=== PATIENT | female | born 1960 | race Caucasian/White ===

== ENCOUNTER 2017-04-22 23:20 | Emergency (ER) | payer OTHER ==
[2017-04-22 23:29] VITALS: RESP 18
--- NOTE | 2017-04-23 00:25 | ED ---
General Adult HPI - General Chief complaint: Extremity Injury, Lower Stated complaint: Ankle Pain Time Seen by Provider: 04/22/17 23:36 Source: patient, family, RN notes reviewed Mode of arrival: ambulatory Limitations: no limitations - History of Present Illness Initial comments: If complaint history of present illness a 56-year-old female with on-again off- again chronic discomfort to her left ankle. She reports she sees a pop at times. No acute direct injury recently. - Related Data Home Medications Medication Instructions Recorded Confirmed Cetirizine HCl [Zyrtec] 10 mg PO DAILY 04/22/17 04/22/17 Insulin Aspart [NovoLOG] 0 unit SQ AC-BID 04/22/17 04/22/17 Insulin Detemir [Levemir] 84 unit SQ BID 04/22/17 04/22/17 Lisinopril-Hctz 20-25 mg 1 tab PO DAILY 04/22/17 04/22/17 [Zestoretic 20-25] Multivitamins, Thera [Multivitamin 1 tab PO DAILY 04/22/17 04/22/17 (formulary)] Simvastatin [Zocor] 20 mg PO HS 04/22/17 04/22/17 metFORMIN HCL 1,000 mg PO BID 04/22/17 04/22/17 Previous Rx's Medication Instructions Recorded Ibuprofen [Motrin] 600 mg PO Q6HR PRN #20 tab 04/23/17 Allergies Allergy/AdvReac Type Severity Reaction Status Date / Time Penicillins Allergy Unknown Verified 04/22/17 23:30 Childhood Sulfa (Sulfonamide Allergy Unknown Verified 04/22/17 23:30 Antibiotics) Childhood Review of Systems ROS Statement: Those systems with pertinent positive or pertinent negative responses have been documented in the HPI. Review of systems no other complaints other joints although occasionally her right ankle hurts as well. All systems were reviewed otherwise negative. No significant past medical problems she has ALLERGIES to penicillin sulfa. ROS Other: All systems not noted in ROS Statement are negative. Past Medical History Past Medical History: Cancer, Diabetes Mellitus, Hypertension History of Any Multi-Drug Resistant Organisms: None Reported Past Surgical History: Hernia Repair, Hysterectomy Additional Past Surgical History / Comment(s): bladder suspension Past Psychological History: No Psychological Hx Reported Smoking Status: Never smoker Past Alcohol Use History: None Reported Past Drug Use History: None Reported General Exam - General Exam Comments Initial Comments: The patient is awake and alert, in no distress, and does not appear acutely ill. Musculoskeletal: Neurological: no neuro deficit Limitations: no limitations Course Vital Signs 04/22/17 23:25 Temperature 98.3 F Pulse Rate 95 Respiratory 18 Rate Blood Pressure 195/84 O2 Sat by Pulse 99 Oximetry Medical Decision Making - Medical Decision Making ice the ankle, Ibuprofen for pain Disposition Clinical Impression: Sprain of left ankle Disposition: HOME SELF-CARE Condition: Fair Instructions: Ankle Sprain (ED) Additional Instructions: ice elevate ibuprofen for pain Prescriptions: Ibuprofen [Motrin] 600 mg PO Q6HR PRN #20 tab PRN Reason: Pain Referrals: Estiven Pastrana MD [Primary Care Provider] - 1-2 days Time of Disposition: 00:29
[2017-04-23 00:40] VITALS: BP 165/81; PULSE 92; TEMP 98
--- NOTE | 2017-04-23 00:46 | XR ---
EXAM: XR Left Ankle Complete, 3 or More Views CLINICAL HISTORY: Reason: Pain TECHNIQUE: Frontal, lateral and oblique views of the left ankle. COMPARISON: No relevant prior studies available. FINDINGS: Bones/joints: No acute fracture. No dislocation. Plantar calcaneal spur. Soft tissues: No radiopaque foreign body. IMPRESSION: No acute fracture.
== END 2017-04-23 00:39 | disposition home or self-care (01) ==
LOC: EC 23:20
DX: S93.402A Sprain of unspecified ligament of left ankle, initial encounter (principal); E11.9 Type 2 diabetes mellitus without complications; I10 Essential (primary) hypertension; Z79.4 Long term (current) use of insulin; Z79.899 Other long term (current) drug therapy; Z88.0 Allergy status to penicillin; Z88.2 Allergy status to sulfonamides; X50.1XXA Overexertion from prolonged static or awkward postures, initial encounter
CPT/HCPCS: 99283

== ENCOUNTER → 2017-05-20 | Outpatient (CLI) | payer OTHER ==
--- NOTE | 2017-05-20 22:00 | MR ---
EXAMINATION TYPE: MR ankle LT wo con DATE OF EXAM: 05/20/2017 COMPARISON: Left ankle x-ray April 22, 2017 HISTORY: Lt ankle pain and clicking x 3 months per patient. Standard multiplanar, multisequence MRI departmental protocol Multiplanar, multisequence images of the left ankle were acquired. FINDINGS: Distal Achilles tendon is intact. There is moderate size inferior calcaneal spur redemonstr ated. No inflammatory change at level of plantar fascia is identified. The peroneus longus tendon shows asymmetric mild enlargement with increased signal at level of the an terior calcaneus as crosses over with surrounding fluid. Findings are consistent with a moderate tend initis/tenosynovitis. No retracted tear is seen. There is some focal surrounding fluid at level of PT medial malleolus on axial image 23. There is add itional more prominent surrounding fluid seen best sagittal image 15 at level of the talocalcaneal ju nction. This tendon becomes thickened distal to this on axial images. Extensor tendons anteriorly are intact. The anterior tibiofibular and anterior talofibular ligaments are intact. Ankle mortise symmetry is pr eserved. There is loss of normal sinus tarsi fat. There is heterogeneous increased T2 signal in the anterior t alus near level of the anterior talocalcaneal articulation. There is diffuse increased T2 signal in t he tarsal navicular bone with focal cystic change in the superior navicular on sagittal image 11. The re is heterogeneous increased signal in the lateral aspect of the medial cuneiform along dorsal surfa ce seen best on sagittal image 12. There is subchondral cystic change at base of fourth metatarsal. IMPRESSION: 1. Moderate tendinitis/tenosynovitis involving PL tendon. 2. Moderate to severe tendinitis and surrounding inflammatory change of the PT tendon. 3. 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 Clinical correlation advised. 4. Abnormal osseous contusion or bone marrow edema involving the anterior talus, the navicular bone d iffusely, and the dorsal lateral aspect of the medial cuneiform suggests reactive stress injury at th is level.
== END ==
LOC: RADMRIMAIN 14:05
PROVIDERS: ATTEND Internal Medicine
DX: M77.52 Other enthesopathy of left foot and ankle (principal)

== ENCOUNTER → 2017-07-10 | Outpatient (CLI) | payer OTHER ==
[2017-07-10 18:54] LABS: Blood Urea Nitrogen 30 mg/dL (7-17); Non-African American GFR(MDRD) >60 (>60 ml/min/1.73 sqM)
--- NOTE | 2017-07-11 06:36 | CT ---
EXAMINATION TYPE: CT soft tissue neck w con DATE OF EXAM: 07/10/2017 HISTORY: Left sided neck swelling and throat soreness COMPARISON: NONE CT DLP: 660.1 mGycm. Automated Exposure Control for Dose Reduction was Utilized. TECHNIQUE: CT scan of the neck is performed with IV Contrast, patient injected with 100 mL of Omnipa que 300, axial images are obtained, coronal and sagittal reformatted images are reviewed. FINDINGS: Airway: Left thyroid lobe is enlarged due to large hypodense nodule measuring 3.2 cm transversely by 4.3 cm AP diameter by 4.5 cm craniocaudal dimension on axial image 42 and coronal image 40. There is mass effect on trachea which is deviated to right of midline. Some smaller calcifications or calcifie d nodules and hypodense nodules are seen in thyroid isthmus and right lobe of thyroid. There are some prominent lymph nodes just superior to this dominant left thyroid nodule, largest measures 1.5 x 1. 0 cm on axial image 54 just anterior to common carotid artery and internal jugular vein. Parotid/submandibular glands: No gross abnormality seen. Carotid/Vascular Structures: There is moderate to severe calcified plaque at left carotid bulb, signi ficant stenosis at this level cannot be excluded extending into left internal carotid artery. There i s more mild to moderate calcified plaque at right carotid bulb. Follow-up advised. Osseous Structures: There is reversal of normal cervical curvature. There is mild to moderate disc sp salvatore narrowing and spurring C5-C6 and C6-C7 levels. Other: Main pulmonary artery is dilated at 3.2 cm on axial image 6, CT findings raising concern for u nderlying pulmonary artery hypertension. Correlate clinically. There is partial visualization of right breast subpectoral implant. IMPRESSION: There is a dominant 4.5 cm left thyroid nodule causing mass effect on trachea. Adjacent p rominent superior lymph nodes are noted. Neoplasm cannot be excluded. Further investigation with ultr asound guided fine-needle aspiration is advised.
== END | disposition home or self-care (01) ==
LOC: RADCTMAIN 17:54
PROVIDERS: ATTEND Internal Medicine
DX: E04.1 Nontoxic single thyroid nodule (principal); J39.8 Other specified diseases of upper respiratory tract
CPT/HCPCS: 82565; 84520; 70491; 36415; Q9967

== ENCOUNTER → 2017-09-13 | Outpatient (CLI) | payer OTHER ==
[2017-09-13 19:12] LABS: Blood Urea Nitrogen 34 mg/dL (7-17); Non-African American GFR(MDRD) >60 (>60 ml/min/1.73 sqM)
--- NOTE | 2017-09-13 23:20 | CT ---
EXAMINATION TYPE: CT abdomen w con DATE OF EXAM: 09/13/2017 COMPARISON: 08/17/2012 HISTORY: 56-year-old female gastric tube is leaking/pt had it put in 3 wks ago. hx thyroid cancer. Ev aluate for gastric fistula. TECHNIQUE: Contiguous axial scanning of the abdomen following administration of 100 ml Omnipaque 300 IV contrast. Delayed images through the kidneys and coronal/sagittal reconstructions performed. CT DLP: 1796.4 mGycm Automated exposure control for dose reduction was used. FINDINGS: Right breast prosthesis is demonstrated. Heart is normal size without pericardial effusion. Strandy a telectasis at the left base. No pleural effusion. Liver enlarged measuring 20 cm craniocaudal. No focal liver lesion seen. No biliary ductal dilatation . Portal venous system is patent. Slightly lower attenuation of the liver as compared to the spleen o n portal venous phase suggesting fatty infiltration. Gallbladder, adrenal glands, lobulated kidneys, and pancreas appear within normal limits. Spleen is mildly enlarged measuring 14.7 cm on axial series. No dilated small bowel, free fluid, or free air. Prior right-sided ventral abdominal wall hernia mesh repair. A PEG tube is present. The PEG tube balloon is located within the within the stomach. There is some a ir seen interposed between the gastric wall and inflated balloon along its superior aspect and small amount of air tracking along the catheter, referred to sagittal image 91 and 95, respectively regardi ng these findings. There is some thickening along the inferior margin of the catheter tract and some focal fat stranding around the stomach at the site where the PEG tube enters the stomach. No extravasation of contrast. No free air. Bones: Small fatty umbilical hernia. Degenerative changes mid to lower lumbar spine. No osseous destr uctive process. IMPRESSION: 1. FOCAL FAT STRANDING AROUND THE STOMACH AT THE SITE WHERE THE PEG TUBE ENTERS THE STOMACH CHARACTER IZED SUGGESTS SOME LOCALIZED INFLAMMATION. NO EXTRAVASATION OF CONTRAST OR FREE AIR. 2. SOME AIR INTERPOSED BETWEEN THE INFLATED BALLOON AND ANTERIOR GASTRIC WALL. CONSIDER PULLING BACK ON THE PEG TUBE TO MAKE A TIGHTER SEAL. 3. IN ADDITION, SMALL FOCUS OF AIR TRACKING ALONG THE INFERIOR ASPECT OF THE PEG TUBE CATHETER RAISES THE POSSIBILITY OF SOME LEAKING GASTRIC AIR. 4. HEPATOSPLENOMEGALY. CLINICALLY CORRELATE. SUSPECT UNDERLYING FATTY INFILTRATION OF THE LIVER.
== END | disposition home or self-care (01) ==
LOC: RADCTMAIN 18:30
PROVIDERS: ATTEND Surgery Plastic and Reconstructive Surgery
DX: R16.2 Hepatomegaly with splenomegaly, not elsewhere classified (principal); Z93.1 Gastrostomy status
CPT/HCPCS: 82565; 84520; 74160; 36415; Q9967

== ENCOUNTER 2017-09-26 09:11 | Emergency (ER) | payer OTHER ==
[2017-09-26 09:18] VITALS: PULSE 89; RESP 16; TEMP 97.6
--- NOTE | 2017-09-26 09:27 | ED ---
Recheck HPI - General Chief Complaint: Recheck/Abnormal Lab/Rx Stated Complaint: Feeding tube plugged Time Seen by Provider: 09/26/17 09:23 Source: patient, RN notes reviewed, old records reviewed Mode of arrival: EMS Limitations: no limitations - History of Present Illness Initial Comments: 56-year-old female presents today chief complaint of her feeding tube being clogged this morning. She reports that she try to put her pills within her feeding tube and she states that they became lodged. She reports she try to flush it with water, but was unable to. Patient states that she had his feeding tube placed by Dr. Ferro approximately 6 weeks ago. She reports that she only started using the feeding tube last 2 weeks. She denies any fever or chills, denies any change in bowel habits. - Related Data Home Medications Medication Instructions Recorded Confirmed Cetirizine HCl [Zyrtec] 10 mg PEG/G-TUBE DAILY 04/22/17 09/26/17 Insulin Aspart [NovoLOG See Protocol SQ AC-BID 04/22/17 09/26/17 (formulary)] Lisinopril-Hctz 20-25 mg 1 tab PEG/G-TUBE DAILY 04/22/17 09/26/17 [Zestoretic 20-25] Simvastatin [Zocor] 20 mg PEG/G-TUBE HS 04/22/17 09/26/17 metFORMIN HCL 1,000 mg PEG/G-TUBE BID 04/22/17 09/26/17 Allopurinol [Zyloprim] 100 mg PEG/G-TUBE DAILY 07/14/17 09/26/17 Levothyroxine Sodium [Synthroid] 25 mcg PEG/G-TUBE DAILY 07/14/17 09/26/17 Acetaminophen [Tylenol Extra 2 tab PEG/G-TUBE Q6H PRN 08/25/17 09/26/17 Strength] HYDROcodone/APAP [[place] Elixir 15 - 25 ml PEG/G-TUBE ACHS 09/15/17 09/26/17 7.5-325Mg/15Ml] Ondansetron HCl [Zofran Oral Soln] 4 mg PEG/G-TUBE Q6H PRN 09/15/17 09/26/17 Levofloxacin [Levaquin] 500 mg PEG/G-TUBE DAILY 09/26/17 09/26/17 Potassium Chloride ER [K-Dur 20] 20 meq PEG/G-TUBE BID 09/26/17 09/26/17 Previous Rx's Medication Instructions Recorded Fluconazole [Diflucan] 200 mg PO DAILY #5 tab 09/21/17 Insulin Glargine,Hum.rec.anlog 51 unit SQ BID #0 09/21/17 [Basaglar Kwikpen U-100] Allergies Allergy/AdvReac Type Severity Reaction Status Date / Time Penicillins Allergy Unknown Verified 09/26/17 09:23 Childhood Sulfa (Sulfonamide Allergy Unknown Verified 09/26/17 09:23 Antibiotics) Childhood Review of Systems ROS Statement: Those systems with pertinent positive or pertinent negative responses have been documented in the HPI. ROS Other: All systems not noted in ROS Statement are negative. Past Medical History Past Medical History: Cancer, Diabetes Mellitus, Hyperlipidemia, Hypertension, Osteoarthritis (OA), Thyroid Disorder Additional Past Medical History / Comment(s): Leukemia at age 13 yrs with chemo and radiation, R breast cancer with mastectomy only, uterine cancer with hysterectomy only, basal cell skin cancer removed from head early 2016 with chemotherapy, current thyroid cancer with difficulty swallowing/deviated airway being treated with chemo/radiation, current peg tube site infection per pt, gout bilateral feet/toes, past L wrist fracture, arthritis bilateral hips, UTIs. History of Any Multi-Drug Resistant Organisms: None Reported Past Surgical History: Appendectomy, Breast Surgery, Hernia Repair, Hysterectomy Additional Past Surgical History / Comment(s): 08/25/17 EGD with peg tube, R mastectomy, basal cell skin cancer removed from head, total hysterectomy, bladder suspension, colonoscopy Past Anesthesia/Blood Transfusion Reactions: Postoperative Nausea & Vomiting ( PONV) Additional Past Anesthesia/Blood Transfusion Reaction / Comment(s): Pt has received blood without reaction. Past Psychological History: No Psychological Hx Reported Smoking Status: Never smoker Past Alcohol Use History: None Reported Past Drug Use History: None Reported - Past Family History Sister(s) Family Medical History: Thyroid Disorder Additional Family Medical History / Comment(s): Thyroid CA Mother Family Medical History: Diabetes Mellitus Father Additional Family Medical History / Comment(s): father has back problems. General Exam - General Exam Comments Initial Comments: this patient is a 56-year-old female. No acute distress. Limitations: no limitations General appearance: alert, in no apparent distress Head exam: Present: atraumatic, normocephalic, normal inspection Eye exam: Present: normal appearance, PERRL, EOMI. Absent: scleral icterus, conjunctival injection, periorbital swelling ENT exam: Present: normal exam Neck exam: Present: normal inspection. Absent: tenderness, meningismus, lymphadenopathy Respiratory exam: Present: normal lung sounds bilaterally. Absent: respiratory distress, wheezes, rales, rhonchi, stridor Cardiovascular Exam: Present: regular rate, normal rhythm, normal heart sounds. Absent: systolic murmur, diastolic murmur, rubs, gallop, clicks GI/Abdominal exam: Present: soft, normal bowel sounds, other (feeding tube in place). Absent: distended, tenderness, guarding, rebound, rigid Extremities exam: Present: normal inspection, full ROM, normal capillary refill. Absent: tenderness, pedal edema, joint swelling, calf tenderness Psychiatric exam: Present: normal mood Skin exam: Present: warm, dry, intact, normal color. Absent: rash Course Vital Signs 09/26/17 09:14 Temperature 97.6 F Pulse Rate 89 Respiratory 16 Rate Medical Decision Making - Medical Decision Making 56-year-old female with a history of gastric feeding tube presents with a clot after she put her pills in it. Patient has no erythema around the site. No abdominal tenderness. Patient's feeding tube was flushed with cocoa, there was full function of the feeding tube afterwards. Patient will be discharged home at this time. Discussed return to the emergency department if any alarming signs symptoms occur. Patient agrees treatment plan will comply. Disposition Clinical Impression: Feeding tube blocked Disposition: HOME SELF-CARE Condition: Good Instructions: How to Use and Care for Your PEG Tube (ED) Additional Instructions: patient advised to follow-up with her primary care physician, this does recur again try to use Coke to dissolve the particles that are blocked. Return to emergency department if any alarming signs or symptoms occur. Referrals: Estiven Pastrana MD [Primary Care Provider] - 1-2 days Time of Disposition: 09:35
== END 2017-09-26 09:42 | disposition home or self-care (01) ==
LOC: EC 09:11
DX: K94.23 Gastrostomy malfunction (principal); E11.9 Type 2 diabetes mellitus without complications; E78.5 Hyperlipidemia, unspecified; I10 Essential (primary) hypertension; E07.9 Disorder of thyroid, unspecified; Z85.6 Personal history of leukemia; Z85.42 Personal history of malignant neoplasm of other parts of uterus; Z85.828 Personal history of other malignant neoplasm of skin; Z85.3 Personal history of malignant neoplasm of breast; Z85.850 Personal history of malignant neoplasm of thyroid; Z90.49 Acquired absence of other specified parts of digestive tract; Z98.890 Other specified postprocedural states; Z88.0 Allergy status to penicillin; Z88.2 Allergy status to sulfonamides; Z79.4 Long term (current) use of insulin; Z79.84 Long term (current) use of oral hypoglycemic drugs; Z79.899 Other long term (current) drug therapy; Y83.8 Other surgical procedures as the cause of abnormal reaction of the patient, or of later complication, without mention of misadventure at the time of the procedure
CPT/HCPCS: 99283

== ENCOUNTER 2017-09-28 18:22 | Inpatient (IN) | payer OTHER ==
[2017-09-28] MEDS ORDERED: SODIUM CHLORIDE 0.9% 1,000 ML IV STA ×2 (18:44→21:26)
[2017-09-28] MEDS ORDERED: RX INFO: IV CONTRAST WAS GIVEN 1 EACH MISC MISCELLANE PRN (18:50)
--- NOTE | 2017-09-28 18:52 | ED ---
General Adult HPI - General Source: EMS, RN notes reviewed, old records reviewed Mode of arrival: EMS Limitations: no limitations <Dane Davies - Last Filed: 09/28/17 21:27> <Dwight Crowder - Last Filed: 09/28/17 21:40> - General Chief complaint: Abdominal Pain Stated complaint: Abd Pain Time Seen by Provider: 09/28/17 18:35 - History of Present Illness Initial comments: Patient 56-year-old female seen a few past medical history for thyroid cancer, presenting to the emergency room today by EMS, the chief complaint of increased abdominal pain on the left side. She does not that she had a feeding tube placed approximately 4 weeks ago. States she's had some discomfort in the area since. States over the last day and a half his had increased sharp pains locally to left side of the abdomen. Patient does admit that it's worse with movements. Patient does not that she had radiation treatment earlier today. Also admits that she had 2 units of blood for anemia transfused. Patient denies any liquids associated symptoms. Patient denies any recent fever, chills , shortness of breath, chest pain, back pain, nausea or vomiting, numbness or tingling, dysuria or hematuria, constipation or diarrhea, headaches or visual changes, or any other complaints. (Dane Davies) - Related Data Home Medications Medication Instructions Recorded Confirmed Cetirizine HCl [Zyrtec] 10 mg PEG/G-TUBE DAILY 04/22/17 09/28/17 Insulin Aspart [NovoLOG See Protocol SQ AC-BID 04/22/17 09/28/17 (formulary)] Lisinopril-Hctz 20-25 mg 1 tab PEG/G-TUBE DAILY 04/22/17 09/28/17 [Zestoretic 20-25] Simvastatin [Zocor] 20 mg PEG/G-TUBE HS 04/22/17 09/28/17 metFORMIN HCL 1,000 mg PEG/G-TUBE BID 04/22/17 09/28/17 Allopurinol [Zyloprim] 100 mg PEG/G-TUBE DAILY 07/14/17 09/28/17 Levothyroxine Sodium [Synthroid] 25 mcg PEG/G-TUBE DAILY 07/14/17 09/28/17 Acetaminophen [Tylenol Extra 1,000 mg PEG/G-TUBE Q6H PRN 08/25/17 09/28/17 Strength] HYDROcodone/APAP [[place] Elixir 15 - 25 ml PEG/G-TUBE ACHS 09/15/17 09/28/17 7.5-325Mg/15Ml] Ondansetron HCl [Zofran Oral Soln] 4 mg PEG/G-TUBE Q6H PRN 09/15/17 09/28/17 Potassium Chloride ER [K-Dur 20] 20 meq PEG/G-TUBE BID 09/26/17 09/28/17 Previous Rx's Medication Instructions Recorded Insulin Glargine,Hum.rec.anlog 51 unit SQ BID #0 09/21/17 [Basaglar Kwikpen U-100] Allergies Allergy/AdvReac Type Severity Reaction Status Date / Time Penicillins Allergy Unknown Verified 09/28/17 18:36 Childhood Sulfa (Sulfonamide Allergy Unknown Verified 09/28/17 18:36 Antibiotics) Childhood Review of Systems ROS Other: All systems not noted in ROS Statement are negative. <Dane Davies - Last Filed: 09/28/17 21:27> ROS Other: All systems not noted in ROS Statement are negative. <Dwight Crowder - Last Filed: 09/28/17 21:40> ROS Statement: Those systems with pertinent positive or pertinent negative responses have been documented in the HPI. Past Medical History Past Medical History: Cancer, Diabetes Mellitus, Hyperlipidemia, Hypertension, Osteoarthritis (OA), Thyroid Disorder Additional Past Medical History / Comment(s): Leukemia at age 13 yrs with chemo and radiation, R breast cancer with mastectomy only, uterine cancer with hysterectomy only, basal cell skin cancer removed from head early 2016 with chemotherapy, current thyroid cancer with difficulty swallowing/deviated airway being treated with chemo/radiation, current peg tube site infection per pt, gout bilateral feet/toes, past L wrist fracture, arthritis bilateral hips, UTIs. History of Any Multi-Drug Resistant Organisms: None Reported Past Surgical History: Appendectomy, Breast Surgery, Hernia Repair, Hysterectomy Additional Past Surgical History / Comment(s): 08/25/17 EGD with peg tube, R mastectomy, basal cell skin cancer removed from head, total hysterectomy, bladder suspension, colonoscopy Past Anesthesia/Blood Transfusion Reactions: Postoperative Nausea & Vomiting ( PONV) Additional Past Anesthesia/Blood Transfusion Reaction / Comment(s): Pt has received blood without reaction. Past Psychological History: No Psychological Hx Reported Smoking Status: Never smoker - Past Family History Sister(s) Family Medical History: Thyroid Disorder Additional Family Medical History / Comment(s): Thyroid CA Mother Family Medical History: Diabetes Mellitus Father Additional Family Medical History / Comment(s): father has back problems. <Dane Davies - Last Filed: 09/28/17 21:27> General Exam Limitations: no limitations <Dane Davies - Last Filed: 09/28/17 21:27> <Dwight Crowder - Last Filed: 09/28/17 21:40> - General Exam Comments Initial Comments: General: The patient is awake and alert, in no distress, and does not appear acutely ill. Eye: Pupils are equal, round and reactive to light, extra-ocular movements are intact. No nystagmus. There is normal conjunctiva bilaterally. No signs of icterus. Ears, nose, mouth and throat: There are moist mucous membranes and no oral lesions. Neck: The neck is supple, there is no tenderness or JVD. Cardiovascular: There is a regular rate and rhythm. No murmur, rub or gallop is appreciated. Respiratory: Lungs are clear to auscultation, respirations are non-labored, breath sounds are equal. No wheezes, stridor, rales, or rhonchi. Gastrointestinal: PEG tube placement on the left. No sign of redness swelling. No inflammatory changes in skin. No drainage or discharge. Patient does have tenderness locally around the site and left lower quadrant as well. No rebound tenderness. No guarding. No CVA tenderness. Musculoskeletal: Normal ROM, no tenderness. Strength 5/5. Sensation intact. Pulses equal bilaterally 2+. Neurological: A&O x 3. CN II-XII intact, There are no obvious motor or sensory deficits. Coordination appears grossly intact. Speech is normal. Skin: Skin is warm and dry and no rashes or lesions are noted. Psychiatric: Cooperative, appropriate mood & affect, normal judgment. (Dane Davies) Course <Dane Davies - Last Filed: 09/28/17 21:27> <Dwight Crowder - Last Filed: 09/28/17 21:40> Vital Signs 09/28/17 09/28/17 18:30 19:11 Temperature 97.8 F Pulse Rate 89 86 Respiratory 18 18 Rate Blood Pressure 133/61 150/75 O2 Sat by Pulse 96 92 L Oximetry - Reevaluation(s) Reevaluation #1: 09/28/17 21:39 PA supervision: I did personally do a [id number] evaluation the patient and did discuss the findings with her. Patient has nonspecific abdominal pain around the PEG tube site. She is only taking fluids through the PEG tube she did have a transfusion recently she did have radiation therapy today. She is scheduled again tomorrow and have radiation therapy. She has abdominal pain still CAT scan was negative for any acute processes. She does show evidence of dehydration as well as lactic acidosis. Visual be admitted for IV fluids and continued monitoring. The case is to be discussed with Dr. Pastrana. I do agree with the assessment and plan. (Dwight Crowder) Medical Decision Making - Lab Data Result diagrams: 09/28/17 18:58 09/28/17 18:58 <Dane Davies - Last Filed: 09/28/17 21:27> - Lab Data Result diagrams: 09/28/17 18:58 09/28/17 18:58 <Dwight Crowder - Last Filed: 09/28/17 21:40> - Medical Decision Making Patient reexamined at this time shows no signs of distress resting comfortable. Does some improvement after pain medication here in emergency room. Her CT of the abdomen has been reviewed showing no acute abnormalities. Results were discussed with the patient. Labs been reviewed hemoglobin 9.5 day. Does show some mild dehydration. Patient given liter bolus with emergency room. Lactic acid 2.6. No source of infection at this time. Case discussed and seen by [facility] physician . We will admit the patient with consult to Dr. Ferro, Dr. Hendricks, Dr. Berg. (Dane Davies) - Lab Data Lab Results 09/28/17 09/28/17 09/28/17 Range/Units 18:58 18:58 18:58 WBC 7.7 (3.8-10.6) k/uL RBC 4.11 (3.80-5.40) m/uL Hgb 9.5 L D (11.4-16.0) gm/dL Hct 30.5 L (34.0-46.0) % MCV 74.4 L (80.0-100.0) fL MCH 23.2 L (25.0-35.0) pg MCHC 31.2 (31.0-37.0) g/dL RDW 20.4 H (11.5-15.5) % Plt Count 302 (150-450) k/uL Neutrophils % 91 % Lymphocytes % 4 % Monocytes % 3 % Eosinophils % 1 % Basophils % 0 % Neutrophils # 7.1 (1.3-7.7) k/uL Lymphocytes # 0.3 L (1.0-4.8) k/uL Monocytes # 0.2 (0-1.0) k/uL Eosinophils # 0.1 (0-0.7) k/uL Basophils # 0.0 (0-0.2) k/uL Hypochromasia Marked Poikilocytosis Moderate Anisocytosis Moderate Microcytosis Moderate PT 13.6 H (9.0-12.0) sec INR 1.5 H (<1.2) APTT 24.1 (22.0-30.0) sec Sodium 138 (137-145) mmol/L Potassium 4.6 (3.5-5.1) mmol/L Chloride 92 L (98-107) mmol/L Carbon Dioxide 32 H (22-30) mmol/L Anion Gap 14 mmol/L BUN 25 H (7-17) mg/dL Creatinine 0.90 (0.52-1.04) mg/dL Est GFR (MDRD) Af Amer >60 (>60 ml/min/1.73 sqM) Est GFR (MDRD) Non-Af >60 (>60 ml/min/1.73 sqM) Glucose 179 H (74-99) mg/dL Plasma Lactic Acid Jordin (0.7-2.0) mmol/L Calcium 8.5 (8.4-10.2) mg/dL Total Bilirubin 0.6 (0.2-1.3) mg/dL AST 21 (14-36) U/L ALT 25 (9-52) U/L Alkaline Phosphatase 86 (38-126) U/L Total Protein 6.4 (6.3-8.2) g/dL Albumin 3.4 L (3.5-5.0) g/dL Amylase 54 (30-110) U/L Lipase 57 (23-300) U/L Urine Color Urine Appearance (Clear) Urine pH (5.0-8.0) Ur Specific Dante (1.001-1.035) Urine Protein (Negative) Urine Glucose (UA) (Negative) Urine Ketones (Negative) Urine Blood (Negative) Urine Nitrite (Negative) Urine Bilirubin (Negative) Urine Urobilinogen (<2.0) mg/dL Ur Leukocyte Esterase (Negative) 09/28/17 09/28/17 Range/Units 18:58 18:58 WBC (3.8-10.6) k/uL RBC (3.80-5.40) m/uL Hgb (11.4-16.0) gm/dL Hct (34.0-46.0) % MCV (80.0-100.0) fL MCH (25.0-35.0) pg MCHC (31.0-37.0) g/dL RDW (11.5-15.5) % Plt Count (150-450) k/uL Neutrophils % % Lymphocytes % % Monocytes % % Eosinophils % % Basophils % % Neutrophils # (1.3-7.7) k/uL Lymphocytes # (1.0-4.8) k/uL Monocytes # (0-1.0) k/uL Eosinophils # (0-0.7) k/uL Basophils # (0-0.2) k/uL Hypochromasia Poikilocytosis Anisocytosis Microcytosis PT (9.0-12.0) sec INR (<1.2) APTT (22.0-30.0) sec Sodium (137-145) mmol/L Potassium (3.5-5.1) mmol/L Chloride (98-107) mmol/L Carbon Dioxide (22-30) mmol/L Anion Gap mmol/L BUN (7-17) mg/dL Creatinine (0.52-1.04) mg/dL Est GFR (MDRD) Af Amer (>60 ml/min/1.73 sqM) Est GFR (MDRD) Non-Af (>60 ml/min/1.73 sqM) Glucose (74-99) mg/dL Plasma Lactic Acid Jordin 2.6 H* (0.7-2.0) mmol/L Calcium (8.4-10.2) mg/dL Total Bilirubin (0.2-1.3) mg/dL AST (14-36) U/L ALT (9-52) U/L Alkaline Phosphatase (38-126) U/L Total Protein (6.3-8.2) g/dL Albumin (3.5-5.0) g/dL Amylase (30-110) U/L Lipase (23-300) U/L Urine Color Light Yellow Urine Appearance Clear (Clear) Urine pH 5.5 (5.0-8.0) Ur Specific Dante 1.006 (1.001-1.035) Urine Protein Negative (Negative) Urine Glucose (UA) Negative (Negative) Urine Ketones Negative (Negative) Urine Blood Negative (Negative) Urine Nitrite Negative (Negative) Urine Bilirubin Negative (Negative) Urine Urobilinogen <2.0 (<2.0) mg/dL Ur Leukocyte Esterase Negative (Negative) Disposition Time of Disposition: 21:29 <Dane Davies - Last Filed: 09/28/17 21:27> <Dwight Crowder - Last Filed: 09/28/17 21:40> Clinical Impression: Abdominal pain, Lactic acidosis Referrals: Estiven Pastrana MD [Primary Care Provider] - 1-2 days
[2017-09-28 19:18] LABS: Anisocytosis Moderate; Basophils % (A) 0 %; Eosinophils # (A) 0.1 k/uL (0-0.7); Eosinophils % (A) 1 %; HCT 30.5 % (34.0-46.0); Hypochromasia Marked; Lymphocytes # (A) 0.3 k/uL (1.0-4.8); Lymphocytes % (A) 4 %; MCH 23.2 pg (25.0-35.0); MCHC 31.2 g/dL (31.0-37.0); MCV 74.4 fL (80.0-100.0); Microcytosis Moderate; Monocytes # (A) 0.2 k/uL (0-1.0); Monocytes % (A) 3 %; Neutrophils # (A) 7.1 k/uL (1.3-7.7); Neutrophils % (A) 91 %; Platelet Count 302 k/uL (150-450); Poikilocytosis Moderate; RBC 4.11 m/uL (3.80-5.40); RDW 20.4 % (11.5-15.5); WBC 7.7 k/uL (3.8-10.6)
[2017-09-28 19:19] LABS: Appearance,Urine Clear (Clear); Bilirubin,Urine Negative (Negative); Blood,Urine Negative (Negative); Color,Urine Light Yellow; Glucose,Urine (UA) Negative (Negative); Ketones,Urine Negative (Negative); Leukocyte Esterase,Urine Negative (Negative); Nitrite,Urine Negative (Negative); PH, Urine 5.5 (5.0-8.0); Protein,Urine Negative (Negative); Specific Gravity,Urine 1.006 (1.001-1.035); Urobilinogen,Urine <2.0 mg/dL (<2.0)
[2017-09-28 19:26] LABS: ALT 25 U/L (9-52); AST 21 U/L (14-36); Albumin 3.4 g/dL (3.5-5.0); Alkaline Phosphatase 86 U/L (38-126); Amylase 54 U/L (30-110); Anion Gap 14 mmol/L; Blood Urea Nitrogen 25 mg/dL (7-17); Calcium 8.5 mg/dL (8.4-10.2); Carbon Dioxide 32 mmol/L (22-30); Chloride 92 mmol/L (98-107); Glucose 179 mg/dL (74-99); HGB 9.5 gm/dL (11.4-16.0); Lipase 57 U/L (23-300); Potassium 4.6 mmol/L (3.5-5.1); Sodium 138 mmol/L (137-145); Total Bilirubin 0.6 mg/dL (0.2-1.3); Total Protein 6.4 g/dL (6.3-8.2)
[2017-09-28 19:42] LABS: INR 1.5 (<1.2); Partial Thromboplastin Time 24.1 sec (22.0-30.0); Prothrombin Time 13.6 sec (9.0-12.0)
[2017-09-28] MEDS ORDERED: HYDROmorphone 1 MG/ML 1 ML SYRINGE IVP STA (20:29)
[2017-09-28] MEDS ORDERED: ONDANSETRON 4 MG/2 ML VIAL IVP STA (20:29)
--- NOTE | 2017-09-28 20:54 | CT ---
EXAMINATION TYPE: CT abdomen pelvis w con DATE OF EXAM: 09/28/2017 REFERENCE: Previous study dated 09/13/2017. HISTORY: L side abd pain CT DLP: 1792 mGy Automated exposure control for dose reduction was used. TECHNIQUE: Helical acquisition through the abdomen and pelvis was obtained following the oral ingesti on of without Oral Contrast and following intravenous administration of 100 mL of Omnipaque 300. The data was reformatted in axial, coronal and sagittal projections. FINDINGS: There has been a previous right-sided mastectomy with implant placement. There is mild atelectatic change present at the left lung base. There is no pleural or pericardial fl uid. The heart is mildly enlarged. Within the abdomen, the liver is enlarged measuring 19 cm. This is largely due to a Missy's lobe. Th ere is mild splenomegaly. The gallbladder is unremarkable. Both adrenal glands are unremarkable. Both kidneys demonstrate function and appear morphologically normal. The pancreas is unremarkable. There is a PEG tube present within the stomach. There is no significant retroperitoneal, iliac or inguinal adenopathy. The bladder is unremarkable. The uterus and ovaries are not visualized. There is no significant diverticular change and there is no radiographic evidence of diverticulitis. The appendix is not visualized. Small bowel loops are normal. There have been multiple hernia repairs. There continues to be a tiny umbilical hernia containing fat only with a mouth measuring 1.1 cm. No free fluid and no free air is seen. There is degenerative disc disease, facet arthropathy and hypertrophic spondylosis within the spine. IMPRESSION: 1. HEPATOSPLENOMEGALY. 2. MILD CARDIOMEGALY. 3. POSTSURGICAL CHANGE. 4. DEGENERATIVE CHANGE WITHIN THE SPINE.
[2017-09-28] MEDS ORDERED: ONDANSETRON 4 MG/2 ML VIAL IVP PRN (21:32)
[2017-09-28] MEDS ORDERED: LORazepam 2 MG/ML INJ IV PRN (21:32)
[2017-09-28] MEDS ORDERED: NALOXONE 0.4 MG/ML 1 ML VIAL IV PRN (21:32)
[2017-09-28 21:59] VITALS: RESP 16
[2017-09-28] MEDS: HYDROmorphone 2 MG/ML 1 ML SYRINGE IVP PRN (23:01)
[2017-09-29 03:20] VITALS: BMI 36.3
[2017-09-29] MEDS: HYDROmorphone 2 MG/ML 1 ML SYRINGE IVP PRN ×4 (04:55→16:26)
[2017-09-29 07:39] LABS: Glucose,Whole Blood 96 mg/dL (75-99)
[2017-09-29 07:41] LABS: Anisocytosis Moderate; Basophils % (A) 0 %; Eosinophils # (A) 0.1 k/uL (0-0.7); Eosinophils % (A) 2 %; HCT 30.2 % (34.0-46.0); HGB 9.2 gm/dL (11.4-16.0); Hypochromasia Marked; Lymphocytes # (A) 0.4 k/uL (1.0-4.8); Lymphocytes % (A) 8 %; MCH 22.9 pg (25.0-35.0); MCHC 30.3 g/dL (31.0-37.0); MCV 75.6 fL (80.0-100.0); Mean Platelet Volume 7.6; Microcytosis Moderate; Monocytes # (A) 0.2 k/uL (0-1.0); Monocytes % (A) 4 %; Neutrophils # (A) 4.3 k/uL (1.3-7.7); Neutrophils % (A) 86 %; Platelet Count 256 k/uL (150-450); Poikilocytosis Slight; RBC 3.99 m/uL (3.80-5.40); RDW 22.6 % (11.5-15.5)
[2017-09-29 08:03] LABS: ALT 25 U/L (9-52); AST 16 U/L (14-36); Albumin 2.9 g/dL (3.5-5.0); Alkaline Phosphatase 73 U/L (38-126); Anion Gap 10 mmol/L; Blood Urea Nitrogen 20 mg/dL (7-17); Calcium 8.1 mg/dL (8.4-10.2); Carbon Dioxide 34 mmol/L (22-30); Chloride 97 mmol/L (98-107); Glucose 90 mg/dL (74-99); Sodium 141 mmol/L (137-145); Total Bilirubin 0.5 mg/dL (0.2-1.3); Total Protein 5.8 g/dL (6.3-8.2)
[2017-09-29 12:35] LABS: Glucose,Whole Blood 102 mg/dL (75-99)
--- NOTE | 2017-09-29 12:47 | P.PN ---
Progress Note - Text Progress Note Date: 09/29/17 Patient seen and evaluated. Please see full dictated consult. No erythema or infection at gastrostomy tube. No gastrostomy malfunction identified. Patient has lost weight and buckle along G-tube loose as a result. At bedside, G-tube retightened. CT of the abdomen pelvis revealed with no evidence of inflammatory changes. Patient has severe hepatomegaly hence limiting any future revision of her gastrostomy tube. Patient cleared to proceed with chemoradiation therapy.
--- NOTE | 2017-09-29 13:46 | P.GSCN ---
<Mallory Smart - Last Filed: 09/29/17 13:33> History of Present Illness Consult date: 09/29/17 History of present illness: Pleasant 56-year-old female being seen by surgical service at the request of the attending for surgical eval for abdominal discomfort left side. Patient reports that she did have a PEG tube placed approximately 4 weeks ago and has been doing tube feeds at home for supplemental nutritional support. Patient states she became concerned over the last couple days had noted that she had increased pain to the left side of the abdomen. Seem to be worse if she moved. Patient currently is being treated for thyroid cancer receiving chemo- radiation treatment. PEG tube was placed by Dr. Morrison in August 25 due to difficulty swallowing from the thyroid mass. Patient does have a history of breast and uterine cancer, childhood leukemia has been followed by Dr. Hendricks's office currently the PEG tube flushed with no resistance does not appear to be malfunctioning. An abdominal binder has been placed and patient states with the binder in place there is less abdominal discomfort Review of Systems Essentially unremarkable except as mentioned in the present illness Past Medical History Past Medical History: Cancer, Diabetes Mellitus, Hyperlipidemia, Hypertension, Osteoarthritis (OA), Thyroid Disorder Additional Past Medical History / Comment(s): Leukemia at age 13 yrs with chemo and radiation, R breast cancer with mastectomy only, uterine cancer with hysterectomy only, basal cell skin cancer removed from head early 2016 with chemotherapy, current thyroid cancer with difficulty swallowing/deviated airway being treated with chemo/radiation, current peg tube site infection per pt, gout bilateral feet/toes, past L wrist fracture, arthritis bilateral hips, UTIs. History of Any Multi-Drug Resistant Organisms: None Reported Past Surgical History: Appendectomy, Breast Surgery, Hernia Repair, Hysterectomy Additional Past Surgical History / Comment(s): 08/25/17 EGD with peg tube, R mastectomy, basal cell skin cancer removed from head, total hysterectomy, bladder suspension, colonoscopy Past Anesthesia/Blood Transfusion Reactions: Postoperative Nausea & Vomiting ( PONV) Additional Past Anesthesia/Blood Transfusion Reaction / Comm: Pt has received blood without reaction. Past Psychological History: No Psychological Hx Reported Additional Psychological History / Comment(s): Pt resides with her spouse and an adult son. She is currently under cancer treatment for thyroid cancer. She uses no assistive device. She drives. She has a peg tube. Smoking Status: Never smoker Past Alcohol Use History: None Reported Past Drug Use History: None Reported - Past Family History Sister(s) Family Medical History: Thyroid Disorder Additional Family Medical History / Comment(s): Thyroid CA Mother Family Medical History: Diabetes Mellitus Father Additional Family Medical History / Comment(s): father has back problems. Medications and Allergies Home Medications Medication Instructions Recorded Confirmed Type Cetirizine HCl [Zyrtec] 10 mg PEG/G-TUBE DAILY 04/22/17 10/02/17 History Insulin Aspart [NovoLOG See Protocol SQ AC-BID 04/22/17 10/02/17 History (formulary)] Lisinopril-Hctz 20-25 mg 1 tab PEG/G-TUBE DAILY 04/22/17 10/02/17 History [Zestoretic 20-25] Simvastatin [Zocor] 20 mg PEG/G-TUBE HS 04/22/17 10/02/17 History metFORMIN HCL 1,000 mg PEG/G-TUBE BID 04/22/17 10/02/17 History Allopurinol [Zyloprim] 100 mg PEG/G-TUBE DAILY 07/14/17 10/02/17 History Levothyroxine Sodium [Synthroid] 25 mcg PEG/G-TUBE DAILY 07/14/17 10/02/17 History Acetaminophen [Tylenol Extra 1,000 mg PEG/G-TUBE Q6H PRN 08/25/17 10/02/17 History Strength] HYDROcodone/APAP [Catron Elixir 15 - 25 ml PEG/G-TUBE ACHS 09/15/17 10/02/17 History 7.5-325Mg/15Ml] Ondansetron HCl [Zofran Oral Soln] 4 mg PEG/G-TUBE Q6H PRN 09/15/17 10/02/17 History Insulin Glargine,Hum.rec.anlog 51 unit SQ BID #0 09/21/17 10/02/17 Rx [Basaglar Kwikpen U-100] Potassium Chloride ER [K-Dur 20] 20 meq PEG/G-TUBE BID 09/26/17 10/02/17 History Allergies Allergy/AdvReac Type Severity Reaction Status Date / Time Penicillins Allergy Unknown Verified 10/02/17 08:01 Childhood Sulfa (Sulfonamide Allergy Unknown Verified 10/02/17 08:01 Antibiotics) Childhood Surgical - Exam Vital Signs Temp Pulse Resp BP Pulse Ox 97.8 F 89 18 133/61 96 09/28/17 18:30 09/28/17 18:30 09/28/17 18:30 09/28/17 18:30 09/28/17 18:30 GENERAL APPEARANCE: patient is alert, oriented, 3 in no acute distress. States abdominal binder off her support less abdominal discomfort bowel VITAL SIGNS: Reviewed HEENT: Head is normocephalic and atraumatic. Pupils are equal and reactive. The nares are patent. Oropharynx is clear without lesions. NECK: Supple without lymphadenopathy. Traches midline. HEART: S1, S2. Regular rate and rhythm. Denying chest pain LUNGS: No crackles or wheezes are heard. Good air movement bilaterally ABDOMEN: Soft, nontender, nondistended with good bowel sounds. No peritoneal signs. No palpable organomegaly or masses. PEG tube in place no redness around the site flushes freely no resistance urinating no difficulty no nausea vomiting noted EXTREMITIES: Normal skin color and turgor. No cyanosis, rash, ulceration, clubbing or edema. Radial pedal pulses are 2/4 bilaterally. NEUROLOGICAL: No focal deficits. Strength and sensation are grossly intact. Results - Labs 09/29/17 07:04 09/29/17 07:04 Abnormal Lab Results - Last 24 Hours (Table) 09/28/17 09/28/17 09/28/17 Range/Units 18:58 18:58 18:58 Hgb 9.5 L D (11.4-16.0) gm/dL Hct 30.5 L (34.0-46.0) % MCV 74.4 L (80.0-100.0) fL MCH 23.2 L (25.0-35.0) pg MCHC (31.0-37.0) g/dL RDW 20.4 H (11.5-15.5) % Lymphocytes # 0.3 L (1.0-4.8) k/uL PT 13.6 H (9.0-12.0) sec INR 1.5 H (<1.2) Chloride 92 L (98-107) mmol/L Carbon Dioxide 32 H (22-30) mmol/L BUN 25 H (7-17) mg/dL Glucose 179 H (74-99) mg/dL POC Glucose (mg/dL) (75-99) mg/dL Plasma Lactic Acid Jordin (0.7-2.0) mmol/L Calcium (8.4-10.2) mg/dL Total Protein (6.3-8.2) g/dL Albumin 3.4 L (3.5-5.0) g/dL 09/28/17 09/29/17 09/29/17 Range/Units 18:58 07:04 07:04 Hgb 9.2 L (11.4-16.0) gm/dL Hct 30.2 L (34.0-46.0) % MCV 75.6 L (80.0-100.0) fL MCH 22.9 L (25.0-35.0) pg MCHC 30.3 L (31.0-37.0) g/dL RDW 22.6 H (11.5-15.5) % Lymphocytes # 0.4 L (1.0-4.8) k/uL PT (9.0-12.0) sec INR (<1.2) Chloride 97 L (98-107) mmol/L Carbon Dioxide 34 H (22-30) mmol/L BUN 20 H (7-17) mg/dL Glucose (74-99) mg/dL POC Glucose (mg/dL) (75-99) mg/dL Plasma Lactic Acid Jordin 2.6 H* (0.7-2.0) mmol/L Calcium 8.1 L (8.4-10.2) mg/dL Total Protein 5.8 L (6.3-8.2) g/dL Albumin 2.9 L (3.5-5.0) g/dL 09/29/17 Range/Units 12:34 Hgb (11.4-16.0) gm/dL Hct (34.0-46.0) % MCV (80.0-100.0) fL MCH (25.0-35.0) pg MCHC (31.0-37.0) g/dL RDW (11.5-15.5) % Lymphocytes # (1.0-4.8) k/uL PT (9.0-12.0) sec INR (<1.2) Chloride (98-107) mmol/L Carbon Dioxide (22-30) mmol/L BUN (7-17) mg/dL Glucose (74-99) mg/dL POC Glucose (mg/dL) 102 H (75-99) mg/dL Plasma Lactic Acid Jordin (0.7-2.0) mmol/L Calcium (8.4-10.2) mg/dL Total Protein (6.3-8.2) g/dL Albumin (3.5-5.0) g/dL Diabetes panel 09/28/17 09/29/17 Range/Units 18:58 07:04 Sodium 138 141 (137-145) mmol/L Potassium 4.6 4.0 (3.5-5.1) mmol/L Chloride 92 L 97 L (98-107) mmol/L Carbon Dioxide 32 H 34 H (22-30) mmol/L BUN 25 H 20 H (7-17) mg/dL Creatinine 0.90 0.91 (0.52-1.04) mg/dL Glucose 179 H 90 (74-99) mg/dL Calcium 8.5 8.1 L (8.4-10.2) mg/dL AST 21 16 (14-36) U/L ALT 25 25 (9-52) U/L Alkaline Phosphatase 86 73 (38-126) U/L Total Protein 6.4 5.8 L (6.3-8.2) g/dL Albumin 3.4 L 2.9 L (3.5-5.0) g/dL Calcium panel 09/28/17 09/29/17 Range/Units 18:58 07:04 Calcium 8.5 8.1 L (8.4-10.2) mg/dL Albumin 3.4 L 2.9 L (3.5-5.0) g/dL Pituitary panel 09/28/17 09/29/17 Range/Units 18:58 07:04 Sodium 138 141 (137-145) mmol/L Potassium 4.6 4.0 (3.5-5.1) mmol/L Chloride 92 L 97 L (98-107) mmol/L Carbon Dioxide 32 H 34 H (22-30) mmol/L BUN 25 H 20 H (7-17) mg/dL Creatinine 0.90 0.91 (0.52-1.04) mg/dL Glucose 179 H 90 (74-99) mg/dL Calcium 8.5 8.1 L (8.4-10.2) mg/dL Adrenal panel 09/28/17 09/29/17 Range/Units 18:58 07:04 Sodium 138 141 (137-145) mmol/L Potassium 4.6 4.0 (3.5-5.1) mmol/L Chloride 92 L 97 L (98-107) mmol/L Carbon Dioxide 32 H 34 H (22-30) mmol/L BUN 25 H 20 H (7-17) mg/dL Creatinine 0.90 0.91 (0.52-1.04) mg/dL Glucose 179 H 90 (74-99) mg/dL Calcium 8.5 8.1 L (8.4-10.2) mg/dL Total Bilirubin 0.6 0.5 (0.2-1.3) mg/dL AST 21 16 (14-36) U/L ALT 25 25 (9-52) U/L Alkaline Phosphatase 86 73 (38-126) U/L Total Protein 6.4 5.8 L (6.3-8.2) g/dL Albumin 3.4 L 2.9 L (3.5-5.0) g/dL Assessment and Plan Assessment: Impression Thyroid cancer with tracheal deviation receiving chemo and radiation treatment A recent PEG tube placed for supplemental feedings on 08/25/2017 Morbid obesity due to excessive calories Dysphagia likely due to thyroid cancer with tracheal deviation Done on admission CAT scan abdomen and pelvis no evidence of free air no evidence of inflammatory changes, severe hepatomegaly limiting any future revision of gastrotomy tube Type 2 diabetes History of breast cancer postmastectomy History uterine cancer post hysterectomy PEG tube functioning no evidence of redness or cellulitis around the PEG tube site Plan PEG tube functioning no evidence of malfunctioning at this time Wear abdominal binder when up No evidence of an acute surgical abdomen CAT scan abdomen and pelvis show no evidence of inflammatory changes reviewed by Dr. Morrison Clear to proceed with chemoradiation treatment Continue with nutritional supplemental feeds as ordered No evidence of an acute surgical abdomen Will follow with you further surgical recommendations as needed From surgical perspective patient would be appropriate to be discharged defer to the timing of the discharge to the attending The above impression and plan of care have been discussed and directed by signing physician. Mallory Smart nurse practitioner acting as scribe for signing physician. <Kiley Morrison N - Last Filed: 10/04/17 08:44> Review of Systems REVIEW OF ORGAN SYSTEMS: CONSTITUTIONAL: Denies any fever or chills. Has weight loss. HEENT: Denies any trouble with vision, hearing or nosebleeds. Has difficulty swallowing. LYMPHATIC: The patient denies any lumps and bumps around the neck. ENDOCRINE: Has thyroid cancer. Poorly controlled diabetes. RESPIRATORY: Denies pneumonia. Denies any troubles with breathing or dyspnea on exertion. CARDIOVASCULAR: Denies any chest pain, palpitations, or recent heart attacks. GASTROINTESTINAL: Has heart burn, constipation. No bright red blood per rectum. GENITOURINARY: Denies any blood in urine or increased urinary frequency. MUSCULOSKELETAL: Has any back pain, stiffness, joint arthritis. NEUROLOGIC: Denies any numbness or tingling along the distal extremities. No seizure disorders or headaches. PSYCHIATRIC: Has depression. No suidical ideation. HEMATOLOGIC: Denies any abnormal bleeding or bruising. BREASTS: History of breast cancer. Surgical - Exam Vital Signs Temp Pulse Resp BP Pulse Ox 97.8 F 89 18 133/61 96 09/28/17 18:30 09/28/17 18:30 09/28/17 18:30 09/28/17 18:30 09/28/17 18:30 Results - Labs 09/29/17 07:04 09/29/17 07:04 Microbiology - Last 24 Hours (Table) 09/28/17 18:58 Blood Culture - Preliminary Blood No Growth after 120 hours Assessment and Plan (1) Thyroid cancer Status: Acute Code(s): C73 - MALIGNANT NEOPLASM OF THYROID GLAND SNOMED Code (s): 522553249 (2) Poorly controlled diabetes mellitus Status: Acute Code(s): E11.65 - TYPE 2 DIABETES MELLITUS WITH HYPERGLYCEMIA SNOMED Code(s): 886724216 (3) Gastrostomy status Status: Acute Code(s): Z93.1 - GASTROSTOMY STATUS SNOMED Code(s): 933277015 (4) Hyperglycemia Status: Acute Code(s): R73.9 - HYPERGLYCEMIA, UNSPECIFIED SNOMED Code(s): 82489122 Plan: 1. No current complications of feeding tube including upon review of computed tomography scan. 2. Gastrostomy tube adjusted as patient lost 10 pounds from previous procedure. 3. No signs of infection from gastrostomy tube. 4. Proceed with chemoradiation therapy.
--- NOTE | 2017-09-29 16:01 | P.HPIM ---
History of Present Illness H&P Date: 09/29/17 Chief Complaint: Abdominal pain This is a 56-year-old female with a known past medical history of thyroid cancer with a deviated trachea, breast cancer and uterine cancer, hypertension and diabetes mellitus and childhood leukemia. Patient is undergoing chemo and radiation treatment for her thyroid cancer. Patient has PEG tube placed for nutritional supplement due to difficulty swallowing from her thyroid mass. Patient presented to the emergency room with complaints of left-sided abdominal pain. She had her PEG tube placement about 4 weeks ago and had been doing tube feedings at home. She noticed over the last couple days that she had increased left-sided abdominal pain and it was worse when she moved. Patient had a computed tomography scan of the abdomen and pelvis completed showing hepatomegaly, mild cardiomegaly, postsurgical change and degenerative change within the spine. Patient was seen by surgical service. It was felt that likely patient's PEG tube came loose because she has had weight loss. PEG tube was retightened. An abdominal binder was applied to hold everything in place. Patient's symptoms have improved. She had a radiation treatment today. Surgery has cleared her for discharge. Patient denies any chest pain or shortness of breath. Denies any nausea or vomiting. Denies any fever chills or sweats. Denies any bowel movement changes or urinary symptoms. Patient feels ready for discharge home Review of Systems Please refer to HPI otherwise unremarkable Past Medical History Past Medical History: Cancer, Diabetes Mellitus, Hyperlipidemia, Hypertension, Osteoarthritis (OA), Thyroid Disorder Additional Past Medical History / Comment(s): Leukemia at age 13 yrs with chemo and radiation, R breast cancer with mastectomy only, uterine cancer with hysterectomy only, basal cell skin cancer removed from head early 2016 with chemotherapy, current thyroid cancer with difficulty swallowing/deviated airway being treated with chemo/radiation, current peg tube site infection per pt, gout bilateral feet/toes, past L wrist fracture, arthritis bilateral hips, UTIs. History of Any Multi-Drug Resistant Organisms: None Reported Past Surgical History: Appendectomy, Breast Surgery, Hernia Repair, Hysterectomy Additional Past Surgical History / Comment(s): 08/25/17 EGD with peg tube, R mastectomy, basal cell skin cancer removed from head, total hysterectomy, bladder suspension, colonoscopy Past Anesthesia/Blood Transfusion Reactions: Postoperative Nausea & Vomiting ( PONV) Additional Past Anesthesia/Blood Transfusion Reaction / Comment(s): Pt has received blood without reaction. Past Psychological History: No Psychological Hx Reported Additional Psychological History / Comment(s): Pt resides with her spouse and an adult son. She is currently under cancer treatment for thyroid cancer. She uses no assistive device. She drives. She has a peg tube. Smoking Status: Never smoker Past Alcohol Use History: None Reported Past Drug Use History: None Reported - Past Family History Sister(s) Family Medical History: Thyroid Disorder Additional Family Medical History / Comment(s): Thyroid CA Mother Family Medical History: Diabetes Mellitus Father Additional Family Medical History / Comment(s): father has back problems. Medications and Allergies Home Medications Medication Instructions Recorded Confirmed Type Cetirizine HCl [Zyrtec] 10 mg PEG/G-TUBE DAILY 04/22/17 09/28/17 History Insulin Aspart [NovoLOG See Protocol SQ AC-BID 04/22/17 09/28/17 History (formulary)] Lisinopril-Hctz 20-25 mg 1 tab PEG/G-TUBE DAILY 04/22/17 09/28/17 History [Zestoretic 20-25] Simvastatin [Zocor] 20 mg PEG/G-TUBE HS 04/22/17 09/28/17 History metFORMIN HCL 1,000 mg PEG/G-TUBE BID 04/22/17 09/28/17 History Allopurinol [Zyloprim] 100 mg PEG/G-TUBE DAILY 07/14/17 09/28/17 History Levothyroxine Sodium [Synthroid] 25 mcg PEG/G-TUBE DAILY 07/14/17 09/28/17 History Acetaminophen [Tylenol Extra 1,000 mg PEG/G-TUBE Q6H PRN 08/25/17 09/28/17 History Strength] HYDROcodone/APAP [Reeder Elixir 15 - 25 ml PEG/G-TUBE ACHS 09/15/17 09/28/17 History 7.5-325Mg/15Ml] Ondansetron HCl [Zofran Oral Soln] 4 mg PEG/G-TUBE Q6H PRN 09/15/17 09/28/17 History Insulin Glargine,Hum.rec.anlog 51 unit SQ BID #0 09/21/17 09/28/17 Rx [Basaglar Kwikpen U-100] Potassium Chloride ER [K-Dur 20] 20 meq PEG/G-TUBE BID 09/26/17 09/28/17 History Allergies Allergy/AdvReac Type Severity Reaction Status Date / Time Penicillins Allergy Unknown Verified 09/28/17 18:36 Childhood Sulfa (Sulfonamide Allergy Unknown Verified 09/28/17 18:36 Antibiotics) Childhood Physical Exam Vitals: Vital Signs Temp Pulse Pulse Resp BP BP Pulse Ox 09/29/17 07:00 98.2 F 79 16 155/75 93 L 09/28/17 22:40 16 09/28/17 22:30 97.8 F 100 16 161/86 97 09/28/17 21:57 98.9 F 84 16 157/72 94 L 09/28/17 19:11 86 18 150/75 92 L 09/28/17 18:30 97.8 F 89 18 133/61 96 Intake and Output 09/29/17 09/29/17 09/29/17 06:59 14:59 22:59 Intake Total 800 800 Output Total 650 Balance 150 800 Intake: IV 800 Sodium Chloride 0.9% 1, 800 000 ml @ 100 mls/hr IV . Q10H STA Rx#:[id number] Intake, IV Titration 800 Amount Sodium Chloride 0.9% 1, 800 000 ml @ 100 mls/hr IV . Q10H STA Rx#:[id number] Output: Urine 650 Other: Voiding Method Toilet Bedside Commode Head normocephalic Neck supple Lungs clear to auscultation bilaterally no wheezing or crackles Heart regular rate and rhythm S1-S2, no rub or gallop Abdomen is soft nontender nondistended positive bowel sounds no hepatosplenomegaly Extremities no edema Neuro alert and orientated to 3 Results CBC & Chem 7: 09/29/17 07:04 09/29/17 07:04 Labs: Abnormal Lab Results - Last 24 Hours (Table) 09/28/17 09/28/17 09/28/17 Range/Units 18:58 18:58 18:58 Hgb 9.5 L D (11.4-16.0) gm/dL Hct 30.5 L (34.0-46.0) % MCV 74.4 L (80.0-100.0) fL MCH 23.2 L (25.0-35.0) pg MCHC (31.0-37.0) g/dL RDW 20.4 H (11.5-15.5) % Lymphocytes # 0.3 L (1.0-4.8) k/uL PT 13.6 H (9.0-12.0) sec INR 1.5 H (<1.2) Chloride 92 L (98-107) mmol/L Carbon Dioxide 32 H (22-30) mmol/L BUN 25 H (7-17) mg/dL Glucose 179 H (74-99) mg/dL POC Glucose (mg/dL) (75-99) mg/dL Plasma Lactic Acid Jordin (0.7-2.0) mmol/L Calcium (8.4-10.2) mg/dL Total Protein (6.3-8.2) g/dL Albumin 3.4 L (3.5-5.0) g/dL 09/28/17 09/29/17 09/29/17 Range/Units 18:58 07:04 07:04 Hgb 9.2 L (11.4-16.0) gm/dL Hct 30.2 L (34.0-46.0) % MCV 75.6 L (80.0-100.0) fL MCH 22.9 L (25.0-35.0) pg MCHC 30.3 L (31.0-37.0) g/dL RDW 22.6 H (11.5-15.5) % Lymphocytes # 0.4 L (1.0-4.8) k/uL PT (9.0-12.0) sec INR (<1.2) Chloride 97 L (98-107) mmol/L Carbon Dioxide 34 H (22-30) mmol/L BUN 20 H (7-17) mg/dL Glucose (74-99) mg/dL POC Glucose (mg/dL) (75-99) mg/dL Plasma Lactic Acid Jordin 2.6 H* (0.7-2.0) mmol/L Calcium 8.1 L (8.4-10.2) mg/dL Total Protein 5.8 L (6.3-8.2) g/dL Albumin 2.9 L (3.5-5.0) g/dL 09/29/17 Range/Units 12:34 Hgb (11.4-16.0) gm/dL Hct (34.0-46.0) % MCV (80.0-100.0) fL MCH (25.0-35.0) pg MCHC (31.0-37.0) g/dL RDW (11.5-15.5) % Lymphocytes # (1.0-4.8) k/uL PT (9.0-12.0) sec INR (<1.2) Chloride (98-107) mmol/L Carbon Dioxide (22-30) mmol/L BUN (7-17) mg/dL Glucose (74-99) mg/dL POC Glucose (mg/dL) 102 H (75-99) mg/dL Plasma Lactic Acid Jordin (0.7-2.0) mmol/L Calcium (8.4-10.2) mg/dL Total Protein (6.3-8.2) g/dL Albumin (3.5-5.0) g/dL Thrombosis Risk Factor Assmnt - Choose All That Apply Any of the Below Risk Factors Present?: Yes Each Factor Represents 1 point: Age 41-60 years, Obesity (BMI >25) Thrombosis Risk Factor Assessment Total Risk Factor Score: 2 Thrombosis Risk Factor Assessment Level: Low Risk Assessment and Plan Assessment: 1. 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 Patient did receive radiation treatment today before discharge 2. Recent PEG tube placement for supplemental feedings placed on 08/25/2017 3. Abdominal pain with no acute findings on CAT scan. Patient seen by surgical service PEG tube was tightened. And they reported the patient will likely have some chronic abdominal pain there. Abdominal binder was also applied 4. Dysphagia likely secondary to thyroid cancer in tracheal deviation 5. Type 2 diabetes mellitus 6. Status post breast cancer and uterine cancer status post mastectomy and hysterectomy Plan is for patient to be discharged today Time with Patient: Greater than 30 (Greater than 50% of the total time spent in counseling and coordination of care.I performed an examination of the patient and discussed their management with the physician Backing In Machine Tender. I have reviewed the Physician Backing In Machine Tender's notes and agree with the documented findings and plan of care)
--- NOTE | 2017-09-29 16:05 | P.DS ---
Providers Date of admission: 09/28/17 21:37 Expected date of discharge: 09/29/17 Attending physician: Estiven Pastrana Consults: 09/28/17 21:32 Consult Physician Stat Consulting Provider: Jacqueline Hendricks Consult Reason/Comments: Thyroid cancer Do you want consulting provider notified?: Yes, Notify in am Consult Physician Stat Consulting Provider: Gomez Berg Consult Reason/Comments: Thyroid cancer Do you want consulting provider notified?: Yes 09/28/17 21:34 Consult Physician Stat Consulting Provider: Kiley Morrison Consult Reason/Comments: abd pain, peg tube Do you want consulting provider notified?: Yes Primary care physician: Estiven Victoriano [facility] Course: Discharge diagnosis 1. 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 Patient did receive radiation treatment today before discharge 2. Recent PEG tube placement for supplemental feedings placed on 08/25/2017 3. Abdominal pain with no acute findings on CAT scan. Patient seen by surgical service PEG tube was tightened. And they reported the patient will likely have some chronic abdominal pain there. Abdominal binder was also applied 4. Dysphagia likely secondary to thyroid cancer in tracheal deviation 5. Type 2 diabetes mellitus 6. Status post breast cancer and uterine cancer status post mastectomy and hysterectomy Hospital course This is a 56-year-old female with a known past medical history of thyroid cancer with a deviated trachea, breast cancer and uterine cancer, hypertension and diabetes mellitus and childhood leukemia. Patient is undergoing chemo and radiation treatment for her thyroid cancer. Patient has PEG tube placed for nutritional supplement due to difficulty swallowing from her thyroid mass. Patient presented to the emergency room with complaints of left-sided abdominal pain. She had her PEG tube placement about 4 weeks ago and had been doing tube feedings at home. She noticed over the last couple days that she had increased left-sided abdominal pain and it was worse when she moved. Patient had a computed tomography scan of the abdomen and pelvis completed showing hepatomegaly, mild cardiomegaly, postsurgical change and degenerative change within the spine. Patient was seen by surgical service. It was felt that likely patient's PEG tube came loose because she has had weight loss. PEG tube was retightened. An abdominal binder was applied to hold everything in place. Patient's symptoms have improved. She had a radiation treatment today. Surgery has cleared her for discharge. Patient denies any chest pain or shortness of breath. Denies any nausea or vomiting. Denies any fever chills or sweats. Denies any bowel movement changes or urinary symptoms. Patient feels ready for discharge home Patient is medical stable for discharge. She has been educated to contact us if she has any issues or increasing in her abdominal pain. She is able to resume her PEG tube feedings. Please refer to chart for any further details. Patient Condition at Discharge: Stable Plan - Discharge Summary New Discharge Prescriptions: Continue metFORMIN HCL 1,000 mg PEG/G-TUBE BID Simvastatin [Zocor] 20 mg PEG/G-TUBE HS Cetirizine HCl [Zyrtec] 10 mg PEG/G-TUBE DAILY Lisinopril-Hctz 20-25 mg [Zestoretic 20-25] 1 tab PEG/G-TUBE DAILY Insulin Aspart [NovoLOG (formulary)] See Protocol SQ AC-BID Levothyroxine Sodium [Synthroid] 25 mcg PEG/G-TUBE DAILY Allopurinol [Zyloprim] 100 mg PEG/G-TUBE DAILY Acetaminophen [Tylenol Extra Strength] 1,000 mg PEG/G-TUBE Q6H PRN PRN Reason: Pain HYDROcodone/APAP [[place] Elixir 7.5-325Mg/15Ml] 15 - 25 ml PEG/G-TUBE ACHS Ondansetron HCl [Zofran Oral Soln] 4 mg PEG/G-TUBE Q6H PRN PRN Reason: Nausea Insulin Glargine,Hum.rec.anlog [Basaglar Kwikpen U-100] 51 unit SQ BID #0 Potassium Chloride ER [K-Dur 20] 20 meq PEG/G-TUBE BID Discharge Medication List Cetirizine HCl [Zyrtec] 10 mg PEG/G-TUBE DAILY 04/22/17 [History] Insulin Aspart [NovoLOG (formulary)] See Protocol SQ AC-BID 04/22/17 [History] Lisinopril-Hctz 20-25 mg [Zestoretic 20-25] 1 tab PEG/G-TUBE DAILY 04/22/17 [ History] Simvastatin [Zocor] 20 mg PEG/G-TUBE HS 04/22/17 [History] metFORMIN HCL 1,000 mg PEG/G-TUBE BID 04/22/17 [History] Allopurinol [Zyloprim] 100 mg PEG/G-TUBE DAILY 07/14/17 [History] Levothyroxine Sodium [Synthroid] 25 mcg PEG/G-TUBE DAILY 07/14/17 [History] Acetaminophen [Tylenol Extra Strength] 1,000 mg PEG/G-TUBE Q6H PRN 08/25/17 [ History] HYDROcodone/APAP [[place] Elixir 7.5-325Mg/15Ml] 15 - 25 ml PEG/G-TUBE ACHS [History] Ondansetron HCl [Zofran Oral Soln] 4 mg PEG/G-TUBE Q6H PRN 09/15/17 [History] Insulin Glargine,Hum.rec.anlog [Basaglar Kwikpen U-100] 51 unit SQ BID #0 [Rx] Potassium Chloride ER [K-Dur 20] 20 meq PEG/G-TUBE BID 09/26/17 [History] Follow up Appointment(s)/Referral(s): Estiven Pastrana MD [Primary Care Provider] - 1 Week Activity/Diet/Wound Care/Special Instructions: Diet: peg tube feedings Activity: as tolerated Discharge Disposition: HOME SELF-CARE
[2017-09-29] MEDS ORDERED: HYDROmorphone 0.5 MG/0.5 ML SYRINGE IVP PRN (16:20)
[2017-09-29 17:04] VITALS: BP 173/78; PULSE 86; TEMP 98.9
--- NOTE | 2017-09-29 17:53 | P.CONS ---
History of Present Illness - Reason for Consult Consult date: 09/29/17 - History of Present Illness The patient is a 56-year-old white female, well known to her service. She is followed by Dr. Hendircks in the outpatient setting. She was diagnosed with right breast DCIS,LCIS and 0.6cm invasive lobular carcionoma in ,she had a right mastectomy and took tamoxifen for almost 5 years. She had abnormal vaginal bleeding for several months,has been evaluated by Dr Doherty and on 10/09/2013,she had endometrial biopsy which revealed complex endometrial hyperplasia with atypia,she stopped tamoxifen in ,then she had hysterectomy at [facility] in and found to have T1a, FIGO grade 1 endometrial cancer. She received erivedge for recurrent basal cell carcinoma of the skin, prescribed by Dr Birch with good tolerance.. In ,she developed mild sore throat,then she noticed a very large mass on her neck,was evaluated by Dr Pastrana,had a CT scan of her neck on 2016 revealing large mass in left thyroid 3.2x4.3x4.5cm with mass effect on trachea ,then a FNA of thyroid,she went to [facility] had a core biopsy of thyroid on 08/01/2017,pathology revealed anaplastic thyroid cancer,she had a PET scan on revealing extensive thyroid cancer on the left with jacqueline involvement to level 3. The tumor board at [facility] felt that she has esopageal invasion and preverterbral fascia involvement,felt unresectable and recommended chemoradiation. she was started on concurrent chemoradiation, with weekly carboplatin and Taxol. She is status post 4 doses with the most recent on 09/27/17. The patient has had a PEG tube placed for feeding, as her swallowing is markedly compromised. She came into the hospital, she had developed significant pain in the left side of the abdomen. She denied any significant nausea or vomiting. Labs showed mildly elevated lactic acid. She was therefore admitted for further management. Computed tomography scan of the abdomen and pelvis did not show any major abnormality. The patient was seen by surgery, and had the tube repositioned with abdominal binder placed, with improvement in symptoms. Review of Systems Constitutional: Reports fatigue, Reports weakness, Reports weight loss Eyes: denies blurred vision, denies pain Ears: deny: decreased hearing, ear discharge, earache, tinnitus Ears, nose, mouth and throat: Reports dysphagia, Reports hoarseness, Reports neck lump Cardiovascular: Reports dyspnea on exertion Respiratory: Reports as per HPI (The patient's stridor has improved since starting treatment), Reports dyspnea Gastrointestinal: Reports abdominal pain, Reports nausea Genitourinary: Denies dysuria, Denies hematuria Menstruation: Reports postmenopausal Musculoskeletal: Denies myalgias Integumentary: Denies pruritus, Denies rash Neurological: Reports weakness, Denies numbness Psychiatric: Denies anxiety, Denies depression Endocrine: Reports fatigue, Reports weight change Hematologic/Lymphatic: Reports as per HPI Past Medical History Past Medical History: Cancer, Diabetes Mellitus, Hyperlipidemia, Hypertension, Osteoarthritis (OA), Thyroid Disorder Additional Past Medical History / Comment(s): Leukemia at age 13 yrs with chemo and radiation, R breast cancer with mastectomy only, uterine cancer with hysterectomy only, basal cell skin cancer removed from head early 2016 with chemotherapy, current thyroid cancer with difficulty swallowing/deviated airway being treated with chemo/radiation, current peg tube site infection per pt, gout bilateral feet/toes, past L wrist fracture, arthritis bilateral hips, UTIs. History of Any Multi-Drug Resistant Organisms: None Reported Past Surgical History: Appendectomy, Breast Surgery, Hernia Repair, Hysterectomy Additional Past Surgical History / Comment(s): 08/25/17 EGD with peg tube, R mastectomy, basal cell skin cancer removed from head, total hysterectomy, bladder suspension, colonoscopy Past Anesthesia/Blood Transfusion Reactions: Postoperative Nausea & Vomiting ( PONV) Additional Past Anesthesia/Blood Transfusion Reaction / Comm: Pt has received blood without reaction. Past Psychological History: No Psychological Hx Reported Additional Psychological History / Comment(s): Pt resides with her spouse and an adult son. She is currently under cancer treatment for thyroid cancer. She uses no assistive device. She drives. She has a peg tube. Smoking Status: Never smoker Past Alcohol Use History: None Reported Past Drug Use History: None Reported - Past Family History Sister(s) Family Medical History: Thyroid Disorder Additional Family Medical History / Comment(s): Thyroid CA Mother Family Medical History: Diabetes Mellitus Father Additional Family Medical History / Comment(s): father has back problems. Medications and Allergies Home Medications Medication Instructions Recorded Confirmed Type Cetirizine HCl [Zyrtec] 10 mg PEG/G-TUBE DAILY 04/22/17 09/28/17 History Insulin Aspart [NovoLOG See Protocol SQ AC-BID 04/22/17 09/28/17 History (formulary)] Lisinopril-Hctz 20-25 mg 1 tab PEG/G-TUBE DAILY 04/22/17 09/28/17 History [Zestoretic 20-25] Simvastatin [Zocor] 20 mg PEG/G-TUBE HS 04/22/17 09/28/17 History metFORMIN HCL 1,000 mg PEG/G-TUBE BID 04/22/17 09/28/17 History Allopurinol [Zyloprim] 100 mg PEG/G-TUBE DAILY 07/14/17 09/28/17 History Levothyroxine Sodium [Synthroid] 25 mcg PEG/G-TUBE DAILY 07/14/17 09/28/17 History Acetaminophen [Tylenol Extra 1,000 mg PEG/G-TUBE Q6H PRN 08/25/17 09/28/17 History Strength] HYDROcodone/APAP [[place] Elixir 15 - 25 ml PEG/G-TUBE ACHS 09/15/17 09/28/17 History 7.5-325Mg/15Ml] Ondansetron HCl [Zofran Oral Soln] 4 mg PEG/G-TUBE Q6H PRN 09/15/17 09/28/17 History Insulin Glargine,Hum.rec.anlog 51 unit SQ BID #0 09/21/17 09/28/17 Rx [Basaglar Kwikpen U-100] Potassium Chloride ER [K-Dur 20] 20 meq PEG/G-TUBE BID 09/26/17 09/28/17 History Allergies Allergy/AdvReac Type Severity Reaction Status Date / Time Penicillins Allergy Unknown Verified 09/28/17 18:36 Childhood Sulfa (Sulfonamide Allergy Unknown Verified 09/28/17 18:36 Antibiotics) Childhood Physical Exam Vitals: Vital Signs Temp Pulse Pulse Resp BP BP Pulse Ox 09/29/17 07:00 98.2 F 79 16 155/75 93 L 09/28/17 22:40 16 09/28/17 22:30 97.8 F 100 16 161/86 97 09/28/17 21:57 98.9 F 84 16 157/72 94 L 09/28/17 19:11 86 18 150/75 92 L 09/28/17 18:30 97.8 F 89 18 133/61 96 Intake and Output 09/29/17 09/29/17 09/29/17 06:59 14:59 22:59 Intake Total 800 800 Output Total 650 Balance 150 800 Intake: IV 800 Sodium Chloride 0.9% 1, 800 000 ml @ 100 mls/hr IV . Q10H STA Rx#:[id number] Intake, IV Titration 800 Amount Sodium Chloride 0.9% 1, 800 000 ml @ 100 mls/hr IV . Q10H STA Rx#:[id number] Output: Urine 650 Other: Voiding Method Toilet Bedside Commode - Constitutional General appearance: no acute distress - EENT 5-6 cm lobulated mass left lower neck. No stridor on exam currently Eyes: EOMI, PERRLA ENT: hearing grossly normal, normal oropharynx - Neck As noted above - Respiratory Respiratory: bilateral: CTA - Cardiovascular Rhythm: regular Heart sounds: normal: S1, S2 - Gastrointestinal General gastrointestinal: normal bowel sounds, soft - Integumentary Integumentary: calor (Radiation changes in the neck area) - Neurologic Neurologic: CNII-XII intact - Musculoskeletal Musculoskeletal: generalized weakness, strength equal bilaterally - Psychiatric Psychiatric: A&O x's 3, appropriate affect Results CBC & Chem 7: 09/29/17 07:04 09/29/17 07:04 Labs: Abnormal Lab Results - Last 24 Hours (Table) 09/28/17 09/28/17 09/28/17 Range/Units 18:58 18:58 18:58 Hgb 9.5 L D (11.4-16.0) gm/dL Hct 30.5 L (34.0-46.0) % MCV 74.4 L (80.0-100.0) fL MCH 23.2 L (25.0-35.0) pg MCHC (31.0-37.0) g/dL RDW 20.4 H (11.5-15.5) % Lymphocytes # 0.3 L (1.0-4.8) k/uL PT 13.6 H (9.0-12.0) sec INR 1.5 H (<1.2) Chloride 92 L (98-107) mmol/L Carbon Dioxide 32 H (22-30) mmol/L BUN 25 H (7-17) mg/dL Glucose 179 H (74-99) mg/dL POC Glucose (mg/dL) (75-99) mg/dL Plasma Lactic Acid Jordin (0.7-2.0) mmol/L Calcium (8.4-10.2) mg/dL Total Protein (6.3-8.2) g/dL Albumin 3.4 L (3.5-5.0) g/dL 09/28/17 09/29/17 09/29/17 Range/Units 18:58 07:04 07:04 Hgb 9.2 L (11.4-16.0) gm/dL Hct 30.2 L (34.0-46.0) % MCV 75.6 L (80.0-100.0) fL MCH 22.9 L (25.0-35.0) pg MCHC 30.3 L (31.0-37.0) g/dL RDW 22.6 H (11.5-15.5) % Lymphocytes # 0.4 L (1.0-4.8) k/uL PT (9.0-12.0) sec INR (<1.2) Chloride 97 L (98-107) mmol/L Carbon Dioxide 34 H (22-30) mmol/L BUN 20 H (7-17) mg/dL Glucose (74-99) mg/dL POC Glucose (mg/dL) (75-99) mg/dL Plasma Lactic Acid Jordin 2.6 H* (0.7-2.0) mmol/L Calcium 8.1 L (8.4-10.2) mg/dL Total Protein 5.8 L (6.3-8.2) g/dL Albumin 2.9 L (3.5-5.0) g/dL 09/29/17 Range/Units 12:34 Hgb (11.4-16.0) gm/dL Hct (34.0-46.0) % MCV (80.0-100.0) fL MCH (25.0-35.0) pg MCHC (31.0-37.0) g/dL RDW (11.5-15.5) % Lymphocytes # (1.0-4.8) k/uL PT (9.0-12.0) sec INR (<1.2) Chloride (98-107) mmol/L Carbon Dioxide (22-30) mmol/L BUN (7-17) mg/dL Glucose (74-99) mg/dL POC Glucose (mg/dL) 102 H (75-99) mg/dL Plasma Lactic Acid Jordin (0.7-2.0) mmol/L Calcium (8.4-10.2) mg/dL Total Protein (6.3-8.2) g/dL Albumin (3.5-5.0) g/dL CT scan - abdomen: report reviewed CT scan - pelvis: report reviewed Assessment and Plan (1) Abdominal pain Narrative/Plan: She was examined by surgery. CT of the abdomen and pelvis was negative. It was not felt that there was any major malfunction of the PEG tube. The tube was therefore repositioned and binder placed. Symptoms did improve with the same. The patient tolerated flushing of the PEG tube after that well. Therefore the plan is for her to be discharged home and resume regular feeding. There is no contraindication to that from the oncology standpoint Current Visit: Yes Status: Acute Code(s): R10.9 - UNSPECIFIED ABDOMINAL PAIN SNOMED Code(s): 29183759 (2) Anaplastic thyroid carcinoma Narrative/Plan: Therapeutic and diagnostic circumstances as described above. The patient has noted some relief in symptoms since starting chemoradiation. She is tolerating chemotherapy well subjectively. Hemoglobin today was 9.2, which is actually improved compared to hemoglobin in the 7-8 range in the office a few days ago. The patient is to have a PICC line placed early next week and can proceed with that as scheduled. She will continue chemotherapy and radiation as scheduled as an outpatient Current Visit: Yes Status: Acute Code(s): C73 - MALIGNANT NEOPLASM OF THYROID GLAND SNOMED Code(s): 152391805
== END 2017-09-29 18:10 | disposition home or self-care (01) | DRG 392 ==
LOC: EC 18:22 → 5ONC 21:37
PROVIDERS: ADMIT Internal Medicine; ATTEND Internal Medicine
DX: R10.9 Unspecified abdominal pain (principal); E87.2 Acidosis; C73 Malignant neoplasm of thyroid gland; J39.8 Other specified diseases of upper respiratory tract; R13.10 Dysphagia, unspecified; Z93.1 Gastrostomy status; C44.91 Basal cell carcinoma of skin, unspecified; E86.0 Dehydration; E11.9 Type 2 diabetes mellitus without complications; E78.5 Hyperlipidemia, unspecified; I11.9 Hypertensive heart disease without heart failure; I51.7 Cardiomegaly; M10.9 Gout, unspecified; Z79.899 Other long term (current) drug therapy; Z80.8 Family history of malignant neoplasm of other organs or systems; Z83.3 Family history of diabetes mellitus; Z85.3 Personal history of malignant neoplasm of breast; Z85.42 Personal history of malignant neoplasm of other parts of uterus; Z85.6 Personal history of leukemia; Z85.828 Personal history of other malignant neoplasm of skin; Z90.10 Acquired absence of unspecified breast and nipple; Z90.710 Acquired absence of both cervix and uterus; Z88.0 Allergy status to penicillin; Z88.2 Allergy status to sulfonamides
CPT/HCPCS: 36415; 36430; 74177; 80053; 81003; 82150; 83605; 83690; 85025; 85610; 85730; 86850; 86900; 86901; 86920; 87040; 96361; 96374; 96375; 99285

== ENCOUNTER → 2017-10-02 | Day surgery (SDC) | payer OTHER ==
[~2017-10-02] MED LIST: Pre Op ABX Message 1 EACH MISC MISCELLANE ONE
[2017-10-02 08:10] VITALS: PULSE 93; RESP 18
--- NOTE | 2017-10-02 09:21 | IR ---
PICC LINE PLACEMENT: HISTORY: Infection requiring long-term antibiotic therapy PROCEDURE: Ultrasound and fluoroscopic guidance of PICC line placement. COMPLICATIONS: None ANESTHESIA: 1. 1% Lidocaine locally. FINDINGS/TECHNIQUE: The procedure was explained to the patient. The risks, complications, benefits and alternatives were discussed and any questions were answered. Informed consent was obtained. The patient was placed supine on the fluoroscopic table and prepped and draped in the usual sterile [facility] ion. Utilizing a 21 gauge needle and sonographic and fluoroscopic guidance, access in the vein was achieved and there is placement of a 0.018 guidewire. The vein is patent. A 4-F sheath was placed o neo the guidewire. The guidewire and dilator were removed and a 4-F. PICC line was placed through th e sheath with the tip at the level of the SVC. The sheath was removed, the catheter was flushed and sutured into position. The patient was stable throughout the procedure and remained stable upon disc harge from the Department of Radiology. The vein puncture was patent under ultrasound. A tobar scale image was obtained to document patency of the vein punctured. All elements of the maximal barrier technique were utilized. FLUOROSCOPY TIME: 0.1 minute, one image submitted IMPRESSION: Successful PICC line placement under ultrasound and fluoroscopic guidance.
[2017-10-02 10:00] VITALS: BP 118/65; TEMP 98.2
== END ==
LOC: CATHCVL 07:52
PROVIDERS: ATTEND Radiology Diagnostic Radiology
DX: C73 Malignant neoplasm of thyroid gland (principal); I87.2 Venous insufficiency (chronic) (peripheral); Z85.3 Personal history of malignant neoplasm of breast; Z85.42 Personal history of malignant neoplasm of other parts of uterus; I10 Essential (primary) hypertension; E11.9 Type 2 diabetes mellitus without complications; Z79.82 Long term (current) use of aspirin; Z79.4 Long term (current) use of insulin; Z79.899 Other long term (current) drug therapy; Z88.0 Allergy status to penicillin; Z88.2 Allergy status to sulfonamides
CPT/HCPCS: 36569; 76937; 77001; C1751; C1769

== ENCOUNTER 2017-10-26 09:51 | Inpatient (IN) | payer OTHER ==
[2017-10-26] MEDS ORDERED: SODIUM CHLORIDE 0.9% 1,000 ML IV STA (10:17)
[2017-10-26] MEDS ORDERED: ONDANSETRON 4 MG/2 ML VIAL IVP STA (10:17)
[2017-10-26] MEDS ORDERED: SODIUM CHLORIDE 0.9% 500 ML IV STA (10:17)
[2017-10-26] MEDS ORDERED: MORPHINE SULFATE 4 MG/ML SYRINGE IV STA (10:17)
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
[2017-10-26 11:09] LABS: Anisocytosis Moderate; Basophils % (A) 0 %; Eosinophils % (A) 0 %; HCT 26.5 % (34.0-46.0); HGB 8.4 gm/dL (11.4-16.0); Hypochromasia Moderate; Lymphocytes # (A) 0.1 k/uL (1.0-4.8); Lymphocytes % (A) 2 %; MCH 24.6 pg (25.0-35.0); MCHC 31.7 g/dL (31.0-37.0); MCV 77.6 fL (80.0-100.0); Mean Platelet Volume 6.9; Microcytosis Moderate; Monocytes # (A) 0.2 k/uL (0-1.0); Monocytes % (A) 4 %; Neutrophils # (A) 5.2 k/uL (1.3-7.7); Neutrophils % (A) 92 %; Platelet Count 224 k/uL (150-450); Poikilocytosis Moderate; RBC 3.41 m/uL (3.80-5.40); RDW 22.7 % (11.5-15.5); WBC 5.6 k/uL (3.8-10.6)
[2017-10-26 11:19] LABS: ALT 27 U/L (9-52); AST 16 U/L (14-36); Albumin 3.2 g/dL (3.5-5.0); Alkaline Phosphatase 107 U/L (38-126); Amylase 75 U/L (30-110); Anion Gap 11 mmol/L; Blood Urea Nitrogen 27 mg/dL (7-17); Calcium 8.7 mg/dL (8.4-10.2); Carbon Dioxide 33 mmol/L (22-30); Chloride 90 mmol/L (98-107); Glucose 316 mg/dL (74-99); Lipase 94 U/L (23-300); Potassium 4.7 mmol/L (3.5-5.1); Sodium 134 mmol/L (137-145); Total Bilirubin 0.4 mg/dL (0.2-1.3); Total Protein 6.5 g/dL (6.3-8.2)
--- NOTE | 2017-10-26 11:30 | XR ---
EXAMINATION TYPE: XR KUB DATE OF EXAM: 10/26/2017 11:20 AM CLINICAL HISTORY: Abdominal pain not further specified per order. PEG tube leak per patient. History of thyroid cancer. TECHNIQUE: Two Upright KUB images of the abdomen are obtained. COMPARISON: CT abdomen and pelvis July 29, 2018. FINDINGS: Gas is seen in nondistended stomach bubble just below diaphragm. PEG tube is more inferior in position on current study. PEG tube position was abnormal with balloon inflation in the anterior a bdominal wall on prior. Gas is seen in nondistended small and large bowel loops throughout the lower abdomen and pelvis. Numerous coils from surgery in the right lower quadrant and anterior abdominal wa ll at this level are redemonstrated. There is multilevel spurring with dextroconvex scoliosis in the thoracolumbar spine. Lung bases are clear. No pneumoperitoneum is present. IMPRESSION: Overall nonspecific favor nonobstructive bowel gas pattern. Abnormal positioning of PEG tube redemons trated, prior CT showed abnormal anterior positioning of inflated balloon outside gastric lumen at [place] of anterior abdominal wall. Current x-ray shows more inferior positioning. Advise consultation.
[2017-10-26] MEDS ORDERED: NALOXONE 0.4 MG/ML 1 ML VIAL IV PRN (11:46)
[2017-10-26] MEDS: ONDANSETRON 4 MG/2 ML VIAL IVP PRN ×2 (14:44→20:27)
[2017-10-26] MEDS: HYDROmorphone 0.5 MG/0.5 ML SYRINGE IVP PRN ×3 (14:44→23:04)
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
--- NOTE | 2017-10-26 15:31 | XR ---
EXAMINATION TYPE: XR chest 2V DATE OF EXAM: 10/26/2017 COMPARISON: 09/15/2017 TECHNIQUE: PA and lateral views submitted. HISTORY: Cough FINDINGS: The lungs are clear and there is no pneumothorax, pleural effusion, or focal pneumonia. Left-sided PICC line noted. There is biapical pleural thickening. Hypertrophic and degenerative change of the sp ine noted. No overt failure. Mild right paratracheal soft tissue fullness is stable. IMPRESSION: 1. No acute process. Stable mild right paratracheal soft tissue fullness. Could be vascular or possib ly related to thyroid. Correlate with CT as clinically warranted.
[2017-10-26] MEDS ORDERED: INSULIN DETEMIR 100 UNIT/ML 10 ML VIAL SQ SCH ×2 (16:00→21:00)
--- NOTE | 2017-10-26 16:59 | P.GSCN ---
History of Present Illness Consult date: 10/26/17 Reason for Consult: feeding tube History of present illness: DATE OF CONSULTATION: 10/26/2017 CHIEF COMPLAINT: Abdominal pain with history of gastric bypass. HISTORY OF PRESENT ILLNESS: Jessenia Gutierrez is a 56-year-old female with thyroid cancer. She has severe radiation-induced burn along her left neck. Separately she is dependent on tube feeds. She reports increased leakage around her tube. No reports of fevers or chills. She just completed her fourth cycle of chemotherapy. She is continuing radiation therapy. Since her feeding tube placement more than 2 months ago, she lost moderate amount of weight.she denies any moderate abdominal pain. PAST MEDICAL HISTORY: See list. PAST SURGICAL HISTORY: See list. MEDICATIONS: See list. ALLERGIES: See list. SOCIAL HISTORY: No active tobacco use. FAMILY HISTORY: Significant for diabetes. REVIEW OF ORGAN SYSTEMS: CONSTITUTIONAL: unintentional weight loss over 30+ pounds in 2 months. HEENT: No troubles with vision or hearing. Has dysphagia from thyroid cancer. ENDOCRINE: Has diabetes. His thyroid cancer. CARDIOVASCULAR: No heart palpitations. No recent heart attack. RESPIRATORY: No recent pneumonia. GASTROINTESTINAL: Feeding tube dependent. No blood in his stools. NEURO: No reports of stroke or seizure disorders. PSYCH: No reports of depression or suicidal ideation. HEMATOLOGIC: no recent DVTs. GENITOURINARY: Denies any blood in urine or increased urinary frequency. MUSCULOSKELETAL: Has back pain, stiffness or joint arthritis. PHYSICAL EXAM: VITAL SIGNS: Vital Signs Temp 97.9 F 10/26/17 14:42 Pulse 106 H 10/26/17 14:42 Resp 16 10/26/17 14:42 BP 169/81 10/26/17 14:42 Pulse Ox 100 10/26/17 14:42 Intake & Output 10/25/17 10/26/17 10/26/17 18:59 06:59 18:59 Intake Total 500 Balance 500 Weight 92.261 kg Intake: Amount of Fluid Infused ( 500 ml) Other: Voiding Method Toilet # Voids 1 GENERAL: Well-developed and in no acute distress. HEENT: No sclera icterus. Extraocular movements grossly intact. Moist buccal mucosa. Head is atraumatic, normocephalic. Hears conversational speech. No nasal drainage. Voice is hoarse and faint. NECK: Severe radiation burn along the left neck over 8 x 4 cm. Moderate reduction of thyroid tumor size along the left neck. CHEST: Non-labored respirations and equal bilateral excursions. CARDIOVASCULAR: Irregular rate with irregular rhythm. Palpable 2+ radial pulses. ABDOMEN: Soft. Obese. No cellulitis around feeding tube site. no peritonitis. MUSCULOSKELETAL: No clubbing, cyanosis or edema. NEUROLOGIC: No focal or lateralizing signs. Cranial nerves II through XII grossly intact. PSYCH: Appropriate affect. Alert and oriented to person, place and time. STUDIES: Prior EKG demonstrated atrial fibrillation with rapid ventricular response. ASSESSMENT: 1. Thyroid cancer. 2. Gastrostomy tube status. 3. Chemoradiation therapy. 4. Severe radiation-induced dermatitis along the left neck PLAN: 1. She has lost moderate weight since her feeding tube placement which placed her at risk for increased chance of leakage around her feeding tube. 2. No signs of gastrostomy tube infection. 3. Recommend radiological assessment of feeding tube and location. 4. Alternatively, may need a jejunostomy tube in the future. Past Medical History Past Medical History: Cancer, Diabetes Mellitus, Hyperlipidemia, Hypertension, Osteoarthritis (OA), Thyroid Disorder Additional Past Medical History / Comment(s): Leukemia at age 13 yrs with chemo and radiation, R breast cancer with mastectomy only, uterine cancer with hysterectomy only, basal cell skin cancer removed from head early 2016 with chemotherapy, current thyroid cancer with difficulty swallowing/deviated airway being treated with chemo/radiation, current peg tube, gout bilateral feet/toes, past L wrist fracture, arthritis bilateral hips, UTIs. History of Any Multi-Drug Resistant Organisms: None Reported Past Surgical History: Appendectomy, Breast Surgery, Hernia Repair, Hysterectomy Additional Past Surgical History / Comment(s): 08/25/17 EGD with peg tube, R mastectomy, basal cell skin cancer removed from head, total hysterectomy, bladder suspension, colonoscopy, PICC line Past Anesthesia/Blood Transfusion Reactions: Postoperative Nausea & Vomiting ( PONV) Additional Past Anesthesia/Blood Transfusion Reaction / Comm: Pt has received blood without reaction. Smoking Status: Never smoker - Past Family History Sister(s) Family Medical History: Thyroid Disorder Additional Family Medical History / Comment(s): Thyroid CA Mother Family Medical History: Diabetes Mellitus Father Additional Family Medical History / Comment(s): father has back problems. Medications and Allergies Home Medications Medication Instructions Recorded Confirmed Type Cetirizine HCl [Zyrtec] 10 mg PEG/G-TUBE DAILY 04/22/17 10/26/17 History Insulin Aspart [NovoLOG See Protocol SQ AC-BID 04/22/17 10/26/17 History (formulary)] Lisinopril-Hctz 20-25 mg 1 tab PEG/G-TUBE DAILY 04/22/17 10/26/17 History [Zestoretic 20-25] Simvastatin [Zocor] 20 mg PEG/G-TUBE HS 04/22/17 10/26/17 History metFORMIN HCL 1,000 mg PEG/G-TUBE BID 04/22/17 10/26/17 History Allopurinol [Zyloprim] 100 mg PEG/G-TUBE DAILY 07/14/17 10/26/17 History Levothyroxine Sodium [Synthroid] 25 mcg PEG/G-TUBE DAILY 07/14/17 10/26/17 History Acetaminophen [Tylenol Extra 1,000 mg PEG/G-TUBE Q6H PRN 08/25/17 10/26/17 History Strength] HYDROcodone/APAP [[facility] Elixir 15 - 25 ml PEG/G-TUBE ACHS 09/15/17 10/26/17 History 7.5-325Mg/15Ml] Ondansetron HCl [Zofran Oral Soln] 4 mg PEG/G-TUBE Q6H PRN 09/15/17 10/26/17 History Insulin Glargine,Hum.rec.anlog 51 unit SQ BID #0 09/21/17 10/26/17 Rx [Basaglar Kwikpen U-100] Potassium Chloride ER [K-Dur 20] 20 meq PEG/G-TUBE BID 09/26/17 10/26/17 History Allergies Allergy/AdvReac Type Severity Reaction Status Date / Time Penicillins Allergy Unknown Verified 10/26/17 10:01 Childhood Sulfa (Sulfonamide Allergy Unknown Verified 10/26/17 10:01 Antibiotics) Childhood Surgical - Exam Vital Signs Temp Pulse Resp BP Pulse Ox 98.1 F 108 H 17 159/74 100 10/26/17 09:56 10/26/17 09:56 10/26/17 09:56 10/26/17 09:56 10/26/17 09:56 Results - Labs 10/26/17 10:50 10/26/17 10:50 Abnormal Lab Results - Last 24 Hours (Table) 10/26/17 10/26/17 Range/Units 10:50 10:50 RBC 3.41 L (3.80-5.40) m/uL Hgb 8.4 L (11.4-16.0) gm/dL Hct 26.5 L (34.0-46.0) % MCV 77.6 L (80.0-100.0) fL MCH 24.6 L (25.0-35.0) pg RDW 22.7 H (11.5-15.5) % Lymphocytes # 0.1 L (1.0-4.8) k/uL Sodium 134 L (137-145) mmol/L Chloride 90 L (98-107) mmol/L Carbon Dioxide 33 H (22-30) mmol/L BUN 27 H (7-17) mg/dL Glucose 316 H (74-99) mg/dL Albumin 3.2 L (3.5-5.0) g/dL Diabetes panel 10/26/17 Range/Units 10:50 Sodium 134 L (137-145) mmol/L Potassium 4.7 (3.5-5.1) mmol/L Chloride 90 L (98-107) mmol/L Carbon Dioxide 33 H (22-30) mmol/L BUN 27 H (7-17) mg/dL Creatinine 0.80 (0.52-1.04) mg/dL Glucose 316 H (74-99) mg/dL Calcium 8.7 (8.4-10.2) mg/dL AST 16 (14-36) U/L ALT 27 (9-52) U/L Alkaline Phosphatase 107 (38-126) U/L Total Protein 6.5 (6.3-8.2) g/dL Albumin 3.2 L (3.5-5.0) g/dL Calcium panel 10/26/17 Range/Units 10:50 Calcium 8.7 (8.4-10.2) mg/dL Albumin 3.2 L (3.5-5.0) g/dL Pituitary panel 10/26/17 Range/Units 10:50 Sodium 134 L (137-145) mmol/L Potassium 4.7 (3.5-5.1) mmol/L Chloride 90 L (98-107) mmol/L Carbon Dioxide 33 H (22-30) mmol/L BUN 27 H (7-17) mg/dL Creatinine 0.80 (0.52-1.04) mg/dL Glucose 316 H (74-99) mg/dL Calcium 8.7 (8.4-10.2) mg/dL Adrenal panel 10/26/17 Range/Units 10:50 Sodium 134 L (137-145) mmol/L Potassium 4.7 (3.5-5.1) mmol/L Chloride 90 L (98-107) mmol/L Carbon Dioxide 33 H (22-30) mmol/L BUN 27 H (7-17) mg/dL Creatinine 0.80 (0.52-1.04) mg/dL Glucose 316 H (74-99) mg/dL Calcium 8.7 (8.4-10.2) mg/dL Total Bilirubin 0.4 (0.2-1.3) mg/dL AST 16 (14-36) U/L ALT 27 (9-52) U/L Alkaline Phosphatase 107 (38-126) U/L Total Protein 6.5 (6.3-8.2) g/dL Albumin 3.2 L (3.5-5.0) g/dL Assessment and Plan (1) Gastrostomy status Current Visit: Yes Status: Acute Code(s): Z93.1 - GASTROSTOMY STATUS SNOMED Code(s): 593661012 (2) Radiation burn Current Visit: Yes Status: Acute Code(s): T30.0 - BURN OF UNSPECIFIED BODY REGION, UNSPECIFIED DEGREE SNOMED Code(s): 830330995 (3) Dehydration Current Visit: Yes Status: Acute Code(s): E86.0 - DEHYDRATION SNOMED Code( s): 91835183 (4) Poorly controlled diabetes mellitus Current Visit: Yes Status: Acute Code(s): E11.65 - TYPE 2 DIABETES MELLITUS WITH HYPERGLYCEMIA SNOMED Code(s): 256324974 (5) Anaplastic thyroid carcinoma Current Visit: No Status: Acute Code(s): C73 - MALIGNANT NEOPLASM OF THYROID GLAND SNOMED Code(s): 994796912 (6) Thyroid cancer Current Visit: No Status: Acute Code(s): C73 - MALIGNANT NEOPLASM OF THYROID GLAND SNOMED Code(s): 651121050
[2017-10-26] MEDS: metFORMIN 500 MG TAB PEG/G-TUBE SCH (17:11)
[2017-10-26] MEDS: PANTOPRAZOLE 40 MG/10 ML VIAL IVP SCH (17:25)
[2017-10-26] MEDS: INSULIN ASPART 100 UNIT/ML 1 ML 10 ML VIAL SQ SCH ×2 (17:25→21:39)
[2017-10-26] MEDS: cefTRIAXone IN SWFI 1,000 MG/10 ML SYRINGE IVP SCH (17:26)
[2017-10-26 17:35] LABS: Glucose,Whole Blood 244 mg/dL (75-99)
--- NOTE | 2017-10-26 18:13 | XR ---
EXAMINATION TYPE: XR KUB DATE OF EXAM: 10/26/2017 5:24 PM CLINICAL HISTORY: PEG tube leak. TECHNIQUE: Single supine KUB image of the abdomen is obtained after injection 10 cc Omnipaque 350. COMPARISON: Abdominal x-ray earlier today. CT abdomen and pelvis September 28, 2017. FINDINGS: Contrast after injection does fill portion of stomach. Contrast also extravasates around tu be site. Abnormal positioning of balloon anterior abdominal wall is noted on recent CT and correlates with patient's history and findings during injection. IMPRESSION: As above.
[2017-10-26 18:46] LABS: Iron Saturation 29.56 (12.00-45.00)
[2017-10-26] MEDS: ATORVASTATIN 10 MG TAB PEG/G-TUBE SCH (20:23)
[2017-10-26] MEDS: POTASSIUM CHLORIDE ORAL LIQUID 40 MEQ/30 ML CUP PEG/G-TUBE SCH (20:23)
[2017-10-26 20:33] LABS: Glucose,Whole Blood 212 mg/dL (75-99)
[2017-10-26] MEDS ORDERED: CEPHALEXIN 500 MG CAP PO SCH (21:00)
[2017-10-26 23:33] LABS: Hemoglobin A1C 8.7 % (4.0-6.0)
[2017-10-27] MEDS: HYDROmorphone 0.5 MG/0.5 ML SYRINGE IVP PRN ×6 (02:40→22:38)
[2017-10-27] MEDS: ONDANSETRON 4 MG/2 ML VIAL IVP PRN ×2 (03:47→15:33)
[2017-10-27] MEDS ORDERED: INSULIN DETEMIR 100 UNIT/ML 10 ML VIAL SQ SCH (06:13)
[2017-10-27] MEDS ORDERED: LEVOTHYROXINE 25 MCG TAB PEG/G-TUBE SCH (06:30)
[2017-10-27 07:08] LABS: Glucose,Whole Blood 147 mg/dL (75-99)
[2017-10-27] MEDS: INSULIN ASPART 100 UNIT/ML 1 ML 10 ML VIAL SQ SCH ×4 (07:28→22:05)
[2017-10-27 07:52] LABS: Anisocytosis Moderate; Basophils % (A) 0 %; Eosinophils % (A) 1 %; HCT 24.9 % (34.0-46.0); HGB 7.6 gm/dL (11.4-16.0); Hypochromasia Moderate; Lymphocytes # (A) 0.2 k/uL (1.0-4.8); Lymphocytes % (A) 7 %; MCHC 30.5 g/dL (31.0-37.0); MCV 78.9 fL (80.0-100.0); Mean Platelet Volume 6.9; Microcytosis Moderate; Monocytes # (A) 0.2 k/uL (0-1.0); Monocytes % (A) 5 %; Neutrophils # (A) 3.2 k/uL (1.3-7.7); Neutrophils % (A) 86 %; Platelet Count 203 k/uL (150-450); Poikilocytosis Moderate; RBC 3.15 m/uL (3.80-5.40); RDW 22.5 % (11.5-15.5); WBC 3.7 k/uL (3.8-10.6)
[2017-10-27 08:23] LABS: ALT 28 U/L (9-52); AST 17 U/L (14-36); Albumin 2.9 g/dL (3.5-5.0); Alkaline Phosphatase 90 U/L (38-126); Anion Gap 10 mmol/L; Blood Urea Nitrogen 16 mg/dL (7-17); Calcium 8.4 mg/dL (8.4-10.2); Carbon Dioxide 29 mmol/L (22-30); Chloride 99 mmol/L (98-107); Glucose 135 mg/dL (74-99); Potassium 3.9 mmol/L (3.5-5.1); Sodium 138 mmol/L (137-145); Total Bilirubin 0.4 mg/dL (0.2-1.3); Total Protein 5.9 g/dL (6.3-8.2)
[2017-10-27] MEDS: metFORMIN 500 MG TAB PEG/G-TUBE SCH ×2 (08:39→17:38)
[2017-10-27] MEDS: POTASSIUM CHLORIDE ORAL LIQUID 40 MEQ/30 ML CUP PEG/G-TUBE SCH ×2 (08:40→21:13)
[2017-10-27] MEDS: ALLOPURINOL 100 MG TAB PEG/G-TUBE SCH (08:40)
[2017-10-27] MEDS: LORATADINE 10 MG TAB PEG/G-TUBE SCH (08:40)
[2017-10-27] MEDS: INSULIN DETEMIR 100 UNIT/ML 10 ML VIAL SQ SCH (08:40)
[2017-10-27] MEDS: LISINOPRIL-HCTZ 20-25 MG 1 EACH TAB PEG/G-TUBE SCH (08:40)
[2017-10-27] MEDS: PANTOPRAZOLE 40 MG/10 ML VIAL IVP SCH (08:42)
[2017-10-27 12:17] LABS: Glucose,Whole Blood 195 mg/dL (75-99)
--- NOTE | 2017-10-27 12:26 | P.PN ---
<Mallory Smart - Last Filed: 10/27/17 13:30> Subjective Progress Note Date: 10/27/17 56-year-old female seen and examined. Patients being followed by surgical service for leakage around her PEG tube site skin excoriation noted around the PEG tube Patient has a history of thyroid cancer is receiving radiation treatment. Has severe radiation-induced burn along her left neck. Hematology oncology indicate patient is felt to be stable to undergo procedures to address the leakage around the tube feeds. Patient has a PICC line in place. Objective - Vital Signs Vital signs: Vital Signs Temp 98.3 F 10/27/17 07:00 Pulse 91 10/27/17 07:00 Resp 16 10/27/17 07:00 BP 153/82 10/27/17 07:00 Pulse Ox 95 10/27/17 07:00 Intake & Output 10/26/17 10/27/17 10/27/17 18:59 06:59 18:59 Intake Total 500 1190 Balance 500 1190 Weight 92.261 kg Intake: IV 600 Sodium Chloride 0.9% 1, 600 000 ml @ 75 mls/hr IV . [id number] STA Rx#:[id number] Amount of Fluid Infused ( 500 ml) Oral 590 Other: Voiding Method Toilet Toilet Toilet # Voids 1 2 - Exam Physical exam 56-year-old female sitting up in bed awake alert oriented 3 appropriate affect Lungs adequate air movement bilaterally Neck severe radiation burn along the left neck moderate reduction little thyroid tumor along the left neck Heart S1-S2 audible regular Abdomen soft nondistended PEG tube leakage around tube site Extremities no edema noted PICC line in place - Labs CBC & Chem 7: 10/27/17 07:01 10/27/17 07:01 Labs: Abnormal Lab Results - Last 24 Hours (Table) 10/26/17 10/26/17 10/26/17 Range/Units 10:50 10:50 17:25 WBC (3.8-10.6) k/uL RBC (3.80-5.40) m/uL Hgb (11.4-16.0) gm/dL Hct (34.0-46.0) % MCV (80.0-100.0) fL MCH (25.0-35.0) pg MCHC (31.0-37.0) g/dL RDW (11.5-15.5) % Lymphocytes # (1.0-4.8) k/uL Glucose (74-99) mg/dL POC Glucose (mg/dL) 244 H (75-99) mg/dL Hemoglobin A1c 8.7 H (4.0-6.0) % Ferritin 449.0 H (10.0-291.0) ng/mL Total Protein (6.3-8.2) g/dL Albumin (3.5-5.0) g/dL 10/26/17 10/27/17 10/27/17 Range/Units 20:31 07:01 07:01 WBC 3.7 L (3.8-10.6) k/uL RBC 3.15 L (3.80-5.40) m/uL Hgb 7.6 L (11.4-16.0) gm/dL Hct 24.9 L (34.0-46.0) % MCV 78.9 L (80.0-100.0) fL MCH 24.0 L (25.0-35.0) pg MCHC 30.5 L (31.0-37.0) g/dL RDW 22.5 H (11.5-15.5) % Lymphocytes # 0.2 L (1.0-4.8) k/uL Glucose 135 H (74-99) mg/dL POC Glucose (mg/dL) 212 H (75-99) mg/dL Hemoglobin A1c (4.0-6.0) % Ferritin (10.0-291.0) ng/mL Total Protein 5.9 L (6.3-8.2) g/dL Albumin 2.9 L (3.5-5.0) g/dL 10/27/17 10/27/17 Range/Units 07:07 12:14 WBC (3.8-10.6) k/uL RBC (3.80-5.40) m/uL Hgb (11.4-16.0) gm/dL Hct (34.0-46.0) % MCV (80.0-100.0) fL MCH (25.0-35.0) pg MCHC (31.0-37.0) g/dL RDW (11.5-15.5) % Lymphocytes # (1.0-4.8) k/uL Glucose (74-99) mg/dL POC Glucose (mg/dL) 147 H 195 H (75-99) mg/dL Hemoglobin A1c (4.0-6.0) % Ferritin (10.0-291.0) ng/mL Total Protein (6.3-8.2) g/dL Albumin (3.5-5.0) g/dL Microbiology - Last 24 Hours (Table) 10/26/17 17:09 Gram Stain - Preliminary Abdomen Wound Culture - Preliminary Assessment and Plan Assessment: Assessment and Plan (1) Gastrostomy status Current Visit: Yes Status: Acute Code(s): Z93.1 - GASTROSTOMY STATUS SNOMED Code(s): 232118865 (2) Radiation burn Current Visit: Yes Status: Acute Code(s): T30.0 - BURN OF UNSPECIFIED BODY REGION, UNSPECIFIED DEGREE SNOMED Code(s): 157993350 (3) Dehydration Current Visit: Yes Status: Acute Code(s): E86.0 - DEHYDRATION SNOMED Code( s): 46727473 (4) Poorly controlled diabetes mellitus Current Visit: Yes Status: Acute Code(s): E11.65 - TYPE 2 DIABETES MELLITUS WITH HYPERGLYCEMIA SNOMED Code(s): 159610717 (5) Anaplastic thyroid carcinoma Current Visit: No Status: Acute Code(s): C73 - MALIGNANT NEOPLASM OF THYROID GLAND SNOMED Code(s): 156119321 (6) Thyroid cancer Current Visit: No Status: Acute Code(s): C73 - MALIGNANT NEOPLASM OF THYROID GLAND SNOMED Code(s): 228931881 #7 would start TPN per PICC line now for nutritional support #8 Monday or Monday next week will address replacing the PEG tube #9 oncology hematology request an ultrasound the abdomen evaluate possible abscess follow up on results The above impression and plan of care have been discussed and directed by signing physician. Mallory Smart nurse practitioner acting as scribe for signing physician. <Kiley Morrison - Last Filed: 10/27/17 19:02> Objective - Vital Signs Vital signs: Vital Signs Temp 98.9 F 10/27/17 15:00 Pulse 98 10/27/17 15:00 Resp 16 10/27/17 15:00 BP 177/90 10/27/17 15:00 Pulse Ox 98 10/27/17 15:00 Intake & Output 10/27/17 10/27/17 10/28/17 06:59 18:59 06:59 Intake Total 1190 525 Balance 1190 525 Weight 92.5 kg Intake: IV 600 Sodium Chloride 0.9% 1, 600 000 ml @ 75 mls/hr IV . [id number] STA Rx#:[id number] Intake, IV Titration 525 Amount Sodium Chloride 0.9% 1, 525 000 ml @ 75 mls/hr IV . [id number] STA Rx#:[id number] Oral 590 Other: Voiding Method Toilet Toilet # Voids 2 - Labs CBC & Chem 7: 10/27/17 07:01 10/27/17 07:01 Labs: Abnormal Lab Results - Last 24 Hours (Table) 10/26/17 10/26/17 10/26/17 Range/Units 10:50 10:50 20:31 WBC (3.8-10.6) k/uL RBC (3.80-5.40) m/uL Hgb (11.4-16.0) gm/dL Hct (34.0-46.0) % MCV (80.0-100.0) fL MCH (25.0-35.0) pg MCHC (31.0-37.0) g/dL RDW (11.5-15.5) % Lymphocytes # (1.0-4.8) k/uL Glucose (74-99) mg/dL POC Glucose (mg/dL) 212 H (75-99) mg/dL Hemoglobin A1c 8.7 H (4.0-6.0) % Magnesium (1.6-2.3) mg/dL Ferritin 449.0 H (10.0-291.0) ng/mL Total Protein (6.3-8.2) g/dL Albumin (3.5-5.0) g/dL Triglycerides (<150) mg/dL 10/27/17 10/27/17 10/27/17 Range/Units 07:01 07:01 07:07 WBC 3.7 L (3.8-10.6) k/uL RBC 3.15 L (3.80-5.40) m/uL Hgb 7.6 L (11.4-16.0) gm/dL Hct 24.9 L (34.0-46.0) % MCV 78.9 L (80.0-100.0) fL MCH 24.0 L (25.0-35.0) pg MCHC 30.5 L (31.0-37.0) g/dL RDW 22.5 H (11.5-15.5) % Lymphocytes # 0.2 L (1.0-4.8) k/uL Glucose 135 H (74-99) mg/dL POC Glucose (mg/dL) 147 H (75-99) mg/dL Hemoglobin A1c (4.0-6.0) % Magnesium (1.6-2.3) mg/dL Ferritin (10.0-291.0) ng/mL Total Protein 5.9 L (6.3-8.2) g/dL Albumin 2.9 L (3.5-5.0) g/dL Triglycerides (<150) mg/dL 10/27/17 10/27/17 10/27/17 Range/Units 12:14 14:52 17:06 WBC (3.8-10.6) k/uL RBC (3.80-5.40) m/uL Hgb (11.4-16.0) gm/dL Hct (34.0-46.0) % MCV (80.0-100.0) fL MCH (25.0-35.0) pg MCHC (31.0-37.0) g/dL RDW (11.5-15.5) % Lymphocytes # (1.0-4.8) k/uL Glucose (74-99) mg/dL POC Glucose (mg/dL) 195 H 186 H (75-99) mg/dL Hemoglobin A1c (4.0-6.0) % Magnesium 1.5 L (1.6-2.3) mg/dL Ferritin (10.0-291.0) ng/mL Total Protein (6.3-8.2) g/dL Albumin (3.5-5.0) g/dL Triglycerides 330 H (<150) mg/dL Microbiology - Last 24 Hours (Table) 10/26/17 17:09 Gram Stain - Preliminary Abdomen Wound Culture - Preliminary Assessment and Plan (1) Gastrostomy status Current Visit: Yes Status: Acute Code(s): Z93.1 - GASTROSTOMY STATUS SNOMED Code(s): 535712650 (2) Radiation burn Current Visit: Yes Status: Acute Code(s): T30.0 - BURN OF UNSPECIFIED BODY REGION, UNSPECIFIED DEGREE SNOMED Code(s): 439198760 (3) Dehydration Current Visit: Yes Status: Acute Code(s): E86.0 - DEHYDRATION SNOMED Code( s): 03536640 (4) Poorly controlled diabetes mellitus Current Visit: Yes Status: Acute Code(s): E11.65 - TYPE 2 DIABETES MELLITUS WITH HYPERGLYCEMIA SNOMED Code(s): 505904609 (5) Anaplastic thyroid carcinoma Current Visit: No Status: Acute Code(s): C73 - MALIGNANT NEOPLASM OF THYROID GLAND SNOMED Code(s): 176073913 (6) Thyroid cancer Current Visit: No Status: Acute Code(s): C73 - MALIGNANT NEOPLASM OF THYROID GLAND SNOMED Code(s): 577434928
--- NOTE | 2017-10-27 12:40 | P.PN ---
Subjective Progress Note Date: 10/27/17 This is a 56-year-old female with a past medical history of thyroid cancer with a tracheal deviation. She is undergoing chemo and radiation treatment. Last chemotherapy yesterday and radiation today. 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 This is patient's third admission due to PEG tube malfunction. PEG tube was placed 08/25/2017. Patient reports that about 3 days that her PEG tube has not been working. When she pours the feedings as well as when she places her medications into the tube drains out onto her abdomen. She has skin irritation along the abdomen as well as some puslike drainage. This will be cultured. Patient has been on antibiotics in the form of Keflex and also topical Silvadene given by Dr. Berg her radiation oncologist for the radiation burn on her back. Patient also has been coughing with sputum production. Chest x-ray has been ordered. She denies any fever chills or sweats denies any abdominal pain. Denies any vomiting. She does report dry heaves and nausea. Denies any bowel movement changes or urinary symptoms. She is having some pain in her neck on 10/27/2017 patient is alert and oriented 3 complaining of pain in her neck she is and able to swallow she is complaining of cough was copious amount of sputum production otherwise she denies any complaints there is no fever or chills no headache no dizziness no nausea or vomiting no abdominal pain no diarrhea and no urinary symptoms Objective - Vital Signs Vital signs: Vital Signs Temp 98.3 F 10/27/17 07:00 Pulse 91 10/27/17 07:00 Resp 16 10/27/17 07:00 BP 153/82 10/27/17 07:00 Pulse Ox 95 10/27/17 07:00 Intake & Output 10/26/17 10/27/17 10/27/17 18:59 06:59 18:59 Intake Total 500 1190 Balance 500 1190 Weight 92.261 kg Intake: IV 600 Sodium Chloride 0.9% 1, 600 000 ml @ 75 mls/hr IV . [id number] STA Rx#:[id number] Amount of Fluid Infused ( 500 ml) Oral 590 Other: Voiding Method Toilet Toilet Toilet # Voids 1 2 - Exam Head normocephalicand at traumatic Neck supple. Radiation burn noted on the anterior aspect of the neck there is scabbing and redness Lungs coarse breath sounds notedno wheezing Heart regular rate and rhythm S1-S2, no rub or gallop Abdomen is soft nontender nondistended positive bowel sounds no hepatosplenomegaly. PEG tube site drainage yellowish drainage present. There is skin irritation below the PEG tube, reports a left side of the abdomen reddish in color. PEG tube appears to be pulled out slightly. Extremities no edema no cyanosis or clubbing Neuro alert and orientated to 3 - Labs CBC & Chem 7: 10/27/17 07:01 10/27/17 07:01 Labs: Abnormal Lab Results - Last 24 Hours (Table) 10/26/17 10/26/17 10/26/17 Range/Units 10:50 10:50 17:25 WBC (3.8-10.6) k/uL RBC (3.80-5.40) m/uL Hgb (11.4-16.0) gm/dL Hct (34.0-46.0) % MCV (80.0-100.0) fL MCH (25.0-35.0) pg MCHC (31.0-37.0) g/dL RDW (11.5-15.5) % Lymphocytes # (1.0-4.8) k/uL Glucose (74-99) mg/dL POC Glucose (mg/dL) 244 H (75-99) mg/dL Hemoglobin A1c 8.7 H (4.0-6.0) % Ferritin 449.0 H (10.0-291.0) ng/mL Total Protein (6.3-8.2) g/dL Albumin (3.5-5.0) g/dL 10/26/17 10/27/17 10/27/17 Range/Units 20:31 07:01 07:01 WBC 3.7 L (3.8-10.6) k/uL RBC 3.15 L (3.80-5.40) m/uL Hgb 7.6 L (11.4-16.0) gm/dL Hct 24.9 L (34.0-46.0) % MCV 78.9 L (80.0-100.0) fL MCH 24.0 L (25.0-35.0) pg MCHC 30.5 L (31.0-37.0) g/dL RDW 22.5 H (11.5-15.5) % Lymphocytes # 0.2 L (1.0-4.8) k/uL Glucose 135 H (74-99) mg/dL POC Glucose (mg/dL) 212 H (75-99) mg/dL Hemoglobin A1c (4.0-6.0) % Ferritin (10.0-291.0) ng/mL Total Protein 5.9 L (6.3-8.2) g/dL Albumin 2.9 L (3.5-5.0) g/dL 10/27/17 10/27/17 Range/Units 07:07 12:14 WBC (3.8-10.6) k/uL RBC (3.80-5.40) m/uL Hgb (11.4-16.0) gm/dL Hct (34.0-46.0) % MCV (80.0-100.0) fL MCH (25.0-35.0) pg MCHC (31.0-37.0) g/dL RDW (11.5-15.5) % Lymphocytes # (1.0-4.8) k/uL Glucose (74-99) mg/dL POC Glucose (mg/dL) 147 H 195 H (75-99) mg/dL Hemoglobin A1c (4.0-6.0) % Ferritin (10.0-291.0) ng/mL Total Protein (6.3-8.2) g/dL Albumin (3.5-5.0) g/dL Microbiology - Last 24 Hours (Table) 10/26/17 17:09 Gram Stain - Preliminary Abdomen Wound Culture - Preliminary Assessment and Plan Plan: 1. Malfunctioning PEG tube: KUB x-ray showing abnormal positioning of PEG tube. Surgical consult has been placed. PEG tube feedings on hold. plan per surgery is to proceed with PEG tube replacement on Monday or Monday 2. Cough with sputum production: Check chest x-ray. Check sputum culture. Check influenza screen 3. Diabetes mellitus type 2 with elevated blood sugars in the 300s. Patient has not been taking her Levemir at home due to not taking the tube feedings. Add sliding scale coverage. Continue to monitor we'll decrease her home Levemir dose from 21 units twice a day down to 20 daily 4. 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 She did have radiation treatment today and last chemotherapy was yesterday. Consults will place be placed for Dr. Berg 5. Radiation burn to the neck had been on Silvadene and Keflex at home. will stop Keflex for now and switch her over to Rocephin to cover upper respiratory infection as well as her skin infection. 6. Hypothyroidism continue Synthroid 7. History of breast cancer and uterine cancer 8. Anemia hemoglobin 8.4 no active signs of bleeding. We'll check iron studies. Possibly related to her chemotherapy and cancer 9. Mild hyponatremia with a sodium of 134 continue normal saline 10. Nausea continue Zofran also add Protonix IV 11. Pain control: Continue the IV Dilaudid every 3 hours as needed 12. poor nutritional status patient will be started on TPN until she has a functioning PEG tube, at this time will try to switch most of her medications to IV form GI prophylaxis Protonix. We'll hold off on anticoagulation for DVT prophylaxis in case surgical procedure needs to be completed
[2017-10-27] MEDS: LEVOTHYROXINE IVP 100 MCG/5 ML VIAL IV SCH (14:08)
[2017-10-27 15:28] LABS: Ionized Calcium 4.7 mg/dL (4.5-5.3)
[2017-10-27 15:40] LABS: Magnesium 1.5 mg/dL (1.6-2.3); Phosphorus 4.4 mg/dL (2.5-4.5)
--- NOTE | 2017-10-27 15:56 | US ---
EXAMINATION TYPE: US abdomen limited DATE OF EXAM: 10/27/2017 COMPARISON: NONE CLINICAL HISTORY: leakage around the PEG tube site poss abscess. Areas surrounding PEG tube scanned, there is a hypoechoic area superior to PEG tube measuring 3.1cm, unable to well see this in sagittal plane because technologist was being careful not to disturb PEG t ube. There is a hypoechoic area with ill-defined margins measuring 3.1 cm in transverse dimension within t he midabdomen superior to the PEG tube insertion. IMPRESSION: 1. Collection superior to the PEG tube insertion site of uncertain etiology. This may be the PEG tube balloon. Abscess or extravasation is within the differential. Consider CT as additional evaluation f or workup.
[2017-10-27 17:08] LABS: Glucose,Whole Blood 186 mg/dL (75-99)
[2017-10-27] MEDS ORDERED: PARENTERAL ELECTROLYTES 20 ML, MVI, ADULT NO.4 WITH VIT K 10 ML, TRACE (CONC-1ML/DOSE) ... IV SCH ×4 (18:00)
[2017-10-27] MEDS: FAT EMULSION 20% 250 ML in EMPTY BAG 1 BAG IV SCH (18:27)
[2017-10-27] MEDS: cefTRIAXone IN SWFI 1,000 MG/10 ML SYRINGE IVP SCH (18:27)
--- NOTE | 2017-10-27 19:09 | P.PN ---
Progress Note - Text Progress Note Date: 10/27/17 Patient seen and evaluated. Multiple studies performed to address function of feeding tube. Secondary to multi-factorial issues including poorly controlled diabetes, morbid obesity, recent 30+ weight loss in 2 months, chronic infections, including accidental tugging on feeding tube, tube is not functioning. Oncology recommendations reviewed. Patient has no additional access for gastrostomy tube other than original site, which per ultrasound may be a subcutaneous fluid collection where abscess cannot be excluded. Recommend removal of gastrostomy tube with debridement of abdominal wall. Ideally radiological placement would be feasible. I discussed with patient TPN for nutrition. Will need home healthcare for infusion therapy as intra-abdominal surgery extremely risky for leak and peritonitis with her current co-morbidities.
[2017-10-27] MEDS: ATORVASTATIN 10 MG TAB PEG/G-TUBE SCH (21:13)
[2017-10-28] MEDS: ONDANSETRON 4 MG/2 ML VIAL IVP PRN ×3 (00:06→17:13)
[2017-10-28 00:10] LABS: Glucose,Whole Blood 280 mg/dL (75-99)
[2017-10-28] MEDS: INSULIN ASPART 100 UNIT/ML 1 ML 10 ML VIAL SQ SCH ×4 (00:10→18:38)
--- NOTE | 2017-10-28 00:50 | P.CONS ---
History of Present Illness - Reason for Consult Consult date: 10/27/17 Hx: Breast, Recent diagnosis Thyroid Cancer - Chief Complaint Peg Tube Malfunction - History of Present Illness CC : Follow Up for Cancer of Breast new diagnosis Thyroid cancer Jessenia is a pleasant 56 year old female well known to our practice, primary oncologist Dr. Hendricks. She was diagnosed with right breast DCIS,LCIS and 0.6cm invasive lobular carcionoma in ,she had a right mastectomy and took tamoxifen for almost 5 years. She has been current on her yearly mammograms. She had abnormal vaginal bleeding for several months,has been evaluated by Dr Doherty and on 10/09/2013,she had endometrial biopsy which revealed complex endometrial hyperplasia with atypia,she stopped tamoxifen in ,then she had hysterectomy at [facility] in and found to have T1a, FIGO grade 1 endometrial cancer. She received erivedge for recurrent basal cell carcinoma of the skin, prescribed by Dr Birch. In ,she developed mild sore throat,then she noticed a very large mass on her neck,was evaluated by Dr Pastrana,had a CT scan of her neck on 2016 revealing large mass in left thyroid 3.2x4.3x4.5cm with mass effect on trachea ,then a FNA of thyroid,she went to [facility] had a core biopsy of thyroid on 08/01/2017,pathology revealed anaplastic thyroid cancer,she had a PET scan on revealing extensive thyroid cancer on the left with jacqueline involvement to level 3. The tumor board at [facility] felt that she has esopageal invasion and preverterbral fascia involvement,felt unresectable and recommended chemoradiation. BRAF mutation was negative, Her genetic testing were negative. She had a PEG tube placement. She started chemoradition on 08/29/2017. with Carboplatin and Taxol Weekly. She received her 7th treatment on 10/25/17, she continues on radiation. She presented to [facility] with complaints of increased leakage and pain around her feeding tube. Her hemoglobin is 7.4 today. Peg tube positive odor, pain and tenderness. Review of Systems Constitutional: Reports as per HPI, Reports anorexia, Reports fatigue, Reports weakness, Reports weight loss Eyes: denies blurred vision, denies pain Ears: deny: decreased hearing, ear discharge, earache, tinnitus Ears, nose, mouth and throat: Reports ant. neck pain, Reports dysphagia, Reports hoarseness, Reports mouth pain, Reports odynophagia, Reports swelling in mouth, Reports swelling in throat Breasts: Reports as per HPI Cardiovascular: Reports as per HPI, Reports decreased exercise tolerance Respiratory: Reports as per HPI, Reports cough Gastrointestinal: Reports as per HPI, Reports abdominal pain Genitourinary: Denies dysuria, Denies hematuria Menstruation: Reports postmenopausal Musculoskeletal: Reports muscle weakness Integumentary: Reports color changes, Reports rash (marked desquamative rash with ulceration ant neck in RT field) Neurological: Reports weakness, Denies numbness Psychiatric: Reports as per HPI Endocrine: Reports as per HPI Hematologic/Lymphatic: Reports as per HPI Allergic/Immunologic: Reports as per HPI Past Medical History Past Medical History: Cancer, Diabetes Mellitus, Hyperlipidemia, Hypertension, Osteoarthritis (OA), Thyroid Disorder Additional Past Medical History / Comment(s): Leukemia at age 13 yrs with chemo and radiation, R breast cancer with mastectomy only, uterine cancer with hysterectomy only, basal cell skin cancer removed from head early 2016 with chemotherapy, current thyroid cancer with difficulty swallowing/deviated airway being treated with chemo/radiation, current peg tube, gout bilateral feet/toes, past L wrist fracture, arthritis bilateral hips, UTIs. History of Any Multi-Drug Resistant Organisms: None Reported Past Surgical History: Appendectomy, Breast Surgery, Hernia Repair, Hysterectomy Additional Past Surgical History / Comment(s): 08/25/17 EGD with peg tube, R mastectomy, basal cell skin cancer removed from head, total hysterectomy, bladder suspension, colonoscopy, PICC line Past Anesthesia/Blood Transfusion Reactions: Postoperative Nausea & Vomiting ( PONV) Additional Past Anesthesia/Blood Transfusion Reaction / Comm: Pt has received blood without reaction. Smoking Status: Never smoker - Past Family History Sister(s) Family Medical History: Thyroid Disorder Additional Family Medical History / Comment(s): Thyroid CA Mother Family Medical History: Diabetes Mellitus Father Additional Family Medical History / Comment(s): father has back problems. Medications and Allergies Home Medications Medication Instructions Recorded Confirmed Type Cetirizine HCl [Zyrtec] 10 mg PEG/G-TUBE DAILY 04/22/17 10/26/17 History Insulin Aspart [NovoLOG See Protocol SQ AC-BID 04/22/17 10/26/17 History (formulary)] Lisinopril-Hctz 20-25 mg 1 tab PEG/G-TUBE DAILY 04/22/17 10/26/17 History [Zestoretic 20-25] Simvastatin [Zocor] 20 mg PEG/G-TUBE HS 04/22/17 10/26/17 History metFORMIN HCL 1,000 mg PEG/G-TUBE BID 04/22/17 10/26/17 History Allopurinol [Zyloprim] 100 mg PEG/G-TUBE DAILY 07/14/17 10/26/17 History Levothyroxine Sodium [Synthroid] 25 mcg PEG/G-TUBE DAILY 07/14/17 10/26/17 History Acetaminophen [Tylenol Extra 1,000 mg PEG/G-TUBE Q6H PRN 08/25/17 10/26/17 History Strength] HYDROcodone/APAP [[place] Elixir 15 - 25 ml PEG/G-TUBE ACHS 09/15/17 10/26/17 History 7.5-325Mg/15Ml] Ondansetron HCl [Zofran Oral Soln] 4 mg PEG/G-TUBE Q6H PRN 09/15/17 10/26/17 History Insulin Glargine,Hum.rec.anlog 51 unit SQ BID #0 09/21/17 10/26/17 Rx [Basaglar Kwikpen U-100] Potassium Chloride ER [K-Dur 20] 20 meq PEG/G-TUBE BID 09/26/17 10/26/17 History Allergies Allergy/AdvReac Type Severity Reaction Status Date / Time Penicillins Allergy Unknown Verified 10/26/17 10:01 Childhood Sulfa (Sulfonamide Allergy Unknown Verified 10/26/17 10:01 Antibiotics) Childhood Physical Exam Vitals: Vital Signs Temp Pulse Pulse Resp BP BP Pulse Ox 10/27/17 07:00 98.3 F 91 16 153/82 95 10/26/17 23:00 98.9 F 103 H 16 174/91 95 10/26/17 14:42 97.9 F 106 H 16 169/81 100 10/26/17 12:25 98.2 F 93 16 163/77 98 Intake and Output 10/26/17 10/27/17 10/27/17 22:59 06:59 14:59 Intake Total 590 600 Balance 590 600 Intake: IV 600 Sodium Chloride 0.9% 1, 600 000 ml @ 75 mls/hr IV . [id number] [facility] Rx#:[id number] Oral 590 Other: Voiding Method Toilet Toilet # Voids 2 - Constitutional Neck with evidence of skin irritation, erythema and oral pharynx sloughing secondary to radiation treatments. General appearance: average body habitus - EENT Eyes: EOMI, PERRLA, normal appearance ENT: pharyngeal erythema - Neck Neck: other (left lower ant neck mass- 4.5 cm. overlying skin with marked erythema, rash with desquamation and ulceration) - Respiratory no increased respiratory effort Respiratory: bilateral: CTA - Cardiovascular Rhythm: regular Heart sounds: normal: S1, S2 - Gastrointestinal PEG tube with evidence of purulent leakage around site, mild erythema, significant tenderness to palpation General gastrointestinal: soft - Integumentary excoriated skin from radiation burning/recall Integumentary: cellulitis (around peg tube siter) - Musculoskeletal Musculoskeletal: gait normal - Psychiatric Psychiatric: A&O x's 3, appropriate affect, intact judgment & insight Results CBC & Chem 7: 10/27/17 07:01 10/27/17 07:01 Labs: Abnormal Lab Results - Last 24 Hours (Table) 10/26/17 10/26/17 10/26/17 Range/Units 10:50 10:50 10:50 WBC (3.8-10.6) k/uL RBC 3.41 L (3.80-5.40) m/uL Hgb 8.4 L (11.4-16.0) gm/dL Hct 26.5 L (34.0-46.0) % MCV 77.6 L (80.0-100.0) fL MCH 24.6 L (25.0-35.0) pg MCHC (31.0-37.0) g/dL RDW 22.7 H (11.5-15.5) % Lymphocytes # 0.1 L (1.0-4.8) k/uL Sodium 134 L (137-145) mmol/L Chloride 90 L (98-107) mmol/L Carbon Dioxide 33 H (22-30) mmol/L BUN 27 H (7-17) mg/dL Glucose 316 H (74-99) mg/dL POC Glucose (mg/dL) (75-99) mg/dL Hemoglobin A1c 8.7 H (4.0-6.0) % Ferritin (10.0-291.0) ng/mL Total Protein (6.3-8.2) g/dL Albumin 3.2 L (3.5-5.0) g/dL 10/26/17 10/26/17 10/26/17 Range/Units 10:50 17:25 20:31 WBC (3.8-10.6) k/uL RBC (3.80-5.40) m/uL Hgb (11.4-16.0) gm/dL Hct (34.0-46.0) % MCV (80.0-100.0) fL MCH (25.0-35.0) pg MCHC (31.0-37.0) g/dL RDW (11.5-15.5) % Lymphocytes # (1.0-4.8) k/uL Sodium (137-145) mmol/L Chloride (98-107) mmol/L Carbon Dioxide (22-30) mmol/L BUN (7-17) mg/dL Glucose (74-99) mg/dL POC Glucose (mg/dL) 244 H 212 H (75-99) mg/dL Hemoglobin A1c (4.0-6.0) % Ferritin 449.0 H (10.0-291.0) ng/mL Total Protein (6.3-8.2) g/dL Albumin (3.5-5.0) g/dL 10/27/17 10/27/17 10/27/17 Range/Units 07:01 07:01 07:07 WBC 3.7 L (3.8-10.6) k/uL RBC 3.15 L (3.80-5.40) m/uL Hgb 7.6 L (11.4-16.0) gm/dL Hct 24.9 L (34.0-46.0) % MCV 78.9 L (80.0-100.0) fL MCH 24.0 L (25.0-35.0) pg MCHC 30.5 L (31.0-37.0) g/dL RDW 22.5 H (11.5-15.5) % Lymphocytes # 0.2 L (1.0-4.8) k/uL Sodium (137-145) mmol/L Chloride (98-107) mmol/L Carbon Dioxide (22-30) mmol/L BUN (7-17) mg/dL Glucose 135 H (74-99) mg/dL POC Glucose (mg/dL) 147 H (75-99) mg/dL Hemoglobin A1c (4.0-6.0) % Ferritin (10.0-291.0) ng/mL Total Protein 5.9 L (6.3-8.2) g/dL Albumin 2.9 L (3.5-5.0) g/dL Microbiology - Last 24 Hours (Table) 10/26/17 17:09 Gram Stain - Preliminary Abdomen Wound Culture - Preliminary Abdominal x-ray: report reviewed Assessment and Plan Assessment: 56 year old female patient currently undergoing combination chemoradiation for anaplastic thyroid cancer. She presents with malfunctioning peg tube. (1) Gastrostomy site leak Narrative/Plan: Surgery Consultation was placed, and pt assessed by them. Case was d/w the surgical service. US was recommended to r/o abcess. Xray reviewed, defer to surgery for decision re replacement. From Heme standpoint, both plt and WBC are adequate for any planned procedure Current Visit: Yes Status: Acute Code(s): K94.23 - GASTROSTOMY MALFUNCTION SNOMED Code(s): 373369534 (2) Radiation burn Narrative/Plan: 1. Defer to Radiation Oncology 2. Supportive Care 2. Monitor for developement of any superimposed infection Current Visit: Yes Status: Acute Code(s): T30.0 - BURN OF UNSPECIFIED BODY REGION, UNSPECIFIED DEGREE SNOMED Code(s): 210805054 (3) Anaplastic thyroid carcinoma Narrative/Plan: 1. Status Post treatment number 7 of weekly Carbo and Taxol 2. Monitor Blood Counts 3. RT is on hold till skin toxicity resolves sufficiently Current Visit: No Status: Acute Code(s): C73 - MALIGNANT NEOPLASM OF THYROID GLAND SNOMED Code(s): 896292622 (4) Dehydration Narrative/Plan: Continue IV hydration Current Visit: Yes Status: Acute Code(s): E86.0 - DEHYDRATION SNOMED Code( s): 40532624
[2017-10-28] MEDS: HYDROmorphone 0.5 MG/0.5 ML SYRINGE IVP PRN ×6 (03:18→23:59)
[2017-10-28 06:19] LABS: Glucose,Whole Blood 303 mg/dL (75-99)
[2017-10-28 07:11] LABS: Anisocytosis Moderate; Basophils % (A) 0 %; Eosinophils % (A) 1 %; HCT 25.6 % (34.0-46.0); HGB 7.9 gm/dL (11.4-16.0); Hypochromasia Marked; Lymphocytes # (A) 0.2 k/uL (1.0-4.8); Lymphocytes % (A) 5 %; MCH 24.6 pg (25.0-35.0); MCV 79.2 fL (80.0-100.0); Mean Platelet Volume 7.7; Microcytosis Moderate; Monocytes # (A) 0.1 k/uL (0-1.0); Monocytes % (A) 4 %; Neutrophils # (A) 3.6 k/uL (1.3-7.7); Neutrophils % (A) 89 %; Platelet Count 187 k/uL (150-450); Poikilocytosis Moderate; RBC 3.23 m/uL (3.80-5.40)
[2017-10-28 07:27] LABS: ALT 21 U/L (9-52); AST 19 U/L (14-36); Albumin 2.9 g/dL (3.5-5.0); Alkaline Phosphatase 92 U/L (38-126); Anion Gap 9 mmol/L; Blood Urea Nitrogen 12 mg/dL (7-17); Calcium 8.2 mg/dL (8.4-10.2); Carbon Dioxide 31 mmol/L (22-30); Chloride 97 mmol/L (98-107); Glucose 279 mg/dL (74-99); Magnesium 1.4 mg/dL (1.6-2.3); Phosphorus 3.7 mg/dL (2.5-4.5); Potassium 3.8 mmol/L (3.5-5.1); Sodium 137 mmol/L (137-145); Total Bilirubin 0.4 mg/dL (0.2-1.3); Total Protein 5.8 g/dL (6.3-8.2)
--- NOTE | 2017-10-28 08:20 | CT ---
EXAMINATION TYPE: CT abdomen wo con DATE OF EXAM: 10/28/2017 COMPARISON: Previous study dated 09/28/2017 HISTORY: Gastric fistula, leaking gastric tube, nausea and vomiting CT DLP: 655 mGycm Automated exposure control for dose reduction was used. TECHNIQUE: Helical acquisition of images was performed from the lung bases through the top of iliac crest to include entire abdomen. CONTRAST: Performed without Oral Contrast and without IV contrast. FINDINGS: There has been a right-sided mastectomy. There is an implant in place on the right. Visualized portions of the lung bases are clear. There is no pleural or pericardial fluid. The heart is not enlarged. The patient's PEG tube is pulled back into the soft tissues of the anterior abdominal wall. It does n ot enter the stomach. There is no fluid collection surrounding the stomach. There is no fluid in the lesser sac. The liver is enlarged measuring 19 cm. The spleen is enlarged measuring 15 cm. The gallbladder has no rmal appearance. Both adrenal glands appear normal. The right kidney is somewhat lobulated. The left kidney appears normal. There is no evidence of nephr olithiasis or hydronephrosis. The pancreas is unremarkable. There is no significant retroperitoneal adenopathy. Large and small bowel loops appear normal. There is postsurgical change in the right lower quadrant w hich I believe represents the anterior hernia repair. 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 There is facet arthropathy in the lower lumbar spine. IMPRESSION: 1. MALPOSITIONED GASTROSTOMY TUBE. 2. HEPATOSPLENOMEGALY. 3. POSTSURGICAL CHANGE. 4. DEGENERATIVE CHANGES WITHIN THE SPINE.
[2017-10-28] MEDS: ALLOPURINOL 100 MG TAB PEG/G-TUBE SCH (08:32)
[2017-10-28] MEDS: metFORMIN 500 MG TAB PEG/G-TUBE SCH (08:32)
[2017-10-28] MEDS: LISINOPRIL-HCTZ 20-25 MG 1 EACH TAB PEG/G-TUBE SCH (08:33)
[2017-10-28] MEDS: LORATADINE 10 MG TAB PEG/G-TUBE SCH (08:33)
[2017-10-28] MEDS: POTASSIUM CHLORIDE ORAL LIQUID 40 MEQ/30 ML CUP PEG/G-TUBE SCH ×2 (08:33→21:00)
[2017-10-28] MEDS: LEVOTHYROXINE IVP 100 MCG/5 ML VIAL IV SCH (08:35)
[2017-10-28] MEDS: PANTOPRAZOLE 40 MG/10 ML VIAL IVP SCH (08:35)
--- NOTE | 2017-10-28 08:42 | P.PN ---
Subjective Progress Note Date: 10/28/17 This is a 56-year-old female with a past medical history of thyroid cancer with a tracheal deviation. She is undergoing chemo and radiation treatment. Last chemotherapy yesterday and radiation today. 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 This is patient's third admission due to PEG tube malfunction. PEG tube was placed 08/25/2017. Patient reports that about 3 days that her PEG tube has not been working. When she pours the feedings as well as when she places her medications into the tube drains out onto her abdomen. She has skin irritation along the abdomen as well as some puslike drainage. This will be cultured. Patient has been on antibiotics in the form of Keflex and also topical Silvadene given by Dr. Berg her radiation oncologist for the radiation burn on her back. Patient also has been coughing with sputum production. Chest x-ray has been ordered. She denies any fever chills or sweats denies any abdominal pain. Denies any vomiting. She does report dry heaves and nausea. Denies any bowel movement changes or urinary symptoms. She is having some pain in her neck on 10/27/2017 patient is alert and oriented 3 complaining of pain in her neck she is and able to swallow she is complaining of cough was copious amount of sputum production otherwise she denies any complaints there is no fever or chills no headache no dizziness no nausea or vomiting no abdominal pain no diarrhea and no urinary symptoms. On 10/28/2017 patient is alert and oriented 3 in no apparent distress blood pressure is elevated at 182/85 patient is complaining of neck discomfort and abdominal discomfort otherwise she denies any complaints at this time she is nothing by mouth she was started on TPN she is scheduled to have PEG tube removed on Monday or Monday Objective - Vital Signs Vital signs: Vital Signs Temp 99.1 F 10/28/17 07:00 Pulse 110 H 10/28/17 07:00 Resp 18 10/28/17 07:00 BP 182/85 10/28/17 07:00 Pulse Ox 97 10/28/17 07:00 Intake & Output 10/27/17 10/28/17 10/28/17 18:59 06:59 18:59 Intake Total 525 852 Balance 525 852 Weight 92.5 kg Intake: IV 852 Fat Emulsion 20% 250 ml 252 In Empty Bag 1 bag @ 21 mls/hr IV DAILY@1800 [facility] Rx#:[id number] Parenteral Electrolytes 360 20 ml In Amino Acid 5%- D25w 1,000 ml @ 63 mls/hr IV .BY DURATION [facility] Rx#: [id number] ns@20 240 Intake, IV Titration 525 Amount Sodium Chloride 0.9% 1, 525 000 ml @ 75 mls/hr IV . [id number] [facility] Rx#:[id number] Other: Voiding Method Toilet Toilet - Exam Head normocephalicand at traumatic Neck supple. Radiation burn noted on the anterior aspect of the neck there is scabbing and redness Lungs coarse breath sounds notedno wheezing Heart regular rate and rhythm S1-S2, no rub or gallop Abdomen is soft nontender nondistended positive bowel sounds no palpable hepatosplenomegaly. PEG tube site drainage yellowish drainage present. There is skin irritation below the PEG tube, left side of the abdomen reddish in color. PEG tube appears to be pulled out slightly. Extremities no edema no cyanosis or clubbing Neuro alert and orientated to 3 - Labs CBC & Chem 7: 10/28/17 06:53 10/28/17 06:53 Labs: Abnormal Lab Results - Last 24 Hours (Table) 10/27/17 10/27/17 10/27/17 Range/Units 12:14 14:52 17:06 RBC (3.80-5.40) m/uL Hgb (11.4-16.0) gm/dL Hct (34.0-46.0) % MCV (80.0-100.0) fL MCH (25.0-35.0) pg RDW (11.5-15.5) % Lymphocytes # (1.0-4.8) k/uL Chloride (98-107) mmol/L Carbon Dioxide (22-30) mmol/L Glucose (74-99) mg/dL POC Glucose (mg/dL) 195 H 186 H (75-99) mg/dL Calcium (8.4-10.2) mg/dL Magnesium 1.5 L (1.6-2.3) mg/dL Total Protein (6.3-8.2) g/dL Albumin (3.5-5.0) g/dL Triglycerides 330 H (<150) mg/dL 10/28/17 10/28/17 10/28/17 Range/Units 00:08 06:18 06:53 RBC 3.23 L (3.80-5.40) m/uL Hgb 7.9 L (11.4-16.0) gm/dL Hct 25.6 L (34.0-46.0) % MCV 79.2 L (80.0-100.0) fL MCH 24.6 L (25.0-35.0) pg RDW 22.0 H (11.5-15.5) % Lymphocytes # 0.2 L (1.0-4.8) k/uL Chloride (98-107) mmol/L Carbon Dioxide (22-30) mmol/L Glucose (74-99) mg/dL POC Glucose (mg/dL) 280 H 303 H (75-99) mg/dL Calcium (8.4-10.2) mg/dL Magnesium (1.6-2.3) mg/dL Total Protein (6.3-8.2) g/dL Albumin (3.5-5.0) g/dL Triglycerides (<150) mg/dL 10/28/17 Range/Units 06:53 RBC (3.80-5.40) m/uL Hgb (11.4-16.0) gm/dL Hct (34.0-46.0) % MCV (80.0-100.0) fL MCH (25.0-35.0) pg RDW (11.5-15.5) % Lymphocytes # (1.0-4.8) k/uL Chloride 97 L (98-107) mmol/L Carbon Dioxide 31 H (22-30) mmol/L Glucose 279 H (74-99) mg/dL POC Glucose (mg/dL) (75-99) mg/dL Calcium 8.2 L (8.4-10.2) mg/dL Magnesium 1.4 L (1.6-2.3) mg/dL Total Protein 5.8 L (6.3-8.2) g/dL Albumin 2.9 L (3.5-5.0) g/dL Triglycerides (<150) mg/dL Microbiology - Last 24 Hours (Table) 10/26/17 17:09 Gram Stain - Preliminary Abdomen Wound Culture - Preliminary Assessment and Plan Plan: 1. Malfunctioning PEG tube: KUB x-ray showing abnormal positioning of PEG tube. Surgical consult has been placed. PEG tube feedings on hold. plan per surgery is to proceed with PEG tube replacement on Monday or Monday 2. Cough with sputum production: Check chest x-ray. Check sputum culture. Check influenza screen 3. Diabetes mellitus type 2 with elevated blood sugars in the 300s. Patient has not been taking her Levemir at home due to not taking the tube feedings. Add sliding scale coverage. Continue to monitor we'll decrease her home Levemir dose from 21 units twice a day down to 20 daily 4. 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 She did have radiation treatment today and last chemotherapy was yesterday. Consults will place be placed for Dr. Berg 5. Radiation burn to the neck had been on Silvadene and Keflex at home. will stop Keflex for now and switch her over to Rocephin to cover upper respiratory infection as well as her skin infection. 6. Hypothyroidism continue Synthroid 7. History of breast cancer and uterine cancer 8. Anemia hemoglobin 8.4 no active signs of bleeding. We'll check iron studies. Possibly related to her chemotherapy and cancer 9. Mild hyponatremia with a sodium of 134 continue normal saline 10. Nausea continue Zofran also add Protonix IV 11. Pain control: Continue the IV Dilaudid every 3 hours as needed 12. poor nutritional status patient will be started on TPN until she has a functioning PEG tube, at this time will try to switch most of her medications to IV form GI prophylaxis Protonix. We'll hold off on anticoagulation for DVT prophylaxis in case surgical procedure needs to be completed
--- NOTE | 2017-10-28 09:38 | P.PN ---
Progress Note - Text Progress Note Date: 10/28/17 The patient is resting comfortably in her bed. On exam her vital signs are stable. Abdomen soft. PEG tube site shows some evidence of induration. The patient's PEG site will be debrided by Dr. Ferro Monday.
[2017-10-28 09:57] LABS: T4, Free (Free Thyroxine) 1.23 ng/dL (0.78-2.19)
[2017-10-28] MEDS: MAGNESIUM SULFATE-D5W PMX 1 GM in DEXTROSE/WATER 1 100ML.BAG IVPB SCH ×3 (10:13→12:29)
[2017-10-28] MEDS: ENALAPRILAT 1.25 MG/ML 1 ML VIAL IVP PRN ×2 (10:13→23:09)
[2017-10-28] MEDS ORDERED: POTASSIUM CHLORIDE 10 MEQ in WATER FOR INJECTION 1 100ML.BAG IVPB ONE (11:00)
[2017-10-28] MEDS ORDERED: POTASSIUM CHLORIDE 10 MEQ in SODIUM CHLORIDE 0.9% 100 ML IV ONE (11:00)
[2017-10-28] MEDS: INSULIN DETEMIR 100 UNIT/ML 10 ML VIAL SQ SCH (11:24)
[2017-10-28 11:59] LABS: Glucose,Whole Blood 316 mg/dL (75-99)
--- NOTE | 2017-10-28 12:27 | P.PN ---
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 She initiated a course of concurrent chemoradiation and has finished planned radiotherapy treatments. She was admitted to the hospital secondary to PEG-tube malfunction. She is PEG dependent secondary to head/neck RT and chemotherapy. She has had difficulty with desquamation of the anterior neck skin. Initially she was not managing this properly at home. Objective - Vital Signs Vital signs: Vital Signs Temp 99.1 F 10/28/17 07:00 Pulse 110 H 10/28/17 07:00 Resp 18 10/28/17 07:00 BP 182/85 10/28/17 07:00 Pulse Ox 97 10/28/17 07:00 Intake & Output 10/27/17 10/28/17 10/28/17 18:59 06:59 18:59 Intake Total 525 852 Balance 525 852 Weight 92.5 kg Intake: IV 852 Fat Emulsion 20% 250 ml 252 In Empty Bag 1 bag @ 21 mls/hr IV DAILY@1800 COLIN Rx#:[id number] Parenteral Electrolytes 360 20 ml In Amino Acid 5%- D25w 1,000 ml @ 63 mls/hr IV .BY DURATION COLIN Rx#: [id number] ns@20 240 Intake, IV Titration 525 Amount Sodium Chloride 0.9% 1, 525 000 ml @ 75 mls/hr IV . [id number] STA Rx#:[id number] Other: Voiding Method Toilet Toilet - Constitutional General appearance: Present: average body habitus. Absent: no acute distress - EENT Eyes: Present: EOMI, PERRLA - Neck Neck: Present: lymphadenopathy, other (significant skin desquamation over the anterior neck) - Respiratory Respiratory: bilateral: CTA - Cardiovascular Rhythm: regular Heart sounds: normal: S1, S2 - Gastrointestinal General gastrointestinal: Absent: tenderness - Integumentary Integumentary: Present: rash (over neck) - Neurologic Neurologic: Present: CNII-XII intact - Psychiatric Psychiatric: Present: A&O x's 3, appropriate affect - Labs CBC & Chem 7: 10/28/17 06:53 10/28/17 06:53 Labs: Abnormal Lab Results - Last 24 Hours (Table) 10/27/17 10/27/17 10/28/17 Range/Units 14:52 17:06 00:08 RBC (3.80-5.40) m/uL Hgb (11.4-16.0) gm/dL Hct (34.0-46.0) % MCV (80.0-100.0) fL MCH (25.0-35.0) pg RDW (11.5-15.5) % Lymphocytes # (1.0-4.8) k/uL Chloride (98-107) mmol/L Carbon Dioxide (22-30) mmol/L Glucose (74-99) mg/dL POC Glucose (mg/dL) 186 H 280 H (75-99) mg/dL Calcium (8.4-10.2) mg/dL Magnesium 1.5 L (1.6-2.3) mg/dL Total Protein (6.3-8.2) g/dL Albumin (3.5-5.0) g/dL Triglycerides 330 H (<150) mg/dL TSH (0.465-4.680) mIU/L 10/28/17 10/28/17 10/28/17 Range/Units 06:18 06:53 06:53 RBC 3.23 L (3.80-5.40) m/uL Hgb 7.9 L (11.4-16.0) gm/dL Hct 25.6 L (34.0-46.0) % MCV 79.2 L (80.0-100.0) fL MCH 24.6 L (25.0-35.0) pg RDW 22.0 H (11.5-15.5) % Lymphocytes # 0.2 L (1.0-4.8) k/uL Chloride 97 L (98-107) mmol/L Carbon Dioxide 31 H (22-30) mmol/L Glucose 279 H (74-99) mg/dL POC Glucose (mg/dL) 303 H (75-99) mg/dL Calcium 8.2 L (8.4-10.2) mg/dL Magnesium 1.4 L (1.6-2.3) mg/dL Total Protein 5.8 L (6.3-8.2) g/dL Albumin 2.9 L (3.5-5.0) g/dL Triglycerides (<150) mg/dL TSH (0.465-4.680) mIU/L 10/28/17 10/28/17 Range/Units 06:53 11:56 RBC (3.80-5.40) m/uL Hgb (11.4-16.0) gm/dL Hct (34.0-46.0) % MCV (80.0-100.0) fL MCH (25.0-35.0) pg RDW (11.5-15.5) % Lymphocytes # (1.0-4.8) k/uL Chloride (98-107) mmol/L Carbon Dioxide (22-30) mmol/L Glucose (74-99) mg/dL POC Glucose (mg/dL) 316 H (75-99) mg/dL Calcium (8.4-10.2) mg/dL Magnesium (1.6-2.3) mg/dL Total Protein (6.3-8.2) g/dL Albumin (3.5-5.0) g/dL Triglycerides (<150) mg/dL TSH 4.860 H (0.465-4.680) mIU/L - Imaging and Cardiology CT scan - abdomen: report reviewed Assessment and Plan Assessment: 56 year old female with anaplastic thyroid cancer, currently undergoing concurrent chemoradiation. Last chemotherapy this past week, did receive radiotherapy today (10/27/17). 1. Surgical management for PEG tube malfunction. 2. Anterior neck desquamation: Patient instructed to use thin lining of silvadene cream over affected area twice daily - leave open to air. Clean with gentlly with wash-cloth, warm water. 3. Patient has completed total radiation treatments. She has had 2 breaks during her treatment due to toxicity. She finished chemotherapy this past week. I would prefer the patient attempt to finish 2-3 of her final radiation treatments. Will revisit this discussion with her on Monday.
[2017-10-28] MEDS: cefTRIAXone IN SWFI 1,000 MG/10 ML SYRINGE IVP SCH (15:41)
[2017-10-28] MEDS: FAT EMULSION 20% 250 ML in EMPTY BAG 1 BAG IV SCH (17:13)
[2017-10-28 17:55] LABS: Glucose,Whole Blood 248 mg/dL (75-99)
[2017-10-28] MEDS ORDERED: 1: PARENTERAL ELECTROLYTES 20 ML, MVI, ADULT NO.4 WITH VIT K 10 ML, TRACE (CONC-1ML/DOSE IV SCH ×4 (18:00)
[2017-10-28] MEDS: 1: PARENTERAL ELECTROLYTES 20 ML, MVI, ADULT NO.4 WITH VIT K 10 ML, TRACE (CONC-1ML/DOSE IV SCH ×5 (20:57)
[2017-10-29 00:04] LABS: Glucose,Whole Blood 345 mg/dL (75-99)
[2017-10-29] MEDS: INSULIN ASPART 100 UNIT/ML 1 ML 10 ML VIAL SQ SCH ×4 (00:04→18:15)
[2017-10-29] MEDS: ONDANSETRON 4 MG/2 ML VIAL IVP PRN ×3 (01:46→23:04)
[2017-10-29] MEDS: HYDROmorphone 0.5 MG/0.5 ML SYRINGE IVP PRN ×7 (03:02→22:58)
[2017-10-29 06:02] LABS: Glucose,Whole Blood 320 mg/dL (75-99)
[2017-10-29 07:52] LABS: ALT 35 U/L (9-52); AST 31 U/L (14-36); Albumin 2.9 g/dL (3.5-5.0); Alkaline Phosphatase 89 U/L (38-126); Anion Gap 11 mmol/L; Blood Urea Nitrogen 13 mg/dL (7-17); Calcium 8.3 mg/dL (8.4-10.2); Carbon Dioxide 27 mmol/L (22-30); Chloride 96 mmol/L (98-107); Glucose 312 mg/dL (74-99); Magnesium 1.5 mg/dL (1.6-2.3); Phosphorus 3.2 mg/dL (2.5-4.5); Potassium 3.8 mmol/L (3.5-5.1); Sodium 134 mmol/L (137-145); Total Bilirubin 0.4 mg/dL (0.2-1.3); Total Protein 5.8 g/dL (6.3-8.2)
--- NOTE | 2017-10-29 08:29 | P.PN ---
Progress Note - Text Progress Note Date: 10/29/17 The patient remained stable. Her PEG tube site has unchanged. There is no evidence of inflammation and leakage around the PEG tube site. The patient will remain nothing by mouth after midnight. She will have the PEG tube changed or debrided tomorrow. By Dr. Ferro.
[2017-10-29 08:45] LABS: Anisocytosis Moderate; Basophils % (A) 0 %; Eosinophils % (A) 1 %; HCT 25.2 % (34.0-46.0); HGB 7.5 gm/dL (11.4-16.0); Hypochromasia Marked; Lymphocytes # (A) 0.2 k/uL (1.0-4.8); Lymphocytes % (A) 5 %; MCH 24.1 pg (25.0-35.0); MCV 80.5 fL (80.0-100.0); Mean Platelet Volume 7.1; Microcytosis Moderate; Monocytes # (A) 0.1 k/uL (0-1.0); Monocytes % (A) 3 %; Neutrophils # (A) 2.9 k/uL (1.3-7.7); Neutrophils % (A) 89 %; Platelet Count 203 k/uL (150-450); Poikilocytosis Slight; RBC 3.12 m/uL (3.80-5.40); RDW 22.9 % (11.5-15.5); WBC 3.3 k/uL (3.8-10.6)
--- NOTE | 2017-10-29 09:30 | P.PN ---
Subjective Progress Note Date: 10/29/17 This is a 56-year-old female with a past medical history of thyroid cancer with a tracheal deviation. She is undergoing chemo and radiation treatment. Last chemotherapy yesterday and radiation today. 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 This is patient's third admission due to PEG tube malfunction. PEG tube was placed 08/25/2017. Patient reports that about 3 days that her PEG tube has not been working. When she pours the feedings as well as when she places her medications into the tube drains out onto her abdomen. She has skin irritation along the abdomen as well as some puslike drainage. This will be cultured. Patient has been on antibiotics in the form of Keflex and also topical Silvadene given by Dr. Berg her radiation oncologist for the radiation burn on her back. Patient also has been coughing with sputum production. Chest x-ray has been ordered. She denies any fever chills or sweats denies any abdominal pain. Denies any vomiting. She does report dry heaves and nausea. Denies any bowel movement changes or urinary symptoms. She is having some pain in her neck on 10/27/2017 patient is alert and oriented 3 complaining of pain in her neck she is and able to swallow she is complaining of cough was copious amount of sputum production otherwise she denies any complaints there is no fever or chills no headache no dizziness no nausea or vomiting no abdominal pain no diarrhea and no urinary symptoms. On 10/28/2017 patient is alert and oriented 3 in no apparent distress blood pressure is elevated at 182/85 patient is complaining of neck discomfort and abdominal discomfort otherwise she denies any complaints at this time she is nothing by mouth she was started on TPN she is scheduled to have PEG tube removed on Monday or Monday. 10/29/2017 patient is alert and oriented 3 complaining of pain and nausea, otherwise no complaints blood pressure is still significantly elevated she is receiving IV Vasotec when necessary she is unable to take any oral intake at this time will add Catapres patch and monitor blood pressure closely she is also requesting an increase in frequency of her pain and nausea medications. Objective - Vital Signs Vital signs: Vital Signs Temp 99.7 F H 10/29/17 07:00 Pulse 106 H 10/29/17 07:00 Resp 18 10/29/17 07:00 BP 170/72 10/29/17 07:00 Pulse Ox 95 10/29/17 07:00 Intake & Output 10/28/17 10/29/17 10/29/17 18:59 06:59 18:59 Intake Total 904 1422 Balance 904 1422 Weight 90.8 kg Intake: IV 504 832 Fat Emulsion 20% 250 ml 168 In Empty Bag 1 bag @ 21 mls/hr IV DAILY@1800 [facility] Rx#:[id number] Parenteral Electrolytes 504 504 20 ml In Amino Acid 5%- D25w 1,000 ml @ 63 mls/hr IV .BY DURATION COLIN Rx#: [id number] ns@20 160 Intake, IV Titration 400 Amount Magnesium Sulfate-D5w Pmx 300 1 gm In Dextrose/Water 1 100ml.bag @ 100 mls/hr IVPB Q1H COLIN Rx#: [id number] Potassium Chloride 10 meq 100 In Sodium Chloride 0.9% 100 ml @ 105 mls/hr IV ONCE ONE Rx#:[id number] Oral 590 Other: Voiding Method Toilet # Voids 2 - Exam Head normocephalicand at traumatic Neck supple. Radiation burn noted on the anterior aspect of the neck there is scabbing and redness Lungs coarse breath sounds notedno wheezing Heart regular rate and rhythm S1-S2, no rub or gallop Abdomen is soft nontender nondistended positive bowel sounds no palpable hepatosplenomegaly. PEG tube site drainage yellowish drainage present. There is skin irritation below the PEG tube, left side of the abdomen reddish in color. PEG tube appears to be pulled out slightly. Extremities no edema no cyanosis or clubbing Neuro alert and orientated to 3 - Labs CBC & Chem 7: 10/29/17 06:43 10/29/17 06:43 Labs: Abnormal Lab Results - Last 24 Hours (Table) 10/28/17 10/28/17 10/28/17 Range/Units 06:53 11:56 17:53 WBC (3.8-10.6) k/uL RBC (3.80-5.40) m/uL Hgb (11.4-16.0) gm/dL Hct (34.0-46.0) % MCH (25.0-35.0) pg MCHC (31.0-37.0) g/dL RDW (11.5-15.5) % Lymphocytes # (1.0-4.8) k/uL Sodium (137-145) mmol/L Chloride (98-107) mmol/L Glucose (74-99) mg/dL POC Glucose (mg/dL) 316 H 248 H (75-99) mg/dL Calcium (8.4-10.2) mg/dL Magnesium (1.6-2.3) mg/dL Total Protein (6.3-8.2) g/dL Albumin (3.5-5.0) g/dL TSH 4.860 H (0.465-4.680) mIU/L 10/29/17 10/29/17 10/29/17 Range/Units 00:00 06:01 06:43 WBC 3.3 L (3.8-10.6) k/uL RBC 3.12 L (3.80-5.40) m/uL Hgb 7.5 L (11.4-16.0) gm/dL Hct 25.2 L (34.0-46.0) % MCH 24.1 L (25.0-35.0) pg MCHC 30.0 L (31.0-37.0) g/dL RDW 22.9 H (11.5-15.5) % Lymphocytes # 0.2 L (1.0-4.8) k/uL Sodium (137-145) mmol/L Chloride (98-107) mmol/L Glucose (74-99) mg/dL POC Glucose (mg/dL) 345 H 320 H (75-99) mg/dL Calcium (8.4-10.2) mg/dL Magnesium (1.6-2.3) mg/dL Total Protein (6.3-8.2) g/dL Albumin (3.5-5.0) g/dL TSH (0.465-4.680) mIU/L 10/29/17 Range/Units 06:43 WBC (3.8-10.6) k/uL RBC (3.80-5.40) m/uL Hgb (11.4-16.0) gm/dL Hct (34.0-46.0) % MCH (25.0-35.0) pg MCHC (31.0-37.0) g/dL RDW (11.5-15.5) % Lymphocytes # (1.0-4.8) k/uL Sodium 134 L (137-145) mmol/L Chloride 96 L (98-107) mmol/L Glucose 312 H (74-99) mg/dL POC Glucose (mg/dL) (75-99) mg/dL Calcium 8.3 L (8.4-10.2) mg/dL Magnesium 1.5 L (1.6-2.3) mg/dL Total Protein 5.8 L (6.3-8.2) g/dL Albumin 2.9 L (3.5-5.0) g/dL TSH (0.465-4.680) mIU/L Microbiology - Last 24 Hours (Table) 10/28/17 09:25 Gram Stain - Preliminary Sputum 10/26/17 17:09 Gram Stain - Preliminary Abdomen Wound Culture - Preliminary Gram Neg Bacilli Ophelia parapsilosis Group D Enterococcus Assessment and Plan Plan: 1. Malfunctioning PEG tube: KUB x-ray showing abnormal positioning of PEG tube. Surgical consult has been placed. PEG tube feedings on hold. plan per surgery is to proceed with PEG tube replacement on Monday or Monday 2. Cough with sputum production: Check chest x-ray. Check sputum culture. Check influenza screen 3. Diabetes mellitus type 2 with elevated blood sugars in the 300s. Patient has not been taking her Levemir at home due to not taking the tube feedings. Add sliding scale coverage. Continue to monitor we'll decrease her home Levemir dose from 21 units twice a day down to 20 daily 4. 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 She did have radiation treatment today and last chemotherapy was yesterday. Consults will place be placed for Dr. Berg 5. Radiation burn to the neck had been on Silvadene and Keflex at home. will stop Keflex for now and switch her over to Rocephin to cover upper respiratory infection as well as her skin infection. 6. Hypothyroidism continue Synthroid 7. History of breast cancer and uterine cancer 8. Anemia hemoglobin 8.4 no active signs of bleeding. We'll check iron studies. Possibly related to her chemotherapy and cancer 9. Mild hyponatremia with a sodium of 134 continue normal saline 10. Nausea continue Zofran also add Protonix IV 11. Pain control: Continue the IV Dilaudid every 3 hours as needed 12. poor nutritional status patient will be started on TPN until she has a functioning PEG tube, at this time will try to switch most of her medications to IV form GI prophylaxis Protonix. We'll hold off on anticoagulation for DVT prophylaxis in case surgical procedure needs to be completed
[2017-10-29] MEDS: LORATADINE 10 MG TAB PEG/G-TUBE SCH (09:53)
[2017-10-29] MEDS: INSULIN DETEMIR 100 UNIT/ML 10 ML VIAL SQ SCH (09:54)
[2017-10-29] MEDS: POTASSIUM CHLORIDE ORAL LIQUID 40 MEQ/30 ML CUP PEG/G-TUBE SCH ×2 (09:54→22:26)
[2017-10-29] MEDS: PANTOPRAZOLE 40 MG/10 ML VIAL IVP SCH (09:56)
[2017-10-29] MEDS: LEVOTHYROXINE IVP 100 MCG/5 ML VIAL IV SCH (09:56)
[2017-10-29] MEDS: MICAFUNGIN 100 MG in SODIUM CHLORIDE 0.9% 100 ML IVPB SCH (11:29)
[2017-10-29] MEDS: cloNIDine 0.1 MG/24HR PATCH 1 PATCH PATCH TRANSDERM SCH (11:29)
[2017-10-29] MEDS: 1: PARENTERAL ELECTROLYTES 20 ML, MVI, ADULT NO.4 WITH VIT K 10 ML, TRACE (CONC-1ML/DOSE IV SCH ×5 (11:30)
[2017-10-29 11:57] LABS: Glucose,Whole Blood 349 mg/dL (75-99)
[2017-10-29] MEDS: MEROPENEM 1 GM in SODIUM CHLORIDE 0.9% 100 ML IVPB SCH ×2 (12:45→15:15)
[2017-10-29] MEDS ORDERED: POTASSIUM CHLORIDE 10 MEQ in SODIUM CHLORIDE 0.9% 100 ML IV ONE (13:45)
[2017-10-29] MEDS: MAGNESIUM SULFATE-D5W PMX 1 GM in DEXTROSE/WATER 1 100ML.BAG IVPB SCH ×3 (15:18→20:20)
[2017-10-29 17:56] LABS: Glucose,Whole Blood 308 mg/dL (75-99)
[2017-10-29] MEDS: FAT EMULSION 20% 250 ML in EMPTY BAG 1 BAG IV SCH (18:15)
--- NOTE | 2017-10-29 21:46 | P.CONS ---
History of Present Illness - Reason for Consult Consult date: 10/29/17 - Chief Complaint Infection at PEG tube - History of Present Illness 56-year-old female who has a very extensive past medical history regarding cancer. She was first diagnosed with right breast carcinoma completed her course of therapy and was on tamoxifen. However she then developed what appeared to be uterine cancer in her tamoxifen was discontinued after her hysterectomy. The patient was having difficulties with multiple basal cell carcinomas and was treated with immunotherapy with some success. The patient over developed significant pain in her neck with swallowing and a mass was found. 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 Consequently she's been receiving chemoradiation therapy. She started to have increasing difficulties with her PEG tube site and presents to Hospital for further evaluation. Computed tomography scan reveals evidence of malposition of the PEG tube site with evidence of some local infection. With that the infectious diseases consultation was requested the patient believes she 's had a fever but knows to be in chills or rigors. Review of Systems HEENT:Denies headache or acute visual change. Has chronic dry mouth and difficulty swallowing due to her current chemoradiation. She's having difficulties with the skin to her neck with radiation dermatitis. No neck stiffness however. Lungs: Denies significant shortness of breath, cough, sputum production, or hemoptysis. Cardiovascular: Denies significant shortness of breath, chest pain, chest wall pain, orthopnea, dyspnea on exertion, syncope Gastrointestinal: As noted per the HPI difficulty with her PEG tube site but is denying nausea emesis hematemesis melena or a medication Musculoskeletal: denies significant myalgias or arthralgias. No new joint swelling. Denies new back pain. Skin: Denies new rash or lesions. No new ulcers or wounds are related.. Neuro: Denies headache or visual change. Denies any new onset weakness or difficulty with ambulation. Denies falls or seizures. Psychiatric: No change in her depression Endocrine: Ongoing fatigue and weight loss Past Medical History Past Medical History: Cancer, Diabetes Mellitus, Hyperlipidemia, Hypertension, Osteoarthritis (OA), Thyroid Disorder Additional Past Medical History / Comment(s): Leukemia at age 13 yrs with chemo and radiation, R breast cancer with mastectomy only, uterine cancer with hysterectomy only, basal cell skin cancer removed from head early 2016 with chemotherapy, current thyroid cancer with difficulty swallowing/deviated airway being treated with chemo/radiation, current peg tube, gout bilateral feet/toes, past L wrist fracture, arthritis bilateral hips, UTIs. History of Any Multi-Drug Resistant Organisms: None Reported Past Surgical History: Appendectomy, Breast Surgery, Hernia Repair, Hysterectomy Additional Past Surgical History / Comment(s): 08/25/17 EGD with peg tube, R mastectomy, basal cell skin cancer removed from head, total hysterectomy, bladder suspension, colonoscopy, PICC line Past Anesthesia/Blood Transfusion Reactions: Postoperative Nausea & Vomiting ( PONV) Additional Past Anesthesia/Blood Transfusion Reaction / Comm: Pt has received blood without reaction. Additional Psychological History / Comment(s): Lives with family home with her spouse and child. Not able to work. No experience. No travel history. No animals in the home Smoking Status: Never smoker - Past Family History Sister(s) Family Medical History: Thyroid Disorder Additional Family Medical History / Comment(s): Thyroid CA Mother Family Medical History: Diabetes Mellitus Father Additional Family Medical History / Comment(s): father has back problems. Medications and Allergies Home Medications and Allergies Comment(s): Current Medications Clonidine HCl (Catapres-Tts 0.1mg Patch) 1 patch TRANSDERM Q7D [facility] Last Admin: 10/29/17 11:29 Dose: 1 patch Enalaprilat (Vasotec) 1.25 mg IVP Q4HR PRN PRN Reason: Blood Pressure - High Last Admin: 10/28/17 23:09 Dose: 1.25 mg Hydromorphone HCl (Dilaudid) 1 mg IVP Q3HR PRN PRN Reason: Pain Last Admin: 10/29/17 19:31 Dose: 1 mg Fat Emulsion Intravenous 250 (ml/ IV Solution) 250 mls @ 21 mls/hr IV DAILY@ 1800 [facility] Last Admin: 10/29/17 18:15 Dose: 21 mls/hr Parenteral Electrolytes 20 ml/Parenteral Vitamin Supplement 10 ml/ Chromium/ Copper/Manganese/Seleni/Zn 1 ml/Sodium Phosphate 10 mmol/Amino Acids/Dextrose 1 ,034.3333 mls @ 63 mls/hr IV .BY DURATION [facility] Stop: 10/30/17 03:59 Last Admin: 10/28/17 20:57 Dose: 63 mls/hr Parenteral Electrolytes 20 ml/ (Amino Acids/Dextrose) 1,020 mls @ 63 mls/hr IV .BY DURATION [facility] Stop: 10/30/17 03:59 Last Admin: 10/29/17 11:30 Dose: 63 mls/hr Meropenem 1 gm/ Sodium (Chloride) 100 mls @ 100 mls/hr IVPB Q8HR [facility] Last Admin: 10/29/17 15:15 Dose: Not Given Micafungin Sodium 100 mg/ (Sodium Chloride) 100 mls @ 100 mls/hr IVPB DAILY [facility] Last Admin: 10/29/17 11:29 Dose: 100 mls/hr Parenteral Electrolytes 20 ml/Parenteral Vitamin Supplement 10 ml/ Chromium/ Copper/Manganese/Seleni/Zn 1 ml/Sodium Phosphate 10 mmol/Magnesium Sulfate 8 meq / Amino Acids/Dextrose 1,036.3333 mls @ 63 mls/hr IV .BY DURATION [facility] Parenteral Electrolytes 20 ml/Sodium Phosphate 10 mmol/Magnesium Sulfate 8 meq/ Amino Acids/Dextrose 1,025.3333 mls @ 63 mls/hr IV .BY DURATION [facility] Insulin Aspart (Novolog) 0 unit SQ Q6H [facility] PRN Reason: Protocol Last Admin: 10/29/17 18:15 Dose: 5 unit Insulin Detemir (Levemir) 20 unit SQ DAILY [facility] Last Admin: 10/29/17 09:54 Dose: 20 unit Levothyroxine Sodium (Synthroid Ivp) 25 mcg IV DAILY [facility] Last Admin: 10/29/17 09:56 Dose: 25 mcg Loratadine (Claritin) 10 mg PEG/G-TUBE DAILY [facility] Last Admin: 10/29/17 09:53 Dose: Not Given Naloxone HCl (Narcan) 0.2 mg IV Q2M PRN PRN Reason: Opioid Reversal Ondansetron HCl (Zofran) 4 mg IVP Q6HR PRN PRN Reason: Nausea And Vomiting Last Admin: 10/29/17 09:54 Dose: 4 mg Pantoprazole Sodium (Protonix) 40 mg IVP DAILY [facility] Last Admin: 10/29/17 09:56 Dose: 40 mg Potassium Chloride (Potassium Chloride Oral Liquid) 20 meq PEG/G-TUBE BID [facility] Last Admin: 10/29/17 09:54 Dose: Not Given Silver Sulfadiazine (Silvadene Cream) 1 applic TOPICAL BID [facility] Last Admin: 10/29/17 20:21 Dose: 1 applic Home Medications Medication Instructions Recorded Confirmed Type Cetirizine HCl [Zyrtec] 10 mg PEG/G-TUBE DAILY 04/22/17 10/26/17 History Insulin Aspart [NovoLOG See Protocol SQ AC-BID 04/22/17 10/26/17 History (formulary)] Lisinopril-Hctz 20-25 mg 1 tab PEG/G-TUBE DAILY 04/22/17 10/26/17 History [Zestoretic 20-25] Simvastatin [Zocor] 20 mg PEG/G-TUBE HS 04/22/17 10/26/17 History metFORMIN HCL 1,000 mg PEG/G-TUBE BID 04/22/17 10/26/17 History Allopurinol [Zyloprim] 100 mg PEG/G-TUBE DAILY 07/14/17 10/26/17 History Levothyroxine Sodium [Synthroid] 25 mcg PEG/G-TUBE DAILY 07/14/17 10/26/17 History Acetaminophen [Tylenol Extra 1,000 mg PEG/G-TUBE Q6H PRN 08/25/17 10/26/17 History Strength] HYDROcodone/APAP [Philip Elixir 15 - 25 ml PEG/G-TUBE ACHS 09/15/17 10/26/17 History 7.5-325Mg/15Ml] Ondansetron HCl [Zofran Oral Soln] 4 mg PEG/G-TUBE Q6H PRN 09/15/17 10/26/17 History Insulin Glargine,Hum.rec.anlog 51 unit SQ BID #0 09/21/17 10/26/17 Rx [Basaglar Kwikpen U-100] Potassium Chloride ER [K-Dur 20] 20 meq PEG/G-TUBE BID 09/26/17 10/26/17 History Allergies Allergy/AdvReac Type Severity Reaction Status Date / Time Penicillins Allergy Unknown Verified 10/26/17 10:01 Childhood Sulfa (Sulfonamide Allergy Unknown Verified 10/26/17 10:01 Antibiotics) Childhood Physical Exam Vitals: Vital Signs Temp Pulse Resp BP Pulse Ox 10/29/17 15:00 98.6 F 107 H 18 184/83 97 10/29/17 07:00 99.7 F H 106 H 18 170/72 95 10/29/17 01:31 163/84 10/29/17 00:06 107 H 197/89 02/18 22:00 98.5 F 114 H 16 208/99 97 Intake and Output 10/29/17 10/29/17 10/29/17 06:59 14:59 22:59 Intake Total 832 681 Balance 832 681 Intake: IV 832 581 Fat Emulsion 20% 250 ml 168 In Empty Bag 1 bag @ 21 mls/hr IV DAILY@1800 [facility] Rx#:[id number] Parenteral Electrolytes 504 441 20 ml In Amino Acid 5%- D25w 1,000 ml @ 63 mls/hr IV .BY DURATION [facility] Rx#: [id number] ns@20 160 140 Intake, IV Titration 100 Amount Micafungin 100 mg In 100 Sodium Chloride 0.9% 100 ml @ 100 mls/hr IVPB DAILY [facility] Rx#:[id number] Other: Voiding Method Toilet Toilet Toilet # Voids 2 Weight 92.5 kg Patient Weight 10/30/17 06:59 Weight 92.5 kg 56-year-old woman who is modestly comfortable at this time. HEENT: Anicteric conjunctiva are pink and moist nasal mucosa grossly intact without bleeding, oral mucosa is dry without latasha thrush. Neck: The neck is supple evidence of the extensive erythema to the anterior aspect of the neck from recent radiation, no latasha open lesions are seen. No palpable mass Lungs: Good bilateral air entry without significant crackles or wheezing. There is no significant bronchial sounds. There is no egophony or dullness. Heart: Regular rate and rhythm with an audible S1-S2, no S3 no S4. There is no significant murmur click or rub, PMI was nondisplaced. Abdomen: The abdomen is soft and nontender. No palpable mass or organomegaly. PEG tube site is malfunctioning there is drainage and mild erythema. It is not distinctly tender. Extremities: The upper extremities have excellent pulses they are symmetric, no significant petechiae or telangiectasia. No splinter hemorrhages were noted. The lower extremities are free from significant edema. The peripheral pulses were 2+ and symmetric. Neuro: Awake alert oriented to person place and time. With her radiation has difficulty with her voice but is able to easily communicate. No acute gross focal sensory motor deficits are noted Results CBC & Chem 7: 10/29/17 06:43 10/29/17 06:43 Labs: Abnormal Lab Results - Last 24 Hours (Table) 10/29/17 10/29/17 10/29/17 Range/Units 00:00 06:01 06:43 WBC 3.3 L (3.8-10.6) k/uL RBC 3.12 L (3.80-5.40) m/uL Hgb 7.5 L (11.4-16.0) gm/dL Hct 25.2 L (34.0-46.0) % MCH 24.1 L (25.0-35.0) pg MCHC 30.0 L (31.0-37.0) g/dL RDW 22.9 H (11.5-15.5) % Lymphocytes # 0.2 L (1.0-4.8) k/uL Sodium (137-145) mmol/L Chloride (98-107) mmol/L Glucose (74-99) mg/dL POC Glucose (mg/dL) 345 H 320 H (75-99) mg/dL Calcium (8.4-10.2) mg/dL Magnesium (1.6-2.3) mg/dL Total Protein (6.3-8.2) g/dL Albumin (3.5-5.0) g/dL 10/29/17 10/29/17 10/29/17 Range/Units 06:43 11:55 17:53 WBC (3.8-10.6) k/uL RBC (3.80-5.40) m/uL Hgb (11.4-16.0) gm/dL Hct (34.0-46.0) % MCH (25.0-35.0) pg MCHC (31.0-37.0) g/dL RDW (11.5-15.5) % Lymphocytes # (1.0-4.8) k/uL Sodium 134 L (137-145) mmol/L Chloride 96 L (98-107) mmol/L Glucose 312 H (74-99) mg/dL POC Glucose (mg/dL) 349 H 308 H (75-99) mg/dL Calcium 8.3 L (8.4-10.2) mg/dL Magnesium 1.5 L (1.6-2.3) mg/dL Total Protein 5.8 L (6.3-8.2) g/dL Albumin 2.9 L (3.5-5.0) g/dL Microbiology - Last 24 Hours (Table) 10/26/17 17:09 Gram Stain - Final Abdomen Wound Culture - Final Acinetobacter rylan/haemol Ophelia parapsilosis Enterococcus faecalis Stenotrophomonas maltophilia 10/28/17 09:25 Gram Stain - Preliminary Sputum Laboratory Results WBC 3.3 k/uL (3.8-10.6) L 10/29/17 06:43 RBC 3.12 m/uL (3.80-5.40) L 10/29/17 06:43 Hgb 7.5 gm/dL (11.4-16.0) L 10/29/17 06:43 Hct 25.2 % (34.0-46.0) L 10/29/17 06:43 MCV 80.5 fL (80.0-100.0) 10/29/17 06:43 MCH 24.1 pg (25.0-35.0) L 10/29/17 06:43 MCHC 30.0 g/dL (31.0-37.0) L 10/29/17 06:43 RDW 22.9 % (11.5-15.5) H 10/29/17 06:43 Plt Count 203 k/uL (150-450) 10/29/17 06:43 Neutrophils % 89 % 10/29/17 06:43 Lymphocytes % 5 % 10/29/17 06:43 Monocytes % 3 % 10/29/17 06:43 Eosinophils % 1 % 10/29/17 06:43 Basophils % 0 % 10/29/17 06:43 Neutrophils # 2.9 k/uL (1.3-7.7) 10/29/17 06:43 Lymphocytes # 0.2 k/uL (1.0-4.8) L 10/29/17 06:43 Monocytes # 0.1 k/uL (0-1.0) 10/29/17 06:43 Eosinophils # 0.0 k/uL (0-0.7) 10/29/17 06:43 Basophils # 0.0 k/uL (0-0.2) 10/29/17 06:43 Hypochromasia Marked 10/29/17 06:43 Poikilocytosis Slight 10/29/17 06:43 Anisocytosis Moderate 10/29/17 06:43 Microcytosis Moderate 10/29/17 06:43 Sodium 134 mmol/L (137-145) L 10/29/17 06:43 Potassium 3.8 mmol/L (3.5-5.1) 10/29/17 06:43 Chloride 96 mmol/L (98-107) L 10/29/17 06:43 Carbon Dioxide 27 mmol/L (22-30) 10/29/17 06:43 Anion Gap 11 mmol/L 10/29/17 06:43 BUN 13 mg/dL (7-17) 10/29/17 06:43 Creatinine 0.59 mg/dL (0.52-1.04) 10/29/17 06:43 Est GFR (MDRD) Af Amer >60 (>60 ml/min/1.73 sqM) 10/29/17 06:43 Est GFR (MDRD) Non-Af >60 (>60 ml/min/1.73 sqM) 10/29/17 06:43 Glucose 312 mg/dL (74-99) H 10/29/17 06:43 POC Glucose (mg/dL) 308 mg/dL (75-99) H 10/29/17 17:53 POC Glu Benefits Analyst ID Tracie Meek 10/29/17 17:[address] Glu mg/dL 203 10/26/17 10:50 Hemoglobin A1c 8.7 % (4.0-6.0) H 10/26/17 10:50 Plasma Lactic Acid Jordin 1.0 mmol/L (0.7-2.0) 10/26/17 10:50 Calcium 8.3 mg/dL (8.4-10.2) L 10/29/17 06:43 Ionized Calcium [place] 4.7 mg/dL (4.5-5.3) 10/27/17 14:52 Phosphorus 3.2 mg/dL (2.5-4.5) 10/29/17 06:43 Magnesium 1.5 mg/dL (1.6-2.3) L 10/29/17 06:43 Iron 81 ug/dL (50-170) 10/26/17 10:50 TIBC 274 ug/dL (228-460) 10/26/17 10:50 Iron Saturation 29.56 (12.00-45.00) 10/26/17 10:50 Ferritin 449.0 ng/mL (10.0-291.0) H 10/26/17 10:50 Total Bilirubin 0.4 mg/dL (0.2-1.3) 10/29/17 06:43 AST 31 U/L (14-36) 10/29/17 06:43 ALT 35 U/L (9-52) 10/29/17 06:43 Alkaline Phosphatase 89 U/L (38-126) 10/29/17 06:43 Total Protein 5.8 g/dL (6.3-8.2) L 10/29/17 06:43 Albumin 2.9 g/dL (3.5-5.0) L 10/29/17 06:43 Triglycerides 330 mg/dL (<150) H 10/27/17 14:52 Amylase 75 U/L (30-110) 10/26/17 10:50 Lipase 94 U/L (23-300) 10/26/17 10:50 TSH 4.860 mIU/L (0.465-4.680) H 10/28/17 06:53 Free T4 1.23 ng/dL (0.78-2.19) 10/28/17 06:53 Influenza Type A RNA Not Detected (Not Detectd) 10/26/17 17:09 Influenza Type B (PCR) Not Detected (Not Detectd) 10/26/17 17:09 Microbiology 10/26/17 17:09 Abdomen Gram Stain - Final 10/26/17 17:09 Abdomen Wound Culture - Final Acinetobacter rylan/haemol Ophelia parapsilosis Enterococcus faecalis Stenotrophomonas maltophilia 10/28/17 09:25 Sputum Gram Stain - Preliminary Assessment and Plan (1) Gastrostomy site leak Narrative/Plan: 56-year-old female presents to hospital with difficulties with her PEG tube site. Is malfunctioning. She has had imaging study reveals evidence the malposition of her PEG tube. Surgical consult is in progress nurse plans for revision the near future. The patient's culture shows gram-negative bacilli , enterococcus and Ophelia parapsiolosis Antimicrobial therapy is altered this point in time to meropenem and micafungin. Final cultures will help further direct antimicrobial therapy. At this time she is not frankly neutropenic and is being followed by oncology. Her anemia is stable. No evidence of any renal failure. Blood glucoses are remaining quite elevated and will need improvement of this to allow improvement underlying infection. Current Visit: Yes Status: Acute Code(s): K94.23 - GASTROSTOMY MALFUNCTION SNOMED Code(s): 837115657
[2017-10-30 01:14] LABS: Glucose,Whole Blood 317 mg/dL (75-99)
[2017-10-30] MEDS: ENALAPRILAT 1.25 MG/ML 1 ML VIAL IVP PRN (01:25)
[2017-10-30] MEDS: INSULIN ASPART 100 UNIT/ML 1 ML 10 ML VIAL SQ SCH ×4 (01:32→18:23)
[2017-10-30] MEDS: MEROPENEM 1 GM in SODIUM CHLORIDE 0.9% 100 ML IVPB SCH ×3 (01:33→16:59)
[2017-10-30] MEDS: HYDROmorphone 0.5 MG/0.5 ML SYRINGE IVP PRN ×6 (02:00→20:33)
[2017-10-30] MEDS: ONDANSETRON 4 MG/2 ML VIAL IVP PRN ×2 (05:23→11:58)
[2017-10-30] MEDS: 1: PARENTERAL ELECTROLYTES 20 ML, MVI, ADULT NO.4 WITH VIT K 10 ML, TRACE (CONC-1ML/DOSE IV SCH ×17 (06:02→22:10)
[2017-10-30 06:06] LABS: Glucose,Whole Blood 298 mg/dL (75-99)
[2017-10-30 07:18] LABS: Anisocytosis Moderate; Basophils % (A) 0 %; Eosinophils % (A) 1 %; HCT 24.9 % (34.0-46.0); HGB 7.7 gm/dL (11.4-16.0); Hypochromasia Moderate; Lymphocytes # (A) 0.2 k/uL (1.0-4.8); Lymphocytes % (A) 6 %; MCH 24.8 pg (25.0-35.0); MCHC 30.9 g/dL (31.0-37.0); MCV 80.2 fL (80.0-100.0); Mean Platelet Volume 6.9; Microcytosis Moderate; Monocytes # (A) 0.2 k/uL (0-1.0); Monocytes % (A) 4 %; Neutrophils % (A) 87 %; Platelet Count 214 k/uL (150-450); Poikilocytosis Slight; RBC 3.11 m/uL (3.80-5.40); RDW 22.8 % (11.5-15.5); WBC 3.4 k/uL (3.8-10.6)
[2017-10-30 07:48] LABS: ALT 56 U/L (9-52); AST 60 U/L (14-36); Albumin 2.9 g/dL (3.5-5.0); Alkaline Phosphatase 100 U/L (38-126); Anion Gap 12 mmol/L; Blood Urea Nitrogen 15 mg/dL (7-17); Calcium 8.2 mg/dL (8.4-10.2); Carbon Dioxide 27 mmol/L (22-30); Chloride 94 mmol/L (98-107); Glucose 284 mg/dL (74-99); Magnesium 1.8 mg/dL (1.6-2.3); Phosphorus 2.4 mg/dL (2.5-4.5); Potassium 3.7 mmol/L (3.5-5.1); Sodium 133 mmol/L (137-145); Total Bilirubin 0.5 mg/dL (0.2-1.3); Total Protein 5.9 g/dL (6.3-8.2)
--- NOTE | 2017-10-30 08:00 | P.PN ---
Subjective Progress Note Date: 10/30/17 The patient is a 56-year-old female who poorly controlled insulin-dependent diabetes, morbid obesity, anaplastic thyroid cancer. Since her placement of her gastrostomy tube in August, she had multifactorial issues which now her feeding tube has gone subcutaneous after moderate weight loss and accidental pulling on her feeding tube. She is currently on TPN. Additional studies were performed upon evaluation of her feeding gastrostomy tube Objective - Vital Signs Vital signs: Vital Signs Temp 99.4 F 10/30/17 07:00 Pulse 101 H 10/30/17 07:00 Resp 16 10/30/17 07:00 BP 170/83 10/30/17 07:00 Pulse Ox 98 10/30/17 07:00 Intake & Output 10/29/17 10/30/17 10/30/17 18:59 06:59 18:59 Intake Total 681 590 Balance 681 590 Weight 92.5 kg 92.5 kg Intake: IV 581 Parenteral Electrolytes 441 20 ml In Amino Acid 5%- D25w 1,000 ml @ 63 mls/hr IV .BY DURATION [facility] Rx#: [id number] ns@20 140 Intake, IV Titration 100 Amount Micafungin 100 mg In 100 Sodium Chloride 0.9% 100 ml @ 100 mls/hr IVPB DAILY [facility] Rx#:[id number] Oral 590 Other: Voiding Method Toilet Toilet # Voids 2 - Exam GENERAL: Well developed and in no acute distress. Pleasant. HEENT: No sclera icterus. Extraocular movements grossly intact. Dry buccal mucosa. Head is atraumatic, normocephalic. Hears conversational speech. No nasal drainage. Course. NECK: Tracheal deviation to the left with severe radiation burn and thyroid fullness. CHEST: Non-labored respirations and equal bilateral excursions. CARDIOVASCULAR: Regular rate and rhythm. Palpable 2+ radial pulses. ABDOMEN: Protuberant. Gastrostomy tube with noted excoriations inferiorly. No peritonitis. MUSCULOSKELETAL: No clubbing, cyanosis or edema. NEUROLOGIC: No focal or lateralizing signs. PSYCH: Appropriate affect. Alert and oriented to person, place and time. SKIN: Dry but well perfused. - Labs CBC & Chem 7: 10/30/17 06:43 10/29/17 06:43 Labs: Abnormal Lab Results - Last 24 Hours (Table) 10/29/17 10/29/17 10/29/17 Range/Units 06:43 11:55 17:53 WBC 3.3 L (3.8-10.6) k/uL RBC 3.12 L (3.80-5.40) m/uL Hgb 7.5 L (11.4-16.0) gm/dL Hct 25.2 L (34.0-46.0) % MCH 24.1 L (25.0-35.0) pg MCHC 30.0 L (31.0-37.0) g/dL RDW 22.9 H (11.5-15.5) % Lymphocytes # 0.2 L (1.0-4.8) k/uL POC Glucose (mg/dL) 349 H 308 H (75-99) mg/dL 10/30/17 10/30/17 10/30/17 Range/Units 01:12 06:04 06:43 WBC 3.4 L (3.8-10.6) k/uL RBC 3.11 L (3.80-5.40) m/uL Hgb 7.7 L (11.4-16.0) gm/dL Hct 24.9 L (34.0-46.0) % MCH 24.8 L (25.0-35.0) pg MCHC 30.9 L (31.0-37.0) g/dL RDW 22.8 H (11.5-15.5) % Lymphocytes # 0.2 L (1.0-4.8) k/uL POC Glucose (mg/dL) 317 H 298 H (75-99) mg/dL Microbiology - Last 24 Hours (Table) 10/26/17 17:09 Gram Stain - Final Abdomen Wound Culture - Final Acinetobacter rylan/haemol Ophelia parapsilosis Enterococcus faecalis Stenotrophomonas maltophilia - Imaging and Cardiology CT scan - abdomen: image reviewed (Findings consistent with feeding tube within the subcutaneous tissue and migration.) Assessment and Plan (1) Gastrostomy status Current Visit: Yes Status: Acute Code(s): Z93.1 - GASTROSTOMY STATUS SNOMED Code(s): 045539412 (2) Radiation burn Current Visit: Yes Status: Acute Code(s): T30.0 - BURN OF UNSPECIFIED BODY REGION, UNSPECIFIED DEGREE SNOMED Code(s): 899001920 (3) Dehydration Current Visit: Yes Status: Acute Code(s): E86.0 - DEHYDRATION SNOMED Code( s): 00256794 (4) Poorly controlled diabetes mellitus Current Visit: Yes Status: Acute Code(s): E11.65 - TYPE 2 DIABETES MELLITUS WITH HYPERGLYCEMIA SNOMED Code(s): 791387469 (5) Anaplastic thyroid carcinoma Current Visit: No Status: Acute Code(s): C73 - MALIGNANT NEOPLASM OF THYROID GLAND SNOMED Code(s): 817244736 (6) Thyroid cancer Current Visit: No Status: Acute Code(s): C73 - MALIGNANT NEOPLASM OF THYROID GLAND SNOMED Code(s): 746934095 Plan: 1. I discussed with her the findings on her computed tomography scan and will perform removal of gastrostomy tube. As her stomach is high position in the chest, we'll perform a jejunostomy tube placement laparoscopic instead. 2. Discussion with oncology was performed prior to confirm patient is safe to undergo surgical intervention as she is postchemotherapy. 3. She has history of severe poorly controlled diabetes and upon discussion with nursing will be adjusted prior to surgical intervention to increase insulin. Time with Patient: Greater than 30
[2017-10-30] MEDS: INSULIN DETEMIR 100 UNIT/ML 10 ML VIAL SQ SCH ×2 (08:18→22:10)
[2017-10-30] MEDS: PANTOPRAZOLE 40 MG/10 ML VIAL IVP SCH (08:19)
[2017-10-30] MEDS: LEVOTHYROXINE IVP 100 MCG/5 ML VIAL IV SCH (08:19)
[2017-10-30] MEDS: LORATADINE 10 MG TAB PEG/G-TUBE SCH (08:19)
[2017-10-30] MEDS: POTASSIUM CHLORIDE ORAL LIQUID 40 MEQ/30 ML CUP PEG/G-TUBE SCH ×2 (08:20→20:37)
[2017-10-30] MEDS: MICAFUNGIN 100 MG in SODIUM CHLORIDE 0.9% 100 ML IVPB SCH (09:26)
[2017-10-30] MEDS: POTASSIUM CHLORIDE 10 MEQ in SODIUM CHLORIDE 0.9% 100 ML IVPB SCH ×2 (10:35→13:28)
--- NOTE | 2017-10-30 11:19 | P.PN ---
Subjective Progress Note Date: 10/30/17 This is a 56-year-old female with a past medical history of thyroid cancer with a tracheal deviation. She is undergoing chemo and radiation treatment. Last chemotherapy yesterday and radiation today. 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 This is patient's third admission due to PEG tube malfunction. PEG tube was placed 08/25/2017. Patient reports that about 3 days that her PEG tube has not been working. When she pours the feedings as well as when she places her medications into the tube drains out onto her abdomen. She has skin irritation along the abdomen as well as some puslike drainage. This will be cultured. Patient has been on antibiotics in the form of Keflex and also topical Silvadene given by Dr. Berg her radiation oncologist for the radiation burn on her back. Patient also has been coughing with sputum production. Chest x-ray has been ordered. She denies any fever chills or sweats denies any abdominal pain. Denies any vomiting. She does report dry heaves and nausea. Denies any bowel movement changes or urinary symptoms. She is having some pain in her neck 10/30/2017 patient had radiation treatment today. She is scheduled for jejunostomy tube placement and removal of PEG tube today. She's requesting something for her anxiety. Blood sugars are still elevated. TPN was started over the weekend. Blood sugars of been ranging in the 200s to 300s. We'll resume her Levemir 51 units twice a day. Patient reports the pain is controlled. Denies any chest pain shortness breath. Denies any nausea or vomiting. Denies any urinating difficulty Objective - Vital Signs Vital signs: Vital Signs Temp 99.4 F 10/30/17 07:00 Pulse 101 H 10/30/17 07:00 Resp 16 10/30/17 07:00 BP 170/83 10/30/17 07:00 Pulse Ox 98 10/30/17 07:00 Intake & Output 10/29/17 10/30/17 10/30/17 18:59 06:59 18:59 Intake Total 681 590 Balance 681 590 Weight 92.5 kg 92.5 kg Intake: IV 581 Parenteral Electrolytes 441 20 ml In Amino Acid 5%- D25w 1,000 ml @ 63 mls/hr IV .BY DURATION [facility]IN Rx#: [id number] ns@20 140 Intake, IV Titration 100 Amount Micafungin 100 mg In 100 Sodium Chloride 0.9% 100 ml @ 100 mls/hr IVPB DAILY [facility] Rx#:[id number] Oral 590 Other: Voiding Method Toilet Toilet Toilet # Voids 2 - Exam Head normocephalic Neck supple. Radiation burn noted on the anterior aspect of the neck there is scabbing and redness Lungs coarse breath sounds noted Heart regular rate and rhythm S1-S2, no rub or gallop Abdomen is soft nontender nondistended positive bowel sounds no hepatosplenomegaly. PEG tube site drainage yellowish drainage present. There is skin irritation below the PEG tube, reports a left side of the abdomen reddish in color. PEG tube appears to be pulled out slightly. Extremities no edema Neuro alert and orientated to 3 - Labs CBC & Chem 7: 10/30/17 06:43 10/30/17 06:43 Labs: Abnormal Lab Results - Last 24 Hours (Table) 10/29/17 10/29/17 10/30/17 Range/Units 11:55 17:53 01:12 WBC (3.8-10.6) k/uL RBC (3.80-5.40) m/uL Hgb (11.4-16.0) gm/dL Hct (34.0-46.0) % MCH (25.0-35.0) pg MCHC (31.0-37.0) g/dL RDW (11.5-15.5) % Lymphocytes # (1.0-4.8) k/uL Sodium (137-145) mmol/L Chloride (98-107) mmol/L Glucose (74-99) mg/dL POC Glucose (mg/dL) 349 H 308 H 317 H (75-99) mg/dL Calcium (8.4-10.2) mg/dL Phosphorus (2.5-4.5) mg/dL AST (14-36) U/L ALT (9-52) U/L Total Protein (6.3-8.2) g/dL Albumin (3.5-5.0) g/dL 10/30/17 10/30/17 10/30/17 Range/Units 06:04 06:43 06:43 WBC 3.4 L (3.8-10.6) k/uL RBC 3.11 L (3.80-5.40) m/uL Hgb 7.7 L (11.4-16.0) gm/dL Hct 24.9 L (34.0-46.0) % MCH 24.8 L (25.0-35.0) pg MCHC 30.9 L (31.0-37.0) g/dL RDW 22.8 H (11.5-15.5) % Lymphocytes # 0.2 L (1.0-4.8) k/uL Sodium 133 L (137-145) mmol/L Chloride 94 L (98-107) mmol/L Glucose 284 H (74-99) mg/dL POC Glucose (mg/dL) 298 H (75-99) mg/dL Calcium 8.2 L (8.4-10.2) mg/dL Phosphorus 2.4 L (2.5-4.5) mg/dL AST 60 H (14-36) U/L ALT 56 H (9-52) U/L Total Protein 5.9 L (6.3-8.2) g/dL Albumin 2.9 L (3.5-5.0) g/dL Microbiology - Last 24 Hours (Table) 10/26/17 17:09 Gram Stain - Final Abdomen Wound Culture - Final Acinetobacter rylan/haemol Ophelia parapsilosis Enterococcus faecalis Stenotrophomonas maltophilia Assessment and Plan Assessment: 1. Malfunctioning PEG tube: Patient evaluated by surgical service. PEG tube will be removed. A jejunostomy tube is scheduled to be placed 2. Cough with sputum production: Chest x-ray negative for any acute process. Influenza screen negative 3. Diabetes mellitus type 2 with elevated blood sugars in the 300s. Patient has not been taking her Levemir at home due to not taking the tube feedings. Add sliding scale coverage. Blood sugars are ranging in the 200s to 300s. She has been on TPN. We'll increase her Levemir back to her home dose of 51 units twice a day 4. 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 She did have radiation treatment today. Patient completed chemotherapy treatment 5. Radiation burn to the neck had been on Silvadene and Keflex at home. will stop Keflex for now and switch her over to Rocephin to cover upper respiratory infection as well as her skin infection. 6. Hypothyroidism continue Synthroid 7. History of breast cancer and uterine cancer 8. Anemia hemoglobin 8.4 no active signs of bleeding. Possibly related to her chemotherapy and cancer 9. Mild hyponatremia with a sodium of 134 continue normal saline 10. Nausea continue Zofran also add Protonix IV 11. Pain control: Continue the IV Dilaudid every 3 hours as needed 12. Elevated LFTs likely related to the TPN. Continue to monitor 13. Essential hypertension with elevated blood pressures. Patient's not taking her oral meds. Currently on IV Vasotec as needed and clonidine patch added yesterday. Continue to monitor blood pressures and will adjust accordingly 14. PEG tube site infection: Evaluated by Dr. Dumont. Continue continue Merrem and micafungin GI prophylaxis Protonix. We'll hold off on anticoagulation for DVT prophylaxis in case surgical procedure needs to be completed
[2017-10-30 11:59] LABS: Glucose,Whole Blood 324 mg/dL (75-99)
[2017-10-30] MEDS ORDERED: PROPOFOL 10 MG/ML 20 ML VIAL IV ONE (13:15)
[2017-10-30] MEDS ORDERED: NEOSTIGMINE 1 MG/ML 10 ML VIAL ONE (13:15)
[2017-10-30] MEDS ORDERED: SUCCINYLCHOLINE CHLORIDE 100 MG/5 ML SYR IV ONE (13:15)
[2017-10-30] MEDS ORDERED: MIDAZOLAM 2 MG/2 ML VIAL ONE (13:15)
[2017-10-30] MEDS ORDERED: GLYCOPYRROLATE 0.2 MG/ML 2 ML VIAL ONE (13:15)
[2017-10-30] MEDS ORDERED: LIDOCAINE 1% INJ 10MG/ML (20 ML MDV) ONE (13:15)
[2017-10-30] MEDS ORDERED: fentaNYL (PF) 50 MCG/ML 2 ML AMP ONE (13:15)
[2017-10-30] MEDS ORDERED: ROCURONIUM BROMIDE 10 MG/ML 10 ML VIAL IV ONE (13:15)
[2017-10-30] MEDS: LORazepam 2 MG/ML INJ IV PRN ×2 (14:05→20:33)
--- NOTE | 2017-10-30 16:54 | P.PN ---
Progress Note - Text Progress Note Date: 10/30/17 Per discussion with nursing, patient has hypokalemia which is still being treated. Separately, patient has persistent tachycardia over 110s. Patient also moderately dehydrated. IV fluid bolus of 2 L started. Recommend correction of low potassium. Her case is re-schedule for tomorrow once patient is medically stable.
[2017-10-30] MEDS: FAT EMULSION 20% 250 ML in EMPTY BAG 1 BAG IV SCH (17:14)
[2017-10-30] MEDS: SODIUM CHLORIDE 0.9% 1,000 ML IV SCH ×2 (17:54→19:01)
[2017-10-30 18:04] LABS: Glucose,Whole Blood 282 mg/dL (75-99)
[2017-10-30] MEDS: MAGNESIUM SULFATE-D5W PMX 1 GM in DEXTROSE/WATER 1 100ML.BAG IVPB SCH ×2 (20:35→22:10)
[2017-10-30] MEDS ORDERED: LACTATED RINGERS 1,000 ML IV SCH (21:08)
[2017-10-30] MEDS: LACTATED RINGERS 1,000 ML IV SCH (22:13)
--- NOTE | 2017-10-30 22:50 | P.PN ---
Subjective Progress Note Date: 10/30/17 Principal diagnosis: Infection of PEG site 56-year-old female who has a very extensive past medical history regarding cancer. She was first diagnosed with right breast carcinoma completed her course of therapy and was on tamoxifen. However she then developed what appeared to be uterine cancer in her tamoxifen was discontinued after her hysterectomy. The patient was having difficulties with multiple basal cell carcinomas and was treated with immunotherapy with some success. The patient over developed significant pain in her neck with swallowing and a mass was found. 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 Consequently she's been receiving chemoradiation therapy. She started to have increasing difficulties with her PEG tube site and presents to Hospital for further evaluation. Computed tomography scan reveals evidence of malposition of the PEG tube site with evidence of some local infection. With that the infectious diseases consultation was requested the patient believes she 's had a fever but knows to be in chills or rigors. On 10/30/2017 the patient is doing somewhat better. She is without significant discomfort or drainage from the PEG tube site. She denying any fevers or chills at this time. Objective - Vital Signs Vital signs: Vital Signs Temp 99.8 F H 10/30/17 15:00 Pulse 111 H 10/30/17 15:00 Resp 16 10/30/17 15:00 BP 185/82 10/30/17 15:00 Pulse Ox 99 10/30/17 15:00 Intake & Output 10/30/17 10/30/17 10/31/17 06:59 18:59 06:59 Intake Total 590 Balance 590 Weight 91.5 kg Intake: Oral 590 Other: Voiding Method Toilet Toilet # Voids 2 3 - Exam 56-year-old woman who is modestly comfortable at this time. HEENT: Anicteric conjunctiva are pink and moist nasal mucosa grossly intact without bleeding, oral mucosa is dry without latasha thrush. Neck: The neck is supple evidence of the extensive erythema to the anterior aspect of the neck from recent radiation, no latasha open lesions are seen. No palpable mass Lungs: Good bilateral air entry without significant crackles or wheezing. There is no significant bronchial sounds. There is no egophony or dullness. Heart: Regular rate and rhythm with an audible S1-S2, no S3 no S4. There is no significant murmur click or rub, PMI was nondisplaced. Abdomen: The abdomen is soft and nontender. No palpable mass or organomegaly. PEG tube site is malfunctioning there is drainage and mild erythema. It is not distinctly tender. Extremities: The upper extremities have excellent pulses they are symmetric, no significant petechiae or telangiectasia. No splinter hemorrhages were noted. The lower extremities are free from significant edema. The peripheral pulses were 2+ and symmetric. Neuro: Awake alert oriented to person place and time. With her radiation has difficulty with her voice but is able to easily communicate. No acute gross focal sensory motor deficits are noted - Labs CBC & Chem 7: 10/30/17 06:43 10/30/17 06:43 Labs: Abnormal Lab Results - Last 24 Hours (Table) 10/30/17 10/30/17 10/30/17 Range/Units 01:12 06:04 06:43 WBC 3.4 L (3.8-10.6) k/uL RBC 3.11 L (3.80-5.40) m/uL Hgb 7.7 L (11.4-16.0) gm/dL Hct 24.9 L (34.0-46.0) % MCH 24.8 L (25.0-35.0) pg MCHC 30.9 L (31.0-37.0) g/dL RDW 22.8 H (11.5-15.5) % Lymphocytes # 0.2 L (1.0-4.8) k/uL Sodium (137-145) mmol/L Chloride (98-107) mmol/L Glucose (74-99) mg/dL POC Glucose (mg/dL) 317 H 298 H (75-99) mg/dL Calcium (8.4-10.2) mg/dL Phosphorus (2.5-4.5) mg/dL AST (14-36) U/L ALT (9-52) U/L Total Protein (6.3-8.2) g/dL Albumin (3.5-5.0) g/dL 10/30/17 10/30/17 10/30/17 Range/Units 06:43 11:53 18:02 WBC (3.8-10.6) k/uL RBC (3.80-5.40) m/uL Hgb (11.4-16.0) gm/dL Hct (34.0-46.0) % MCH (25.0-35.0) pg MCHC (31.0-37.0) g/dL RDW (11.5-15.5) % Lymphocytes # (1.0-4.8) k/uL Sodium 133 L (137-145) mmol/L Chloride 94 L (98-107) mmol/L Glucose 284 H (74-99) mg/dL POC Glucose (mg/dL) 324 H 282 H (75-99) mg/dL Calcium 8.2 L (8.4-10.2) mg/dL Phosphorus 2.4 L (2.5-4.5) mg/dL AST 60 H (14-36) U/L ALT 56 H (9-52) U/L Total Protein 5.9 L (6.3-8.2) g/dL Albumin 2.9 L (3.5-5.0) g/dL Microbiology - Last 24 Hours (Table) 10/28/17 09:25 Gram Stain - Final Sputum Sputum Culture - Final 10/26/17 17:09 Gram Stain - Final Abdomen Wound Culture - Final Acinetobacter rylan/haemol Ophelia parapsilosis Enterococcus faecalis Stenotrophomonas maltophilia Laboratory Results WBC 3.4 k/uL (3.8-10.6) L 10/30/17 06:43 RBC 3.11 m/uL (3.80-5.40) L 10/30/17 06:43 Hgb 7.7 gm/dL (11.4-16.0) L 10/30/17 06:43 Hct 24.9 % (34.0-46.0) L 10/30/17 06:43 MCV 80.2 fL (80.0-100.0) 10/30/17 06:43 MCH 24.8 pg (25.0-35.0) L 10/30/17 06:43 MCHC 30.9 g/dL (31.0-37.0) L 10/30/17 06:43 RDW 22.8 % (11.5-15.5) H 10/30/17 06:43 Plt Count 214 k/uL (150-450) 10/30/17 06:43 Neutrophils % 87 % 10/30/17 06:43 Lymphocytes % 6 % 10/30/17 06:43 Monocytes % 4 % 10/30/17 06:43 Eosinophils % 1 % 10/30/17 06:43 Basophils % 0 % 10/30/17 06:43 Neutrophils # 3.0 k/uL (1.3-7.7) 10/30/17 06:43 Lymphocytes # 0.2 k/uL (1.0-4.8) L 10/30/17 06:43 Monocytes # 0.2 k/uL (0-1.0) 10/30/17 06:43 Eosinophils # 0.0 k/uL (0-0.7) 10/30/17 06:43 Basophils # 0.0 k/uL (0-0.2) 10/30/17 06:43 Hypochromasia Moderate 10/30/17 06:43 Poikilocytosis Slight 10/30/17 06:43 Anisocytosis Moderate 10/30/17 06:43 Microcytosis Moderate 10/30/17 06:43 Sodium 133 mmol/L (137-145) L 10/30/17 06:43 Potassium 3.7 mmol/L (3.5-5.1) 10/30/17 06:43 Chloride 94 mmol/L (98-107) L 10/30/17 06:43 Carbon Dioxide 27 mmol/L (22-30) 10/30/17 06:43 Anion Gap 12 mmol/L 10/30/17 06:43 BUN 15 mg/dL (7-17) 10/30/17 06:43 Creatinine 0.52 mg/dL (0.52-1.04) 10/30/17 06:43 Est GFR (MDRD) Af Amer >60 (>60 ml/min/1.73 sqM) 10/30/17 06:43 Est GFR (MDRD) Non-Af >60 (>60 ml/min/1.73 sqM) 10/30/17 06:43 Glucose 284 mg/dL (74-99) H 10/30/17 06:43 POC Glucose (mg/dL) 282 mg/dL (75-99) H 10/30/17 18:02 POC Glu Documentation Writer ID Kiley Ceballos 10/30/17 18:[address] Glu mg/dL 203 10/26/17 10:50 Hemoglobin A1c 8.7 % (4.0-6.0) H 10/26/17 10:50 Plasma Lactic Acid Jordin 1.0 mmol/L (0.7-2.0) 10/26/17 10:50 Calcium 8.2 mg/dL (8.4-10.2) L 10/30/17 06:43 Ionized Calcium Sydney 4.7 mg/dL (4.5-5.3) 10/27/17 14:52 Phosphorus 2.4 mg/dL (2.5-4.5) L 10/30/17 06:43 Magnesium 1.8 mg/dL (1.6-2.3) 10/30/17 06:43 Iron 81 ug/dL (50-170) 10/26/17 10:50 TIBC 274 ug/dL (228-460) 10/26/17 10:50 Iron Saturation 29.56 (12.00-45.00) 10/26/17 10:50 Ferritin 449.0 ng/mL (10.0-291.0) H 10/26/17 10:50 Total Bilirubin 0.5 mg/dL (0.2-1.3) 10/30/17 06:43 AST 60 U/L (14-36) H 10/30/17 06:43 ALT 56 U/L (9-52) H 10/30/17 06:43 Alkaline Phosphatase 100 U/L (38-126) 10/30/17 06:43 Total Protein 5.9 g/dL (6.3-8.2) L 10/30/17 06:43 Albumin 2.9 g/dL (3.5-5.0) L 10/30/17 06:43 Triglycerides 330 mg/dL (<150) H 10/27/17 14:52 Amylase 75 U/L (30-110) 10/26/17 10:50 Lipase 94 U/L (23-300) 10/26/17 10:50 TSH 4.860 mIU/L (0.465-4.680) H 10/28/17 06:53 Free T4 1.23 ng/dL (0.78-2.19) 10/28/17 06:53 Influenza Type A RNA Not Detected (Not Detectd) 10/26/17 17:09 Influenza Type B (PCR) Not Detected (Not Detectd) 10/26/17 17:09 Microbiology 10/28/17 09:25 Sputum Gram Stain - Final 10/28/17 09:25 Sputum Sputum Culture - Final 10/26/17 17:09 Abdomen Gram Stain - Final 10/26/17 17:09 Abdomen Wound Culture - Final Acinetobacter rylan/haemol Ophelia parapsilosis Enterococcus faecalis Stenotrophomonas maltophilia Assessment and Plan (1) Gastrostomy site leak Narrative/Plan: 56-year-old female presents to hospital with difficulties with her PEG tube site. Is malfunctioning. She has had imaging study reveals evidence the malposition of her PEG tube. Surgical consult is in progress nurse plans for revision the near future. The patient's culture shows gram-negative bacilli , enterococcus and Ophelia parapsiolosis Antimicrobial therapy is altered this point in time to meropenem and micafungin. Final cultures Are becoming available and when she is ready for discharge to home can transition her antimicrobial therapy to levofloxacin and fluconazole both his oral suspensions. At this time she is not frankly neutropenic and is being followed by oncology. Her anemia is stable. No evidence of any renal failure. Blood glucoses are remaining quite elevated and will need improvement of this to allow improvement underlying infection. Current Visit: Yes Status: Acute Code(s): K94.23 - GASTROSTOMY MALFUNCTION SNOMED Code(s): 101413177
[2017-10-31 00:47] LABS: Glucose,Whole Blood 197 mg/dL (75-99)
[2017-10-31] MEDS: INSULIN ASPART 100 UNIT/ML 1 ML 10 ML VIAL SQ SCH ×4 (00:47→18:26)
[2017-10-31] MEDS: MEROPENEM 1 GM in SODIUM CHLORIDE 0.9% 100 ML IVPB SCH ×3 (00:48→17:21)
[2017-10-31] MEDS: SODIUM CHLORIDE 0.9% 1,000 ML IV SCH ×3 (00:49→18:06)
[2017-10-31] MEDS: HYDROmorphone 0.5 MG/0.5 ML SYRINGE IVP PRN ×5 (01:59→20:21)
[2017-10-31] MEDS: LORazepam 2 MG/ML INJ IV PRN ×2 (05:32→22:41)
[2017-10-31 05:41] LABS: Glucose,Whole Blood 129 mg/dL (75-99)
[2017-10-31] MEDS: LORATADINE 10 MG TAB PEG/G-TUBE SCH (08:15)
[2017-10-31] MEDS: INSULIN DETEMIR 100 UNIT/ML 10 ML VIAL SQ SCH ×2 (08:16→20:22)
[2017-10-31] MEDS: POTASSIUM CHLORIDE ORAL LIQUID 40 MEQ/30 ML CUP PEG/G-TUBE SCH ×2 (08:16→19:52)
[2017-10-31] MEDS: PANTOPRAZOLE 40 MG/10 ML VIAL IVP SCH (08:19)
[2017-10-31] MEDS: LEVOTHYROXINE IVP 100 MCG/5 ML VIAL IV SCH (08:19)
[2017-10-31 08:55] LABS: ALT 75 U/L (9-52); AST 63 U/L (14-36); Albumin 2.8 g/dL (3.5-5.0); Alkaline Phosphatase 105 U/L (38-126); Anion Gap 8 mmol/L; Blood Urea Nitrogen 10 mg/dL (7-17); Calcium 7.7 mg/dL (8.4-10.2); Carbon Dioxide 29 mmol/L (22-30); Chloride 97 mmol/L (98-107); Glucose 98 mg/dL (74-99); Magnesium 1.6 mg/dL (1.6-2.3); Phosphorus 2.1 mg/dL (2.5-4.5); Potassium 3.4 mmol/L (3.5-5.1); Sodium 134 mmol/L (137-145); Total Bilirubin 0.4 mg/dL (0.2-1.3); Total Protein 5.7 g/dL (6.3-8.2)
[2017-10-31 09:23] LABS: Anisocytosis Moderate; Basophils % (A) 1 %; Eosinophils % (A) 1 %; HCT 23.4 % (34.0-46.0); HGB 7.5 gm/dL (11.4-16.0); Hypochromasia Moderate; Lymphocytes # (A) 0.3 k/uL (1.0-4.8); Lymphocytes % (A) 9 %; MCH 25.2 pg (25.0-35.0); MCHC 32.2 g/dL (31.0-37.0); MCV 78.3 fL (80.0-100.0); Mean Platelet Volume 7.1; Microcytosis Moderate; Monocytes # (A) 0.4 k/uL (0-1.0); Monocytes % (A) 11 %; Neutrophils # (A) 2.8 k/uL (1.3-7.7); Neutrophils % (A) 75 %; Platelet Count 183 k/uL (150-450); Poikilocytosis Moderate; RBC 2.98 m/uL (3.80-5.40); RDW 22.5 % (11.5-15.5); WBC 3.7 k/uL (3.8-10.6)
[2017-10-31] MEDS ORDERED: POTASSIUM PHOSPHATE 10 MMOL in SODIUM CHLORIDE 0.9% 250 ML IV ONE (10:00)
[2017-10-31] MEDS ORDERED: [UNRECOGNIZED DRUG - REMARK] IV ONE ×4 (10:30)
[2017-10-31] MEDS: MICAFUNGIN 100 MG in SODIUM CHLORIDE 0.9% 100 ML IVPB SCH (10:56)
[2017-10-31 11:19] LABS: Glucose,Whole Blood 102 mg/dL (75-99)
[2017-10-31] MEDS: LACTATED RINGERS 1,000 ML IV SCH ×2 (12:07→13:15)
[2017-10-31 12:20] LABS: Glucose,Whole Blood 100 mg/dL (75-99)
[2017-10-31] MEDS: ONDANSETRON 4 MG/2 ML VIAL IVP PRN ×2 (12:35→20:44)
[2017-10-31] MEDS ORDERED: DEXAMETHASONE SOD PHOSPHATE 10 MG/ML 1 ML VIAL IV ONE (12:36)
[2017-10-31] MEDS ORDERED: MIDAZOLAM 2 MG/2 ML VIAL IV ONE (12:36)
[2017-10-31] MEDS: ENALAPRILAT 1.25 MG/ML 1 ML VIAL IVP ONE ×2 (12:59→13:08)
[2017-10-31] MEDS ORDERED: BUPIVACAINE (PF) 0.5% 30 ML VIAL SQ ONE (13:50)
--- NOTE | 2017-10-31 15:02 | P.PCN ---
Date of Procedure: 10/31/17 Preoperative Diagnosis: Protein malnutrition, anaplastic thyroid cancer, dysphagia Postoperative Diagnosis: Same Procedure(s) Performed: Laparoscopic jejunostomy tube placement, 16-Pashto JAMIE by Dorian Laparoscopic lysis of adhesions. Removal of PEG tube with debridement of abdominal wall Anesthesia: SHAWN, local Surgeon: Kiley Morrison Estimated Blood Loss (ml): 10 Pathology: none sent Condition: stable Disposition: floor Operative Findings: Jejunostomy tube placed 50 cm from ligament of Treitz. Adhesions from previous ventral hernia repair along the right lower quadrant lysed. Drainage of 5 mL purulence from GASTROSTOMY tube subcutaneous.
[2017-10-31 17:22] LABS: Glucose,Whole Blood 164 mg/dL (75-99)
--- NOTE | 2017-10-31 18:43 | P.PN ---
Subjective Progress Note Date: 10/31/17 This is a 56-year-old female with a past medical history of thyroid cancer with a tracheal deviation. She is undergoing chemo and radiation treatment. Last chemotherapy yesterday and radiation today. 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 This is patient's third admission due to PEG tube malfunction. PEG tube was placed 08/25/2017. Patient reports that about 3 days that her PEG tube has not been working. When she pours the feedings as well as when she places her medications into the tube drains out onto her abdomen. She has skin irritation along the abdomen as well as some puslike drainage. This will be cultured. Patient has been on antibiotics in the form of Keflex and also topical Silvadene given by Dr. Berg her radiation oncologist for the radiation burn on her back. Patient also has been coughing with sputum production. Chest x-ray has been ordered. She denies any fever chills or sweats denies any abdominal pain. Denies any vomiting. She does report dry heaves and nausea. Denies any bowel movement changes or urinary symptoms. She is having some pain in her neck on 10/27/2017 patient is alert and oriented 3 complaining of pain in her neck she is and able to swallow she is complaining of cough was copious amount of sputum production otherwise she denies any complaints there is no fever or chills no headache no dizziness no nausea or vomiting no abdominal pain no diarrhea and no urinary symptoms. On 10/28/2017 patient is alert and oriented 3 in no apparent distress blood pressure is elevated at 182/85 patient is complaining of neck discomfort and abdominal discomfort otherwise she denies any complaints at this time she is nothing by mouth she was started on TPN she is scheduled to have PEG tube removed on Monday or Monday. 10/29/2017 patient is alert and oriented 3 complaining of pain and nausea, otherwise no complaints blood pressure is still significantly elevated she is receiving IV Vasotec when necessary she is unable to take any oral intake at this time will add Catapres patch and monitor blood pressure closely she is also requesting an increase in frequency of her pain and nausea medications. on 10/31/2017 patient is alert and oriented in no distress had peg tube removal and chest wall debridment today, complaining of pain at the surgical site otherwise no complaints at this time Objective - Vital Signs Vital signs: Vital Signs Temp 98.7 F 10/31/17 15:10 Pulse 99 10/31/17 15:56 Resp 16 10/31/17 15:56 BP 163/71 10/31/17 15:56 Pulse Ox 94 L 10/31/17 15:56 Intake & Output 10/30/17 10/31/17 10/31/17 18:59 06:59 18:59 Intake Total 1531 500 Output Total 10 Balance 1531 490 Weight 91.5 kg 91.5 kg Intake: IV 1531 500 Fat Emulsion 20% 250 ml 210 In Empty Bag 1 bag @ 21 mls/hr IV DAILY@1800 [facility] Rx#:[id number] Magnesium Sulfate-D5w Pmx 200 1 gm In Dextrose/Water 1 100ml.bag @ 100 mls/hr IVPB Q1H [facility] Rx#: [id number] Meropenem 1 gm In Sodium 100 Chloride 0.9% 100 ml @ 100 mls/hr IVPB Q8HR [facility] Rx#:[id number] Parenteral Electrolytes 441 20 ml Sodium Phosphate 10 mmol Magnesium Sulfate 8 meq In Amino Acid 5%- D25w 1,000 ml @ 63 mls/hr IV .BY DURATION COLIN Rx#: [id number] Sodium Chloride 0.9% 1, 500 000 ml @ 100 mls/hr IV . Q10H [facility] Rx#:[id number] ns@20 80 Output: Estimated Blood Loss 10 Other: Voiding Method Toilet Toilet Toilet # Voids 3 2 - Exam Head normocephalicand at traumatic Neck supple. Radiation burn noted on the anterior aspect of the neck there is scabbing and redness Lungs coarse breath sounds notedno wheezing Heart regular rate and rhythm S1-S2, no rub or gallop Abdomen is soft nontender nondistended positive bowel sounds no palpable hepatosplenomegaly. PEG tube site drainage yellowish drainage present. There is skin irritation below the PEG tube, left side of the abdomen reddish in color. PEG tube appears to be pulled out slightly. Extremities no edema no cyanosis or clubbing Neuro alert and orientated to 3 - Labs CBC & Chem 7: 10/31/17 08:02 10/31/17 08:02 Labs: Abnormal Lab Results - Last 24 Hours (Table) 10/31/17 10/31/17 10/31/17 Range/Units 00:45 05:40 08:02 WBC (3.8-10.6) k/uL RBC (3.80-5.40) m/uL Hgb (11.4-16.0) gm/dL Hct (34.0-46.0) % MCV (80.0-100.0) fL RDW (11.5-15.5) % Lymphocytes # (1.0-4.8) k/uL Sodium 134 L (137-145) mmol/L Potassium 3.4 L (3.5-5.1) mmol/L Chloride 97 L (98-107) mmol/L Creatinine 0.50 L (0.52-1.04) mg/dL POC Glucose (mg/dL) 197 H 129 H (75-99) mg/dL Calcium 7.7 L (8.4-10.2) mg/dL Phosphorus 2.1 L (2.5-4.5) mg/dL AST 63 H (14-36) U/L ALT 75 H (9-52) U/L Total Protein 5.7 L (6.3-8.2) g/dL Albumin 2.8 L (3.5-5.0) g/dL 10/31/17 10/31/17 10/31/17 Range/Units 08:02 11:17 12:12 WBC 3.7 L (3.8-10.6) k/uL RBC 2.98 L (3.80-5.40) m/uL Hgb 7.5 L (11.4-16.0) gm/dL Hct 23.4 L (34.0-46.0) % MCV 78.3 L (80.0-100.0) fL RDW 22.5 H (11.5-15.5) % Lymphocytes # 0.3 L (1.0-4.8) k/uL Sodium (137-145) mmol/L Potassium (3.5-5.1) mmol/L Chloride (98-107) mmol/L Creatinine (0.52-1.04) mg/dL POC Glucose (mg/dL) 102 H 100 H (75-99) mg/dL Calcium (8.4-10.2) mg/dL Phosphorus (2.5-4.5) mg/dL AST (14-36) U/L ALT (9-52) U/L Total Protein (6.3-8.2) g/dL Albumin (3.5-5.0) g/dL 10/31/17 Range/Units 17:12 WBC (3.8-10.6) k/uL RBC (3.80-5.40) m/uL Hgb (11.4-16.0) gm/dL Hct (34.0-46.0) % MCV (80.0-100.0) fL RDW (11.5-15.5) % Lymphocytes # (1.0-4.8) k/uL Sodium (137-145) mmol/L Potassium (3.5-5.1) mmol/L Chloride (98-107) mmol/L Creatinine (0.52-1.04) mg/dL POC Glucose (mg/dL) 164 H (75-99) mg/dL Calcium (8.4-10.2) mg/dL Phosphorus (2.5-4.5) mg/dL AST (14-36) U/L ALT (9-52) U/L Total Protein (6.3-8.2) g/dL Albumin (3.5-5.0) g/dL Assessment and Plan Plan: 1. Malfunctioning PEG tube: KUB x-ray showing abnormal positioning of PEG tube. Surgical consult has been placed. patient underwent PEG tube removal with abdominal wall debridement today, she is maintained on TPN for nutrition at this time. 2. Cough with sputum production: Check chest x-ray. Check sputum culture. Check influenza screen 3. Diabetes mellitus type 2 with elevated blood sugars in the 300s. Patient has not been taking her Levemir at home due to not taking the tube feedings. Add sliding scale coverage. Continue to monitor we'll decrease her home Levemir dose from 21 units twice a day down to 20 daily 4. 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 She did have radiation treatment today and last chemotherapy was yesterday. Consults will place be placed for Dr. Berg 5. Radiation burn to the neck had been on Silvadene and Keflex at home. will stop Keflex for now and switch her over to Rocephin to cover upper respiratory infection as well as her skin infection. 6. Hypothyroidism continue Synthroid 7. History of breast cancer and uterine cancer 8. Anemia hemoglobin 8.4 no active signs of bleeding. We'll check iron studies. Possibly related to her chemotherapy and cancer 9. Mild hyponatremia with a sodium of 134 continue normal saline 10. Nausea continue Zofran also add Protonix IV 11. Pain control: Continue the IV Dilaudid every 3 hours as needed 12. poor nutritional status patient will be started on TPN until she has a functioning PEG tube, at this time will try to switch most of her medications to IV form GI prophylaxis Protonix. We'll hold off on anticoagulation for DVT prophylaxis in case surgical procedure needs to be completed
[2017-10-31] MEDS: HEPARIN SODIUM,PORCINE 5,000 UNIT/ML 1 ML VIAL SQ SCH (20:29)
[2017-10-31] MEDS: FAT EMULSION 20% 250 ML in EMPTY BAG 1 BAG IV SCH (20:33)
[2017-11-01] MEDS: MEROPENEM 1 GM in SODIUM CHLORIDE 0.9% 100 ML IVPB SCH ×4 (00:03→23:56)
[2017-11-01] MEDS: HYDROmorphone 0.5 MG/0.5 ML SYRINGE IVP PRN ×8 (00:03→21:26)
[2017-11-01] MEDS: IPRATROPIUM-ALBUTEROL 3 ML NEB INHALATION PRN ×3 (00:06→23:44)
[2017-11-01] MEDS: SODIUM CHLORIDE 0.9% 1,000 ML IV SCH ×3 (00:08→17:56)
[2017-11-01 00:15] LABS: Glucose,Whole Blood 221 mg/dL (75-99)
[2017-11-01] MEDS: INSULIN ASPART 100 UNIT/ML 1 ML 10 ML VIAL SQ SCH ×4 (00:15→17:28)
[2017-11-01] MEDS: ONDANSETRON 4 MG/2 ML VIAL IVP PRN (02:46)
[2017-11-01] MEDS: LORazepam 2 MG/ML INJ IV PRN ×2 (05:58→19:34)
[2017-11-01 06:04] LABS: Glucose,Whole Blood 198 mg/dL (75-99)
[2017-11-01 07:47] LABS: Anisocytosis Moderate; Basophils % (A) 0 %; Eosinophils % (A) 1 %; HCT 22.6 % (34.0-46.0); HGB 7.2 gm/dL (11.4-16.0); Hypochromasia Moderate; Lymphocytes # (A) 0.2 k/uL (1.0-4.8); Lymphocytes % (A) 6 %; MCH 24.9 pg (25.0-35.0); MCHC 31.8 g/dL (31.0-37.0); MCV 78.2 fL (80.0-100.0); Mean Platelet Volume 7.9; Microcytosis Moderate; Monocytes # (A) 0.2 k/uL (0-1.0); Monocytes % (A) 4 %; Neutrophils # (A) 3.6 k/uL (1.3-7.7); Neutrophils % (A) 87 %; Platelet Count 200 k/uL (150-450); Poikilocytosis Moderate; RBC 2.89 m/uL (3.80-5.40); RDW 23.1 % (11.5-15.5); WBC 4.1 k/uL (3.8-10.6)
[2017-11-01] MEDS: LORATADINE 10 MG TAB PEG/G-TUBE SCH (07:56)
[2017-11-01] MEDS: HEPARIN SODIUM,PORCINE 5,000 UNIT/ML 1 ML VIAL SQ SCH ×2 (07:56→21:27)
[2017-11-01] MEDS: POTASSIUM CHLORIDE ORAL LIQUID 40 MEQ/30 ML CUP PEG/G-TUBE SCH ×2 (07:56→21:28)
[2017-11-01] MEDS: LEVOTHYROXINE IVP 100 MCG/5 ML VIAL IV SCH (07:56)
[2017-11-01] MEDS: INSULIN DETEMIR 100 UNIT/ML 10 ML VIAL SQ SCH ×2 (07:59→21:28)
[2017-11-01] MEDS: PANTOPRAZOLE 40 MG/10 ML VIAL IVP SCH (08:00)
[2017-11-01 08:14] LABS: ALT 54 U/L (9-52); AST 29 U/L (14-36); Albumin 2.5 g/dL (3.5-5.0); Alkaline Phosphatase 94 U/L (38-126); Anion Gap 10 mmol/L; Blood Urea Nitrogen 12 mg/dL (7-17); Calcium 7.4 mg/dL (8.4-10.2); Carbon Dioxide 28 mmol/L (22-30); Chloride 96 mmol/L (98-107); Glucose 178 mg/dL (74-99); Magnesium 1.4 mg/dL (1.6-2.3); Phosphorus 3.1 mg/dL (2.5-4.5); Potassium 3.2 mmol/L (3.5-5.1); Sodium 134 mmol/L (137-145); Total Bilirubin 0.3 mg/dL (0.2-1.3); Total Protein 5.2 g/dL (6.3-8.2)
[2017-11-01] MEDS: IPRATROPIUM-ALBUTEROL 3 ML NEB INHALATION SCH ×4 (08:28→19:39)
--- NOTE | 2017-11-01 09:02 | P.PN ---
Subjective Progress Note Date: 10/31/17 Principal diagnosis: anaplastic thyroid carcinoma On 10/31 the patient was seen shortly after her J-tube placement. At that time we discussed that she still has a couple radiation treatments left. Considering she has continued to have difficulty with a skin reaction over the neck, I felt it was reasonable to finish her treatment today. Objective - Vital Signs Vital signs: Vital Signs Temp 97.7 F 11/01/17 07:00 Pulse 104 H 11/01/17 08:38 Resp 18 11/01/17 07:00 BP 169/86 11/01/17 07:00 Pulse Ox 100 11/01/17 07:00 Intake & Output 10/31/17 11/01/17 11/01/17 18:59 06:59 18:59 Intake Total 500 1558 Output Total 10 Balance 490 1558 Weight 91.5 kg 98.5 kg Intake: IV 500 968 Fat Emulsion 20% 250 ml 168 In Empty Bag 1 bag @ 21 mls/hr IV DAILY@1800 [facility] Rx#:[id number] Sodium Chloride 0.9% 1, 800 000 ml @ 100 mls/hr IV . Q10H [facility] Rx#:[id number] Oral 590 Output: Estimated Blood Loss 10 Other: Voiding Method Toilet Toilet # Voids 2 1 - Constitutional General appearance: Absent: no acute distress - EENT Eyes: Present: EOMI, PERRLA - Neck Details: large area of moist desquamation over the anterior neck - Integumentary Integumentary: Present: ulcer (As described over neck). Absent: calor - Neurologic Neurologic: Present: CNII-XII intact - Psychiatric Psychiatric: Present: A&O x's 3, appropriate affect - Labs CBC & Chem 7: 11/01/17 07:17 11/01/17 07:17 Labs: Abnormal Lab Results - Last 24 Hours (Table) 10/31/17 10/31/17 10/31/17 Range/Units 08:02 08:02 11:17 WBC 3.7 L (3.8-10.6) k/uL RBC 2.98 L (3.80-5.40) m/uL Hgb 7.5 L (11.4-16.0) gm/dL Hct 23.4 L (34.0-46.0) % MCV 78.3 L (80.0-100.0) fL MCH (25.0-35.0) pg RDW 22.5 H (11.5-15.5) % Lymphocytes # 0.3 L (1.0-4.8) k/uL Sodium 134 L (137-145) mmol/L Potassium 3.4 L (3.5-5.1) mmol/L Chloride 97 L (98-107) mmol/L Creatinine 0.50 L (0.52-1.04) mg/dL Glucose (74-99) mg/dL POC Glucose (mg/dL) 102 H (75-99) mg/dL Calcium 7.7 L (8.4-10.2) mg/dL Phosphorus 2.1 L (2.5-4.5) mg/dL Magnesium (1.6-2.3) mg/dL AST 63 H (14-36) U/L ALT 75 H (9-52) U/L Total Protein 5.7 L (6.3-8.2) g/dL Albumin 2.8 L (3.5-5.0) g/dL 10/31/17 10/31/17 11/01/17 Range/Units 12:12 17:12 00:13 WBC (3.8-10.6) k/uL RBC (3.80-5.40) m/uL Hgb (11.4-16.0) gm/dL Hct (34.0-46.0) % MCV (80.0-100.0) fL MCH (25.0-35.0) pg RDW (11.5-15.5) % Lymphocytes # (1.0-4.8) k/uL Sodium (137-145) mmol/L Potassium (3.5-5.1) mmol/L Chloride (98-107) mmol/L Creatinine (0.52-1.04) mg/dL Glucose (74-99) mg/dL POC Glucose (mg/dL) 100 H 164 H 221 H (75-99) mg/dL Calcium (8.4-10.2) mg/dL Phosphorus (2.5-4.5) mg/dL Magnesium (1.6-2.3) mg/dL AST (14-36) U/L ALT (9-52) U/L Total Protein (6.3-8.2) g/dL Albumin (3.5-5.0) g/dL 11/01/17 11/01/17 11/01/17 Range/Units 06:01 07:17 07:17 WBC (3.8-10.6) k/uL RBC 2.89 L (3.80-5.40) m/uL Hgb 7.2 L (11.4-16.0) gm/dL Hct 22.6 L (34.0-46.0) % MCV 78.2 L (80.0-100.0) fL MCH 24.9 L (25.0-35.0) pg RDW 23.1 H (11.5-15.5) % Lymphocytes # 0.2 L (1.0-4.8) k/uL Sodium 134 L (137-145) mmol/L Potassium 3.2 L (3.5-5.1) mmol/L Chloride 96 L (98-107) mmol/L Creatinine (0.52-1.04) mg/dL Glucose 178 H (74-99) mg/dL POC Glucose (mg/dL) 198 H (75-99) mg/dL Calcium 7.4 L (8.4-10.2) mg/dL Phosphorus (2.5-4.5) mg/dL Magnesium 1.4 L (1.6-2.3) mg/dL AST (14-36) U/L ALT 54 H (9-52) U/L Total Protein 5.2 L (6.3-8.2) g/dL Albumin 2.5 L (3.5-5.0) g/dL Assessment and Plan Plan: 1. Anaplastic thyroid carcinoma: Patient's last chemotherapy was 1 week prior. She is now finished with radiotherapy as of 10/31; completed out script early. She will need to follow skin care instructions for the neck. Recommend Silvadene cream, thin layer twice daily. Leave open to air during the day, can cover at night. Now that she has completed radiation skin healing will progress. Time with Patient: Less than 30
--- NOTE | 2017-11-01 09:19 | P.PN ---
Subjective Progress Note Date: 11/01/17 This is a 56-year-old female with a past medical history of thyroid cancer with a tracheal deviation. She is undergoing chemo and radiation treatment. Last chemotherapy yesterday and radiation today. 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 This is patient's third admission due to PEG tube malfunction. PEG tube was placed 08/25/2017. Patient reports that about 3 days that her PEG tube has not been working. When she pours the feedings as well as when she places her medications into the tube drains out onto her abdomen. She has skin irritation along the abdomen as well as some puslike drainage. This will be cultured. Patient has been on antibiotics in the form of Keflex and also topical Silvadene given by Dr. Berg her radiation oncologist for the radiation burn on her back. Patient also has been coughing with sputum production. Chest x-ray has been ordered. She denies any fever chills or sweats denies any abdominal pain. Denies any vomiting. She does report dry heaves and nausea. Denies any bowel movement changes or urinary symptoms. She is having some pain in her neck on 10/27/2017 patient is alert and oriented 3 complaining of pain in her neck she is and able to swallow she is complaining of cough was copious amount of sputum production otherwise she denies any complaints there is no fever or chills no headache no dizziness no nausea or vomiting no abdominal pain no diarrhea and no urinary symptoms. On 10/28/2017 patient is alert and oriented 3 in no apparent distress blood pressure is elevated at 182/85 patient is complaining of neck discomfort and abdominal discomfort otherwise she denies any complaints at this time she is nothing by mouth she was started on TPN she is scheduled to have PEG tube removed on Monday or Monday. 10/29/2017 patient is alert and oriented 3 complaining of pain and nausea, otherwise no complaints blood pressure is still significantly elevated she is receiving IV Vasotec when necessary she is unable to take any oral intake at this time will add Catapres patch and monitor blood pressure closely she is also requesting an increase in frequency of her pain and nausea medications. on 10/31/2017 patient is alert and oriented in no distress had peg tube removal and chest wall debridment today, complaining of pain at the surgical site otherwise no complaints at this time On 11/01/2017 patient is alert and oriented in no apparent distress she is more Comfortable today, her pain is better controlled. Objective - Vital Signs Vital signs: Vital Signs Temp 97.7 F 11/01/17 07:00 Pulse 104 H 11/01/17 08:38 Resp 18 11/01/17 07:00 BP 169/86 11/01/17 07:00 Pulse Ox 100 11/01/17 07:00 Intake & Output 10/31/17 11/01/17 11/01/17 18:59 06:59 18:59 Intake Total 500 1558 Output Total 10 Balance 490 1558 Weight 91.5 kg 98.5 kg Intake: IV 500 968 Fat Emulsion 20% 250 ml 168 In Empty Bag 1 bag @ 21 mls/hr IV DAILY@1800 [facility] Rx#:[id number] Sodium Chloride 0.9% 1, 800 000 ml @ 100 mls/hr IV . Q10H [facility] Rx#:[id number] Oral 590 Output: Estimated Blood Loss 10 Other: Voiding Method Toilet Toilet # Voids 2 1 - Exam Head normocephalicand at traumatic Neck supple. Radiation burn noted on the anterior aspect of the neck there is scabbing and redness Lungs coarse breath sounds notedno wheezing Heart regular rate and rhythm S1-S2, no rub or gallop Abdomen is soft nontender nondistended positive bowel sounds no palpable hepatosplenomegaly. PEG tube site drainage yellowish drainage present. There is skin irritation below the PEG tube, left side of the abdomen reddish in color. PEG tube appears to be pulled out slightly. Extremities no edema no cyanosis or clubbing Neuro alert and orientated to 3 - Labs CBC & Chem 7: 11/01/17 07:17 11/01/17 07:17 Labs: Abnormal Lab Results - Last 24 Hours (Table) 10/31/17 10/31/17 10/31/17 Range/Units 08:02 11:17 12:12 WBC 3.7 L (3.8-10.6) k/uL RBC 2.98 L (3.80-5.40) m/uL Hgb 7.5 L (11.4-16.0) gm/dL Hct 23.4 L (34.0-46.0) % MCV 78.3 L (80.0-100.0) fL MCH (25.0-35.0) pg RDW 22.5 H (11.5-15.5) % Lymphocytes # 0.3 L (1.0-4.8) k/uL Sodium (137-145) mmol/L Potassium (3.5-5.1) mmol/L Chloride (98-107) mmol/L Glucose (74-99) mg/dL POC Glucose (mg/dL) 102 H 100 H (75-99) mg/dL Calcium (8.4-10.2) mg/dL Magnesium (1.6-2.3) mg/dL ALT (9-52) U/L Total Protein (6.3-8.2) g/dL Albumin (3.5-5.0) g/dL 10/31/17 11/01/17 11/01/17 Range/Units 17:12 00:13 06:01 WBC (3.8-10.6) k/uL RBC (3.80-5.40) m/uL Hgb (11.4-16.0) gm/dL Hct (34.0-46.0) % MCV (80.0-100.0) fL MCH (25.0-35.0) pg RDW (11.5-15.5) % Lymphocytes # (1.0-4.8) k/uL Sodium (137-145) mmol/L Potassium (3.5-5.1) mmol/L Chloride (98-107) mmol/L Glucose (74-99) mg/dL POC Glucose (mg/dL) 164 H 221 H 198 H (75-99) mg/dL Calcium (8.4-10.2) mg/dL Magnesium (1.6-2.3) mg/dL ALT (9-52) U/L Total Protein (6.3-8.2) g/dL Albumin (3.5-5.0) g/dL 11/01/17 11/01/17 Range/Units 07:17 07:17 WBC (3.8-10.6) k/uL RBC 2.89 L (3.80-5.40) m/uL Hgb 7.2 L (11.4-16.0) gm/dL Hct 22.6 L (34.0-46.0) % MCV 78.2 L (80.0-100.0) fL MCH 24.9 L (25.0-35.0) pg RDW 23.1 H (11.5-15.5) % Lymphocytes # 0.2 L (1.0-4.8) k/uL Sodium 134 L (137-145) mmol/L Potassium 3.2 L (3.5-5.1) mmol/L Chloride 96 L (98-107) mmol/L Glucose 178 H (74-99) mg/dL POC Glucose (mg/dL) (75-99) mg/dL Calcium 7.4 L (8.4-10.2) mg/dL Magnesium 1.4 L (1.6-2.3) mg/dL ALT 54 H (9-52) U/L Total Protein 5.2 L (6.3-8.2) g/dL Albumin 2.5 L (3.5-5.0) g/dL Assessment and Plan Plan: 1. Malfunctioning PEG tube: KUB x-ray showing abnormal positioning of PEG tube. Surgical consult has been placed. patient underwent PEG tube removal with abdominal wall debridement yesterday. Nutrition through J-tube is scheduled to be started today 2. Cough with sputum production: Check chest x-ray. Check sputum culture. Check influenza screen 3. Diabetes mellitus type 2 with elevated blood sugars in the 300s. Patient has not been taking her Levemir at home due to not taking the tube feedings. Add sliding scale coverage. Continue to monitor we'll decrease her home Levemir dose from 21 units twice a day down to 20 daily 4. 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 She did have radiation treatment today and last chemotherapy was yesterday. Consults will place be placed for Dr. Berg 5. Radiation burn to the neck had been on Silvadene and Keflex at home. will stop Keflex for now and switch her over to Rocephin to cover upper respiratory infection as well as her skin infection. 6. Hypothyroidism continue Synthroid 7. History of breast cancer and uterine cancer 8. Anemia hemoglobin 8.4 no active signs of bleeding. We'll check iron studies. Possibly related to her chemotherapy and cancer 9. Mild hyponatremia with a sodium of 134 continue normal saline 10. Nausea continue Zofran also add Protonix IV 11. Pain control: Continue the IV Dilaudid every 3 hours as needed 12. poor nutritional status patient will be started on TPN until she has a functioning PEG tube, at this time will try to switch most of her medications to IV form GI prophylaxis Protonix. We'll hold off on anticoagulation for DVT prophylaxis in case surgical procedure needs to be completed
[2017-11-01] MEDS: MICAFUNGIN 100 MG in SODIUM CHLORIDE 0.9% 100 ML IVPB SCH (10:49)
[2017-11-01] MEDS ORDERED: [UNRECOGNIZED DRUG - REMARK] IV SCH ×4 (11:00)
[2017-11-01 12:12] LABS: Glucose,Whole Blood 114 mg/dL (75-99)
[2017-11-01 17:29] LABS: Glucose,Whole Blood 83 mg/dL (75-99)
[2017-11-01] MEDS: MAGNESIUM SULFATE-D5W PMX 1 GM in DEXTROSE/WATER 1 100ML.BAG IVPB SCH ×2 (21:27→22:54)
[2017-11-01 23:56] LABS: Glucose,Whole Blood 82 mg/dL (75-99)
[2017-11-02] MEDS: INSULIN ASPART 100 UNIT/ML 1 ML 10 ML VIAL SQ SCH ×4 (00:02→18:07)
[2017-11-02] MEDS: HYDROmorphone 0.5 MG/0.5 ML SYRINGE IVP PRN ×8 (01:19→23:16)
[2017-11-02] MEDS: MAGNESIUM SULFATE-D5W PMX 1 GM in DEXTROSE/WATER 1 100ML.BAG IVPB SCH ×2 (01:20→03:08)
[2017-11-02] MEDS: LACTATED RINGERS 1,000 ML IV SCH (01:31)
[2017-11-02] MEDS: IPRATROPIUM-ALBUTEROL 3 ML NEB INHALATION PRN ×2 (04:18→22:58)
[2017-11-02 06:21] LABS: Glucose,Whole Blood 90 mg/dL (75-99)
--- NOTE | 2017-11-02 08:02 | P.PN ---
Subjective Progress Note Date: 11/01/17 The patient is a 56-year-old female who poorly controlled insulin-dependent diabetes, morbid obesity, anaplastic thyroid cancer. She is tolerating tube feeds. She reports expected soreness along the left lateral abdominal wall where incisions are present. No reports of fevers or chills. Objective - Vital Signs Vital signs: Vital Signs Temp 98.6 F 11/01/17 14:44 Pulse 113 H 11/01/17 19:49 Resp 18 11/01/17 14:44 BP 171/80 11/01/17 14:44 Pulse Ox 94 L 11/01/17 14:44 Intake & Output 11/01/17 11/01/17 11/02/17 06:59 18:59 06:59 Intake Total 1558 80 Balance 1558 80 Weight 98.5 kg Intake: IV 968 Fat Emulsion 20% 250 ml 168 In Empty Bag 1 bag @ 21 mls/hr IV DAILY@1800 [facility] Rx#:[id number] Sodium Chloride 0.9% 1, 800 000 ml @ 100 mls/hr IV . Q10H [facility] Rx#:[id number] Oral 590 Tube Feeding 80 Other: Voiding Method Toilet Toilet # Voids 1 - Exam GENERAL: Well developed and in no acute distress. Pleasant. HEENT: No sclera icterus. Extraocular movements grossly intact. Dry buccal mucosa. Head is atraumatic, normocephalic. Hears conversational speech. No nasal drainage. Course. NECK: Tracheal deviation to the left with severe radiation burn and thyroid fullness. CHEST: Non-labored respirations and equal bilateral excursions. CARDIOVASCULAR: Regular rate and rhythm. Palpable 2+ radial pulses. ABDOMEN: Protuberant. Feeding tube site clean dry and intact. No signs of erythema or infection. MUSCULOSKELETAL: No clubbing, cyanosis or edema. NEUROLOGIC: No focal or lateralizing signs. PSYCH: Appropriate affect. Alert and oriented to person, place and time. - Labs CBC & Chem 7: 11/01/17 07:17 11/01/17 07:17 Labs: Abnormal Lab Results - Last 24 Hours (Table) 11/01/17 11/01/17 11/01/17 Range/Units 00:13 06:01 07:17 RBC (3.80-5.40) m/uL Hgb (11.4-16.0) gm/dL Hct (34.0-46.0) % MCV (80.0-100.0) fL MCH (25.0-35.0) pg RDW (11.5-15.5) % Lymphocytes # (1.0-4.8) k/uL Sodium 134 L (137-145) mmol/L Potassium 3.2 L (3.5-5.1) mmol/L Chloride 96 L (98-107) mmol/L Glucose 178 H (74-99) mg/dL POC Glucose (mg/dL) 221 H 198 H (75-99) mg/dL Calcium 7.4 L (8.4-10.2) mg/dL Magnesium 1.4 L (1.6-2.3) mg/dL ALT 54 H (9-52) U/L Total Protein 5.2 L (6.3-8.2) g/dL Albumin 2.5 L (3.5-5.0) g/dL 11/01/17 11/01/17 Range/Units 07:17 12:11 RBC 2.89 L (3.80-5.40) m/uL Hgb 7.2 L (11.4-16.0) gm/dL Hct 22.6 L (34.0-46.0) % MCV 78.2 L (80.0-100.0) fL MCH 24.9 L (25.0-35.0) pg RDW 23.1 H (11.5-15.5) % Lymphocytes # 0.2 L (1.0-4.8) k/uL Sodium (137-145) mmol/L Potassium (3.5-5.1) mmol/L Chloride (98-107) mmol/L Glucose (74-99) mg/dL POC Glucose (mg/dL) 114 H (75-99) mg/dL Calcium (8.4-10.2) mg/dL Magnesium (1.6-2.3) mg/dL ALT (9-52) U/L Total Protein (6.3-8.2) g/dL Albumin (3.5-5.0) g/dL Assessment and Plan (1) Gastrostomy status Current Visit: Yes Status: Acute Code(s): Z93.1 - GASTROSTOMY STATUS SNOMED Code(s): 061308461 (2) Radiation burn Current Visit: Yes Status: Acute Code(s): T30.0 - BURN OF UNSPECIFIED BODY REGION, UNSPECIFIED DEGREE SNOMED Code(s): 658436841 (3) Dehydration Current Visit: Yes Status: Acute Code(s): E86.0 - DEHYDRATION SNOMED Code( s): 27283377 (4) Poorly controlled diabetes mellitus Current Visit: Yes Status: Acute Code(s): E11.65 - TYPE 2 DIABETES MELLITUS WITH HYPERGLYCEMIA SNOMED Code(s): 402537774 (5) Anaplastic thyroid carcinoma Current Visit: No Status: Acute Code(s): C73 - MALIGNANT NEOPLASM OF THYROID GLAND SNOMED Code(s): 779568388 (6) Thyroid cancer Current Visit: No Status: Acute Code(s): C73 - MALIGNANT NEOPLASM OF THYROID GLAND SNOMED Code(s): 900956984 Plan: 1. Recommend tube feeds for discharge. 2. Follow-up abdominal x-ray tomorrow.
[2017-11-02 08:09] LABS: Anisocytosis Moderate; Basophils % (A) 0 %; Eosinophils % (A) 1 %; HCT 23.7 % (34.0-46.0); HGB 7.2 gm/dL (11.4-16.0); Hypochromasia Moderate; Lymphocytes # (A) 0.1 k/uL (1.0-4.8); Lymphocytes % (A) 3 %; MCH 24.3 pg (25.0-35.0); MCHC 30.6 g/dL (31.0-37.0); MCV 79.6 fL (80.0-100.0); Mean Platelet Volume 7.1; Microcytosis Moderate; Monocytes # (A) 0.2 k/uL (0-1.0); Monocytes % (A) 5 %; Neutrophils # (A) 3.7 k/uL (1.3-7.7); Neutrophils % (A) 88 %; Platelet Count 217 k/uL (150-450); Poikilocytosis Moderate; RBC 2.98 m/uL (3.80-5.40); WBC 4.2 k/uL (3.8-10.6)
[2017-11-02 08:18] LABS: ALT 46 U/L (9-52); AST 37 U/L (14-36); Albumin 2.6 g/dL (3.5-5.0); Alkaline Phosphatase 119 U/L (38-126); Anion Gap 9 mmol/L; Blood Urea Nitrogen 11 mg/dL (7-17); Calcium 7.3 mg/dL (8.4-10.2); Carbon Dioxide 29 mmol/L (22-30); Chloride 97 mmol/L (98-107); Glucose 87 mg/dL (74-99); Phosphorus 2.1 mg/dL (2.5-4.5); Potassium 3.1 mmol/L (3.5-5.1); Sodium 135 mmol/L (137-145); Total Bilirubin 0.5 mg/dL (0.2-1.3); Total Protein 5.4 g/dL (6.3-8.2)
[2017-11-02] MEDS: ONDANSETRON 4 MG/2 ML VIAL IVP PRN ×3 (08:32→20:35)
[2017-11-02] MEDS: LORazepam 2 MG/ML INJ IV PRN ×3 (08:33→20:35)
[2017-11-02] MEDS: MEROPENEM 1 GM in SODIUM CHLORIDE 0.9% 100 ML IVPB SCH (08:34)
[2017-11-02] MEDS: IPRATROPIUM-ALBUTEROL 3 ML NEB INHALATION SCH ×4 (08:50→22:18)
[2017-11-02] MEDS ORDERED: Potassium Replacement Protocol 1 EACH MISC MISCELLANE PRN (08:52)
--- NOTE | 2017-11-02 09:04 | XR ---
EXAMINATION TYPE: XR abdomen 1V DATE OF EXAM: 11/02/2017 COMPARISON: NONE HISTORY: PEG tube placement TECHNIQUE: One view abdominal series FINDINGS: The osseous structures are intact. The bowel gas pattern is nonspecific. There is a small amount of free intraperitoneal air. Postsurgical changes are noted. Air-fluid levels are seen with prominent sm all bowel loops. Catheter is noted in the pelvis. IMPRESSION: 1. Nonspecific abdomen. Ileus or partial obstruction. Additionally there is evidence of free intrape ritoneal air. The patient's nurse Estrellita was immediately notified by telephone.
[2017-11-02] MEDS: HEPARIN SODIUM,PORCINE 5,000 UNIT/ML 1 ML VIAL SQ SCH ×2 (09:46→20:21)
[2017-11-02] MEDS: LORATADINE 10 MG TAB PEG/G-TUBE SCH (09:46)
[2017-11-02] MEDS: INSULIN DETEMIR 100 UNIT/ML 10 ML VIAL SQ SCH ×2 (09:47→20:45)
[2017-11-02] MEDS: POTASSIUM CHLORIDE ORAL LIQUID 40 MEQ/30 ML CUP PEG/G-TUBE SCH ×2 (09:47→20:39)
[2017-11-02] MEDS: LEVOTHYROXINE IVP 100 MCG/5 ML VIAL IV SCH (10:30)
[2017-11-02] MEDS: SODIUM CHLORIDE 0.9% 1,000 ML IV SCH ×2 (10:30→17:17)
[2017-11-02] MEDS: PANTOPRAZOLE 40 MG/10 ML VIAL IVP SCH (10:30)
[2017-11-02] MEDS: POTASSIUM CHLORIDE 10 MEQ in SODIUM CHLORIDE 0.9% 100 ML IVPB SCH ×2 (11:10→12:23)
[2017-11-02 11:50] LABS: Glucose,Whole Blood 101 mg/dL (75-99)
--- NOTE | 2017-11-02 11:59 | P.PN ---
Subjective Progress Note Date: 11/02/17 This is a 56-year-old female with a past medical history of thyroid cancer with a tracheal deviation. She is undergoing chemo and radiation treatment. Last chemotherapy yesterday and radiation today. 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 This is patient's third admission due to PEG tube malfunction. PEG tube was placed 08/25/2017. Patient reports that about 3 days that her PEG tube has not been working. When she pours the feedings as well as when she places her medications into the tube drains out onto her abdomen. She has skin irritation along the abdomen as well as some puslike drainage. This will be cultured. Patient has been on antibiotics in the form of Keflex and also topical Silvadene given by Dr. Berg her radiation oncologist for the radiation burn on her back. Patient also has been coughing with sputum production. Chest x-ray has been ordered. She denies any fever chills or sweats denies any abdominal pain. Denies any vomiting. She does report dry heaves and nausea. Denies any bowel movement changes or urinary symptoms. She is having some pain in her neck 10/30/2017 patient had radiation treatment today. She is scheduled for jejunostomy tube placement and removal of PEG tube today. She's requesting something for her anxiety. Blood sugars are still elevated. TPN was started over the weekend. Blood sugars of been ranging in the 200s to 300s. We'll resume her Levemir 51 units twice a day. Patient reports the pain is controlled. Denies any chest pain shortness breath. Denies any nausea or vomiting. Denies any urinating difficulty 11/02/2017 patient has finished radiation treatments. She had J-tube placed on October 31. PEG tube feedings have been started. She had been tolerating tube feedings. Apparently the feeding tube has become blocked per surgical service nurse practitioner. Tube feedings are currently on hold. We'll await further surgical recommendations Objective - Vital Signs Vital signs: Vital Signs Temp 99 F 11/02/17 07:00 Pulse 108 H 11/02/17 11:49 Resp 18 11/02/17 07:00 BP 165/85 11/02/17 07:00 Pulse Ox 98 11/02/17 07:00 Intake & Output 11/01/17 11/02/17 11/02/17 18:59 06:59 18:59 Intake Total 80 240 160 Balance 80 240 160 Weight 102 kg Intake: Tube Feeding 80 240 160 Other: Voiding Method Toilet Toilet - Exam Head normocephalic Neck supple. Radiation burn noted on the anterior aspect of the neck there is scabbing and redness Lungs coarse breath sounds noted Heart regular rate and rhythm S1-S2, no rub or gallop Abdomen is soft nontender nondistended no bowel sounds. Jejunostomy tube site clean dry and intact. Dressing present on old PEG tube site is clean Extremities no edema Neuro alert and orientated to 3 - Labs CBC & Chem 7: 11/02/17 07:36 11/02/17 07:36 Labs: Abnormal Lab Results - Last 24 Hours (Table) 11/01/17 11/02/17 11/02/17 Range/Units 12:11 07:36 07:36 RBC 2.98 L (3.80-5.40) m/uL Hgb 7.2 L (11.4-16.0) gm/dL Hct 23.7 L (34.0-46.0) % MCV 79.6 L (80.0-100.0) fL MCH 24.3 L (25.0-35.0) pg MCHC 30.6 L (31.0-37.0) g/dL RDW 23.0 H (11.5-15.5) % Lymphocytes # 0.1 L (1.0-4.8) k/uL Sodium 135 L (137-145) mmol/L Potassium 3.1 L (3.5-5.1) mmol/L Chloride 97 L (98-107) mmol/L Creatinine 0.48 L (0.52-1.04) mg/dL POC Glucose (mg/dL) 114 H (75-99) mg/dL Calcium 7.3 L (8.4-10.2) mg/dL Phosphorus 2.1 L (2.5-4.5) mg/dL AST 37 H (14-36) U/L Total Protein 5.4 L (6.3-8.2) g/dL Albumin 2.6 L (3.5-5.0) g/dL 11/02/17 Range/Units 11:49 RBC (3.80-5.40) m/uL Hgb (11.4-16.0) gm/dL Hct (34.0-46.0) % MCV (80.0-100.0) fL MCH (25.0-35.0) pg MCHC (31.0-37.0) g/dL RDW (11.5-15.5) % Lymphocytes # (1.0-4.8) k/uL Sodium (137-145) mmol/L Potassium (3.5-5.1) mmol/L Chloride (98-107) mmol/L Creatinine (0.52-1.04) mg/dL POC Glucose (mg/dL) 101 H (75-99) mg/dL Calcium (8.4-10.2) mg/dL Phosphorus (2.5-4.5) mg/dL AST (14-36) U/L Total Protein (6.3-8.2) g/dL Albumin (3.5-5.0) g/dL Assessment and Plan Assessment: 1. Malfunctioning PEG tube: Patient evaluated by surgical service. Status post laparoscopic jejunostomy tube placement with lysis of adhesions and removal of PEG tube with debridement of abdominal wall on 10/31/2017. Apparently PEG tube is blocked. tube feedings are hold. Surgical service to evaluate 2. Cough with sputum production: Chest x-ray negative for any acute process. Influenza screen negative 3. Diabetes mellitus type 2 with elevated blood sugars in the 300s. Patient has not been taking her Levemir at home due to not taking the tube feedings. Add sliding scale coverage. Blood sugars are ranging in the 200s to 300s. She has been on TPN. We'll increase her Levemir back to her home dose of 51 units twice a day 4. 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 Patient has completed both her chemotherapy and radiation treatments. 5. Radiation burn to the neck had been on Silvadene and Keflex at home. 6. Hypothyroidism continue Synthroid 7. History of breast cancer and uterine cancer 8. Anemia hemoglobin 7.2 no active signs of bleeding. Possibly related to her chemotherapy and cancer 9. Mild hyponatremia improved 10. Nausea continue Zofran also add Protonix IV 11. Pain control: Continue the IV Dilaudid every 3 hours as needed 12. Elevated LFTs likely related to the TPN. Trending down 13. Essential hypertension with elevated blood pressures. Patient's not taking her oral meds. Currently on IV Vasotec as needed and clonidine patch added yesterday. Continue to monitor blood pressures and will adjust accordingly 14. PEG tube site infection: Evaluated by Dr. Dumont. Continue continue Merrem and micafungin 15. Hypokalemia: Potassium 3.1 . Patient receiving potassium supplement GI prophylaxis Protonix and DVT prophylaxis subcu heparin I performed an examination of the patient and discussed their management with the physician Production Expert. I have reviewed the Physician Production Expert's notes and agree with the documented findings and plan of care
[2017-11-02] MEDS ORDERED: LEVOFLOXACIN 500 MG TAB PO SCH (12:00)
[2017-11-02] MEDS: MICAFUNGIN 100 MG in SODIUM CHLORIDE 0.9% 100 ML IVPB SCH (12:21)
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
[2017-11-02] MEDS: LEVOFLOXACIN 500MG-D5W PMX 500 MG in DEXTROSE/WATER 1 100ML.BAG IVPB SCH (13:44)
[2017-11-02] MEDS ORDERED: FLUCONAZOLE ORAL SUSP 1,400 MG/35 ML BOTTLE PO SCH (16:00)
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
[2017-11-02 17:37] LABS: Glucose,Whole Blood 97 mg/dL (75-99)
[2017-11-02 20:41] LABS: Glucose,Whole Blood 96 mg/dL (75-99)
--- NOTE | 2017-11-02 21:42 | P.PN ---
Progress Note - Text Progress Note Date: 11/02/17 Patient seen and evaluated. Feeding tube adapter changed per nursing. No increased abdominal pain. She is tolerating tube feeds. Blood sugars are EXCELLENT! May be discharged home from a surgical standpoint. I personally reviewed abdominal XRay and findings are expected from recent laparoscopic surgery and confirmed placement of feeding tube in jejunum. Jejunostomy tube with liquids only as any malfunction with tube will require open surgical correction. Information discussed with nursing team as well.
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
[2017-11-02] MEDS: ENALAPRILAT 1.25 MG/ML 1 ML VIAL IVP PRN (22:47)
[2017-11-03] MEDS: INSULIN ASPART 100 UNIT/ML 1 ML 10 ML VIAL SQ SCH ×4 (01:46→17:57)
[2017-11-03] MEDS: SODIUM CHLORIDE 0.9% 1,000 ML IV SCH ×2 (01:47→10:27)
[2017-11-03] MEDS: LACTATED RINGERS 1,000 ML IV SCH (01:47)
[2017-11-03 01:54] LABS: Glucose,Whole Blood 99 mg/dL (75-99)
[2017-11-03] MEDS: LORazepam 2 MG/ML INJ IV PRN ×2 (02:18→17:09)
[2017-11-03] MEDS: ONDANSETRON 4 MG/2 ML VIAL IVP PRN ×3 (02:18→21:34)
[2017-11-03] MEDS: HYDROmorphone 0.5 MG/0.5 ML SYRINGE IVP PRN ×6 (02:18→22:34)
[2017-11-03 05:39] LABS: Glucose,Whole Blood 106 mg/dL (75-99)
[2017-11-03] MEDS: IPRATROPIUM-ALBUTEROL 3 ML NEB INHALATION PRN (05:59)
[2017-11-03 08:08] LABS: Anisocytosis Moderate; Basophils % (A) 0 %; Eosinophils % (A) 1 %; HGB 7.2 gm/dL (11.4-16.0); Hypochromasia Marked; Lymphocytes # (A) 0.2 k/uL (1.0-4.8); Lymphocytes % (A) 7 %; MCHC 31.1 g/dL (31.0-37.0); MCV 80.6 fL (80.0-100.0); Mean Platelet Volume 7.6; Microcytosis Moderate; Monocytes # (A) 0.2 k/uL (0-1.0); Monocytes % (A) 7 %; Neutrophils # (A) 2.6 k/uL (1.3-7.7); Neutrophils % (A) 82 %; Platelet Count 209 k/uL (150-450); Poikilocytosis Moderate; RBC 2.86 m/uL (3.80-5.40); WBC 3.1 k/uL (3.8-10.6)
[2017-11-03] MEDS: INSULIN DETEMIR 100 UNIT/ML 10 ML VIAL SQ SCH ×2 (08:22→22:14)
[2017-11-03 08:25] LABS: ALT 42 U/L (9-52); AST 29 U/L (14-36); Albumin 2.3 g/dL (3.5-5.0); Alkaline Phosphatase 107 U/L (38-126); Anion Gap 7 mmol/L; Blood Urea Nitrogen 12 mg/dL (7-17); Calcium 7.1 mg/dL (8.4-10.2); Carbon Dioxide 28 mmol/L (22-30); Chloride 102 mmol/L (98-107); Glucose 118 mg/dL (74-99); Magnesium 1.6 mg/dL (1.6-2.3); Phosphorus 2.1 mg/dL (2.5-4.5); Potassium 3.8 mmol/L (3.5-5.1); Sodium 137 mmol/L (137-145); Total Bilirubin 0.3 mg/dL (0.2-1.3); Total Protein 5.1 g/dL (6.3-8.2)
[2017-11-03] MEDS: POTASSIUM CHLORIDE ORAL LIQUID 40 MEQ/30 ML CUP PEG/G-TUBE SCH ×2 (08:31→21:24)
[2017-11-03] MEDS: FLUCONAZOLE ORAL SUSP 1,400 MG/35 ML BOTTLE PO SCH (08:33)
[2017-11-03] MEDS: HEPARIN SODIUM,PORCINE 5,000 UNIT/ML 1 ML VIAL SQ SCH ×2 (08:34→21:24)
[2017-11-03] MEDS: LORATADINE 10 MG TAB PEG/G-TUBE SCH (08:40)
[2017-11-03] MEDS: IPRATROPIUM-ALBUTEROL 3 ML NEB INHALATION SCH ×4 (09:23→19:35)
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
[2017-11-03] MEDS: LEVOTHYROXINE IVP 100 MCG/5 ML VIAL IV SCH (10:23)
[2017-11-03] MEDS: PANTOPRAZOLE 40 MG/10 ML VIAL IVP SCH (10:26)
[2017-11-03] MEDS ORDERED: LISINOPRIL-HCTZ 20-25 MG 1 EACH TAB PO SCH (11:45)
[2017-11-03] MEDS ORDERED: HYDROcodone/APAP 15 ML SOLUTION PO PRN (12:07)
--- NOTE | 2017-11-03 12:09 | P.PN ---
Subjective Progress Note Date: 11/03/17 This is a 56-year-old female with a past medical history of thyroid cancer with a tracheal deviation. She is undergoing chemo and radiation treatment. Last chemotherapy yesterday and radiation today. 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 This is patient's third admission due to PEG tube malfunction. PEG tube was placed 08/25/2017. Patient reports that about 3 days that her PEG tube has not been working. When she pours the feedings as well as when she places her medications into the tube drains out onto her abdomen. She has skin irritation along the abdomen as well as some puslike drainage. This will be cultured. Patient has been on antibiotics in the form of Keflex and also topical Silvadene given by Dr. Berg her radiation oncologist for the radiation burn on her back. Patient also has been coughing with sputum production. Chest x-ray has been ordered. She denies any fever chills or sweats denies any abdominal pain. Denies any vomiting. She does report dry heaves and nausea. Denies any bowel movement changes or urinary symptoms. She is having some pain in her neck 10/30/2017 patient had radiation treatment today. She is scheduled for jejunostomy tube placement and removal of PEG tube today. She's requesting something for her anxiety. Blood sugars are still elevated. TPN was started over the weekend. Blood sugars of been ranging in the 200s to 300s. We'll resume her Levemir 51 units twice a day. Patient reports the pain is controlled. Denies any chest pain shortness breath. Denies any nausea or vomiting. Denies any urinating difficulty 11/02/2017 patient has finished radiation treatments. She had J-tube placed on October 31. PEG tube feedings have been started. She had been tolerating tube feedings. Apparently the feeding tube has become blocked per surgical service nurse practitioner. Tube feedings are currently on hold. We'll await further surgical recommendations 11/03/2017 patient complaining of diarrhea. She had 3 liquidy stools this morning and is not feeling well. She is on antibiotics. Stool for C. diff will be ordered. She denies any chest pain, nausea or vomiting. Denies any burning with urination. She is complaining of some neck and throat pain. She is tolerating her tube feedings. Discussed case with surgical service and dietitian. We'll wait for the dietitian recommendations. Also discussed with pharmacy. Since patient has J-tube her medications need to be in liquid form. Surgical service does not want any crushed pills down her tube. Pharmacy did mention at the time of discharge her Synthroid may be able to be placed in the capsule but liquid form and the capsule could be broken in the liquid for down the J-tube. We'll have to further investigate this option. Blood pressures are elevated 178/75. IV fluids will be discontinued. We'll monitor blood pressures. Objective - Vital Signs Vital signs: Vital Signs Temp 98.3 F 11/03/17 07:00 Pulse 108 H 11/03/17 09:34 Resp 20 11/03/17 07:00 BP 178/75 11/03/17 07:00 Pulse Ox 97 11/03/17 09:25 Intake & Output 11/02/17 11/03/17 11/03/17 18:59 06:59 18:59 Intake Total 540 720 Balance 540 720 Weight 102 kg Intake: Tube Feeding 540 720 Other: Voiding Method Toilet Toilet Toilet - Exam Head normocephalic Neck supple. Radiation burn noted on the anterior aspect of the neck there is scabbing and redness Lungs clear Heart regular rate and rhythm S1-S2, no rub or gallop Abdomen is soft nontender nondistended no bowel sounds. Jejunostomy tube site clean dry and intact. Dressing present on old PEG tube site is clean Extremities no edema Neuro alert and orientated to 3 - Labs CBC & Chem 7: 11/03/17 07:12 11/03/17 07:12 Labs: Abnormal Lab Results - Last 24 Hours (Table) 11/03/17 11/03/17 11/03/17 Range/Units 05:18 07:12 07:12 WBC 3.1 L (3.8-10.6) k/uL RBC 2.86 L (3.80-5.40) m/uL Hgb 7.2 L (11.4-16.0) gm/dL Hct 23.0 L (34.0-46.0) % RDW 23.0 H (11.5-15.5) % Lymphocytes # 0.2 L (1.0-4.8) k/uL Creatinine 0.50 L (0.52-1.04) mg/dL Glucose 118 H (74-99) mg/dL POC Glucose (mg/dL) 106 H (75-99) mg/dL Calcium 7.1 L (8.4-10.2) mg/dL Phosphorus 2.1 L (2.5-4.5) mg/dL Total Protein 5.1 L (6.3-8.2) g/dL Albumin 2.3 L (3.5-5.0) g/dL Assessment and Plan Assessment: 1. Malfunctioning PEG tube: Patient evaluated by surgical service. Status post laparoscopic jejunostomy tube placement with lysis of adhesions and removal of PEG tube with debridement of abdominal wall on 10/31/2017. PEG tube is functioning correctly. Tolerating tube feedings. Dietitian following. We' ll await their further recommendations on feedings. Infection at PEG tube site. Patient currently on Levaquin and Diflucan. Infectious disease following 2. Cough with sputum production: Chest x-ray negative for any acute process. Influenza screen negative 3. Diabetes mellitus type 2 with elevated blood sugars in the 300s on admission. Blood sugars have improved. Continue with Levemir 51 units twice a day 4. 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 Patient has completed both her chemotherapy and radiation treatments. 5. Radiation burn to the neck had been on Silvadene 6. Hypothyroidism continue Synthroid IV 7. History of breast cancer and uterine cancer 8. Anemia hemoglobin 7.2 no active signs of bleeding. Possibly related to her chemotherapy and cancer 9. Mild hyponatremia improved 10. Nausea continue Zofran also add Protonix IV 11. Pain control: Continue the IV Dilaudid every 3 hours as needed 12. Elevated LFTs likely related to the TPN. Off of TPN. LFTs have normalized. 13. Essential hypertension with elevated blood pressures. Patient is unable to take oral medications. Cannot resume Zestoretic because he cannot be placed through the J-tube. At this time IV fluids have been discontinued. We'll monitor blood pressures. If remains elevated then we will increase the Catapres patch. 14. Hypokalemia: Potassium improved with supplement 15. Diarrhea: Check stool for C. diff 16. Tachycardia possibly related to pain. Will start [place] elixir. Also place patient on telemetry and check an EKG GI prophylaxis Protonix and DVT prophylaxis subcu heparin I performed an examination of the patient and discussed their management with the physician Financial Planning Analyst. I have reviewed the Physician Financial Planning Analyst's notes and agree with the documented findings and plan of care
[2017-11-03 12:15] LABS: Glucose,Whole Blood 137 mg/dL (75-99)
[2017-11-03] MEDS: LEVOFLOXACIN 500MG-D5W PMX 500 MG in DEXTROSE/WATER 1 100ML.BAG IVPB SCH (16:02)
[2017-11-03 18:06] LABS: Glucose,Whole Blood 77 mg/dL (75-99)
[2017-11-03] MEDS ORDERED: DEXTROSE 50%-WATER 50 ML SYRINGE IVP STA (22:04)
[2017-11-03 22:05] LABS: Glucose,Whole Blood 66 mg/dL (75-99)
[2017-11-03 22:31] LABS: Glucose,Whole Blood 141 mg/dL (75-99)
--- NOTE | 2017-11-03 22:49 | P.PN ---
Subjective Progress Note Date: 11/03/17 Principal diagnosis: Infection of PEG site 56-year-old female who has a very extensive past medical history regarding cancer. She was first diagnosed with right breast carcinoma completed her course of therapy and was on tamoxifen. However she then developed what appeared to be uterine cancer in her tamoxifen was discontinued after her hysterectomy. The patient was having difficulties with multiple basal cell carcinomas and was treated with immunotherapy with some success. The patient over developed significant pain in her neck with swallowing and a mass was found. 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 Consequently she's been receiving chemoradiation therapy. She started to have increasing difficulties with her PEG tube site and presents to Hospital for further evaluation. Computed tomography scan reveals evidence of malposition of the PEG tube site with evidence of some local infection. With that the infectious diseases consultation was requested the patient believes she 's had a fever but knows to be in chills or rigors. On 10/30/2017 the patient is doing somewhat better. She is without significant discomfort or drainage from the PEG tube site. She denying any fevers or chills at this time. 11/02/2017 patient is now having marked improvement. The patient therapy has completed them with a cream to her neck she's feeling slightly better. She is having no further fevers or chills. The malpositioned PEG tube is removed. PEJ tube is in place and functioning well. Objective - Vital Signs Vital signs: Vital Signs Temp 97.9 F 11/03/17 19:01 Pulse 91 11/03/17 19:51 Resp 16 11/03/17 19:01 BP 154/78 11/03/17 19:01 Pulse Ox 93 L 11/03/17 19:37 Intake & Output 11/03/17 11/03/17 11/04/17 06:59 18:59 06:59 Intake Total 720 160 Balance 720 160 Weight 102 kg 102 kg Intake: Tube Feeding 720 160 Other: Voiding Method Toilet Toilet # Bowel Movements 7 - Exam 56-year-old woman who is modestly comfortable at this time. HEENT: Anicteric conjunctiva are pink and moist nasal mucosa grossly intact without bleeding, oral mucosa is dry without latasha thrush. Neck: The neck is supple evidence of the extensive erythema to the anterior aspect of the neck from recent radiation, no purulent lesions are seen. No palpable mass Lungs: Good bilateral air entry without significant crackles or wheezing. There is no significant bronchial sounds. There is no egophony or dullness. Heart: Regular rate and rhythm with an audible S1-S2, no S3 no S4. There is no significant murmur click or rub, PMI was nondisplaced. Abdomen: The abdomen is soft and nontender. No palpable mass or organomegaly. PEG tube site is malfunctioning there is drainage and mild erythema. It is not distinctly tender. Extremities: The upper extremities have excellent pulses they are symmetric, no significant petechiae or telangiectasia. No splinter hemorrhages were noted. The lower extremities are free from significant edema. The peripheral pulses were 2+ and symmetric. Neuro: Awake alert oriented to person place and time. With her radiation has difficulty with her voice but is able to easily communicateby writing. No acute gross focal sensory motor deficits are noted - Labs CBC & Chem 7: 11/03/17 07:12 11/03/17 07:12 Labs: Abnormal Lab Results - Last 24 Hours (Table) 11/03/17 11/03/17 11/03/17 Range/Units 05:18 07:12 07:12 WBC 3.1 L (3.8-10.6) k/uL RBC 2.86 L (3.80-5.40) m/uL Hgb 7.2 L (11.4-16.0) gm/dL Hct 23.0 L (34.0-46.0) % RDW 23.0 H (11.5-15.5) % Lymphocytes # 0.2 L (1.0-4.8) k/uL Creatinine 0.50 L (0.52-1.04) mg/dL Glucose 118 H (74-99) mg/dL POC Glucose (mg/dL) 106 H (75-99) mg/dL Calcium 7.1 L (8.4-10.2) mg/dL Phosphorus 2.1 L (2.5-4.5) mg/dL Total Protein 5.1 L (6.3-8.2) g/dL Albumin 2.3 L (3.5-5.0) g/dL 11/03/17 11/03/17 11/03/17 Range/Units 11:50 21:59 22:29 WBC (3.8-10.6) k/uL RBC (3.80-5.40) m/uL Hgb (11.4-16.0) gm/dL Hct (34.0-46.0) % RDW (11.5-15.5) % Lymphocytes # (1.0-4.8) k/uL Creatinine (0.52-1.04) mg/dL Glucose (74-99) mg/dL POC Glucose (mg/dL) 137 H 66 L 141 H (75-99) mg/dL Calcium (8.4-10.2) mg/dL Phosphorus (2.5-4.5) mg/dL Total Protein (6.3-8.2) g/dL Albumin (3.5-5.0) g/dL Laboratory Results WBC 3.1 k/uL (3.8-10.6) L 11/03/17 07:12 RBC 2.86 m/uL (3.80-5.40) L 11/03/17 07:12 Hgb 7.2 gm/dL (11.4-16.0) L 11/03/17 07:12 Hct 23.0 % (34.0-46.0) L 11/03/17 07:12 MCV 80.6 fL (80.0-100.0) 11/03/17 07:12 MCH 25.0 pg (25.0-35.0) 11/03/17 07:12 MCHC 31.1 g/dL (31.0-37.0) 11/03/17 07:12 RDW 23.0 % (11.5-15.5) H 11/03/17 07:12 Plt Count 209 k/uL (150-450) 11/03/17 07:12 Neutrophils % 82 % 11/03/17 07:12 Lymphocytes % 7 % 11/03/17 07:12 Monocytes % 7 % 11/03/17 07:12 Eosinophils % 1 % 11/03/17 07:12 Basophils % 0 % 11/03/17 07:12 Neutrophils # 2.6 k/uL (1.3-7.7) 11/03/17 07:12 Lymphocytes # 0.2 k/uL (1.0-4.8) L 11/03/17 07:12 Monocytes # 0.2 k/uL (0-1.0) 11/03/17 07:12 Eosinophils # 0.0 k/uL (0-0.7) 11/03/17 07:12 Basophils # 0.0 k/uL (0-0.2) 11/03/17 07:12 Manual Slide Review Performed 10/31/17 08:02 Hypochromasia Marked 11/03/17 07:12 Poikilocytosis Moderate 11/03/17 07:12 Anisocytosis Moderate 11/03/17 07:12 Microcytosis Moderate 11/03/17 07:12 Sodium 137 mmol/L (137-145) 11/03/17 07:12 Potassium 3.8 mmol/L (3.5-5.1) 11/03/17 07:12 Chloride 102 mmol/L (98-107) 11/03/17 07:12 Carbon Dioxide 28 mmol/L (22-30) 11/03/17 07:12 Anion Gap 7 mmol/L 11/03/17 07:12 BUN 12 mg/dL (7-17) 11/03/17 07:12 Creatinine 0.50 mg/dL (0.52-1.04) L 11/03/17 07:12 Est GFR (MDRD) Af Amer >60 (>60 ml/min/1.73 sqM) 11/03/17 07:12 Est GFR (MDRD) Non-Af >60 (>60 ml/min/1.73 sqM) 11/03/17 07:12 Glucose 118 mg/dL (74-99) H 11/03/17 07:12 POC Glucose (mg/dL) 141 mg/dL (75-99) H 11/03/17 22:29 POC Glu Funeral Director/Embalmer ID Esha Malcolm 11/03/17 22:[address] Glu mg/dL 203 10/26/17 10:50 Hemoglobin A1c 8.7 % (4.0-6.0) H 10/26/17 10:50 Plasma Lactic Acid Jordin 1.0 mmol/L (0.7-2.0) 10/26/17 10:50 Calcium 7.1 mg/dL (8.4-10.2) L 11/03/17 07:12 Ionized Calcium [place] 4.7 mg/dL (4.5-5.3) 10/27/17 14:52 Phosphorus 2.1 mg/dL (2.5-4.5) L 11/03/17 07:12 Magnesium 1.6 mg/dL (1.6-2.3) 11/03/17 07:12 Iron 81 ug/dL (50-170) 10/26/17 10:50 TIBC 274 ug/dL (228-460) 10/26/17 10:50 Iron Saturation 29.56 (12.00-45.00) 10/26/17 10:50 Ferritin 449.0 ng/mL (10.0-291.0) H 10/26/17 10:50 Total Bilirubin 0.3 mg/dL (0.2-1.3) 11/03/17 07:12 AST 29 U/L (14-36) 11/03/17 07:12 ALT 42 U/L (9-52) 11/03/17 07:12 Alkaline Phosphatase 107 U/L (38-126) 11/03/17 07:12 Total Protein 5.1 g/dL (6.3-8.2) L 11/03/17 07:12 Albumin 2.3 g/dL (3.5-5.0) L 11/03/17 07:12 Triglycerides 330 mg/dL (<150) H 10/27/17 14:52 Amylase 75 U/L (30-110) 10/26/17 10:50 Lipase 94 U/L (23-300) 10/26/17 10:50 TSH 4.860 mIU/L (0.465-4.680) H 10/28/17 06:53 Free T4 1.23 ng/dL (0.78-2.19) 10/28/17 06:53 Influenza Type A RNA Not Detected (Not Detectd) 10/26/17 17:09 Influenza Type B (PCR) Not Detected (Not Detectd) 10/26/17 17:09 Microbiology 10/28/17 09:25 Sputum Gram Stain - Final 10/28/17 09:25 Sputum Sputum Culture - Final 10/26/17 17:09 Abdomen Gram Stain - Final 10/26/17 17:09 Abdomen Wound Culture - Final Acinetobacter rylan/haemol Ophelia parapsilosis Enterococcus faecalis Stenotrophomonas maltophilia Assessment and Plan (1) Gastrostomy site leak Narrative/Plan: 56-year-old female presents to hospital with difficulties with her PEG tube site. Is malfunctioning. She has had imaging study reveals evidence the malposition of her PEG tube. Surgical consult is in progress nurse plans for revision the near future. The patient's culture shows gram-negative bacilli , enterococcus and Ophelia parapsiolosis Antimicrobial therapy is altered this point in time to meropenem and micafungin. Final cultures Are becoming available and when she is ready for discharge to home can transition her antimicrobial therapy to levofloxacin and fluconazole both his oral suspensions. At this time she is not frankly neutropenic and is being followed by oncology. Her anemia is stable. No evidence of any renal failure. She is showing further improvement. Once she is ready for discharge we'll ensure that she has suspension of her antibiotic of Levaquin and fluconazole that have been transitioned to. Current Visit: Yes Status: Acute Priority: High Code(s): K94.23 - GASTROSTOMY MALFUNCTION SNOMED Code(s): 509990295
[2017-11-04] MEDS: IPRATROPIUM-ALBUTEROL 3 ML NEB INHALATION PRN ×2 (00:06→03:50)
[2017-11-04] MEDS: INSULIN ASPART 100 UNIT/ML 1 ML 10 ML VIAL SQ SCH ×4 (00:29→18:21)
[2017-11-04 00:46] LABS: Glucose,Whole Blood 61 mg/dL (75-99)
[2017-11-04] MEDS ORDERED: DEXTROSE 50%-WATER 50 ML SYRINGE IVP ONE (00:46)
[2017-11-04 01:15] LABS: Glucose,Whole Blood 160 mg/dL (75-99)
[2017-11-04] MEDS: HYDROmorphone 0.5 MG/0.5 ML SYRINGE IVP PRN ×8 (01:18→22:12)
[2017-11-04 02:36] LABS: Glucose,Whole Blood 104 mg/dL (75-99)
[2017-11-04] MEDS: LACTATED RINGERS 1,000 ML IV SCH ×2 (05:41→22:14)
[2017-11-04] MEDS: LORazepam 2 MG/ML INJ IV PRN ×3 (06:21→19:34)
[2017-11-04 06:43] LABS: Glucose,Whole Blood 112 mg/dL (75-99)
[2017-11-04 07:23] LABS: Anisocytosis Moderate; Basophils % (A) 0 %; Eosinophils % (A) 1 %; HCT 21.8 % (34.0-46.0); Hypochromasia Moderate; Lymphocytes # (A) 0.2 k/uL (1.0-4.8); Lymphocytes % (A) 7 %; MCH 24.7 pg (25.0-35.0); MCHC 30.9 g/dL (31.0-37.0); MCV 79.8 fL (80.0-100.0); Mean Platelet Volume 7.1; Microcytosis Moderate; Monocytes # (A) 0.2 k/uL (0-1.0); Monocytes % (A) 7 %; Neutrophils # (A) 2.1 k/uL (1.3-7.7); Neutrophils % (A) 83 %; Platelet Count 208 k/uL (150-450); Poikilocytosis Moderate; RBC 2.73 m/uL (3.80-5.40); RDW 22.9 % (11.5-15.5); WBC 2.5 k/uL (3.8-10.6)
[2017-11-04 07:33] LABS: HGB 6.7 gm/dL (11.4-16.0)
[2017-11-04 07:41] LABS: ALT 34 U/L (9-52); AST 20 U/L (14-36); Albumin 2.3 g/dL (3.5-5.0); Alkaline Phosphatase 93 U/L (38-126); Anion Gap 8 mmol/L; Blood Urea Nitrogen 9 mg/dL (7-17); Carbon Dioxide 31 mmol/L (22-30); Chloride 98 mmol/L (98-107); Glucose 106 mg/dL (74-99); Potassium 3.6 mmol/L (3.5-5.1); Sodium 137 mmol/L (137-145); Total Bilirubin 0.3 mg/dL (0.2-1.3)
[2017-11-04] MEDS: IPRATROPIUM-ALBUTEROL 3 ML NEB INHALATION SCH ×4 (08:35→19:18)
[2017-11-04] MEDS: FLUCONAZOLE ORAL SUSP 1,400 MG/35 ML BOTTLE PO SCH (09:14)
[2017-11-04] MEDS: HEPARIN SODIUM,PORCINE 5,000 UNIT/ML 1 ML VIAL SQ SCH ×2 (09:15→21:16)
[2017-11-04] MEDS: POTASSIUM CHLORIDE ORAL LIQUID 40 MEQ/30 ML CUP PEG/G-TUBE SCH ×2 (09:15→21:16)
[2017-11-04] MEDS: PANTOPRAZOLE 40 MG/10 ML VIAL IVP SCH (09:15)
[2017-11-04] MEDS: LEVOTHYROXINE IVP 100 MCG/5 ML VIAL IV SCH (09:15)
[2017-11-04] MEDS: ONDANSETRON 4 MG/2 ML VIAL IVP PRN ×3 (09:28→22:11)
[2017-11-04] MEDS: INSULIN DETEMIR 100 UNIT/ML 10 ML VIAL SQ SCH ×2 (09:33→21:16)
[2017-11-04 11:12] LABS: Glucose,Whole Blood 197 mg/dL (75-99)
--- NOTE | 2017-11-04 12:50 | P.PN ---
Subjective Patient is doing well today. Hemoglobin dropped to 6.7. She denies dizziness or lightheadedness. Objective - Vital Signs Vital signs: Vital Signs Temp 97 F L 11/04/17 07:00 Pulse 90 11/04/17 12:34 Resp 18 11/04/17 12:34 BP 168/78 11/04/17 07:00 Pulse Ox 97 11/04/17 08:36 Intake & Output 11/03/17 11/04/17 11/04/17 18:59 06:59 18:59 Intake Total 160 280 Balance 160 280 Weight 102 kg 102 kg Intake: Tube Feeding 160 280 Other: Voiding Method Toilet Toilet # Voids 1 # Bowel Movements 7 - Exam General: The patient is awake and alert, in no distress Eye: there is normal conjunctiva bilaterally. Cardiovascular: Normal S1-S2, no S3-S4, no murmurs. Respiratory: Lungs clear to auscultation bilaterally Gastrointestinal: Abdomen is soft, nontender PEG tube in place Musculoskeletal: There is no pedal edema. Skin: Skin is warm and dry - Labs CBC & Chem 7: 11/04/17 06:45 11/04/17 06:45 Labs: Abnormal Lab Results - Last 24 Hours (Table) 11/03/17 11/03/17 11/04/17 Range/Units 21:59 22:29 00:43 WBC (3.8-10.6) k/uL RBC (3.80-5.40) m/uL Hgb (11.4-16.0) gm/dL Hct (34.0-46.0) % MCV (80.0-100.0) fL MCH (25.0-35.0) pg MCHC (31.0-37.0) g/dL RDW (11.5-15.5) % Lymphocytes # (1.0-4.8) k/uL Carbon Dioxide (22-30) mmol/L Creatinine (0.52-1.04) mg/dL Glucose (74-99) mg/dL POC Glucose (mg/dL) 66 L 141 H 61 L (75-99) mg/dL Calcium (8.4-10.2) mg/dL Total Protein (6.3-8.2) g/dL Albumin (3.5-5.0) g/dL 02/11/04/17 11/04/17 Range/Units 01:13 02:33 06:32 WBC (3.8-10.6) k/uL RBC (3.80-5.40) m/uL Hgb (11.4-16.0) gm/dL Hct (34.0-46.0) % MCV (80.0-100.0) fL MCH (25.0-35.0) pg MCHC (31.0-37.0) g/dL RDW (11.5-15.5) % Lymphocytes # (1.0-4.8) k/uL Carbon Dioxide (22-30) mmol/L Creatinine (0.52-1.04) mg/dL Glucose (74-99) mg/dL POC Glucose (mg/dL) 160 H 104 H 112 H (75-99) mg/dL Calcium (8.4-10.2) mg/dL Total Protein (6.3-8.2) g/dL Albumin (3.5-5.0) g/dL 11/04/17 11/04/17 11/04/17 Range/Units 06:45 06:45 11:10 WBC 2.5 L (3.8-10.6) k/uL RBC 2.73 L (3.80-5.40) m/uL Hgb 6.7 L* (11.4-16.0) gm/dL Hct 21.8 L (34.0-46.0) % MCV 79.8 L (80.0-100.0) fL MCH 24.7 L (25.0-35.0) pg MCHC 30.9 L (31.0-37.0) g/dL RDW 22.9 H (11.5-15.5) % Lymphocytes # 0.2 L (1.0-4.8) k/uL Carbon Dioxide 31 H (22-30) mmol/L Creatinine 0.44 L (0.52-1.04) mg/dL Glucose 106 H (74-99) mg/dL POC Glucose (mg/dL) 197 H (75-99) mg/dL Calcium 7.0 L (8.4-10.2) mg/dL Total Protein 5.0 L (6.3-8.2) g/dL Albumin 2.3 L (3.5-5.0) g/dL Assessment and Plan Assessment: 1. Malfunctioning PEG tube: Patient evaluated by surgical service. Status post laparoscopic jejunostomy tube placement with lysis of adhesions and removal of PEG tube with debridement of abdominal wall on 10/31/2017. PEG tube is functioning correctly. Tolerating tube feedings. Dietitian following. Signed prescription for tube feeding formula Infection at PEG tube site. Patient currently on Levaquin and Diflucan. Infectious disease following 2. Cough with sputum production: Chest x-ray negative for any acute process. Influenza screen negative 3. Diabetes mellitus type 2 with elevated blood sugars in the 300s on admission. Blood sugars have improved. Continue with Levemir 51 units twice a day 4. 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 Patient has completed both her chemotherapy and radiation treatments. 5. Radiation burn to the neck had been on Silvadene 6. Hypothyroidism continue Synthroid IV 7. History of breast cancer and uterine cancer 8. Anemia: He will therapy induced. We will transfuse 1 unit of blood today for hemoglobin of 6.7. 9. Essential hypertension blood pressure well-controlled. GI prophylaxis Protonix and DVT prophylaxis subcu heparin
[2017-11-04] MEDS: LEVOFLOXACIN 500MG-D5W PMX 500 MG in DEXTROSE/WATER 1 100ML.BAG IVPB SCH (13:05)
[2017-11-04 17:41] LABS: Glucose,Whole Blood 153 mg/dL (75-99)
[2017-11-04 21:12] LABS: Glucose,Whole Blood 128 mg/dL (75-99)
[2017-11-05 00:44] LABS: Glucose,Whole Blood 154 mg/dL (75-99)
[2017-11-05] MEDS: INSULIN ASPART 100 UNIT/ML 1 ML 10 ML VIAL SQ SCH ×4 (01:05→17:49)
[2017-11-05] MEDS: HYDROmorphone 0.5 MG/0.5 ML SYRINGE IVP PRN ×7 (01:05→22:12)
[2017-11-05] MEDS: LORazepam 2 MG/ML INJ IV PRN ×4 (01:06→20:26)
[2017-11-05] MEDS: IPRATROPIUM-ALBUTEROL 3 ML NEB INHALATION PRN ×2 (02:41→23:08)
[2017-11-05] MEDS: ONDANSETRON 4 MG/2 ML VIAL IVP PRN (04:45)
[2017-11-05 06:29] LABS: Glucose,Whole Blood 160 mg/dL (75-99)
[2017-11-05] MEDS: IPRATROPIUM-ALBUTEROL 3 ML NEB INHALATION SCH ×4 (07:21→18:53)
[2017-11-05 07:58] LABS: Anisocytosis Moderate; Basophils % (A) 1 %; Eosinophils # (A) 0.1 k/uL (0-0.7); Eosinophils % (A) 2 %; HCT 27.3 % (34.0-46.0); Hypochromasia Moderate; Lymphocytes # (A) 0.3 k/uL (1.0-4.8); Lymphocytes % (A) 9 %; MCH 25.6 pg (25.0-35.0); MCHC 31.3 g/dL (31.0-37.0); MCV 81.8 fL (80.0-100.0); Mean Platelet Volume 7.4; Microcytosis Slight; Monocytes # (A) 0.2 k/uL (0-1.0); Monocytes % (A) 8 %; Neutrophils # (A) 2.3 k/uL (1.3-7.7); Neutrophils % (A) 78 %; Platelet Count 216 k/uL (150-450); Poikilocytosis Moderate; RBC 3.34 m/uL (3.80-5.40); RDW 22.3 % (11.5-15.5); WBC 2.9 k/uL (3.8-10.6)
[2017-11-05 08:06] LABS: Anion Gap 10 mmol/L; Blood Urea Nitrogen 9 mg/dL (7-17); Calcium 7.6 mg/dL (8.4-10.2); Carbon Dioxide 31 mmol/L (22-30); Chloride 97 mmol/L (98-107); Glucose 152 mg/dL (74-99); Potassium 4.2 mmol/L (3.5-5.1); Sodium 138 mmol/L (137-145)
[2017-11-05 08:15] LABS: HGB 8.5 gm/dL (11.4-16.0)
[2017-11-05] MEDS: FLUCONAZOLE ORAL SUSP 1,400 MG/35 ML BOTTLE PO SCH (09:04)
[2017-11-05] MEDS: LEVOTHYROXINE IVP 100 MCG/5 ML VIAL IV SCH (09:05)
[2017-11-05] MEDS: INSULIN DETEMIR 100 UNIT/ML 10 ML VIAL SQ SCH ×2 (09:05→21:48)
[2017-11-05] MEDS: PANTOPRAZOLE 40 MG/10 ML VIAL IVP SCH (09:05)
[2017-11-05] MEDS: HEPARIN SODIUM,PORCINE 5,000 UNIT/ML 1 ML VIAL SQ SCH ×2 (09:05→21:37)
[2017-11-05] MEDS: cloNIDine 0.1 MG/24HR PATCH 1 PATCH PATCH TRANSDERM SCH (09:06)
[2017-11-05] MEDS: POTASSIUM BICARBONATE/CIT AC 20 MEQ TABLET.EFF PO SCH ×2 (09:06→21:37)
[2017-11-05 11:33] LABS: Glucose,Whole Blood 151 mg/dL (75-99)
--- NOTE | 2017-11-05 13:19 | P.PN ---
Subjective Patient is doing well today. Hemoglobin dropped to 8.5. Objective - Vital Signs Vital signs: Vital Signs Temp 97 F L 11/05/17 07:00 Pulse 107 H 11/05/17 11:31 Resp 16 11/05/17 07:00 BP 160/81 11/05/17 07:00 Pulse Ox 98 11/05/17 07:21 Intake & Output 11/04/17 11/05/17 11/05/17 18:59 06:59 18:59 Intake Total 510 990 130 Balance 510 990 130 Weight 101.36 kg Intake: Tube Feeding 510 680 130 Blood Product 0 310 Rc Pheresis As-3 Unit 0 310 [id number] Other: Voiding Method Toilet Toilet # Voids 1 - Exam General: The patient is awake and alert, in no distress Eye: there is normal conjunctiva bilaterally. Cardiovascular: Normal S1-S2, no S3-S4, no murmurs. Respiratory: Lungs clear to auscultation bilaterally Gastrointestinal: Abdomen is soft, nontender PEG tube in place Musculoskeletal: There is no pedal edema. Skin: Skin is warm and dry - Labs CBC & Chem 7: 11/05/17 07:28 11/05/17 07:28 Labs: Abnormal Lab Results - Last 24 Hours (Table) 11/04/17 11/04/17 11/04/17 Range/Units 12:37 17:21 21:10 WBC (3.8-10.6) k/uL RBC (3.80-5.40) m/uL Hgb (11.4-16.0) gm/dL Hct (34.0-46.0) % RDW (11.5-15.5) % Lymphocytes # (1.0-4.8) k/uL Chloride (98-107) mmol/L Carbon Dioxide (22-30) mmol/L Creatinine (0.52-1.04) mg/dL Glucose (74-99) mg/dL POC Glucose (mg/dL) 153 H 128 H (75-99) mg/dL Calcium (8.4-10.2) mg/dL Crossmatch See Detail 11/05/17 11/05/17 11/05/17 Range/Units 00:41 06:23 07:28 WBC 2.9 L (3.8-10.6) k/uL RBC 3.34 L (3.80-5.40) m/uL Hgb 8.5 L D (11.4-16.0) gm/dL Hct 27.3 L (34.0-46.0) % RDW 22.3 H (11.5-15.5) % Lymphocytes # 0.3 L (1.0-4.8) k/uL Chloride (98-107) mmol/L Carbon Dioxide (22-30) mmol/L Creatinine (0.52-1.04) mg/dL Glucose (74-99) mg/dL POC Glucose (mg/dL) 154 H 160 H (75-99) mg/dL Calcium (8.4-10.2) mg/dL Crossmatch 11/05/17 11/05/17 Range/Units 07:28 11:31 WBC (3.8-10.6) k/uL RBC (3.80-5.40) m/uL Hgb (11.4-16.0) gm/dL Hct (34.0-46.0) % RDW (11.5-15.5) % Lymphocytes # (1.0-4.8) k/uL Chloride 97 L (98-107) mmol/L Carbon Dioxide 31 H (22-30) mmol/L Creatinine 0.48 L (0.52-1.04) mg/dL Glucose 152 H (74-99) mg/dL POC Glucose (mg/dL) 151 H (75-99) mg/dL Calcium 7.6 L (8.4-10.2) mg/dL Crossmatch Assessment and Plan Assessment: 1. Malfunctioning PEG tube: Patient evaluated by surgical service. Status post laparoscopic jejunostomy tube placement with lysis of adhesions and removal of PEG tube with debridement of abdominal wall on 10/31/2017. PEG tube is functioning correctly. Tolerating tube feedings. Dietitian following. Signed prescription for tube feeding formula Infection at PEG tube site. Patient currently on Levaquin and Diflucan. Infectious disease following 2. Cough with sputum production: Chest x-ray negative for any acute process. Influenza screen negative 3. Diabetes mellitus type 2 with elevated blood sugars in the 300s on admission. Blood sugars have improved. Continue with Levemir 51 units twice a day 4. 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 Patient has completed both her chemotherapy and radiation treatments. 5. Radiation burn to the neck had been on Silvadene 6. Hypothyroidism continue Synthroid IV 7. History of breast cancer and uterine cancer 8. Anemia: He will therapy induced. Status post 1 unit of PRBC transfusion. Hemoglobin improved. We will repeat CBC in the morning. 9. Essential hypertension blood pressure well-controlled. GI prophylaxis Protonix and DVT prophylaxis subcu heparin
[2017-11-05] MEDS: LEVOFLOXACIN 500MG-D5W PMX 500 MG in DEXTROSE/WATER 1 100ML.BAG IVPB SCH (14:37)
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
[2017-11-05 17:34] LABS: Glucose,Whole Blood 95 mg/dL (75-99)
[2017-11-05] MEDS: LACTATED RINGERS 1,000 ML IV SCH (21:23)
[2017-11-06 00:56] LABS: Glucose,Whole Blood 131 mg/dL (75-99)
[2017-11-06] MEDS: HYDROmorphone 0.5 MG/0.5 ML SYRINGE IVP PRN ×3 (01:14→21:57)
[2017-11-06] MEDS: ONDANSETRON 4 MG/2 ML VIAL IVP PRN ×3 (01:17→18:22)
[2017-11-06] MEDS: INSULIN ASPART 100 UNIT/ML 1 ML 10 ML VIAL SQ SCH ×4 (01:23→17:32)
[2017-11-06 02:02] VITALS: RESP 16
[2017-11-06] MEDS: IPRATROPIUM-ALBUTEROL 3 ML NEB INHALATION PRN (03:01)
[2017-11-06] MEDS: LORazepam 2 MG/ML INJ IV PRN ×2 (03:12→23:27)
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
[2017-11-06 06:28] LABS: Glucose,Whole Blood 164 mg/dL (75-99)
[2017-11-06 07:44] LABS: Anisocytosis Moderate; Basophils % (A) 0 %; Eosinophils # (A) 0.1 k/uL (0-0.7); Eosinophils % (A) 2 %; HCT 25.8 % (34.0-46.0); Hypochromasia Marked; Lymphocytes # (A) 0.3 k/uL (1.0-4.8); Lymphocytes % (A) 10 %; MCH 25.4 pg (25.0-35.0); MCHC 30.8 g/dL (31.0-37.0); MCV 82.7 fL (80.0-100.0); Mean Platelet Volume 7.5; Microcytosis Slight; Monocytes # (A) 0.2 k/uL (0-1.0); Monocytes % (A) 7 %; Neutrophils # (A) 2.3 k/uL (1.3-7.7); Neutrophils % (A) 79 %; Platelet Count 249 k/uL (150-450); Poikilocytosis Moderate; RBC 3.13 m/uL (3.80-5.40); RDW 22.4 % (11.5-15.5); WBC 2.9 k/uL (3.8-10.6)
[2017-11-06 07:59] LABS: Anion Gap 11 mmol/L; Blood Urea Nitrogen 11 mg/dL (7-17); Calcium 7.5 mg/dL (8.4-10.2); Carbon Dioxide 31 mmol/L (22-30); Chloride 97 mmol/L (98-107); Glucose 145 mg/dL (74-99); Potassium 4.3 mmol/L (3.5-5.1); Sodium 139 mmol/L (137-145)
[2017-11-06] MEDS: HEPARIN SODIUM,PORCINE 5,000 UNIT/ML 1 ML VIAL SQ SCH ×2 (08:24→22:01)
[2017-11-06] MEDS: PANTOPRAZOLE 40 MG/10 ML VIAL IVP SCH (08:24)
[2017-11-06] MEDS: LEVOTHYROXINE IVP 100 MCG/5 ML VIAL IV SCH (08:24)
[2017-11-06] MEDS: FLUCONAZOLE ORAL SUSP 1,400 MG/35 ML BOTTLE PO SCH (08:25)
[2017-11-06] MEDS: INSULIN DETEMIR 100 UNIT/ML 10 ML VIAL SQ SCH (08:25)
[2017-11-06] MEDS: POTASSIUM BICARBONATE/CIT AC 20 MEQ TABLET.EFF PO SCH ×2 (08:25→22:01)
[2017-11-06] MEDS: IPRATROPIUM-ALBUTEROL 3 ML NEB INHALATION SCH ×4 (08:31→20:18)
[2017-11-06 11:58] LABS: Glucose,Whole Blood 183 mg/dL (75-99)
[2017-11-06] MEDS: HYDROcodone/APAP 15 ML SOLUTION PO PRN ×3 (12:59→21:57)
[2017-11-06] MEDS: LEVOFLOXACIN 500MG-D5W PMX 500 MG in DEXTROSE/WATER 1 100ML.BAG IVPB SCH (13:15)
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
[2017-11-06 15:02] VITALS: BMI 32.8
[2017-11-06 16:44] VITALS: TEMP 97.8
[2017-11-06 17:06] LABS: Glucose,Whole Blood 157 mg/dL (75-99)
[2017-11-06] MEDS: LACTATED RINGERS 1,000 ML IV SCH (21:17)
--- NOTE | 2017-11-06 23:16 | P.PN ---
Subjective Progress Note Date: 11/06/17 Principal diagnosis: Infection of PEG site 56-year-old female who has a very extensive past medical history regarding cancer. She was first diagnosed with right breast carcinoma completed her course of therapy and was on tamoxifen. However she then developed what appeared to be uterine cancer in her tamoxifen was discontinued after her hysterectomy. The patient was having difficulties with multiple basal cell carcinomas and was treated with immunotherapy with some success. The patient over developed significant pain in her neck with swallowing and a mass was found. 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 Consequently she's been receiving chemoradiation therapy. She started to have increasing difficulties with her PEG tube site and presents to Hospital for further evaluation. Computed tomography scan reveals evidence of malposition of the PEG tube site with evidence of some local infection. With that the infectious diseases consultation was requested the patient believes she 's had a fever but knows to be in chills or rigors. On 10/30/2017 the patient is doing somewhat better. She is without significant discomfort or drainage from the PEG tube site. She denying any fevers or chills at this time. 11/02/2017 patient is now having marked improvement. The patient therapy has completed them with a cream to her neck she's feeling slightly better. She is having no further fevers or chills. The malpositioned PEG tube is removed. PEJ tube is in place and functioning well. On 11/06/2017 the patient is having further improvement. She's being ready for discharge to home. Working with her pharmacy to ensure that all of her required medications are available in a suspension they can be placed through her current tube. She does complain of some difficulties with her pain which is directed back to her primary care physician and her oncologist. Objective - Vital Signs Vital signs: Vital Signs Temp 97.8 F 11/06/17 15:00 Pulse 96 11/06/17 20:27 Resp 16 11/06/17 15:00 BP 180/81 11/06/17 15:00 Pulse Ox 97 11/06/17 20:18 Intake & Output 11/06/17 11/06/17 11/07/17 06:59 18:59 06:59 Intake Total 780 780 Balance 780 780 Weight 101 kg 101 kg Intake: Tube Feeding 780 780 Other: Voiding Method Toilet - Exam 56-year-old woman who is modestly comfortable at this time. HEENT: Anicteric conjunctiva are pink and moist nasal mucosa grossly intact without bleeding, oral mucosa is dry without latasha thrush. Neck: The neck is supple evidence of the extensive erythema to the anterior aspect of the neck from recent radiation, no purulent lesions are seen. No palpable mass Lungs: Good bilateral air entry without significant crackles or wheezing. There is no significant bronchial sounds. There is no egophony or dullness. Heart: Regular rate and rhythm with an audible S1-S2, no S3 no S4. There is no significant murmur click or rub, PMI was nondisplaced. Abdomen: The abdomen is soft and nontender. No palpable mass or organomegaly. PEG tube site is improved and the PEJ site is intact Extremities: The upper extremities have excellent pulses they are symmetric, no significant petechiae or telangiectasia. No splinter hemorrhages were noted. The lower extremities are free from significant edema. The peripheral pulses were 2+ and symmetric. Neuro: Awake alert oriented to person place and time. With her radiation has difficulty with her voice but is able to easily communicateby writing. No acute gross focal sensory motor deficits are noted - Labs CBC & Chem 7: 11/06/17 06:45 11/06/17 06:45 Labs: Abnormal Lab Results - Last 24 Hours (Table) 11/06/17 11/06/17 11/06/17 Range/Units 00:54 06:26 06:45 WBC 2.9 L (3.8-10.6) k/uL RBC 3.13 L (3.80-5.40) m/uL Hgb 8.0 L (11.4-16.0) gm/dL Hct 25.8 L (34.0-46.0) % MCHC 30.8 L (31.0-37.0) g/dL RDW 22.4 H (11.5-15.5) % Lymphocytes # 0.3 L (1.0-4.8) k/uL Chloride (98-107) mmol/L Carbon Dioxide (22-30) mmol/L Creatinine (0.52-1.04) mg/dL Glucose (74-99) mg/dL POC Glucose (mg/dL) 131 H 164 H (75-99) mg/dL Calcium (8.4-10.2) mg/dL 11/06/17 11/06/17 11/06/17 Range/Units 06:45 11:30 17:03 WBC (3.8-10.6) k/uL RBC (3.80-5.40) m/uL Hgb (11.4-16.0) gm/dL Hct (34.0-46.0) % MCHC (31.0-37.0) g/dL RDW (11.5-15.5) % Lymphocytes # (1.0-4.8) k/uL Chloride 97 L (98-107) mmol/L Carbon Dioxide 31 H (22-30) mmol/L Creatinine 0.50 L (0.52-1.04) mg/dL Glucose 145 H (74-99) mg/dL POC Glucose (mg/dL) 183 H 157 H (75-99) mg/dL Calcium 7.5 L (8.4-10.2) mg/dL Laboratory Results WBC 2.9 k/uL (3.8-10.6) L 11/06/17 06:45 RBC 3.13 m/uL (3.80-5.40) L 11/06/17 06:45 Hgb 8.0 gm/dL (11.4-16.0) L 11/06/17 06:45 Hct 25.8 % (34.0-46.0) L 11/06/17 06:45 MCV 82.7 fL (80.0-100.0) 11/06/17 06:45 MCH 25.4 pg (25.0-35.0) 11/06/17 06:45 MCHC 30.8 g/dL (31.0-37.0) L 11/06/17 06:45 RDW 22.4 % (11.5-15.5) H 11/06/17 06:45 Plt Count 249 k/uL (150-450) 11/06/17 06:45 Neutrophils % 79 % 11/06/17 06:45 Lymphocytes % 10 % 11/06/17 06:45 Monocytes % 7 % 11/06/17 06:45 Eosinophils % 2 % 11/06/17 06:45 Basophils % 0 % 11/06/17 06:45 Neutrophils # 2.3 k/uL (1.3-7.7) 11/06/17 06:45 Lymphocytes # 0.3 k/uL (1.0-4.8) L 11/06/17 06:45 Monocytes # 0.2 k/uL (0-1.0) 11/06/17 06:45 Eosinophils # 0.1 k/uL (0-0.7) 11/06/17 06:45 Basophils # 0.0 k/uL (0-0.2) 11/06/17 06:45 Manual Slide Review Performed 10/31/17 08:02 Hypochromasia Marked 11/06/17 06:45 Poikilocytosis Moderate 11/06/17 06:45 Anisocytosis Moderate 11/06/17 06:45 Microcytosis Slight 11/06/17 06:45 Sodium 139 mmol/L (137-145) 11/06/17 06:45 Potassium 4.3 mmol/L (3.5-5.1) 11/06/17 06:45 Chloride 97 mmol/L (98-107) L 11/06/17 06:45 Carbon Dioxide 31 mmol/L (22-30) H 11/06/17 06:45 Anion Gap 11 mmol/L 11/06/17 06:45 BUN 11 mg/dL (7-17) 11/06/17 06:45 Creatinine 0.50 mg/dL (0.52-1.04) L 11/06/17 06:45 Est GFR (MDRD) Af Amer >60 (>60 ml/min/1.73 sqM) 11/06/17 06:45 Est GFR (MDRD) Non-Af >60 (>60 ml/min/1.73 sqM) 11/06/17 06:45 Glucose 145 mg/dL (74-99) H 11/06/17 06:45 POC Glucose (mg/dL) 157 mg/dL (75-99) H 11/06/17 17:03 POC Glu Vtc Technician ID Lilian Hanson 11/06/17 17:[address] Glu mg/dL 203 10/26/17 10:50 Hemoglobin A1c 8.7 % (4.0-6.0) H 10/26/17 10:50 Plasma Lactic Acid Jordin 1.0 mmol/L (0.7-2.0) 10/26/17 10:50 Calcium 7.5 mg/dL (8.4-10.2) L 11/06/17 06:45 Ionized Calcium [place] 4.7 mg/dL (4.5-5.3) 10/27/17 14:52 Phosphorus 2.1 mg/dL (2.5-4.5) L 11/03/17 07:12 Magnesium 1.6 mg/dL (1.6-2.3) 11/03/17 07:12 Iron 81 ug/dL (50-170) 10/26/17 10:50 TIBC 274 ug/dL (228-460) 10/26/17 10:50 Iron Saturation 29.56 (12.00-45.00) 10/26/17 10:50 Ferritin 449.0 ng/mL (10.0-291.0) H 10/26/17 10:50 Total Bilirubin 0.3 mg/dL (0.2-1.3) 11/04/17 06:45 AST 20 U/L (14-36) 11/04/17 06:45 ALT 34 U/L (9-52) 11/04/17 06:45 Alkaline Phosphatase 93 U/L (38-126) 11/04/17 06:45 Total Protein 5.0 g/dL (6.3-8.2) L 11/04/17 06:45 Albumin 2.3 g/dL (3.5-5.0) L 11/04/17 06:45 Triglycerides 330 mg/dL (<150) H 10/27/17 14:52 Amylase 75 U/L (30-110) 10/26/17 10:50 Lipase 94 U/L (23-300) 10/26/17 10:50 TSH 4.860 mIU/L (0.465-4.680) H 10/28/17 06:53 Free T4 1.23 ng/dL (0.78-2.19) 10/28/17 06:53 C. difficile (EIA) Intrp Negative (Negative) 11/05/17 08:45 Influenza Type A RNA Not Detected (Not Detectd) 10/26/17 17:09 Influenza Type B (PCR) Not Detected (Not Detectd) 10/26/17 17:09 Blood Type O Negative 11/04/17 12:37 Blood Type Recheck No 11/04/17 12:37 Antibody Screen NEGATIVE 11/04/17 12:37 Crossmatch See Detail 11/04/17 12:37 Spec Expiration Date 11/07/2017233611/04/17 12:37 Microbiology 10/28/17 09:25 Sputum Gram Stain - Final 10/28/17 09:25 Sputum Sputum Culture - Final 10/26/17 17:09 Abdomen Gram Stain - Final 10/26/17 17:09 Abdomen Wound Culture - Final Acinetobacter rylan/haemol Ophelia parapsilosis Enterococcus faecalis Stenotrophomonas maltophilia Laboratory Results WBC 2.9 k/uL (3.8-10.6) L 11/06/17 06:45 RBC 3.13 m/uL (3.80-5.40) L 11/06/17 06:45 Hgb 8.0 gm/dL (11.4-16.0) L 11/06/17 06:45 Hct 25.8 % (34.0-46.0) L 11/06/17 06:45 MCV 82.7 fL (80.0-100.0) 11/06/17 06:45 MCH 25.4 pg (25.0-35.0) 11/06/17 06:45 MCHC 30.8 g/dL (31.0-37.0) L 11/06/17 06:45 RDW 22.4 % (11.5-15.5) H 11/06/17 06:45 Plt Count 249 k/uL (150-450) 11/06/17 06:45 Neutrophils % 79 % 11/06/17 06:45 Lymphocytes % 10 % 11/06/17 06:45 Monocytes % 7 % 11/06/17 06:45 Eosinophils % 2 % 11/06/17 06:45 Basophils % 0 % 11/06/17 06:45 Neutrophils # 2.3 k/uL (1.3-7.7) 11/06/17 06:45 Lymphocytes # 0.3 k/uL (1.0-4.8) L 11/06/17 06:45 Monocytes # 0.2 k/uL (0-1.0) 11/06/17 06:45 Eosinophils # 0.1 k/uL (0-0.7) 11/06/17 06:45 Basophils # 0.0 k/uL (0-0.2) 11/06/17 06:45 Manual Slide Review Performed 10/31/17 08:02 Hypochromasia Marked 11/06/17 06:45 Poikilocytosis Moderate 11/06/17 06:45 Anisocytosis Moderate 11/06/17 06:45 Microcytosis Slight 11/06/17 06:45 Sodium 139 mmol/L (137-145) 11/06/17 06:45 Potassium 4.3 mmol/L (3.5-5.1) 11/06/17 06:45 Chloride 97 mmol/L (98-107) L 11/06/17 06:45 Carbon Dioxide 31 mmol/L (22-30) H 11/06/17 06:45 Anion Gap 11 mmol/L 11/06/17 06:45 BUN 11 mg/dL (7-17) 11/06/17 06:45 Creatinine 0.50 mg/dL (0.52-1.04) L 11/06/17 06:45 Est GFR (MDRD) Af Amer >60 (>60 ml/min/1.73 sqM) 11/06/17 06:45 Est GFR (MDRD) Non-Af >60 (>60 ml/min/1.73 sqM) 11/06/17 06:45 Glucose 145 mg/dL (74-99) H 11/06/17 06:45 POC Glucose (mg/dL) 157 mg/dL (75-99) H 11/06/17 17:03 POC Glu Vtc Technician ID Lilian Hanson 11/06/17 17:[address] Glu mg/dL 203 10/26/17 10:50 Hemoglobin A1c 8.7 % (4.0-6.0) H 10/26/17 10:50 Plasma Lactic Acid Jordin 1.0 mmol/L (0.7-2.0) 10/26/17 10:50 Calcium 7.5 mg/dL (8.4-10.2) L 11/06/17 06:45 Ionized Calcium [place] 4.7 mg/dL (4.5-5.3) 10/27/17 14:52 Phosphorus 2.1 mg/dL (2.5-4.5) L 11/03/17 07:12 Magnesium 1.6 mg/dL (1.6-2.3) 11/03/17 07:12 Iron 81 ug/dL (50-170) 10/26/17 10:50 TIBC 274 ug/dL (228-460) 10/26/17 10:50 Iron Saturation 29.56 (12.00-45.00) 10/26/17 10:50 Ferritin 449.0 ng/mL (10.0-291.0) H 10/26/17 10:50 Total Bilirubin 0.3 mg/dL (0.2-1.3) 11/04/17 06:45 AST 20 U/L (14-36) 11/04/17 06:45 ALT 34 U/L (9-52) 11/04/17 06:45 Alkaline Phosphatase 93 U/L (38-126) 11/04/17 06:45 Total Protein 5.0 g/dL (6.3-8.2) L 11/04/17 06:45 Albumin 2.3 g/dL (3.5-5.0) L 11/04/17 06:45 Triglycerides 330 mg/dL (<150) H 10/27/17 14:52 Amylase 75 U/L (30-110) 10/26/17 10:50 Lipase 94 U/L (23-300) 10/26/17 10:50 TSH 4.860 mIU/L (0.465-4.680) H 10/28/17 06:53 Free T4 1.23 ng/dL (0.78-2.19) 10/28/17 06:53 C. difficile (EIA) Intrp Negative (Negative) 11/05/17 08:45 Influenza Type A RNA Not Detected (Not Detectd) 10/26/17 17:09 Influenza Type B (PCR) Not Detected (Not Detectd) 10/26/17 17:09 Blood Type O Negative 11/04/17 12:37 Blood Type Recheck No 11/04/17 12:37 Antibody Screen NEGATIVE 11/04/17 12:37 Crossmatch See Detail 11/04/17 12:37 Spec Expiration Date 11/07/2017 - 6545 11/04/17 12:37 Assessment and Plan (1) Gastrostomy site leak Narrative/Plan: 56-year-old female presents to hospital with difficulties with her PEG tube site. Is malfunctioning. She has had imaging study reveals evidence the malposition of her PEG tube. Surgical consult is in progress nurse plans for revision the near future. The patient's culture shows gram-negative bacilli , enterococcus and Ophelia parapsiolosis Antimicrobial therapy is altered this point in time to meropenem and micafungin. Final cultures Are becoming available and when she is ready for discharge to home can transition her antimicrobial therapy to levofloxacin and fluconazole both his oral suspensions. At this time she is not frankly neutropenic and is being followed by oncology. Her anemia is stable. No evidence of any renal failure. She is showing further improvement. Once she is ready for discharge we'll ensure that she has suspension of her antibiotic of Levaquin and fluconazole . Local care with nonstick dressing to PEG site and silvadene to the neck radiation site irritation. Current Visit: Yes Status: Acute Priority: High Code(s): K94.23 - GASTROSTOMY MALFUNCTION SNOMED Code(s): 366232579
[2017-11-07 00:32] VITALS: BP 179/76
[2017-11-07 01:03] LABS: Glucose,Whole Blood 174 mg/dL (75-99)
[2017-11-07] MEDS: IPRATROPIUM-ALBUTEROL 3 ML NEB INHALATION PRN ×2 (01:09→04:21)
[2017-11-07] MEDS: INSULIN DETEMIR 100 UNIT/ML 10 ML VIAL SQ SCH ×2 (01:31→08:16)
[2017-11-07] MEDS: INSULIN ASPART 100 UNIT/ML 1 ML 10 ML VIAL SQ SCH ×3 (01:54→13:05)
[2017-11-07] MEDS: HYDROcodone/APAP 15 ML SOLUTION PO PRN ×3 (01:54→10:30)
[2017-11-07] MEDS: ONDANSETRON 4 MG/2 ML VIAL IVP PRN (01:59)
[2017-11-07] MEDS: LORazepam 2 MG/ML INJ IV PRN (05:51)
[2017-11-07 06:30] LABS: Glucose,Whole Blood 186 mg/dL (75-99)
[2017-11-07] MEDS: IPRATROPIUM-ALBUTEROL 3 ML NEB INHALATION SCH ×2 (07:48→11:44)
[2017-11-07 08:00] LABS: Anisocytosis Moderate; Basophils % (A) 0 %; Eosinophils % (A) 2 %; HCT 24.2 % (34.0-46.0); HGB 7.7 gm/dL (11.4-16.0); Hypochromasia Marked; Lymphocytes # (A) 0.3 k/uL (1.0-4.8); Lymphocytes % (A) 11 %; MCH 25.9 pg (25.0-35.0); MCHC 31.7 g/dL (31.0-37.0); MCV 81.7 fL (80.0-100.0); Mean Platelet Volume 7.6; Microcytosis Slight; Monocytes # (A) 0.2 k/uL (0-1.0); Monocytes % (A) 7 %; Neutrophils % (A) 77 %; Platelet Count 235 k/uL (150-450); Poikilocytosis Moderate; RBC 2.97 m/uL (3.80-5.40); RDW 22.4 % (11.5-15.5); WBC 2.6 k/uL (3.8-10.6)
[2017-11-07 08:04] LABS: Anion Gap 13 mmol/L; Blood Urea Nitrogen 11 mg/dL (7-17); Calcium 7.3 mg/dL (8.4-10.2); Carbon Dioxide 31 mmol/L (22-30); Chloride 96 mmol/L (98-107); Glucose 173 mg/dL (74-99); Potassium 3.7 mmol/L (3.5-5.1); Sodium 140 mmol/L (137-145)
[2017-11-07] MEDS: FLUCONAZOLE ORAL SUSP 1,400 MG/35 ML BOTTLE PO SCH (08:16)
[2017-11-07] MEDS: PANTOPRAZOLE 40 MG/10 ML VIAL IVP SCH (08:16)
[2017-11-07] MEDS: HEPARIN SODIUM,PORCINE 5,000 UNIT/ML 1 ML VIAL SQ SCH (08:16)
[2017-11-07] MEDS: POTASSIUM BICARBONATE/CIT AC 20 MEQ TABLET.EFF PO SCH (08:16)
[2017-11-07] MEDS: LEVOTHYROXINE IVP 100 MCG/5 ML VIAL IV SCH (08:33)
--- NOTE | 2017-11-07 10:58 | P.DS ---
Providers Date of admission: 10/26/17 11:47 Expected date of discharge: 11/07/17 Attending physician: Estiven Pastrana Consults: 10/26/17 11:47 Consult Physician Routine Consulting Provider: Kiley Morrison Consult Reason/Comments: Leaking gastric tube Do you want consulting provider notified?: Yes 10/26/17 15:29 Consult Physician Routine Consulting Provider: Jacqueline Hendricks Consult Reason/Comments: Thyroid cancer Do you want consulting provider notified?: Yes Consult Physician Routine Consulting Provider: Gomez Berg Consult Reason/Comments: thyroid cancer Do you want consulting provider notified?: Yes 10/29/17 09:04 Consult Physician Routine Consulting Provider: Kenton Dumont Consult Reason/Comments: infected peg tube site Do you want consulting provider notified?: Yes Primary care physician: Estiven Pastrana [place] [facility] Course: Discharge diagnosis 1. Malfunctioning PEG tube: Patient evaluated by surgical service. Status post laparoscopic jejunostomy tube placement with lysis of adhesions and removal of PEG tube with debridement of abdominal wall on 10/31/2017. J-tube is functioning correctly. Tolerating tube feedings. Dietitian following. Vital tube feedings have been authorized per insurance. Infection at PEG tube site. Patient currently on Levaquin and Diflucan and to continue as prescribed at discharge per infectious disease 2. Cough with sputum production: Possible bronchitis. Chest x-ray negative for any acute process. Influenza screen negative 3. Diabetes mellitus type 2 with elevated blood sugars in the 300s on admission. Blood sugars have improved. Continue with Levemir 51 units twice a day 4. 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 Patient has completed both her chemotherapy and radiation treatments. 5. Radiation burn to the neck had been on Silvadene 6. Hypothyroidism continue Synthroid IV 7. History of breast cancer and uterine cancer 8. Anemia hemoglobin 7.2 no active signs of bleeding. Possibly related to her chemotherapy and cancer 9. Mild hyponatremia improved 10. Nausea continue Zofran also add Protonix IV 11. Pain control: Controlled with [place] 12. Elevated LFTs likely related to the TPN. Off of TPN. LFTs have normalized. 13. Essential hypertension with elevated blood pressures. Patient is unable to take oral medications. Cannot resume Zestoretic because he cannot be placed through the J-tube. Blood pressure stable with Catapres patch 14. Hypokalemia: Potassium improved with supplement 15. Diarrhea: Diarrhea resolved. Stool for C. diff negative. 16. Tachycardia possibly related to pain. Will start [place] elixir. EKG shows a normal sinus rhythm with a heart rate 96. Telemetry monitoring shows heart rate in the 90s. Tachycardia improved Hospital course This is a 56-year-old female with a past medical history of thyroid cancer with a tracheal deviation. She is undergoing chemo and radiation treatment. Last chemotherapy yesterday and radiation today. 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 This is patient's third admission due to PEG tube malfunction. PEG tube was placed 08/25/2017. Patient reports that about 3 days that her PEG tube has not been working. When she pours the feedings as well as when she places her medications into the tube drains out onto her abdomen. She has skin irritation along the abdomen as well as some puslike drainage. This will be cultured. Patient has been on antibiotics in the form of Keflex and also topical Silvadene given by Dr. Berg her radiation oncologist for the radiation burn on her back. Patient also has been coughing with sputum production. Chest x-ray has been ordered. She denies any fever chills or sweats denies any abdominal pain. Denies any vomiting. She does report dry heaves and nausea. Denies any bowel movement changes or urinary symptoms. She is having some pain in her neck Patient was seen by surgical service. PEG tube was removed and jejunostomy tube placed by Dr. Ferro on 10/31/2017. She is currently tolerating tube feedings. Insurance authorization did go through for the vital tube feedings. Patient's diarrhea has stopped since changing to feedings with Glucerna to vital. Stool for C. diff was negative. PEG tube site was cultured and growing Acinetobater rylan, vanita parapsilosis, enterococcus faecalis, stenotrophomonas maltophilia. Patient seen by infectious disease. She was given IV antibiotics and then switched over to liquid form of Levaquin and Diflucan. She'll continue these as prescribed per infectious disease. Patient has been educated thoroughly that her pills need to be crushed finely and dissolved in 5 mL's of water then placed down the J-tube. Patient is medically stable for discharge. She has been cleared by consulting physicians. She'll have home care set up in place. We'll have her follow up with Dr. Pastrana on Monday to repeat CBC hemoglobin at discharge is 7.7 and white count 2.6. Patient is requesting to continue nebulizer treatments. She was placed on the nebulizer treatments due to the phlegm production with cough. This could've been related to bronchitis there is no evidence of pneumonia on chest x-ray. However also may be related to her thyroid cancer in the deviation of her trachea. Symptoms of cough, wheezing and phlegm are improving with the breathing treatments. And will prescribe breathing treatments at time of discharge. I performed an examination of the patient and discussed their management with the physician Photo Engraver. I have reviewed the Physician Photo Engraver's notes and agree with the documented findings and plan of care Patient Condition at Discharge: Stable Plan - Discharge Summary Discharge Rx Participant: No New Discharge Prescriptions: New Fluconazole Oral Susp [Diflucan Oral Susp] 200 mg PO DAILY #35 ml Levofloxacin Oral Soln [Levaquin Oral Soln] 500 mg PO DAILY #140 ml cloNIDine 0.1 MG/24HR PATCH [Catapres-TTS] 1 patch TRANSDERM Q7D #4 patch HYDROcodone/APAP [[place] Elixir 7.5-325Mg/15Ml] 15 ml PO Q4H PRN #630 solution PRN Reason: Pain Ipratropium-Albuterol Nebulize [Duoneb 0.5 mg-3 mg/3 ml Soln] 3 ml INHALATION RT-QID #1 box Potassium Chloride Oral Liquid 20 meq PEG/G-TUBE BID #800 ml SILVER sulfADIAZINE CREAM [Silvadene Cream] 1 applic TOPICAL BID #1 tube Continue Insulin Aspart [NovoLOG (formulary)] See Protocol SQ AC-BID Ondansetron HCl [Zofran Oral Soln] 4 mg PEG/G-TUBE Q6H PRN PRN Reason: Nausea Insulin Glargine,Hum.rec.anlog [Basaglar Kwikpen U-100] 51 unit SQ BID #0 Allopurinol [Zyloprim] 100 mg PEG/G-TUBE DAILY #0 Levothyroxine Sodium [Synthroid] 25 mcg PEG/G-TUBE DAILY #0 Simvastatin [Zocor] 20 mg PEG/G-TUBE HS #0 Discontinued metFORMIN HCL 1,000 mg PEG/G-TUBE BID Cetirizine HCl [Zyrtec] 10 mg PEG/G-TUBE DAILY Lisinopril-Hctz 20-25 mg [Zestoretic 20-25] 1 tab PEG/G-TUBE DAILY Acetaminophen [Tylenol Extra Strength] 1,000 mg PEG/G-TUBE Q6H PRN PRN Reason: Pain HYDROcodone/APAP [[place] Elixir 7.5-325Mg/15Ml] 15 - 25 ml PEG/G-TUBE ACHS Potassium Chloride ER [K-Dur 20] 20 meq PEG/G-TUBE BID Discharge Medication List Insulin Aspart [NovoLOG (formulary)] See Protocol SQ AC-BID 04/22/17 [History] Ondansetron HCl [Zofran Oral Soln] 4 mg PEG/G-TUBE Q6H PRN 09/15/17 [History] Insulin Glargine,Hum.rec.anlog [Basaglar Kwikpen U-100] 51 unit SQ BID #0 [Rx] Fluconazole Oral Susp [Diflucan Oral Susp] 200 mg PO DAILY #35 ml 11/03/17 [Rx] Levofloxacin Oral Soln [Levaquin Oral Soln] 500 mg PO DAILY #140 ml 11/03/17 [Rx ] Allopurinol [Zyloprim] 100 mg PEG/G-TUBE DAILY #0 11/07/17 [Rx] HYDROcodone/APAP [[place] Elixir 7.5-325Mg/15Ml] 15 ml PO Q4H PRN #630 solution [Rx] Ipratropium-Albuterol Nebulize [Duoneb 0.5 mg-3 mg/3 ml Soln] 3 ml INHALATION RT -QID #1 box 11/07/17 [Rx] Levothyroxine Sodium [Synthroid] 25 mcg PEG/G-TUBE DAILY #0 11/07/17 [Rx] Potassium Chloride Oral Liquid 20 meq PEG/G-TUBE BID #800 ml 11/07/17 [Rx] SILVER sulfADIAZINE CREAM [Silvadene Cream] 1 applic TOPICAL BID #1 tube [Rx] Simvastatin [Zocor] 20 mg PEG/G-TUBE HS #0 11/07/17 [Rx] cloNIDine 0.1 MG/24HR PATCH [Catapres-TTS] 1 patch TRANSDERM Q7D #4 patch [Rx] Follow up Appointment(s)/Referral(s): Kiley Morrison MD [STAFF PHYSICIAN] - As Needed [facility], [NON-STAFF] - 1 Week Jacqueline Hendricks MD [STAFF PHYSICIAN] - 2 Weeks Estiven Pastrana MD [Primary Care Provider] - 3 Days Patient Instructions/Handouts: Tube Feeding (DC), Tube Feeding (GEN) Activity/Diet/Wound Care/Special Instructions: LIQUID MEDICATIONS ONLY THROUGH JEJUNOSTOMY FEEDING TUBE. ABSOLUTELY NO FULL TABLETS OR PILLS IN TUBE. Diet: Tube feedings per aircraft painter Activity: as tolerated Check CBC on Monday at Dr. Pastrana's office Discharge Disposition: HOME WITH HOME HEALTH SERVICES
[2017-11-07 12:00] VITALS: PULSE 108
[2017-11-07 12:06] LABS: Glucose,Whole Blood 174 mg/dL (75-99)
[2017-11-07] MEDS: LEVOFLOXACIN 500MG-D5W PMX 500 MG in DEXTROSE/WATER 1 100ML.BAG IVPB SCH (13:05)
--- NOTE | 2017-11-16 23:58 | P.OP ---
Date of Procedure: 10/31/17 Description of Procedure: Date of Procedure: 10/31/17 SURGEON: MIKE STARK MD DIGITAL DIRECTOR: None. PREOPERATIVE DIAGNOSES: 1. Inadequate oral intake. 2. Inadequate protein intake. 3. Anaplastic thyroid cancer. 4. Dysphagia. 5. Insulin dependent diabetes mellitus 6. Obesity due to excess calories. 7. BMI 32.9. 8. Hypertensive heart disease. 9. Malfunctioning gastrostomy tube. POSTOPERATIVE DIAGNOSES: 1. Inadequate oral intake. 2. Inadequate protein intake. 3. Anaplastic thyroid cancer. 4. Dysphagia. 5. Insulin dependent diabetes mellitus 6. Obesity due to excess calories. 7. BMI 32.9. 8. Hypertensive heart disease. 9. Malfunctioning gastrostomy tube. PROCEDURES PERFORMED: 1. Laparoscopic jejunostomy tube placement, 16-Guamanian JAMIE by David 2. Laparoscopic lysis of adhesions. 3. Removal of PEG tube with debridement of abdominal wall ANESTHESIA: General with local. ESTIMATED BLOOD LOSS: 10 mL. SPECIMENS REMOVED: Aerobic and anaerobic culture COMPLICATIONS: None. Condition: stable Disposition: floor OPERATIVE FINDINGS: 1. Jejunostomy tube placed 50 cm from ligament of Treitz 2. Adhesions from previous ventral hernia repair along the right lower quadrant lysed. 3. Drainage of 5 mL purulence from GASTROSTOMY tube subcutaneous. INDICATIONS: The patient is a 57-year-old female who developed progressive dysphagia. An percutaneous gastrostomy tube placement became complicated and required removal. Surgical placement for feeding tube is requested. Benefits and risks surgical treatments were described. Surgical consent was obtained. DESCRIPTION OF PROCEDURE: Patient was brought to the operating room, laid in supine position. After general induction, the abdomen was prepped and draped in standard sterile fashion. An Ioban drape was placed. Prior to incision, a timeout protocol was confirmed with surgical team regarding patient's name including procedure to be performed. She was on scheduled antibiotics. The gastrostomy tube was removed without sequelae. An abscesses of 5 mL was drained along the subcutaneous tissues. The wound was irrigated using 1 L normal saline pulse lavage. A 5 mm laparoscopic trocar entry was performed of the left upper quadrant after anesthetizing the skin with local anesthetic. Diagnostic laparoscopy demonstrated no injury to bowel, viscera, or mesentery upon trocar entry. The small bowel was unremarkable for gross pathology. No gross small bowel dilatation was encountered. Another 5-mm trocar was placed along the left lateral abdominal wall and another port at the right upper quadrant. The small bowel was investigated for placement of a jejunal feeding tube. The ligament of Treitz was identified using atraumatic graspers. The small bowel was investigated anterograde. At 50 cm from the ligament of Treitz, the proximal jejunum had easily been brought to the abdominal wall. Adhesions along the right lower quadrant abdominal was lysed. A 16-Guamanian laparoscopic jejunostomy feeding tube kit by DAVID was prepared along the back table. A point along the epigastrium below the xiphoid was identified 3 fingerbreadths below the rib cage. The skin was localized and a transverse stab incision was made using a #11 blade. Using 2-0 Ethilon Indra needles, the needle was pierced through the skin and subcutaneous tissue into the abdominal cavity. The needle was used to tack the small bowel to the abdominal wall. A separate suture was placed distally to suspend the jejunum to the abdominal wall. A electro Bovie cautery was used to create an enterotomy along the antimesenteric border of the jejunum. A [place] was used to widen the enterotomy. A guidewire was placed from the laparoscopy feeding tube kit. Next, a 20-Guamanian dilator was placed over the guidewire through the skin into the enterotomy anterograde along the jejunum. Once dilated, a 16- Guamanian jejunostomy tube with balloon was inserted through the catheter sheath as the guidewire was removed. The feeding tube was inserted to 10 cm. The balloon was insufflated with 2 mL normal saline. The stay sutures were then brought through the clasp of the feeding tube and tied along the 12:00 and 6:00 along the skin. Additional 2-0 nylon's were placed along the 3:00 and 9 o' clock position of the clasp feeding tube. Final diagnostic laparoscopy confirmed anterograde status of the jejunostomy feeding tube. Final inspection of the abdomen demonstrated adequate hemostasis. All instruments and pneumoperitoneum were evacuated from the abdominal cavity. The skin was cleansed with dilute hydrogen peroxide. Local anesthetic was infiltrated in all wounds for postop analgesia. Dermabond was applied to the skin after reapproximating the incisions with 4-0 Monocryl as described. Antibiotic dressing using Optifoam was placed along the new feeding tube site. At the end of the procedure, needle, sponge, and instrument count was verified correct by surgical instrument repair specialist. The patient had tolerated the procedure well and was transferred out of the operating room in stable condition. The patient's family were pleased with level of care.
== END 2017-11-07 15:50 | disposition home health service (06) | DRG 327 ==
LOC: EC 09:51 → 5ONC 11:47
PROVIDERS: ADMIT Internal Medicine; ATTEND Internal Medicine
PROC: 0DP63UZ Removal of Feeding Device from Stomach, Percutaneous Approach (ICD-10-PCS; principal; 2017-10-31 12:15)
PROC: 0DHA3UZ Insertion of Feeding Device into Jejunum, Percutaneous Approach (ICD-10-PCS; principal; 2017-10-31 12:15)
PROC: 0DNW4ZZ Release Peritoneum, Percutaneous Endoscopic Approach (ICD-10-PCS; principal; 2017-10-31 12:15)
PROC: 3E0G76Z Introduction of Nutritional Substance into Upper GI, Via Natural or Artificial Opening (ICD-10-PCS; principal; 2017-10-31 12:15)
DX: K94.23 Gastrostomy malfunction (principal); E87.1 Hypo-osmolality and hyponatremia; E46 Unspecified protein-calorie malnutrition; C73 Malignant neoplasm of thyroid gland; E11.65 Type 2 diabetes mellitus with hyperglycemia; E66.01 Morbid (severe) obesity due to excess calories; J39.8 Other specified diseases of upper respiratory tract; D64.9 Anemia, unspecified; K94.22 Gastrostomy infection; T20.07XA Burn of unspecified degree of neck, initial encounter; J40 Bronchitis, not specified as acute or chronic; M19.90 Unspecified osteoarthritis, unspecified site; E78.5 Hyperlipidemia, unspecified; I10 Essential (primary) hypertension; M10.9 Gout, unspecified; L30.9 Dermatitis, unspecified; R13.10 Dysphagia, unspecified; M16.0 Bilateral primary osteoarthritis of hip; E03.9 Hypothyroidism, unspecified; T21.04XA Burn of unspecified degree of lower back, initial encounter; Y84.2 Radiological procedure and radiotherapy as the cause of abnormal reaction of the patient, or of later complication, without mention of misadventure at the time of the procedure; M54.2 Cervicalgia; E86.0 Dehydration; R11.0 Nausea; F41.9 Anxiety disorder, unspecified; K66.0 Peritoneal adhesions (postprocedural) (postinfection); E87.6 Hypokalemia; L08.9 Local infection of the skin and subcutaneous tissue, unspecified; R19.7 Diarrhea, unspecified; R00.0 Tachycardia, unspecified; Z90.89 Acquired absence of other organs; Z90.49 Acquired absence of other specified parts of digestive tract; Z87.19 Personal history of other diseases of the digestive system; Z85.3 Personal history of malignant neoplasm of breast; Z85.42 Personal history of malignant neoplasm of other parts of uterus; Z85.6 Personal history of leukemia; Z92.3 Personal history of irradiation; Z92.21 Personal history of antineoplastic chemotherapy; Z90.11 Acquired absence of right breast and nipple; Z90.710 Acquired absence of both cervix and uterus; Z68.32 Body mass index [BMI] 32.0-32.9, adult; Z85.828 Personal history of other malignant neoplasm of skin; Z80.8 Family history of malignant neoplasm of other organs or systems; Z83.3 Family history of diabetes mellitus; Z79.899 Other long term (current) drug therapy; Z79.4 Long term (current) use of insulin; Z79.891 Long term (current) use of opiate analgesic; Z88.0 Allergy status to penicillin; Z88.2 Allergy status to sulfonamides; Z79.810 Long term (current) use of selective estrogen receptor modulators (SERMs); Z98.84 Bariatric surgery status
CPT/HCPCS: 36415; 71046; 74018; 74150; 76705; 80048; 80053; 82150; 82330; 82728; 83036; 83540; 83550; 83605; 83690; 83735; 84100; 84132; 84439; 84443; 84478; 85025; 86850; 86900; 86901; 86920; 87070; 87077; 87186; 87205; 87324; 87502; 93005; 94640; 94760; 96361; 96374; 96375; 99284

== ENCOUNTER → 2017-12-11 | Outpatient (CLI) | payer OTHER ==
[2017-12-11 08:03] LABS: Blood Urea Nitrogen 16 mg/dL (7-17)
--- NOTE | 2017-12-11 09:00 | CT ---
EXAMINATION TYPE: CT soft tissue neck w con DATE OF EXAM: 12/11/2017 8:39 AM COMPARISON: 07/10/2017, outside CT scan dated 07/31/2017 HISTORY: Follow up for known tumor of the thyroid. CT DLP: 1716 mGycm Automated exposure control for dose reduction was used. CONTRAST: CT scan of the neck is performed following with IV Contrast, patient injected with 100 mL of Isovue 3 00. Axial images are obtained, coronal and sagittal reformatted images are reviewed. FINDINGS: Nasopharynx and oropharynx are symmetric. Base the tongue is symmetric. Visualized parotid and submandibular glands are symmetric. There is extensive abnormal appearance of the left side of the neck with a large partially cystic mass measuring 5.4 x 3.6 cm with internal lito cification. There is deviation the trachea from left to right. This may be slightly increased in size from the previous exam. There also appears to be increased soft tissue attenuation superior to the s uspected cystic lesion measuring a craniocaudal dimension of 3.4 cm. This extends posteriorly into th e prevertebral space and posterior compartment. Appears to be outside of the suspected lesion in the thyroid. Appears ill-defined and measures 19 Hounsfield units. Right lobe the thyroid is somewhat heterogeneous with a 1.2 nodule involving the upper pole. Shotty adenopathy in the mediastinum. Vasculature enhances normally with atherosclerotic change invol ving the carotid bifurcation bilaterally. Degenerative change of the spine C5-6 and C6-C7 is noted. IMPRESSION: 1. Large cystic thyroid mass measuring 5.4 x 3.6 cm may be slightly increased in size from the previo us exam. There now appears to be poorly defined attenuation superior to the thyroid lesion which may be post therapeutic. Would recommend PET scan to determine the activity of the new 3.4 cm poorly defi florence attenuation superior to left thyroid. There also appears to be slightly increased deviation of th e trachea from left to right relative to the prior exams.
--- NOTE | 2017-12-11 09:05 | CT ---
EXAMINATION TYPE: CT chest abdomen w con DATE OF EXAM: 12/11/2017 COMPARISON: 10/28/2017 HISTORY: Follow up for known tumor of the thyroid. CT DLP: 416.07 mGycm. Automated Exposure Control for Dose Reduction was Utilized. CONTRAST: CT scan of the thorax, abdomen and pelvis is performed with IV Contrast, patient injected with 100 mL of Isovue 300. FINDINGS: Large left thyroid mass seen. Previous surgery involving the right breast noted. Aorta of normal caliber. Grade 1 anterolisthesis L4 on L5 appears degenerative related to severe face t arthropathy. Chronic rib deformity noted involving the right upper rib cage. No pneumothorax and pleural effusion. No consolidation. No sizable pulmonary nodule. Spleen measures 14 cm and appears enlarged. Hypertrophic and degenerative change of the spine noted. Liver measures 24 cm and also is enlarged. Adrenal glands have a normal appearance. Pancreas has a normal appearance. There are no gallstones. P revious surgery noted. Bowel gas pattern nonspecific. Suggestion of a small bowel catheter likely wit hin the jejunum. Aorta of normal caliber. No free fluid. No pathologic adenopathy IMPRESSION: 1. Hepatosplenomegaly. 2. Postsurgical changes.
== END | disposition home or self-care (01) ==
LOC: RADCTMAIN 07:22
PROVIDERS: ATTEND Radiology Radiation Oncology
DX: C73 Malignant neoplasm of thyroid gland (principal); R16.2 Hepatomegaly with splenomegaly, not elsewhere classified; Z88.0 Allergy status to penicillin; Z88.2 Allergy status to sulfonamides; Z98.890 Other specified postprocedural states
CPT/HCPCS: 82565; 84520; 70491; 71260; 74160; 36415; Q9967

== ENCOUNTER → 2018-01-03 | Day surgery (SDC) | payer OTHER ==
[2018-01-01 13:16] VITALS: BMI 31.6
[~2018-01-03] MED LIST changes: +LIDOCAINE 2% INJ 20 MG/ML SQ ONE; -Pre Op ABX Message 1 EACH MISC MISCELLANE ONE
[2018-01-03 09:03] VITALS: RESP 18
[2018-01-03 09:38] LABS: Glucose,Whole Blood 196 mg/dL (75-99)
[2018-01-03 09:43] LABS: Blood Urea Nitrogen 19 mg/dL (7-17)
[2018-01-03 11:04] VITALS: BP 146/70; PULSE 82; TEMP 98.1
--- NOTE | 2018-01-03 13:31 | IR ---
EXAMINATION TYPE: IR cvc insert >=5 years DATE OF EXAM: 01/03/2018 COMPARISON: NONE CLINICAL HISTORY: Carcinoma Needs long-term intravenous access for chemotherapy. PROCEDURE: After informed consent, the skin overlying the left brachial vein was localized with ultrasound and n oted to be compressible and patent. An ultrasound image was obtained and submitted on the patient's chart. The overlying skin was prepped and draped and Lidocaine was used for local anesthesia. A ski n bernardo was made with a scalpel. Access was gained to the vein under ultrasound guidance with a 21 ga uge needle and a 0.018 inch wire was advanced. Access site was dilated with Peel-Away sheath and cat heter tailored to the appropriate length and advanced such that the distal tip is at the cavoatrial j unction. Spot image was obtained verifying placement. Catheter was fixed to the skin and a sterile dressing was placed following hemostasis. Catheter was aspirated and flushed with saline. Patient w as discharged in stable condition without complication. Maximal barrier technique is utilized. Ultra sound image is documented on the chart. Ultrasound used with sterile technique. Fluoro time and fluoroscopic images submitted to document procedure: 25 intraoperative C-arm images, 0.2 minutes fluoroscopy time IMPRESSION: STATUS POST ULTRASOUND AND FLUOROSCOPIC GUIDED PICC LINE PLACEMENT, READY FOR USE. THIS PROCEDURE WAS PERFORMED BY THE UNDERSIGNED.
== END ==
LOC: CATHCVL 08:46
PROVIDERS: ATTEND Radiology Diagnostic Radiology
DX: C73 Malignant neoplasm of thyroid gland (principal); I87.2 Venous insufficiency (chronic) (peripheral); D64.81 Anemia due to antineoplastic chemotherapy; E11.9 Type 2 diabetes mellitus without complications; I10 Essential (primary) hypertension; Z90.11 Acquired absence of right breast and nipple; Z90.710 Acquired absence of both cervix and uterus; Z85.3 Personal history of malignant neoplasm of breast; Z85.42 Personal history of malignant neoplasm of other parts of uterus; Z85.828 Personal history of other malignant neoplasm of skin; Z92.3 Personal history of irradiation; Z92.21 Personal history of antineoplastic chemotherapy; Z80.8 Family history of malignant neoplasm of other organs or systems; Z79.82 Long term (current) use of aspirin; Z79.4 Long term (current) use of insulin; Z79.899 Other long term (current) drug therapy; Z88.0 Allergy status to penicillin; Z88.2 Allergy status to sulfonamides
CPT/HCPCS: 36569; 76937; 77001; 82565; 84520

== ENCOUNTER → 2018-03-29 | Outpatient (CLI) | payer OTHER ==
[2018-03-29 14:11] LABS: Blood Urea Nitrogen 19 mg/dL (7-17)
--- NOTE | 2018-03-29 15:35 | CT ---
EXAMINATION TYPE: CT soft tissue neck w con DATE OF EXAM: 03/29/2018 HISTORY: Malignant neoplasm of thyroid gland. COMPARISON: 12/11/2017 CT DLP: 364 mGycm. Automated Exposure Control for Dose Reduction was Utilized. TECHNIQUE: CT scan of the neck is performed with IV Contrast, patient injected with 50 mL of Isovue M300, axial images are obtained, coronal and sagittal reformatted images are reviewed. FINDINGS:There is been decrease in size of the known malignant left thyroid neoplasm with rightward t archana deviation although no tracheal collapse is seen. This previously measured up to 5.4 x 3.6 cm and currently measures up to 4.8 x 3.5 cm on series 3 image 29 at the level of the same dystrophic ca lcification of the right thyroid gland. Second adjacent cystic component measures approximately 1.4 x 1.5 cm on the same image. Again there is impression posteriorly on the prevertebral space. Fluid schwartz s track around the prevertebral space posterior to the valleculae and piriform sinuses and surrounds the left carotid space. No current evidence of jugular venous arthrosis. Left-sided subclavian cathet er is partially visualized. There is a small right thyroid nodule measuring 8 mm and is similar to the prior. There is symmetric atrophy of the parotid glands and to a lesser degree at the submandibular glands. Again multilevel mi ld degenerative disc disease of the cervical spine is seen at C5-C6 and C6-C7. Patchy attenuation thr oughout the calvarium similar to the prior exam and could represent early osseous demineralization ar e calvarial metastasis. Sclerosis is seen within the left temporal bone on series 3 image 75. Again t here is carotid bulb calcific atheromatous change without occlusion or hemodynamically significant st enosis. Visualized portions of the upper mediastinum and lung apices will be discussed on the CT chest, abdom en, and pelvis of the same date. IMPRESSION: 1. Slight interval decrease in size of the known left thyroid neoplasm displacing the trachea to the right without tracheal collapse or without significant tracheal narrowing. No new adenopathy. Prevert ebral space fluid is similar to the prior and likely represents posttreatment change. No current evid ence of jugular venous thrombosis. 2. Patchy calvarial marrow attenuation could relate to early osseous demineralization although metast asis is also possible. MRI could be of benefit to evaluate for bone marrow replacing process.
--- NOTE | 2018-03-29 15:43 | CT ---
EXAMINATION TYPE: CT ChestAbdPelvis w con DATE OF EXAM: 03/29/2018 COMPARISON: 12/11/2017 and 09/28/2017 HISTORY: Malignant neoplasm of thyroid gland. CT DLP: 1190.7 mGycm. Automated Exposure Control for Dose Reduction was Utilized. CONTRAST: CT scan of the thorax, abdomen and pelvis is performed with IV Contrast, patient injected with 50 mL of Isovue M300. FINDINGS: LUNGS: New 8 mm nodular opacity within the medial left lung apex on series 3 image 14 as well as line ar extent to the mediastinum medially and may represent fibrosis. Minimal left basilar subsegmental a telectasis is seen. No new right-sided nodularity. No pulmonary mass. The lungs are grossly clear, th ere is no concerning parenchymal mass or nodule identified. There is no pleural effusion or pneumot horax seen. The tracheobronchial tree is patent. MEDIASTINUM: There are no greater than 1 cm hilar or mediastinal lymph nodes. No pericardial effusi on is seen. LIVER/GB: No significant abnormality is appreciated. No cholelithiasis. No intrahepatic biliary ducta l dilatation. PANCREAS: No significant abnormality is seen. No ductal dilatation. SPLEEN: Spleen is again enlarged measuring 15.0 cm in anterior posterior dimension. ADRENALS: No nodularity or thickening. KIDNEYS: There is a nodular contour of the renal cortices without focal mass. No hydronephrosis. BOWEL: No dilated large or small bowel. GENITAL ORGANS: Uterus appears surgically absent. LYMPH NODES: No greater than 1cm abdominal or pelvic lymph nodes are appreciated. OSSEOUS STRUCTURES: Again there is grade 1 anterolisthesis of L4 on L5, likely on a degenerative basi s. Chronic deformity of the right upper ribs are noted from prior fractures. Multilevel mild to moder ate degenerative changes of the osseous structures are seen. OTHER: Right breast implant is noted. There is postsurgical change of the right lateral abdominal wal l and right midline abdominal wall. Jejunostomy tube is present. IMPRESSION: 1. New left apical pulmonary nodularity although this is contiguous with the pleural surface that cou ld represent pleural scarring versus new pulmonary nodule. Attention on follow-up exams. 2. No new evidence of visceral metastasis within the abdomen or pelvis. No new adenopathy within the chest, abdomen, or pelvis. 3. Redemonstration of splenomegaly.
== END ==
LOC: RADPROMAIN 13:26
PROVIDERS: ATTEND Internal Medicine Hematology & Oncology
DX: C73 Malignant neoplasm of thyroid gland (principal); C50.919 Malignant neoplasm of unspecified site of unspecified female breast; R91.8 Other nonspecific abnormal finding of lung field; R16.1 Splenomegaly, not elsewhere classified; Z88.0 Allergy status to penicillin; Z88.2 Allergy status to sulfonamides
CPT/HCPCS: 82565; 84520; 70491; 71260; 74177; Q9967

== ENCOUNTER → 2018-06-02 | Outpatient (CLI) | payer OTHER ==
--- NOTE | 2018-06-05 15:19 | PE ---
EXAMINATION TYPE: PET CT fusion skull to thigh DATE OF EXAM: 06/02/2018 CLINICAL HISTORY: 57-year-old female restaging thyroid cancer. Patient with last chemotherapy 2 month s ago and last radiation therapy in November 2017 to the thyroid region. TECHNIQUE: Following the intravenous administration of 12.1 mCi of F-18 FDG, whole body images are performed from the skull base to the midthigh. Images are reviewed on the computer in the coronal, a xial, and sagittal planes. Reconstructed rotating images are created on independent workstation and reviewed on the computer. A localization and attenuation correction CT is performed in conjunction with the PET scan. Glucose level: 150 mg/dL CTDI: 4.94 mGy DLP: 439.49 mGy-cm COMPARISON: 03/29/2018 and 12/11/2017 FINDINGS: PET: Redemonstrated large septated cystic lesion in the left thyroid fossa measuring up to 4.8 x 4.1 cm. T his continues to have mild mass effect onto the trachea with slight narrowing and rightward tracheal deviation. On 03/29/2018, this measured 5.7 x 4.1 cm and on 12/11/2017, this measured 5.9 x 4.2 cm. Th ere is only minimal uptake along the periphery of this left-sided cystic lesion, max SUV 1.3. The cys tic area itself demonstrates photopenic defect. The right lobe of the thyroid gland shows mild uptake, max SUV 2.5. There is vascular uptake within the proximal left arm. Physiologic FDG uptake otherwise seen within the neck and chest status post right sided mastectomy an d breast reconstruction. Average liver SUV 2.1. There is mild focal uptake associated with the patient's jejunostomy tube. There is mild pericolonic fat stranding along the ascending colon with associated borderline moderate uptake, max SUV 3.6 and suggestion of some wall thickening here. Otherwise, physiologic FDG uptake within the abdomen and pelvis. ATTENUATION CORRECTION CT: Visualized paranasal sinuses and mastoid air cells are clear. No cervical lymphadenopathy identified . Heart normal size without pericardial effusion. Mild aneurysm ascending aorta 4.1 cm with conventiona l branching anatomy. No thoracic lymphadenopathy by CT size criteria. No consolidation or pleural eff usion. Small hiatal hernia. No dilated small bowel, free fluid, or free air. No mesenteric or retroperitonea l lymphadenopathy. Hernia repair along the right lower quadrant. Circumferential bladder wall thickening. Uterus surgically absent. No abnormal fluid collection in th e pelvis or pelvic lymphadenopathy. Bones: Degenerative changes at the hips. Additional degenerative changes mid to lower lumbar spine an d endplate spondylosis throughout the mid to lower thoracic spine. No osseous destructive process see n. Cervical spondylosis. IMPRESSION: 1. Large septated cystic lesion in the region of the left thyroid lobe shows no significant FDG uptak e and the cystic portion itself demonstrates photopenia. It measures 4.8 x 4.1 cm versus 5.7 x 4.1 cm on 03/29/2018 and 5.9 x 4.2 cm on 12/11/2017. Findings are suspected to represent posttreatment necros is. Note that this does continue to cause mild mass effect onto the trachea. 2. Otherwise, no CT or metabolic evidence for metastatic disease. 3. Moderate focal FDG uptake near the hepatic flexure of the colon. On CT, this region shows wall thi ckening and surrounding fat stranding. Nonspecific colitis is suggested. After any potential treatmen t, recommend follow-up colonoscopy if routine screening is not being performed.
== END | disposition home or self-care (01) ==
LOC: RADPETMAIN 08:12
PROVIDERS: ATTEND Internal Medicine Hematology & Oncology
DX: E04.1 Nontoxic single thyroid nodule (principal)
CPT/HCPCS: 78815; A9552

== ENCOUNTER → 2018-06-16 | Outpatient (CLI) | payer OTHER ==
--- NOTE | 2018-06-16 07:59 | MR ---
EXAMINATION TYPE: MR neck wo/w con DATE OF EXAM: 06/16/2018 COMPARISON: Previous CT scan of the neck dated 03/29/2018. HISTORY: Anaplastic thyroid cancer CONTRAST: Standard multiplanar, multisequence MRI departmental protocol with and without the intravenous admini stration of 8.5 mL intravenous Gadavist gadolinium contrast. FINDINGS: Visualized lung parenchyma appears clear. There is a 4.4 x 3.8 x 4.1 cm heterogenous solid mass in the left lobe of the thyroid which demonstra irvin no significant enhancement following gadolinium. The right lobe of the thyroid has a more 6 mara l appearance. The parapharyngeal, oropharyngeal and laryngeal soft tissues appear normal. Bone marrow signal is maintained. I do not see evidence of osseous metastases. No pathologically enlarged lymph nodes are seen. IMPRESSION: 1. LARGE LEFT-SIDED THYROID MASS WITHOUT SIGNIFICANT ENHANCEMENT. 2. NO DEFINITE EVIDENCE OF OSSEOUS METASTASES AT THIS TIME.
== END | disposition home or self-care (01) ==
LOC: RADMRIMAIN 07:05
PROVIDERS: ATTEND Otolaryngology
DX: C73 Malignant neoplasm of thyroid gland (principal); E07.89 Other specified disorders of thyroid
CPT/HCPCS: 70543; A9581

== ENCOUNTER → 2018-09-01 | Outpatient (CLI) | payer OTHER ==
--- NOTE | 2018-09-02 18:05 | PE ---
EXAMINATION TYPE: PET CT fusion skull to thigh DATE OF EXAM: 09/01/2018 COMPARISON: Prior PET/CT June 02, 2018. Prior neck and full body CT March 29, 2018. Outside PET/C T August 01, 2017 HISTORY: Thyroid cancer progress study at surgery in 2016 completed radiation treatment in October 20 and completed chemotherapy in February 2018. TECHNIQUE: Following the intravenous administration of 10.74 mCi of F-18 FDG, whole body images are performed from the skull base to the midthigh. Images are reviewed on the computer in the coronal, a xial, and sagittal planes. Reconstructed rotating images are created on independent workstation and reviewed on the computer. A noncontrast CT is performed in conjunction with the PET scan. Dedicated PET/CT imaging of the neck is also performed. SCAN: Subsequent Scan FINDINGS: SKULL BASE AND NECK: There is interval surgery with innumerable surgical clips at level of thyroid b ed beginning just below hyoid bone extending inferiorly to superior mediastinal level. There is focus of low density axial image 56 with absence of clips adjacent to the trachea left of midline could re flect residual treated neoplasm or fluid collection/seroma. Latter is favored. Some secretions in the piriform sinus are present. Some asymmetric left-sided fullness is seen axial image 41 without hyper metabolic uptake. CHEST, MEDIASTINUM, AND HILAR REGION: No new suspicious uptake in the thorax is seen. ABDOMEN AND PELVIS: No new suspicious uptake in abdomen or pelvis is identified. OSSEOUS STRUCTURES: No new suspicious osseous uptake is seen. OTHER CT: Visualized paranasal sinuses and mastoid air cells remain clear. No new suspicious cervical lymphadenopathy identified. Mild aneurysm ascending aorta 3.9 cm with conventional branching anatomy axial image 80. Adjacent ma in pulmonary artery is enlarged at 3.7 cm, CT findings consistent with underlying pulmonary artery hy pertension. Right breast implant redemonstrated. Spleen mildly enlarged at 14.0 cm axial image 113 is redemonstrated. Hernia repair along the right l ower quadrant. Uterus surgically absent. Left-sided jejunal feeding tube is again seen. Bones: Degenerative changes at the hips. Additional degenerative changes mid to lower lumbar spine an d endplate spondylosis throughout the mid to lower thoracic spine. No osseous destructive process see n. Cervical spondylosis redemonstrated. IMPRESSION: Interval surgery. No new hypermetabolic mass is clearly identified to suggest neoplastic recurrence.
== END | disposition home or self-care (01) ==
LOC: RADPETMAIN 09:12
PROVIDERS: ATTEND Radiology Radiation Oncology
DX: C73 Malignant neoplasm of thyroid gland (principal); Z85.42 Personal history of malignant neoplasm of other parts of uterus; Z98.890 Other specified postprocedural states
CPT/HCPCS: 78815; A9552

== ENCOUNTER → 2018-11-26 | Outpatient (CLI) | payer OTHER ==
[2018-11-26 11:08] LABS: Blood Urea Nitrogen 19 mg/dL (7-17)
--- NOTE | 2018-11-26 13:36 | CT ---
EXAMINATION TYPE: CT ChestAbdPelvis wo/w con DATE OF EXAM: 11/26/2018 COMPARISON: 03/29/2018 HISTORY: Follow up scan per patient CT DLP: 3032.1 mGycm CONTRAST: CT scan of the chest, abdomen and pelvis is performed with Oral Contrast and without and with IV Cont rast, patient injected with 100 mL of Isovue 300. CT Chest: LUNGS: The lungs are clear and free of infiltrate or atelectasis. Pleural-based nodular density left upper lobe is unchanged at the 7 mm image 16. No additional nodules are identified at this time. No f ocal infiltrate or mass. No pleural effusion or CT evidence of interstitial lung disease. MEDIASTINUM: Thoracic aorta is of normal caliber. The heart is not enlarged. No evidence for media stinal mass or adenopathy. HILAR STRUCTURES: No evidence for mass. No hilar adenopathy is appreciated. OTHER: No significant abnormality. CONTRAST CT ABDOMEN AND PELVIS FINDINGS: LIVER/GB: No calcified gallstones. No space occupying hepatic lesion. Biliary tree is of normal ca liber. PANCREAS: No inflammation. No distinct mass. SPLEEN: Borderline splenic enlargement measuring 12.9 cm craniocaudal dimension. No lesion seen. ADRENALS: No nodule. No thickening. KIDNEYS/BLADDER: No hydronephrosis. No nephrolithiasis. No distinct renal mass. BOWEL: Normal appendix. Normal bowel caliber. No inflammation. J-tube is in place. GENITAL ORGANS: No gross abnormality. LYMPH NODES: No greater than 1cm abdominal or pelvic lymph nodes are appreciated. AORTA: No significant abnormality. OSSEOUS STRUCTURES: No significant abnormality is seen. OTHER: No significant additional abnormality is seen. IMPRESSION: 1. Stable left apical nodular density. 2. No evidence for metastatic disease. Comment: CCA 2 neck seen today.
--- NOTE | 2018-11-26 14:01 | CT ---
EXAMINATION TYPE: CT soft tissue neck wo/w con DATE OF EXAM: 11/26/2018 COMPARISON: 03/29/2018 HISTORY: Follow up scan per patient. CT DLP: 849.8 mGycm CONTRAST: CT scan of the neck is performed without and with IV Contrast, patient injected with 100 mL of Isovue 300. Contrast enhanced CT of the neck was performed from the skull base through the lung apices. AIRWAY: The supraglottic, glottic, and subglottic portions of the airway appear patent and free of mass. SALIVARY GLANDS: The submandibular and parotid glands are free of mass or inflammatory process. THYROID GLAND: Postoperative changes of total thyroidectomy. Multiple surgical clips noted. Possible residual soft tissue anterior to the clips seen on image 30 to the left of midline measuring 1.7 x 1. 9 cm LYMPH NODES: No adenopathy seen greater than 1cm. LUNG APICES: No nodule or mass is seen. OTHER: Vascular structures are patent. No significant degenerative change of the cervical spine. N o abscess seen. IMPRESSION: Postoperative changes of total thyroidectomy. Multiple surgical clips noted. Possible residual soft t issue anterior to the clips seen on image 30 to the left of midline measuring 1.7 x 1.9 cm
== END | disposition home or self-care (01) ==
LOC: RADCTMAIN 10:20
PROVIDERS: ATTEND Radiology Radiation Oncology
DX: Z08 Encounter for follow-up examination after completed treatment for malignant neoplasm (principal); J98.4 Other disorders of lung; E89.0 Postprocedural hypothyroidism; Z92.3 Personal history of irradiation; Z85.42 Personal history of malignant neoplasm of other parts of uterus; Z85.850 Personal history of malignant neoplasm of thyroid
CPT/HCPCS: 82565; 84520; 70492; 71270; 74178; 36415; Q9967

== ENCOUNTER 2019-03-18 07:07 | Emergency (ER) | payer OTHER ==
[2019-03-18] MEDS ORDERED: IPRATROPIUM-ALBUTEROL 3 ML NEB INHALATION STA (07:20)
[2019-03-18 07:23] VITALS: TEMP 98.7
--- NOTE | 2019-03-18 07:24 | ED ---
General Adult HPI - General Stated complaint: PATRICIA Time Seen by Provider: 03/18/19 07:09 Source: patient, RN notes reviewed Limitations: no limitations - History of Present Illness Initial comments: Patient is a pleasant 78-year-old female presenting to the emergency department with difficulty breathing. Onset of symptoms was yesterday. Patient has had cough with yellow mucus. No fevers. Patient does have occasional cough associated with history of thyroid cancer. Patient has undergone 2 rounds of chemotherapy and radiation as well as surgery. Patient is not currently on any treatment. No history of chronic lung problems. No chest pain. No leg pain or leg swelling. - Related Data Home Medications Medication Instructions Recorded Confirmed Ondansetron HCl [Zofran Oral Soln] 4 mg PEJ/J-TUBE Q6H PRN 09/15/17 03/18/19 Enalapril Maleate [Epaned] 20 mg PEG/G-TUBE DAILY 01/01/18 03/18/19 HYDROcodone/APAP [Dowell Elixir 15 - 25 ml PO Q6H PRN 01/01/18 03/18/19 7.5-325Mg/15Ml] Allopurinol Compound 300 mg PEJ/J-TUBE DAILY 03/18/19 03/18/19 Calcium Carbonate Susp 2,500 mg PEJ/J-TUBE TID 03/18/19 03/18/19 Insulin Regular, Human [NovoLIN R] 4 unit SQ BID 03/18/19 03/18/19 Levothyroxine Compound 150 mcg PEJ/J-TUBE DAILY 03/18/19 03/18/19 Ranitidine Syrup [Zantac Syrup] 150 mg PEJ/J-TUBE Q12HR 03/18/19 03/18/19 Previous Rx's Medication Instructions Recorded Albuterol Nebulized [Ventolin 2.5 mg INHALATION QID PRN #125 nebu 03/18/19 Nebulized] Allergies Allergy/AdvReac Type Severity Reaction Status Date / Time Penicillins Allergy Unknown Verified 03/18/19 07:50 Childhood Sulfa (Sulfonamide Allergy Unknown Verified 03/18/19 07:50 Antibiotics) Childhood Review of Systems ROS Statement: Those systems with pertinent positive or pertinent negative responses have been documented in the HPI. ROS Other: All systems not noted in ROS Statement are negative. Constitutional: Denies: fever Eyes: Denies: eye pain ENT: Denies: ear pain Respiratory: Reports: cough, dyspnea Cardiovascular: Denies: chest pain Endocrine: Reports: fatigue Gastrointestinal: Denies: abdominal pain Genitourinary: Denies: dysuria Musculoskeletal: Denies: back pain Skin: Denies: rash Neurological: Denies: weakness Past Medical History Past Medical History: Cancer, Diabetes Mellitus, Hypertension, Musculoskeletal Disorder, Osteoarthritis (OA), Thyroid Disorder Additional Past Medical History / Comment(s): Leukemia at age 13 yrs W/ chemo and radiation, R breast cancer with mastectomy only, uterine cancer w/ SURGERY only, basal cell skin cancer head early 2017 w/ chemotherapy, current thyroid cancer with difficulty swallowing/deviated airway being treated w/ ch emo/radiation, current peg tube, gout bilateral feet/toes, past L wrist FX, arthritis bilateral hips. History of Any Multi-Drug Resistant Organisms: None Reported Past Surgical History: Appendectomy, Breast Surgery, Hernia Repair, Hysterectomy, Tonsillectomy Additional Past Surgical History / Comment(s): 08/25/17 EGD with peg tube, R mastectomy, basal cell skin cancer removed from head, total hysterectomy, bladder suspension, colonoscopy, PICC line. HAS J-TUBE 10/2017. Past Anesthesia/Blood Transfusion Reactions: Postoperative Nausea & Vomiting (PONV) Additional Past Anesthesia/Blood Transfusion Reaction / Comment(s): Pt has received blood without reaction. Smoking Status: Never smoker - Past Family History Sister(s) Family Medical History: Cancer, Thyroid Disorder Additional Family Medical History / Comment(s): Thyroid CA Mother Family Medical History: Diabetes Mellitus Father Additional Family Medical History / Comment(s): father has back problems. General Exam Limitations: no limitations General appearance: alert, in no apparent distress Head exam: Present: atraumatic Eye exam: Present: normal appearance Neck exam: Present: normal inspection Respiratory exam: Present: rhonchi Cardiovascular Exam: Present: normal rhythm, tachycardia GI/Abdominal exam: Present: soft. Absent: tenderness Extremities exam: Present: normal inspection. Absent: pedal edema, calf tenderness Neurological exam: Present: alert Psychiatric exam: Present: normal affect, normal mood Skin exam: Present: normal color Course Vital Signs 03/18/19 03/18/19 03/18/19 07:10 07:56 08:06 Temperature 98.7 F Pulse Rate 109 H 100 107 H Respiratory 22 22 Rate Blood Pressure 144/86 O2 Sat by Pulse 98 Oximetry EKG Findings - EKG Comments: EKG Findings:: Sinus tachycardia 109. MI 140. QRS 70. QT 344. QTC 463. Normal axis. Normal QRS. Prominent T waves. Medical Decision Making - Medical Decision Making Patient reevaluated and feeling much better. Lung sounds are clear. Patient states she is comfortable with her breathing and is comfortable with discharge home. Patient states she will follow-up with her doctor in the next couple of days. Patient does not want any antibiotics at this point stating she just recently finished them for sinus infection. Patient states she does have nebulizer machine at home however solution is likely . - Lab Data Result diagrams: 03/18/19 07:33 03/18/19 07:33 Lab Results 03/18/19 03/18/19 03/18/19 Range/Units 07:30 07:33 07:33 WBC 8.9 (3.8-10.6) k/uL RBC 3.47 L (3.80-5.40) m/uL Hgb 10.7 L (11.4-16.0) gm/dL Hct 31.1 L (34.0-46.0) % MCV 89.4 (80.0-100.0) fL MCH 30.9 (25.0-35.0) pg MCHC 34.5 (31.0-37.0) g/dL RDW 14.3 (11.5-15.5) % Plt Count 225 (150-450) k/uL Neutrophils % 83 % Lymphocytes % 9 % Monocytes % 5 % Eosinophils % 2 % Basophils % 0 % Neutrophils # 7.4 (1.3-7.7) k/uL Lymphocytes # 0.8 L (1.0-4.8) k/uL Monocytes # 0.4 (0-1.0) k/uL Eosinophils # 0.1 (0-0.7) k/uL Basophils # 0.0 (0-0.2) k/uL Poikilocytosis Slight PT (9.0-12.0) sec INR (<1.2) APTT (22.0-30.0) sec D-Dimer (<0.60) mg/L FEU Sodium 139 (137-145) mmol/L Potassium 3.9 (3.5-5.1) mmol/L Chloride 98 (98-107) mmol/L Carbon Dioxide 31 H (22-30) mmol/L Anion Gap 10 mmol/L BUN 16 (7-17) mg/dL Creatinine 0.38 L (0.52-1.04) mg/dL Est GFR (CKD-EPI)AfAm >90 (>60 ml/min/1.73 sqM) Est GFR (CKD-EPI)NonAf >90 (>60 ml/min/1.73 sqM) Glucose 162 H (74-99) mg/dL Calcium 7.6 L (8.4-10.2) mg/dL Total Bilirubin 0.3 (0.2-1.3) mg/dL AST 22 (14-36) U/L ALT 22 (9-52) U/L Alkaline Phosphatase 69 (38-126) U/L Troponin I <0.012 (0.000-0.034) ng/mL NT-Pro-B Natriuret Pep pg/mL Total Protein 6.2 L (6.3-8.2) g/dL Albumin 3.4 L (3.5-5.0) g/dL 03/18/19 03/18/19 Range/Units 07:33 07:33 WBC (3.8-10.6) k/uL RBC (3.80-5.40) m/uL Hgb (11.4-16.0) gm/dL Hct (34.0-46.0) % MCV (80.0-100.0) fL MCH (25.0-35.0) pg MCHC (31.0-37.0) g/dL RDW (11.5-15.5) % Plt Count (150-450) k/uL Neutrophils % % Lymphocytes % % Monocytes % % Eosinophils % % Basophils % % Neutrophils # (1.3-7.7) k/uL Lymphocytes # (1.0-4.8) k/uL Monocytes # (0-1.0) k/uL Eosinophils # (0-0.7) k/uL Basophils # (0-0.2) k/uL Poikilocytosis PT 10.2 (9.0-12.0) sec INR 0.9 (<1.2) APTT 27.2 (22.0-30.0) sec D-Dimer 0.49 (<0.60) mg/L FEU Sodium (137-145) mmol/L Potassium (3.5-5.1) mmol/L Chloride (98-107) mmol/L Carbon Dioxide (22-30) mmol/L Anion Gap mmol/L BUN (7-17) mg/dL Creatinine (0.52-1.04) mg/dL Est GFR (CKD-EPI)AfAm (>60 ml/min/1.73 sqM) Est GFR (CKD-EPI)NonAf (>60 ml/min/1.73 sqM) Glucose (74-99) mg/dL Calcium (8.4-10.2) mg/dL Total Bilirubin (0.2-1.3) mg/dL AST (14-36) U/L ALT (9-52) U/L Alkaline Phosphatase (38-126) U/L Troponin I (0.000-0.034) ng/mL NT-Pro-B Natriuret Pep 313 pg/mL Total Protein (6.3-8.2) g/dL Albumin (3.5-5.0) g/dL - Radiology Data Radiology results: image reviewed (Chest x-ray shows no acute process) Disposition Clinical Impression: Acute bronchitis Disposition: HOME SELF-CARE Condition: Stable Instructions (If sedation given, give patient instructions): Acute Bronchitis (ED) Additional Instructions: Please do follow-up with your primary care physician in the next day or 2 for recheck. Have your doctor recheck your calcium level. Return for difficulty breathing, fevers, chest pain, worsening symptoms or other concerns. Prescriptions: Albuterol Nebulized [Ventolin Nebulized] 2.5 mg INHALATION QID PRN #125 nebu PRN Reason: Dyspnea Is patient prescribed a controlled substance at d/c from ED?: No Referrals: Estiven Pastrana MD [Primary Care Provider] - 1-2 days Time of Disposition: 09:17
--- NOTE | 2019-03-18 07:51 | XR ---
EXAMINATION TYPE: XR chest 2V DATE OF EXAM: 03/18/2019 COMPARISON: 10/26/2017 HISTORY: Difficulty breathing TECHNIQUE: Frontal and lateral views of the chest are obtained. FINDINGS: There is no focal air space opacity, pleural effusion, or pneumothorax seen. The cardiac silhouette size is within normal limits. The osseous structures are intact. Surgical clips are seen over the midline soft tissues of the neck. Chronic fracture deformity of the right first rib is note d. Moderate degenerative changes of the spine. IMPRESSION: No acute cardiopulmonary process.
[2019-03-18 08:02] LABS: Basophils % (A) 0 %; Eosinophils # (A) 0.1 k/uL (0-0.7); Eosinophils % (A) 2 %; HCT 31.1 % (34.0-46.0); HGB 10.7 gm/dL (11.4-16.0); Lymphocytes # (A) 0.8 k/uL (1.0-4.8); Lymphocytes % (A) 9 %; MCH 30.9 pg (25.0-35.0); MCHC 34.5 g/dL (31.0-37.0); MCV 89.4 fL (80.0-100.0); Monocytes # (A) 0.4 k/uL (0-1.0); Monocytes % (A) 5 %; Neutrophils # (A) 7.4 k/uL (1.3-7.7); Neutrophils % (A) 83 %; Platelet Count 225 k/uL (150-450); Poikilocytosis Slight; RBC 3.47 m/uL (3.80-5.40); RDW 14.3 % (11.5-15.5); WBC 8.9 k/uL (3.8-10.6)
[2019-03-18 08:09] LABS: ALT 22 U/L (9-52); AST 22 U/L (14-36); African American GFR (CKD) >90 (>60 ml/min/1.73 sqM); Albumin 3.4 g/dL (3.5-5.0); Alkaline Phosphatase 69 U/L (38-126); Anion Gap 10 mmol/L; Blood Urea Nitrogen 16 mg/dL (7-17); Calcium 7.6 mg/dL (8.4-10.2); Carbon Dioxide 31 mmol/L (22-30); Chloride 98 mmol/L (98-107); Glucose 162 mg/dL (74-99); Potassium 3.9 mmol/L (3.5-5.1); Sodium 139 mmol/L (137-145); Total Bilirubin 0.3 mg/dL (0.2-1.3); Total Protein 6.2 g/dL (6.3-8.2)
[2019-03-18 08:11] LABS: D-Dimer 0.49 mg/L FEU (<0.60); INR 0.9 (<1.2); Partial Thromboplastin Time 27.2 sec (22.0-30.0); Prothrombin Time 10.2 sec (9.0-12.0)
[2019-03-18] MEDS ORDERED: CALCIUM CARBONATE 500 MG CHEWABLE PO STA (08:17)
[2019-03-18 09:38] VITALS: BP 125/86; PULSE 101; RESP 20
== END 2019-03-18 09:38 | disposition home or self-care (01) ==
LOC: EC 07:07
DX: J20.9 Acute bronchitis, unspecified (principal); E11.9 Type 2 diabetes mellitus without complications; I10 Essential (primary) hypertension; M10.9 Gout, unspecified; Z85.6 Personal history of leukemia; Z85.850 Personal history of malignant neoplasm of thyroid; Z92.21 Personal history of antineoplastic chemotherapy; Z85.3 Personal history of malignant neoplasm of breast; Z85.42 Personal history of malignant neoplasm of other parts of uterus; Z85.828 Personal history of other malignant neoplasm of skin; Z79.4 Long term (current) use of insulin; Z79.890 Hormone replacement therapy; Z79.899 Other long term (current) drug therapy; Z88.0 Allergy status to penicillin; Z88.2 Allergy status to sulfonamides
CPT/HCPCS: 36415; 71046; 80053; 83880; 84484; 85025; 85379; 85610; 85730; 93005; 94640; 99285

== ENCOUNTER 2019-03-22 14:51 | Emergency (ER) | payer OTHER ==
[2019-03-22] MEDS ORDERED: IPRATROPIUM-ALBUTEROL 3 ML NEB INHALATION STA (15:25)
--- NOTE | 2019-03-22 15:32 | ED ---
General Adult HPI - General Source: patient, RN notes reviewed Mode of arrival: ambulatory Limitations: no limitations <Florin Stevens - Last Filed: 03/22/19 16:55> <Dwight Pacheco - Last Filed: 03/22/19 21:45> - General Chief complaint: Shortness of Breath Stated complaint: PATRICIA Time Seen by Provider: 03/22/19 15:10 - History of Present Illness Initial comments: This is a 58-year-old female who presents emergency Department with a past medical history significant for thyroid cancer she had chemo and radiation which had been done for quite a while and did have a thyroidectomy in June of last year. Patient presents today for shortness of breath. Patient states it started on Monday he continues today. Patient states she saw someone in the emergency department on Monday any syndrome with an albuterol inhaler however that has not helped. Patient denies any chest pain or palpitations. Patient states she does have a cough and she coughs up quite a bit of sputum but she states she coughs up quite a bit of sputum for quite a while now ever since she had her radiation. Patient denies any fever or chills patient denies any headache patient denies numbness or weakness patient denies any abdominal pain patient denies nausea vomiting or diarrhea. (Florin Stevens) - Related Data Home Medications Medication Instructions Recorded Confirmed ALPRAZolam [Xanax] 0.25 mg PO HS PRN 03/22/19 03/22/19 Aspirin EC [Ecotrin Low Dose] 81 mg PO DAILY 03/22/19 03/22/19 Atorvastatin [Lipitor] 40 mg PO DAILY 03/22/19 03/22/19 Ibuprofen [Motrin] 800 mg PO TID PRN 03/22/19 03/22/19 Losartan Potassium 100 mg PO DAILY 03/22/19 03/22/19 Metoprolol Tartrate [Lopressor] 50 mg PO BID 03/22/19 03/22/19 Nitrofurantoin Monohyd/M-Cryst 100 mg PO BID 03/22/19 03/22/19 [Macrobid] Omeprazole 20 mg PO DAILY 03/22/19 03/22/19 Pioglitazone HCl [Actos] 15 mg PO DAILY 03/22/19 03/22/19 Tamsulosin HCl [Flomax] 0.4 mg PO DAILY 03/22/19 03/22/19 amLODIPine [Norvasc] 5 mg PO HS 03/22/19 03/22/19 amLODIPine [Norvasc] 10 mg PO HS 03/22/19 03/22/19 diphenhydrAMINE [Benadryl] 50 mg PO HS PRN 03/22/19 03/22/19 metFORMIN HCL [Glucophage] 500 mg PO TID 03/22/19 03/22/19 Allergies Allergy/AdvReac Type Severity Reaction Status Date / Time Penicillins Allergy Unknown Verified 03/22/19 16:11 Childhood Sulfa (Sulfonamide Allergy Unknown Verified 03/22/19 16:11 Antibiotics) Childhood Review of Systems ROS Other: All systems not noted in ROS Statement are negative. <Florin Stevens - Last Filed: 03/22/19 16:55> ROS Other: All systems not noted in ROS Statement are negative. <Dwight Pacheco - Last Filed: 03/22/19 21:45> ROS Statement: Those systems with pertinent positive or pertinent negative responses have been documented in the HPI. Past Medical History Past Medical History: Cancer, Diabetes Mellitus, Hypertension, Musculoskeletal Disorder, Osteoarthritis (OA), Thyroid Disorder Additional Past Medical History / Comment(s): Leukemia at age 13 yrs W/ chemo and radiation, R breast cancer with mastectomy only, uterine cancer w/ SURGERY only, basal cell skin cancer head early 2016 w/ chemotherapy, current thyroid cancer with difficulty swallowing/deviated airway being treated w/ ch emo/radiation, current peg tube, gout bilateral feet/toes, past L wrist FX, arthritis bilateral hips. History of Any Multi-Drug Resistant Organisms: None Reported Past Surgical History: Appendectomy, Breast Surgery, Hernia Repair, Hysterectomy, Tonsillectomy Additional Past Surgical History / Comment(s): 08/25/17 EGD with peg tube, R mastectomy, basal cell skin cancer removed from head, total hysterectomy, bladder suspension, colonoscopy, PICC line. HAS J-TUBE 10/2017. Past Anesthesia/Blood Transfusion Reactions: Postoperative Nausea & Vomiting (PONV) Additional Past Anesthesia/Blood Transfusion Reaction / Comment(s): Pt has received blood without reaction. Past Psychological History: No Psychological Hx Reported Smoking Status: Never smoker Past Alcohol Use History: None Reported Past Drug Use History: None Reported - Past Family History Sister(s) Family Medical History: Cancer, Thyroid Disorder Additional Family Medical History / Comment(s): Thyroid CA Mother Family Medical History: Diabetes Mellitus Father Additional Family Medical History / Comment(s): father has back problems. <Florin Stevens - Last Filed: 03/22/19 16:55> General Exam Limitations: no limitations <Florin Stevens - Last Filed: 03/22/19 16:55> - General Exam Comments Initial Comments: GENERAL: Patient is well-developed and well-nourished. Patient is nontoxic and well- hydrated and is in mild distress. ENT: Neck is soft and supple. No significant lymphadenopathy is noted. Oropharynx is clear. Moist mucous membranes. Neck has full range of motion without eliciting any pain. EYES: The sclera were anicteric and conjunctiva were pink and moist. Extraocular movements were intact and pupils were equal round and reactive to light. Eyelids were unremarkable. PULMONARY: Unlabored respirations. Good breath sounds bilaterally. No audible rales rhonchi or wheezing was noted. CARDIOVASCULAR: There is a regular rate and rhythm without any murmurs gallops or rubs. ABDOMEN: Soft and nontender with normal bowel sounds. SKIN: Skin is clear with no lesions or rashes and otherwise unremarkable. NEUROLOGIC: Patient is alert and oriented x3. Cranial nerves II through XII are grossly intact. Motor and sensory are also intact. Normal speech, volume and content. Symmetrical smile. MUSCULOSKELETAL: Normal extremities with adequate strength and full range of motion. LYMPHATICS: No significant lymphadenopathy is noted PSYCHIATRIC: Normal psychiatric evaluation. (Florin Stevens) Course Vital Signs 03/22/19 03/22/19 03/22/19 15:08 15:35 15:46 Temperature 98.6 F Pulse Rate 101 H 84 80 Respiratory 20 Rate Blood Pressure 109/69 O2 Sat by Pulse 97 Oximetry 03/22/19 03/22/19 18:00 19:51 Temperature 98.1 F Pulse Rate 99 93 Respiratory 24 16 Rate Blood Pressure 122/78 148/84 O2 Sat by Pulse 100 100 Oximetry Medical Decision Making <Florin Stevens - Last Filed: 03/22/19 16:55> - Lab Data Result diagrams: 03/22/19 17:00 03/22/19 17:00 <Dwight Pacehco - Last Filed: 03/22/19 21:45> - Medical Decision Making EKG shows normal sinus rhythm at 97 bpm IN interval is 142 QRS is 76 QT interval 378 QTC is 480. Patient's EKG shows no ST segment elevation or depression or T wave normalities are noted. Dr. Pacheco will be taking over care of this patient at 5 PM (Florin Stevens) Patient's care is signed out at shift change awaiting laboratory testing and chest x-ray. These were reviewed, unremarkable. I did reevaluate this patient, she had some inspiratory stridor. Given her previous history of thyroid cancer and did CT her neck with contrast, this shows a recurrent mass adjacent to the larynx 2 cm with narrowing of the airway to 5 mm. She is given Decadron. She is saturating well, she is alert with stable vitals. I discussed the case with patient's primary care physician, and the pulmonary tipple tender as well as ENT Dr. Concepcion. ENT felt this patient should be transferred. Did not recommend any surgical intervention at this time. [place] that tracheostomy had too much risk of hemorrhage. I discussed case with Dr. Christianson from [facility] as well as the ENT surgeon Dr. Tejeda. He would preferred that this patient had a definitive airway prior to transfer. However given the recommendations by ENT, stable appearance of this patient, and the narrowing of the airway on CT, I feel this patient can be transferred for definitive management by ENT in [place]. Patient was in the emergency department for a total of 6-1/2 hours with no deterioration in her symptoms. (Dwight Pacheco) - Lab Data Lab Results 03/22/19 03/22/19 03/22/19 Range/Units 17:00 17:00 17:00 WBC 8.7 (3.8-10.6) k/uL RBC 3.76 L (3.80-5.40) m/uL Hgb 11.4 (11.4-16.0) gm/dL Hct 34.0 (34.0-46.0) % MCV 90.5 (80.0-100.0) fL MCH 30.2 (25.0-35.0) pg MCHC 33.3 (31.0-37.0) g/dL RDW 13.6 (11.5-15.5) % Plt Count 297 (150-450) k/uL Neutrophils % 84 % Lymphocytes % 8 % Monocytes % 5 % Eosinophils % 2 % Basophils % 0 % Neutrophils # 7.3 (1.3-7.7) k/uL Lymphocytes # 0.7 L (1.0-4.8) k/uL Monocytes # 0.5 (0-1.0) k/uL Eosinophils # 0.2 (0-0.7) k/uL Basophils # 0.0 (0-0.2) k/uL PT (9.0-12.0) sec INR (<1.2) APTT (22.0-30.0) sec D-Dimer (<0.60) mg/L FEU Sodium 137 (137-145) mmol/L Potassium 5.1 (3.5-5.1) mmol/L Chloride 98 (98-107) mmol/L Carbon Dioxide 27 (22-30) mmol/L Anion Gap 12 mmol/L BUN 18 H (7-17) mg/dL Creatinine 0.40 L (0.52-1.04) mg/dL Est GFR (CKD-EPI)AfAm >90 (>60 ml/min/1.73 sqM) Est GFR (CKD-EPI)NonAf >90 (>60 ml/min/1.73 sqM) Glucose 219 H (74-99) mg/dL Calcium 8.1 L (8.4-10.2) mg/dL Magnesium 2.0 (1.6-2.3) mg/dL Total Bilirubin 0.7 (0.2-1.3) mg/dL AST 46 H (14-36) U/L ALT 15 (9-52) U/L Alkaline Phosphatase 69 (38-126) U/L Troponin I (0.000-0.034) ng/mL NT-Pro-B Natriuret Pep 368 pg/mL Total Protein 7.0 (6.3-8.2) g/dL Albumin 3.8 (3.5-5.0) g/dL 03/22/19 03/22/19 Range/Units 17:00 17:28 WBC (3.8-10.6) k/uL RBC (3.80-5.40) m/uL Hgb (11.4-16.0) gm/dL Hct (34.0-46.0) % MCV (80.0-100.0) fL MCH (25.0-35.0) pg MCHC (31.0-37.0) g/dL RDW (11.5-15.5) % Plt Count (150-450) k/uL Neutrophils % % Lymphocytes % % Monocytes % % Eosinophils % % Basophils % % Neutrophils # (1.3-7.7) k/uL Lymphocytes # (1.0-4.8) k/uL Monocytes # (0-1.0) k/uL Eosinophils # (0-0.7) k/uL Basophils # (0-0.2) k/uL PT 10.4 (9.0-12.0) sec INR 1.0 (<1.2) APTT 25.7 (22.0-30.0) sec D-Dimer 0.32 (<0.60) mg/L FEU Sodium (137-145) mmol/L Potassium (3.5-5.1) mmol/L Chloride (98-107) mmol/L Carbon Dioxide (22-30) mmol/L Anion Gap mmol/L BUN (7-17) mg/dL Creatinine (0.52-1.04) mg/dL Est GFR (CKD-EPI)AfAm (>60 ml/min/1.73 sqM) Est GFR (CKD-EPI)NonAf (>60 ml/min/1.73 sqM) Glucose (74-99) mg/dL Calcium (8.4-10.2) mg/dL Magnesium (1.6-2.3) mg/dL Total Bilirubin (0.2-1.3) mg/dL AST (14-36) U/L ALT (9-52) U/L Alkaline Phosphatase (38-126) U/L Troponin I <0.012 (0.000-0.034) ng/mL NT-Pro-B Natriuret Pep pg/mL Total Protein (6.3-8.2) g/dL Albumin (3.5-5.0) g/dL Critical Care Time Critical Care Time: Yes Total Critical Care Time: 240 <Dwight Pacheco - Last Filed: 03/22/19 21:45> Disposition <Florin Stevens - Last Filed: 03/22/19 16:55> Is patient prescribed a controlled substance at d/c from ED?: No Decision to Admit Reason: Admit from EC Decision Date: 03/22/19 Decision Time: 21:17 - Out of Hospital Transfer - Req. Specs Out of Hospital Transfer - Requested Specifics: Other Emergency Center (Transfer to [facility] ER) <Dwight Pacheco - Last Filed: 03/22/19 21:45> Clinical Impression: Laryngeal mass, Stridor, Anaplastic thyroid carcinoma Disposition: OTHER INSTITUTION NOT DEFINED Condition: Serious Referrals: Estiven Pastrana MD [Primary Care Provider] - 1-2 days
[2019-03-22 17:15] LABS: Basophils % (A) 0 %; Eosinophils # (A) 0.2 k/uL (0-0.7); Eosinophils % (A) 2 %; HGB 11.4 gm/dL (11.4-16.0); Lymphocytes # (A) 0.7 k/uL (1.0-4.8); Lymphocytes % (A) 8 %; MCH 30.2 pg (25.0-35.0); MCHC 33.3 g/dL (31.0-37.0); MCV 90.5 fL (80.0-100.0); Mean Platelet Volume 7.1; Monocytes # (A) 0.5 k/uL (0-1.0); Monocytes % (A) 5 %; Neutrophils # (A) 7.3 k/uL (1.3-7.7); Neutrophils % (A) 84 %; Platelet Count 297 k/uL (150-450); RBC 3.76 m/uL (3.80-5.40); RDW 13.6 % (11.5-15.5); WBC 8.7 k/uL (3.8-10.6)
[2019-03-22 17:25] LABS: ALT 15 U/L (9-52); AST 46 U/L (14-36); African American GFR (CKD) >90 (>60 ml/min/1.73 sqM); Albumin 3.8 g/dL (3.5-5.0); Alkaline Phosphatase 69 U/L (38-126); Anion Gap 12 mmol/L; Blood Urea Nitrogen 18 mg/dL (7-17); Calcium 8.1 mg/dL (8.4-10.2); Carbon Dioxide 27 mmol/L (22-30); Chloride 98 mmol/L (98-107); Glucose 219 mg/dL (74-99); Potassium 5.1 mmol/L (3.5-5.1); Sodium 137 mmol/L (137-145); Total Bilirubin 0.7 mg/dL (0.2-1.3)
--- NOTE | 2019-03-22 17:35 | XR ---
EXAMINATION TYPE: XR chest 2V DATE OF EXAM: 03/22/2019 COMPARISON: 03/18/2019 HISTORY: Short of breath TECHNIQUE: Frontal and lateral views of the chest are obtained. FINDINGS: Heart is normal. Lungs are clear of consolidation. Thoracic aorta is atheromatous. There i s no pleural effusion. Bony thorax is intact. There are numerous surgical clips over the base of the neck. IMPRESSION: No active cardiopulmonary disease. Normal heart. No change compared to old exam.
[2019-03-22 18:14] LABS: D-Dimer 0.32 mg/L FEU (<0.60); Partial Thromboplastin Time 25.7 sec (22.0-30.0); Prothrombin Time 10.4 sec (9.0-12.0)
[2019-03-22] MEDS ORDERED: DEXAMETHASONE SOD PHOSPHATE 10 MG/ML 1 ML VIAL IV STA (18:22)
--- NOTE | 2019-03-22 18:55 | CT ---
EXAMINATION TYPE: CT soft tissue neck w con DATE OF EXAM: 03/22/2019 6:38 PM COMPARISON: 11/26/2018 HISTORY: Difficulty breathing. CT DLP: 210.8 mGycm Automated exposure control for dose reduction was used. CONTRAST: CT scan of the neck is performed following with IV Contrast, patient injected with 100ml mL of Isovue 300. Axial images are obtained, coronal and sagittal reformatted images are reviewed. FINDINGS: There is normal branching pattern of the great vessels on the aortic arch. There is arterial flow in the vertebral arteries. There is arterial flow in the common internal and external carotid arteries b ilaterally. There is moderate plaque at the carotid artery bifurcations. There is mass impingement on the posterior wall of the trachea. There is some effacement of the posterior wall and left lateral w all of the trachea. There are numerous surgical clips related to thyroidectomy. The hypopharynx appears intact. Epiglottis is normal. Tonsils and adenoids are within normal limits. The parotid glands are symmetric. The submandibular salivary glands are symmetric. I see no definite cervical adenopathy. There are spondylotic changes in the cervical spine with some straightening and slight kyphotic curvature. There is degenerative disc space narrowing at C5-6 C6-7. There is normal aeration of the visualized paranasal sinuses. IMPRESSION: There is 2 cm mass posterior to the trachea on the left side with mass impingement and narrowing of t he lumen of the upper trachea. The lumen is narrowed to 5 mm. 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 Previous thyroidectomy. The appearance is consistent with recurrent tumor in this patient with a history of thyroid cancer. Mass appears new compared to old CT scan of 11/26/2018.
[2019-03-22 23:27] VITALS: BP 138/74; PULSE 111; RESP 26; TEMP 98.9
== END 2019-03-22 22:40 | disposition short-term general hospital (02) ==
LOC: EC 14:51
DX: J38.7 Other diseases of larynx (principal); R06.1 Stridor; Z85.850 Personal history of malignant neoplasm of thyroid; E11.9 Type 2 diabetes mellitus without complications; I10 Essential (primary) hypertension; M10.9 Gout, unspecified; M16.0 Bilateral primary osteoarthritis of hip; Z88.0 Allergy status to penicillin; Z88.2 Allergy status to sulfonamides; Z79.82 Long term (current) use of aspirin; Z79.84 Long term (current) use of oral hypoglycemic drugs; Z79.899 Other long term (current) drug therapy; Z85.6 Personal history of leukemia; Z92.21 Personal history of antineoplastic chemotherapy; Z92.3 Personal history of irradiation; E89.0 Postprocedural hypothyroidism; Z85.3 Personal history of malignant neoplasm of breast; Z90.11 Acquired absence of right breast and nipple; Z85.42 Personal history of malignant neoplasm of other parts of uterus; Z90.710 Acquired absence of both cervix and uterus; Z85.828 Personal history of other malignant neoplasm of skin; Z93.1 Gastrostomy status; Z80.8 Family history of malignant neoplasm of other organs or systems; Z90.89 Acquired absence of other organs
CPT/HCPCS: 36415; 94640; 93005; 85379; 83880; 80053; 83735; 84484; 85025; 85610; 85730; 71046; 70491; 99291; 99292; 96374; J1100; Q9967

== ENCOUNTER 2019-05-19 01:51 | Emergency (ER) | payer OTHER ==
[2019-05-19] MEDS ORDERED: SODIUM CHLORIDE 0.9% 1,000 ML IV STA (01:55)
[2019-05-19] MEDS ORDERED: TRANEXAMIC ACID 1,000 MG in SODIUM CHLORIDE 0.9% 100 ML IV STA (01:56)
[2019-05-19 02:38] LABS: Glucose,Whole Blood 304 mg/dL (75-99)
[2019-05-19 02:41] LABS: Basophils % (A) 0 %; Eosinophils # (A) 0.2 k/uL (0-0.7); Eosinophils % (A) 2 %; HCT 30.1 % (34.0-46.0); Lymphocytes # (A) 0.9 k/uL (1.0-4.8); Lymphocytes % (A) 8 %; MCH 28.8 pg (25.0-35.0); MCHC 32.8 g/dL (31.0-37.0); MCV 87.7 fL (80.0-100.0); Monocytes # (A) 0.9 k/uL (0-1.0); Monocytes % (A) 8 %; Neutrophils # (A) 8.8 k/uL (1.3-7.7); Neutrophils % (A) 82 %; Platelet Count 263 k/uL (150-450); RBC 3.44 m/uL (3.80-5.40); RDW 14.6 % (11.5-15.5); WBC 10.9 k/uL (3.8-10.6)
--- NOTE | 2019-05-19 02:41 | ED ---
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 She reports that since her trach was placed she has had some tenderness and discomfort around the area. Patient reports that around 9 PM tonight she had a coughing episode and noted she dislodged a blood clot from around her trachea. She also noted coughing up a little bit of blood. She reports that since 9 PM she's noticed continuous dark bleeding from around her tracheostomy. Bleeding persisted for greater than 3 hours at which time she contacted EMS for transport to the hospital. EMS reports that upon their arrival patient had a significant amount of blood loss possibly couple 100 mL bolus hemodynamically stable and noted to be hypertensive . - Related Data Home Medications Medication Instructions Recorded Confirmed ALPRAZolam [Xanax] 0.25 mg PO HS PRN 03/22/19 03/22/19 Aspirin EC [Ecotrin Low Dose] 81 mg PO DAILY 03/22/19 03/22/19 Atorvastatin [Lipitor] 40 mg PO DAILY 03/22/19 03/22/19 Ibuprofen [Motrin] 800 mg PO TID PRN 03/22/19 03/22/19 Losartan Potassium 100 mg PO DAILY 03/22/19 03/22/19 Metoprolol Tartrate [Lopressor] 50 mg PO BID 03/22/19 03/22/19 Nitrofurantoin Monohyd/M-Cryst 100 mg PO BID 03/22/19 03/22/19 [Macrobid] Omeprazole 20 mg PO DAILY 03/22/19 03/22/19 Pioglitazone HCl [Actos] 15 mg PO DAILY 03/22/19 03/22/19 Tamsulosin HCl [Flomax] 0.4 mg PO DAILY 03/22/19 03/22/19 amLODIPine [Norvasc] 5 mg PO HS 03/22/19 03/22/19 amLODIPine [Norvasc] 10 mg PO HS 03/22/19 03/22/19 diphenhydrAMINE [Benadryl] 50 mg PO HS PRN 03/22/19 03/22/19 metFORMIN HCL [Glucophage] 500 mg PO TID 03/22/19 03/22/19 Allergies Allergy/AdvReac Type Severity Reaction Status Date / Time Penicillins Allergy Unknown Verified 05/19/19 01:58 Childhood Sulfa (Sulfonamide Allergy Unknown Verified 05/19/19 01:58 Antibiotics) Childhood Review of Systems ROS Statement: Those systems with pertinent positive or pertinent negative responses have been documented in the HPI. ROS Other: All systems not noted in ROS Statement are negative. Past Medical History Past Medical History: Cancer, Diabetes Mellitus, Hypertension, Musculoskeletal Disorder, Osteoarthritis (OA), Thyroid Disorder Additional Past Medical History / Comment(s): Leukemia at age 13 yrs W/ chemo and radiation, R breast cancer with mastectomy only, uterine cancer w/ SURGERY only, basal cell skin cancer head early 2016 w/ chemotherapy, thyroid cancer with trach 03/2019, current peg tube, gout bilateral feet/toes, past L wrist FX, arthritis bilateral hips. History of Any Multi-Drug Resistant Organisms: None Reported Past Surgical History: Appendectomy, Breast Surgery, Hernia Repair, Hysterectomy, Tonsillectomy Additional Past Surgical History / Comment(s): 08/25/17 EGD with peg tube, R mastectomy, basal cell skin cancer removed from head, total hysterectomy, bladder suspension, colonoscopy, PICC line. HAS J-TUBE 10/2017. trach placed Past Anesthesia/Blood Transfusion Reactions: Postoperative Nausea & Vomiting (PONV) Additional Past Anesthesia/Blood Transfusion Reaction / Comment(s): Pt has rece ived blood without reaction. Past Psychological History: No Psychological Hx Reported Smoking Status: Never smoker Past Alcohol Use History: None Reported Past Drug Use History: None Reported - Past Family History Sister(s) Family Medical History: Cancer, Thyroid Disorder Additional Family Medical History / Comment(s): Thyroid CA Mother Family Medical History: Diabetes Mellitus Father Additional Family Medical History / Comment(s): father has back problems. General Exam - General Exam Comments Initial Comments: Physical Exam GENERAL: Appears older than stated age HENT: Normocephalic, Atraumatic. Tracheostomy in place with large amount of blood clot surrounding Venous oozing of blood from trach EYES: PERRL, EOMI No conjunctival pallor PULMONARY: Unlabored respirations. No audible rales rhonchi or wheezing was noted. CARDIOVASCULAR: There is a regular rate and rhythm without any murmurs gallops or rubs. ABDOMEN: Soft and nontender with normal bowel sounds. SKIN: Skin is clear with no lesions or rashes and otherwise unremarkable. : Deferred NEUROLOGIC: Patient is alert and oriented x3. Moving all extremities spontaneously MUSCULOSKELETAL: Normal extremities with adequate strength and full range of motion. No lower extremity swelling or edema. No calf tenderness. PSYCHIATRIC: Appropriate situational anxiety. Limitations: no limitations Course Vital Signs 05/19/19 05/19/19 05/19/19 01:56 04:27 06:03 Temperature 97.4 F L 97.6 F Pulse Rate 105 H 98 89 Respiratory 18 24 22 Rate Blood Pressure 154/75 159/84 157/28 O2 Sat by Pulse 94 L 97 95 Oximetry Medical Decision Making - Medical Decision Making The patient was seen and evaluated, history was obtained from the patient and review of medical record Patient with a trach that was placed approximately 7 weeks ago now having dark venous bleeding Tiana Blackwood therapist at bedside to assist in evaluation of the tracheostomy, trach remained in place, large amount of malodorous clot was removed from around the trach There is no acute arterial bleeding noted, there is dark venous oozing TXA was given due to bleeding Abs were obtained, patient's hemoglobin is 9.9, when compared to previous this is a drop. Patient's most recent hemoglobin in our system was 11.4 in early September however this was preoperative prior to the patient be transferred to [facility] for her tracheostomy placement. Uncertain what the true hemoglobin drop with this bleeding today is a suspect she has lost 3-500 mL of blood. Patient care was discussed with ENT resident at [facility] identified himself as Adam and accepted the transfer on behalf of Dr. Jang - Lab Data Result diagrams: 05/19/19 02:24 05/19/19 02:24 Lab Results 05/19/19 05/19/19 05/19/19 Range/Units 02:24 02:24 02:24 WBC 10.9 H (3.8-10.6) k/uL RBC 3.44 L (3.80-5.40) m/uL Hgb 9.9 L D (11.4-16.0) gm/dL Hct 30.1 L (34.0-46.0) % MCV 87.7 (80.0-100.0) fL MCH 28.8 (25.0-35.0) pg MCHC 32.8 (31.0-37.0) g/dL RDW 14.6 (11.5-15.5) % Plt Count 263 (150-450) k/uL Neutrophils % 82 % Lymphocytes % 8 % Monocytes % 8 % Eosinophils % 2 % Basophils % 0 % Neutrophils # 8.8 H (1.3-7.7) k/uL Lymphocytes # 0.9 L (1.0-4.8) k/uL Monocytes # 0.9 (0-1.0) k/uL Eosinophils # 0.2 (0-0.7) k/uL Basophils # 0.0 (0-0.2) k/uL Sodium 134 L (137-145) mmol/L Potassium 4.1 (3.5-5.1) mmol/L Chloride 97 L (98-107) mmol/L Carbon Dioxide 29 (22-30) mmol/L Anion Gap 8 mmol/L BUN 17 (7-17) mg/dL Creatinine 0.36 L (0.52-1.04) mg/dL Est GFR (CKD-EPI)AfAm >90 (>60 ml/min/1.73 sqM) Est GFR (CKD-EPI)NonAf >90 (>60 ml/min/1.73 sqM) Glucose 273 H (74-99) mg/dL POC Glucose (mg/dL) (75-99) mg/dL POC Glu Newspaper Journalist ID Calcium 6.9 L (8.4-10.2) mg/dL Total Bilirubin 0.7 (0.2-1.3) mg/dL AST 46 H (14-36) U/L ALT 7 L (9-52) U/L Alkaline Phosphatase 52 (38-126) U/L Total Protein 6.1 L (6.3-8.2) g/dL Albumin 3.0 L (3.5-5.0) g/dL Blood Type O Negative Blood Type Recheck O Neg Bld Type Recheck Status No Antibody Screen NEGATIVE Spec Expiration Date 05/22/2019 - 232305/19/19 Range/Units 02:34 WBC (3.8-10.6) k/uL RBC (3.80-5.40) m/uL Hgb (11.4-16.0) gm/dL Hct (34.0-46.0) % MCV (80.0-100.0) fL MCH (25.0-35.0) pg MCHC (31.0-37.0) g/dL RDW (11.5-15.5) % Plt Count (150-450) k/uL Neutrophils % % Lymphocytes % % Monocytes % % Eosinophils % % Basophils % % Neutrophils # (1.3-7.7) k/uL Lymphocytes # (1.0-4.8) k/uL Monocytes # (0-1.0) k/uL Eosinophils # (0-0.7) k/uL Basophils # (0-0.2) k/uL Sodium (137-145) mmol/L Potassium (3.5-5.1) mmol/L Chloride (98-107) mmol/L Carbon Dioxide (22-30) mmol/L Anion Gap mmol/L BUN (7-17) mg/dL Creatinine (0.52-1.04) mg/dL Est GFR (CKD-EPI)AfAm (>60 ml/min/1.73 sqM) Est GFR (CKD-EPI)NonAf (>60 ml/min/1.73 sqM) Glucose (74-99) mg/dL POC Glucose (mg/dL) 304 H (75-99) mg/dL POC Glu Newspaper Journalist Rosalind Smyth Calcium (8.4-10.2) mg/dL Total Bilirubin (0.2-1.3) mg/dL AST (14-36) U/L ALT (9-52) U/L Alkaline Phosphatase (38-126) U/L Total Protein (6.3-8.2) g/dL Albumin (3.5-5.0) g/dL Blood Type Blood Type Recheck Bld Type Recheck Status Antibody Screen Spec Expiration Date Critical Care Time Critical Care Time: Yes Total Critical Care Time: 45 Critical Care Time: Critical Care Time Critical care time was exclusive of separately billable procedures and treating other patients and teaching time. Critical care was necessary to treat or prevent imminent or life-threatening deterioration. Given the critical condition in which the patient arrived, the patient was immediately assessed by myself and the nurse, and cardiac monitoring initiated due to the potential for rapid decompensation of the patient's clinical condition. During the course of the patients stay, I spent a considerable amount of time at the bedside performing serial re-evaluations of the patient's hemodynamic and clinical status because of the recognized potential threat to life or limb in this condition. I then had a chance to review not only all of the available current laboratory and radiographic studies obtained today, but I also reviewed old records available to me at the time. Additionally, any ancilla ry information available including clarifying plant operator records were reviewed. Sequential vital signs were obtained. Disposition Clinical Impression: Tracheostomy hemorrhage Disposition: OTHER INSTITUTION NOT DEFINED Condition: Serious Is patient prescribed a controlled substance at d/c from ED?: No Referrals: None,Stated [REFERRING] - 1-2 days - Out of Hospital Transfer - Req. Specs Out of Hospital Transfer - Requested Specifics: Other Non-Acute ([facility])
[2019-05-19 02:42] LABS: African American GFR (CKD) >90 (>60 ml/min/1.73 sqM); Anion Gap 8 mmol/L; Calcium 6.9 mg/dL (8.4-10.2); Carbon Dioxide 29 mmol/L (22-30); Chloride 97 mmol/L (98-107); Glucose 273 mg/dL (74-99); Sodium 134 mmol/L (137-145); Total Bilirubin 0.7 mg/dL (0.2-1.3); Total Protein 6.1 g/dL (6.3-8.2)
[2019-05-19 02:43] LABS: HGB 9.9 gm/dL (11.4-16.0)
[2019-05-19 02:45] LABS: ALT 7 U/L (9-52); AST 46 U/L (14-36); Alkaline Phosphatase 52 U/L (38-126); Blood Urea Nitrogen 17 mg/dL (7-17); Potassium 4.1 mmol/L (3.5-5.1)
--- NOTE | 2019-05-19 03:48 | XR ---
INDICATION: Pain COMPARISON: CXR 03/22/19 FINDINGS: Portable AP view of the chest is provided. A tracheostomy tube is in place with tip 1.3 cm above the silviano. The cardiomediastinal silhouette and pulmonary vascularity are normal. The left hemidiaphragm is elevated and there is left basilar subsegmental atelectasis. The right lung is clear. There is no pleural effusion or pneumothorax. There are no acute osseous findings. IMPRESSION: 1. Left hemidiaphragm elevation with left basilar subsegmental atelectasis. 2. Tracheostomy tube in place.
[2019-05-19 06:04] VITALS: TEMP 97.6
[2019-05-19] MEDS ORDERED: TRANEXAMIC ACID 1,000 MG in SODIUM CHLORIDE 0.9% 250 ML IV ONE (08:08)
[2019-05-19 08:13] LABS: Basophils % (A) 0 %; Eosinophils # (A) 0.1 k/uL (0-0.7); Eosinophils % (A) 1 %; HCT 27.8 % (34.0-46.0); HGB 9.2 gm/dL (11.4-16.0); Hypochromasia Slight; Lymphocytes # (A) 1.6 k/uL (1.0-4.8); Lymphocytes % (A) 10 %; MCH 29.3 pg (25.0-35.0); MCHC 33.1 g/dL (31.0-37.0); MCV 88.6 fL (80.0-100.0); Mean Platelet Volume 7.2; Monocytes # (A) 0.6 k/uL (0-1.0); Monocytes % (A) 4 %; Neutrophils # (A) 13.5 k/uL (1.3-7.7); Neutrophils % (A) 84 %; Platelet Count 499 k/uL (150-450); Poikilocytosis Slight; RBC 3.13 m/uL (3.80-5.40)
[2019-05-19] MEDS ORDERED: fentaNYL (PF) 50 MCG/ML 2 ML AMP IVP STA (08:13)
[2019-05-19] MEDS ORDERED: EPINEPHrine 10 ML SYRINGE (0.1 MG/ML) ONE (08:55)
--- NOTE | 2019-05-19 09:43 | ED ---
Medical Decision Making - Lab Data Result diagrams: 05/19/19 07:58 05/19/19 02:24 Lab Results 05/19/19 05/19/19 05/19/19 Range/Units 02:24 02:24 02:24 WBC 10.9 H (3.8-10.6) k/uL RBC 3.44 L (3.80-5.40) m/uL Hgb 9.9 L D (11.4-16.0) gm/dL Hct 30.1 L (34.0-46.0) % MCV 87.7 (80.0-100.0) fL MCH 28.8 (25.0-35.0) pg MCHC 32.8 (31.0-37.0) g/dL RDW 14.6 (11.5-15.5) % Plt Count 263 (150-450) k/uL Neutrophils % 82 % Lymphocytes % 8 % Monocytes % 8 % Eosinophils % 2 % Basophils % 0 % Neutrophils # 8.8 H (1.3-7.7) k/uL Lymphocytes # 0.9 L (1.0-4.8) k/uL Monocytes # 0.9 (0-1.0) k/uL Eosinophils # 0.2 (0-0.7) k/uL Basophils # 0.0 (0-0.2) k/uL Hypochromasia Poikilocytosis Sodium 134 L (137-145) mmol/L Potassium 4.1 (3.5-5.1) mmol/L Chloride 97 L (98-107) mmol/L Carbon Dioxide 29 (22-30) mmol/L Anion Gap 8 mmol/L BUN 17 (7-17) mg/dL Creatinine 0.36 L (0.52-1.04) mg/dL Est GFR (CKD-EPI)AfAm >90 (>60 ml/min/1.73 sqM) Est GFR (CKD-EPI)NonAf >90 (>60 ml/min/1.73 sqM) Glucose 273 H (74-99) mg/dL POC Glucose (mg/dL) (75-99) mg/dL POC Glu Health Inspector ID Calcium 6.9 L (8.4-10.2) mg/dL Total Bilirubin 0.7 (0.2-1.3) mg/dL AST 46 H (14-36) U/L ALT 7 L (9-52) U/L Alkaline Phosphatase 52 (38-126) U/L Total Protein 6.1 L (6.3-8.2) g/dL Albumin 3.0 L (3.5-5.0) g/dL Blood Type O Negative Blood Type Recheck O Neg Bld Type Recheck Status No Antibody Screen NEGATIVE Crossmatch See Detail Transfuse Plasma Spec Expiration Date 05/22/2019232305/19/19 05/19/19 05/19/19 Range/Units 02:34 07:58 08:18 WBC 16.0 H (3.8-10.6) k/uL RBC 3.13 L (3.80-5.40) m/uL Hgb 9.2 L (11.4-16.0) gm/dL Hct 27.8 L (34.0-46.0) % MCV 88.6 (80.0-100.0) fL MCH 29.3 (25.0-35.0) pg MCHC 33.1 (31.0-37.0) g/dL RDW 15.0 (11.5-15.5) % Plt Count 499 H (150-450) k/uL Neutrophils % 84 % Lymphocytes % 10 % Monocytes % 4 % Eosinophils % 1 % Basophils % 0 % Neutrophils # 13.5 H (1.3-7.7) k/uL Lymphocytes # 1.6 (1.0-4.8) k/uL Monocytes # 0.6 (0-1.0) k/uL Eosinophils # 0.1 (0-0.7) k/uL Basophils # 0.0 (0-0.2) k/uL Hypochromasia Slight Poikilocytosis Slight Sodium (137-145) mmol/L Potassium (3.5-5.1) mmol/L Chloride (98-107) mmol/L Carbon Dioxide (22-30) mmol/L Anion Gap mmol/L BUN (7-17) mg/dL Creatinine (0.52-1.04) mg/dL Est GFR (CKD-EPI)AfAm (>60 ml/min/1.73 sqM) Est GFR (CKD-EPI)NonAf (>60 ml/min/1.73 sqM) Glucose (74-99) mg/dL POC Glucose (mg/dL) 304 H (75-99) mg/dL POC Glu Health Inspector ID Rosalind Lopez Calcium (8.4-10.2) mg/dL Total Bilirubin (0.2-1.3) mg/dL AST (14-36) U/L ALT (9-52) U/L Alkaline Phosphatase (38-126) U/L Total Protein (6.3-8.2) g/dL Albumin (3.5-5.0) g/dL Blood Type Blood Type Recheck Bld Type Recheck Status Antibody Screen Crossmatch Transfuse Plasma 05/19/19 Spec Expiration Date Disposition Clinical Impression: Tracheostomy hemorrhage, Cardiac arrest Disposition: Referrals: None,Stated [REFERRING] - 1-2 days Preliminary Cause of : Tracheal mass, Hemorrhage Procedures - Intubation Laryngoscope: Granger Size: 4 Assist Device Used: Bougie ET Tube Size: 7 ET Tube Uncuffed: No Tube Placement Confirmation: visualized tube passing through cords, no breath sounds over epigastrium Intubation Complications: difficult intubation
[2019-05-19 12:25] VITALS: BP 136/61; PULSE 94; RESP 29
== END 2019-05-19 13:20 | disposition expired ==
LOC: EC 01:51
DX: J95.01 Hemorrhage from tracheostomy stoma (principal); I46.9 Cardiac arrest, cause unspecified; C73 Malignant neoplasm of thyroid gland; M10.9 Gout, unspecified; E11.9 Type 2 diabetes mellitus without complications; I10 Essential (primary) hypertension; M16.0 Bilateral primary osteoarthritis of hip; Z79.84 Long term (current) use of oral hypoglycemic drugs; Z79.82 Long term (current) use of aspirin; Z79.899 Other long term (current) drug therapy; Z46.82 Encounter for fitting and adjustment of non-vascular catheter; Z88.0 Allergy status to penicillin; Z88.2 Allergy status to sulfonamides; Z85.3 Personal history of malignant neoplasm of breast; Z85.42 Personal history of malignant neoplasm of other parts of uterus; Z98.890 Other specified postprocedural states; Z85.828 Personal history of other malignant neoplasm of skin; Z90.89 Acquired absence of other organs; Z92.21 Personal history of antineoplastic chemotherapy; Z92.3 Personal history of irradiation; Z90.11 Acquired absence of right breast and nipple
CPT/HCPCS: 31500; 99291; 96365; 96366; 96367; 96375; 96361 ×4; 36415; 86900; 86901; 80053; 85025; 86850; 86920; 71045; P9016; P9059; J0171; J3010